=== PATIENT | female | born 1980 | race Caucasian/White ===

== ENCOUNTER 2024-07-16 19:18 | Inpatient (IN) | payer MEDICARE, MEDICAID, SELFPAY ==
[2024-07-16] VITALS (32 sets, daily range): BP systolic 93–126; BP diastolic 62–81; PULSE 22–126; TEMP 36.5–36.6; O2SAT 88–98; BMI 25.2
--- NOTE | 2024-07-16 19:38 | ECG_ITS ---
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
[2024-07-16] MEDS: IPRATROPIUM/ALBUTEROL SULFATE 3 ML AMPUL.NEB IH (20:03)
[2024-07-16 20:05] LABS: Mean Corpuscular HGB Conc 33.3 g/dL (29.9-35.2); Mean Corpuscular Hemoglobin 28.2 pg (26.7-34.0); Mean Corpuscular Volume 84.5 fL (81.0-99.0); Mean Platelet Volume 10.1 fL (9.5-13.5); Platelet Count 160 10^3/uL (150-450); Red Blood Count 4.26 10^6/uL (4.20-5.40); Red Cell Distribution Width 13.5 % (11.0-15.0)
--- NOTE | 2024-07-16 20:16 | ED.GENADUL1 ---
HPI HPI - General Adult General Chief complaint: Upper Respiratory Infection Stated complaint: FEVER, CP, DIFF BREATHING Time Seen by Provider: 07/16/24 19:25 Source: patient Mode of arrival: walk-in History of Present Illness HPI narrative: 43-year-old female presents to the emergency room chief complaint of fevers, chills, shortness of breath. Patient is hypoxic upon arrival here to the emergency room and dyspneic. 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 Any known history of any sick contacts. She is on disability due to her psoriatic arthritis. Patient appears uncomfortable. She is able to speak full sentences but is short of breath. Pulse ox upon arrival was at 89% on room air. She denies any recent hospitalizations or histories of pneumonia in the past. patient states symptoms began yesterday morning. Related Data Home Medications ?Medication ?Instructions ?Recorded ?Confirmed buprenorphine 64 mg/0.18 mL mg subcut 07/16/24 solution,exten.rel.subcutaneous syringe (Brixadi Monthly) clonazepam 0.5 mg tablet mg 07/16/24 dextroamphetamine-amphetamine ER PO 07/16/24 30 mg 24hr capsule,extend release gabapentin 800 mg tablet mg 07/16/24 quetiapine 300 mg tablet mg 07/16/24 secukinumab 150 mg/mL subcutaneous mg subcut 07/16/24 pen injector (Cosentyx Pen 300 mg/2 Pens () Allergies Allergy/AdvReac Type Severity Reaction Status Date / Time No Known Drug Allergies Allergy Verified 07/16/24 21:04 Opioid HPI Opioid Management Most Recent Opioid Data: No Data to Display Review of Systems ROS Narrative All Systems are negative except as noted/marked. PFSH PFSH Social History Little interest or pleasure in doing things: not at all Feeling down, depressed, or hopeless: not at all Exam Narrative Exam Narrative: Nurses note and vital signs reviewed and patient is hypoxic. General: The patient appears ill and with shortness of breath Skin: Warm, dry, no pallor noted. There is no rash noted. Head: Normocephalic, atraumatic Eye: Normal conjunctiva, no drainage, EOMI. PERRL Ears, Nose, Mouth, and Throat: oral mucosa is moist. Nares patent. Mouth without vesicles. Ear canals patent. Tm's without Erythema Cardiovascular: Regular Rate and Rhythm Respiratory: Patient is in mild distress, with accessory muscle use, lungs diminished with rhonci and rales throughout anterior and posterior lung muhammad Back: non-tender, no CVA tenderness bilaterally to percussion. GI: Normal bowel sounds, no tenderness to palpation, no masses appreciated. No rebound, guarding, or rigidity noted. Musculoskeletal: The patient has no evidence of calf tenderness, no pitting edema, symmetrical pulses noted bilaterally Neurological: A&O x4, normal speech Psychiatric: Cooperative Constitutional Vital Signs, click to edit/add: Last Vital Signs Temp 97.9 F 07/16/24 19:24 Pulse 120 H 07/16/24 22:26 Resp 26 H 07/16/24 22:26 BP 93/62 07/16/24 19:24 Pulse Ox 96 07/16/24 22:26 O2 Del Method Nonrebreather 07/16/24 22: O2 Flow Rate 15 07/16/24 22:26 Course Vital Signs Vital signs: Vital Signs Temperature 97.9 F 07/16/24 19:24 Pulse Rate 125 H 07/16/24 19:24 Respiratory Rate 18 07/16/24 19:24 Blood Pressure 93/62 07/16/24 19:24 Pulse Oximetry 90 L 07/16/24 19:24 Oxygen Delivery Method Room Air 07/16/24 19:24 Temperature 97.9 F 07/16/24 19:24 Pulse Rate 120 H 07/16/24 22:26 Respiratory Rate 26 H 07/16/24 22:26 Blood Pressure 93/62 07/16/24 19:24 Pulse Oximetry 96 07/16/24 22:26 Oxygen Delivery Method Nonrebreather 07/16/24 22:26 Oxygen Delivery Flow Rate 15 07/16/24 22:26 Medical Decision Making Differential Diagnosis Differential Diagnosis: pneumonia, hypoxia, covid, influenza Medical Records Medical records reviewed: Yes I reviewed the patient's medical records Medical records narrative: 43-year-old female presents to the emergency room chief complaint of fevers, chills, shortness of breath. Patient is hypoxic upon arrival here to the emergency room and dyspneic. 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 Any known history of any sick contacts. She is on disability due to her psoriatic arthritis. Patient appears uncomfortable. She is able to speak full sentences but is short of breath. Pulse ox upon arrival was at 89% on room air. She denies any recent hospitalizations or histories of pneumonia in the past. patient states symptoms began yesterday morning. Emergency room IV was established oxygen was placed and patient was given a breathing treatment. Lab work was ordered. Patient was working to breathe but she was able to speak full sentences she had wheezing rhonchi rales crackles the bases. Denies a known history of lung issues in the past. Once placed on oxygen her SpO2 did improve to 4 L. She did become more relaxed and was able to answer more for questions. Patient does have a significant history of psoriatic arthritis takes Cosentyx. Chest x-ray shows a complex pneumonia to the right middle lower and left lower lobes. She had not previously been on any antibiotics. She was started on IV Rocephin and Zithromax here. She was given a one-time dose of Solu-Medrol just and then increased wheezing that she was experiencing and muscle accessory muscle usage. Patient has improved since being here in the emergency room and is not working as hard to breathe oxygen saturation is 9394% on 4 L. She is able to lay back comfortably at this time. Heart rate has improved from the high 120s to 109 110. Her results and agrees with admission to the hospital. I spoke to nurse practitioner on-call Priya. Patient will be admitted to Dr. Barrientos. 2229 patient did become fatigued that she felt tired. Oxygen saturations were dropping between 87 to 89% on 5 L. Blood gas was drawn patient was placed on nonrebreather until respiratory therapy can come down to start a breathing treatments. Patient was given breathing treatment and does feel better. We are going to place to the ICU due to decreased saturations and placed on Vapotherm Lab Data Lab results reviewed: Yes I reviewed the patient's lab results Labs: Lab Results 07/16/24 07/16/24 Range/Units 19:30 19:55 WBC 4.0 (4.0-11.0) 10^3/uL RBC 4.26 (4.20-5.40) 10^6/uL Hgb 12.0 (12.0-16.0) g/dL Hct 36.0 (36.0-48.0) % MCV 84.5 (81.0-99.0) fL MCH 28.2 (26.7-34.0) pg MCHC 33.3 (29.9-35.2) g/dL RDW 13.5 (11.0-15.0) % Plt Count 160 (150-450) 10^3/uL MPV 10.1 (9.5-13.5) fL Seg Neuts % (Manual) 55.0 (43.0-75.0) Band Neutrophils % 19.0 H (0-5) % Lymphocytes % (Manual) 21.0 (20.5-60.0) % Monocytes % (Manual) 1.0 L (1.7-12.0) % Eosinophils % (Manual) 3.0 (0.9-7.0) % Basophils % (Manual) 0.0 L (0.2-2.0) % Neutrophils # (Manual) 2.20 (1.4-6.5) 10^3/uL Band Neutrophils # 0.8 H (0.0-0.3) 10^3/uL Lymphocytes # (Manual) 0.84 L (1.20-3.80) 10^3/uL Monocytes # (Manual) 0.04 L (0.30-0.80) 10^3/uL Eosinophils # (Manual) 0.12 (0.00-0.70) 10^3/uL Basophils # (Manual) 0.00 (0.00-0.10) 10^3/uL PT 14.0 H (9.0-11.6) sec INR 1.36 APTT 30.8 (22.3-36.2) sec Sodium 132 L (136-145) mmol/L Potassium 3.5 (3.5-5.1) mmol/L Chloride 99 (98-107) mmol/L Carbon Dioxide 25.7 (21.0-32.0) mmol/L Anion Gap 10.8 BUN 30.0 H (7.0-18.0) mg/dL Creatinine 1.69 H (0.55-1.02) mg/dL Est GFR ( Amer) 40 L (>=60 mL/min/1.73m^2) Est GFR (Non-Af Amer) 33 L (>=60 mL/min/1.73m^2) BUN/Creatinine Ratio 17.8 Glucose 113 H (74-106) mg/dL Lactate 3.0 H* (0.4-2.0) mmol/L Calcium 8.3 L (8.5-10.1) mg/dL Total Bilirubin 0.6 (0.2-1.0) mg/dL AST 49 H (15-37) U/L ALT 92 H (14-59) U/L Alkaline Phosphatase 187 H (46-116) U/L Troponin I High Sens 4.0 (4.0-51.3) pg/mL Total Protein 6.4 (6.4-8.2) g/dL Albumin 2.6 L (3.4-5.0) g/dL Globulin 3.8 g/dL Albumin/Globulin Ratio 0.7 Monoscreen Negative (NEGATIVE) Influenza Type A Ag Negative Influenza Type B Ag Negative SARS-CoV-2 Ag (CV2AG) Negative (NEGATIVE) Imaging Data Chest x-ray: Attestation: I have reviewed the pertinent imaging results. My impression: Multiple lobular pneumonia ECG Data Attestation: ?I have reviewed the pertinent ECG results. Interpretation: 2006 sinus tachycardia with rate of 120, VA interval 130ms, QRS duration of 86ms, no ST elevation or depression, no STEMI Discharge Plan Discharge Chief Complaint: Upper Respiratory Infection Clinical Impression: Pneumonia, Hypoxia, Acute hyponatremia Patient Disposition: Admitted As Inpatient Time of Disposition Decision: 21:52 Condition: Fair
[2024-07-16 20:22] LABS: INR 1.36; Partial Thromboplastin Time 30.8 sec (22.3-36.2)
[2024-07-16 20:26] LABS: Alanine Aminotransferase 92 U/L (14-59); Albumin Globulin Ratio 0.7; Albumin Level 2.6 g/dL (3.4-5.0); Alkaline Phosphatase 187 U/L (46-116); Anion Gap 10.8; Aspartate Amino Transferase 49 U/L (15-37); BUN Creatinine Ratio 17.8; Bilirubin Total 0.6 mg/dL (0.2-1.0); Calcium 8.3 mg/dL (8.5-10.1); Carbon Dioxide 25.7 mmol/L (21.0-32.0); Chloride 99 mmol/L (98-107); Estimated GFR (African America 40 (>=60 mL/min/1.73m^2); Estimated GFR (Non-African Ame 33 (>=60 mL/min/1.73m^2); Globulin 3.8 g/dL; Glucose 113 mg/dL (74-106); Potassium 3.5 mmol/L (3.5-5.1); Sodium 132 mmol/L (136-145); Total Protein 6.4 g/dL (6.4-8.2)
[2024-07-16 20:50] LABS: Internal Control Within Normal Limits; Mono Screen NEGATIVE (NEGATIVE)
[2024-07-16] MEDS: METHYLPREDNISOLONE SOD SUCC PF 125 MG/2 ML VIAL IVP (20:56)
[2024-07-16] MEDS: 0.9 % SODIUM CHLORIDE 1,000 ML 1000 ML IV ×2 (20:56→23:44)
[2024-07-16] MEDS: CEFTRIAXONE 1,000 MG in 0.9 % SODIUM CHLORIDE 50 ML 100 MG IV (20:56)
[2024-07-16] MEDS: AZITHROMYCIN 500 MG in 0.9 % SODIUM CHLORIDE 250 ML 250 MG IV (20:57)
[2024-07-16 21:07] LABS: Eosinophils Absolute Manual 0.12 10^3/uL (0.00-0.70); Lymphocytes Absolute Manual 0.84 10^3/uL (1.20-3.80); Monocytes Absolute Manual 0.04 10^3/uL (0.30-0.80)
[2024-07-16 21:08] LABS: Band Neutrophils Absolute 0.8 10^3/uL (0.0-0.3)
[2024-07-16 21:29] LABS: Influenza Virus A Antigen Negative; Influenza Virus B Antigen Negative; Internal Control Within Normal Limits
[2024-07-16 21:32] LABS: Internal Control Within Normal Limits; SARS-CoV-2 Ag NEGATIVE (NEGATIVE)
[2024-07-16] MEDS: ALBUTEROL SULFATE 2.5 MG/3 ML VIAL NEB IH (22:26)
[2024-07-16 22:37] LABS: ABG PCO2 36.5 mmHg (35.0-45.0); Allen Test POSITIVE (POSITIVE); Base Excess ABG -6.1 mmol/L (-2.0-2.0); HCO3 ABG 19.7 mmol/L (22.0-26.0); Oxygen Saturation ABG 87.5 %; pH ABG 7.339 (7.350-7.450)
[2024-07-16 22:38] LABS: Liters per Minute 5; O2 Mode NASAL CANNULA; Puncture Site R RADIAL
[2024-07-16 22:40] LABS: PO2 ABG 52.4 mmHg (80.0-100.0)
[2024-07-16 23:33] LABS: Lactate/Lactic Acid 5.1 mmol/L (0.4-2.0)
[2024-07-17] VITALS (112 sets, daily range): BP systolic 88–157; BP diastolic 60–79; PULSE 95–130; TEMP 36.5–36.8; O2SAT 66–99; BMI 25.2
--- NOTE | 2024-07-17 00:20 | RESP.RT ---
Pt was brought up from the ER on a 100% nonrebreather mask. RT placed pt on Vapotherm 40L Fi02 40% after arrival to the ICU. Sp02 96%.
[2024-07-17] MEDS: 0.9 % SODIUM CHLORIDE 1,000 ML 125 ML IV ×2 (02:14→09:29)
[2024-07-17] MEDS: GABAPENTIN 400 MG CAPSULE 800 MG PO ×4 (02:53→21:30)
[2024-07-17] MEDS: CLONAZEPAM 0.5 MG TABLET PO ×3 (02:53→21:30)
[2024-07-17] MEDS: QUETIAPINE FUMARATE 100 MG TABLET 300 MG PO ×2 (02:54→21:30)
[2024-07-17] MEDS: IPRATROPIUM/ALBUTEROL SULFATE 3 ML AMPUL.NEB IH ×4 (03:41→22:17)
[2024-07-17 05:49] LABS: PCO2 VBG 42.4 mmHg (40.0-52.0); pH VBG 7.277 (7.330-7.430)
[2024-07-17 05:50] LABS: Hematocrit 32.8 % (36.0-48.0); Hemoglobin 10.8 g/dL (12.0-16.0); Mean Corpuscular HGB Conc 32.9 g/dL (29.9-35.2); Mean Corpuscular Hemoglobin 28.1 pg (26.7-34.0); Mean Corpuscular Volume 85.4 fL (81.0-99.0); Mean Platelet Volume 10.1 fL (9.5-13.5); Platelet Count 165 10^3/uL (150-450); Red Blood Count 3.84 10^6/uL (4.20-5.40); Red Cell Distribution Width 13.8 % (11.0-15.0); White Blood Count 8.3 10^3/uL (4.0-11.0)
[2024-07-17 06:02] LABS: Magnesium 1.9 mg/dL (1.8-2.4)
[2024-07-17 06:07] LABS: Alanine Aminotransferase 71 U/L (14-59); Albumin Globulin Ratio 0.6; Albumin Level 2.3 g/dL (3.4-5.0); Alkaline Phosphatase 150 U/L (46-116); Anion Gap 17.6; Aspartate Amino Transferase 40 U/L (15-37); Bilirubin Direct 0.1 mg/dL (0.0-0.2); Bilirubin Total 0.3 mg/dL (0.2-1.0); Carbon Dioxide 20.5 mmol/L (21.0-32.0); Chloride 105 mmol/L (98-107); Estimated GFR (African America 49 (>=60 mL/min/1.73m^2); Estimated GFR (Non-African Ame 40 (>=60 mL/min/1.73m^2); Globulin 3.6 g/dL; Glucose 216 mg/dL (74-106); Potassium 4.1 mmol/L (3.5-5.1); Sodium 139 mmol/L (136-145); Total Protein 5.9 g/dL (6.4-8.2)
[2024-07-17 07:00] LABS: Band Neutrophils Absolute 0.5 10^3/uL (0.0-0.3); Lymphocytes Absolute Manual 0.49 10^3/uL (1.20-3.80); Monocytes Absolute Manual 0.33 10^3/uL (0.30-0.80); Segmented Neut Absolute Manual 6.97 10^3/uL (1.4-6.5)
--- NOTE | 2024-07-17 10:12 | PM.HP ---
HPI H&P: HPI History of Present Illness Chief complaint: pneumonia hypoxia hyponatremia Narrative: 43-year-old female with past medical history of psoriasis presented to ED with worsening shortness of breath, productive cough along with fevers and chills. Patient reports that her symptoms have been going on for past 1 week. She was hoping that she would get better but finally decided to come to ED when she could not catch her breath. In ER, she was found to have sepsis secondary to multifocal pneumonia and respiratory failure with hypoxia with PaO2 of only 52 while on 5 L of oxygen, with noticeably increased work of breathing/tachypnea and labored breathing. Patient was placed on high flow oxygen and admitted to ICU. Patient was started on IV Rocephin and azithromycin for treatment of community-acquired pneumonia. Patient was seen earlier today. She was still on high flow oxygen and was comfortably sleeping. She looked out of breath during conversation and is still short of breath at rest but overall feels better compared to admission. Patient denies prior history of chronic lung disease. She had no recent hospital admissions and her last admission was about a year ago for UTI. Patient has immunocompromise status due to current use of secukinumab for psoriasis. Opioid HPI Opioid Management Most Recent Pain and Opioid Data: Last Pain Assessment 07/17/24 10:00 Last ORT Total Score 1 07/17/24 01:19 07/17/24 Last ORT Risk Category Low Risk 07/17/24 01:19 07/17/24 Review of Systems ROS Status of ROS 10 or more systems reviewed and unremarkable except as noted in history and below [facility] Medical History (Updated 07/17/24 @ 10:18 by Shaikh Joy MD) Psoriasis ?L40.9 - Psoriasis, unspecified (ICD-10) Immunocompromised patient ?D84.9 - Immunodeficiency, unspecified (ICD-10) Social History Little interest or pleasure in doing things: not at all Feeling down, depressed, or hopeless: not at all Meds Home Medications and Allergies Home Medications ?Medication ?Instructions ?Recorded ?Confirmed ?Type buprenorphine 64 mg/0.18 mL 64 mg subcut Q28D 07/16/24 07/16/24 History solution,exten.rel.subcutaneous syringe (Brixadi Monthly) clonazepam 0.5 mg tablet 0.5 mg PO TID 07/16/24 07/16/24 History dextroamphetamine-amphetamine ER 30 mg PO DAILY 07/16/24 07/16/24 History 30 mg 24hr capsule,extend release gabapentin 800 mg tablet 800 mg PO TID 07/16/24 07/16/24 History quetiapine 300 mg tablet 300 mg PO .hs 07/16/24 07/17/24 History secukinumab 150 mg/mL subcutaneous 300 mg subcut DAILY 07/16/24 07/16/24 History pen injector (Cosentyx Pen 300 mg/2 Pens () Allergies Allergy/AdvReac Type Severity Reaction Status Date / Time No Known Drug Allergies Allergy Verified 07/16/24 21:04 Exam Constitutional Vital Signs, click to edit/add: Last Vital Signs Temp 97.7 F 07/17/24 08:00 Pulse 111 H 07/17/24 10:00 Resp 20 07/17/24 10:07 BP 110/79 07/17/24 08:00 Pulse Ox 95 07/17/24 10:07 O2 Del Method Nasal Cannula 07/17/24 10:07 O2 Flow Rate 2 07/17/24 10:07 FiO2 40 07/17/24 03:52 Documenting provider has reviewed patient's vital signs: yes Common normals: oriented x3 General appearance: cooperative HENMT Common normals: normocephalic and head/scalp atraumatic Head and scalp: normocephalic and atraumatic Respiratory Common normals: normal respiratory effort Effort & inspection: tachypneic Auscultation: diminished lung sounds Other: Coarse breath sounds. No wheezing. Conversational dyspnea noted. Cardio Common normals: regular rate, S1 normal heart sound and S2 normal heart sound Rate: tachycardic Heart sounds: S1 normal and S2 normal GI Common normals: Normal to inspection, nondistended, normoactive bowel sounds present, soft to palpation, non-tender and no hepatosplenomegaly Palpation: soft and no hepatosplenomegaly Extremity Common normals: no clubbing, cyanosis or edema Neuro Common normals: oriented x3, moves all extremities and no focal motor deficits Psych Common normals: mental status grossly normal, denies hallucinations, denies homicidal ideation and denies suicidal ideation Results Labs Labs: Short CBC 07/16/24 07/17/24 Range/Units 19:55 05:40 WBC 4.0 8.3 (4.0-11.0) 10^3/uL Hgb 12.0 10.8 L (12.0-16.0) g/dL Hct 36.0 32.8 L (36.0-48.0) % Plt Count 160 165 (150-450) 10^3/uL BMP 07/16/24 07/17/24 19:55 05:40 Sodium 132 L 139 Potassium 3.5 4.1 Chloride 99 105 Carbon Dioxide 25.7 20.5 L BUN 30.0 H 20.0 H Creatinine 1.69 H 1.43 H Glucose 113 H 216 H Calcium 8.3 L 8.0 L Liver Function 07/16/24 07/17/24 Range/Units 19:55 05:40 Total Bilirubin 0.6 0.3 (0.2-1.0) mg/dL Direct Bilirubin 0.1 (0.0-0.2) mg/dL AST 49 H 40 H (15-37) U/L ALT 92 H 71 H (14-59) U/L Alkaline Phosphatase 187 H 150 H (46-116) U/L Albumin 2.6 L 2.3 L (3.4-5.0) g/dL ABG ABG results: 07/16/24 07/17/24 22:20 05:40 ABG pH 7.339 L ABG pCO2 36.5 ABG pO2 52.4 L* ABG HCO3 19.7 L ABG O2 Saturation 87.5 ABG Base Excess -6.1 L VBG pH 7.277 L VBG pCO2 42.4 Assessment and Plan Assessment and Plan (1) Sepsis: Assessment and Plan: SIRS criteria (HR> 90, RR>20) Qsofa (RR> 20, SBP less than 90) Meets sepsis criteria secondary to multifocal pneumonia. Patient has evidence of respiratory failure with hyper along with acute kidney injury. Continue with IV hydration. Follow-up blood and sputum cultures. On IV Rocephin and azithromycin. Continue with same Qualifiers: Sepsis type: sepsis due to unspecified organism Sepsis acute organ dysfunction status: with acute organ dysfunction Severe sepsis acute organ dysfunction type: acute renal failure Acute renal failure type: unspecified Severe sepsis shock status: without septic shock Qualified Code(s): A41.9 - Sepsis, unspecified organism; R65.20 - Severe sepsis without septic shock; N17.9 - Acute kidney failure, unspecified (2) Multifocal pneumonia: Assessment and Plan: Multifocal pneumonia on chest x-ray. Negative influenza and COVID. On IV Rocephin and azithromycin. Follow-up sputum and blood culture. PSI score (103, risk class V) Based on patient's current presentation, she has 8 to 9% risk of mortality if not hospitalized for inpatient treatment of pneumonia. (3) Respiratory failure with hypoxia: Assessment and Plan: Patient presented with respiratory distress/labored breathing and hypoxia. She has improved overnight with improvement in her work of breathing but is still hypoxic and visibly short of breath at rest. Wean off oxygen as tolerated. Continue with DuoNebs every 6 hours as needed. Treat underlying pneumonia. Qualifiers: Chronicity: acute Qualified Code(s): J96.01 - Acute respiratory failure with hypoxia (4) Hypotension due to hypovolemia: Assessment and Plan: Blood pressure improved after overnight IV hydration. Continue with fluid. (5) DANDRE (acute kidney injury): Assessment and Plan: Normal renal function at baseline. Presented with creatinine of 1.6. Likely prerenal and mild improvement with overnight hydration. Continue fluids (6) Lactic acid acidosis: Assessment and Plan: Due to sepsis and hypoxia treated with IV fluids (7) Hyponatremia: Assessment and Plan: Secondary to dehydration/pneumonia. Resolved. Continue with IV fluids (8) Immunocompromised patient: Assessment and Plan: Immunocompromise due to current use of Cosentyx. At high risk of poor outcome/prognosis and severe illness and will need close inpatient monitoring, treatment. (9) Psoriasis: Assessment and Plan: Currently on Cosentyx.
[2024-07-17] MEDS: HEPARIN SODIUM (PORCINE) 5,000 UNIT/ML VIAL 5000 UNIT SUBQ ×2 (11:20→21:31)
[2024-07-17] MEDS: AZITHROMYCIN 500 MG in 0.9 % SODIUM CHLORIDE 250 ML 250 MG IV (20:31)
[2024-07-17] MEDS: CEFTRIAXONE 1,000 MG in 0.9 % SODIUM CHLORIDE 50 ML 100 MG IV (21:39)
[2024-07-18] VITALS (24 sets, daily range): BP systolic 110–131; BP diastolic 72–91; PULSE 92–121; TEMP 36.6–37.3; O2SAT 83–96
[2024-07-18 01:49] LABS: A. calcoaceticus-baumannii Cpx NOT DETECTED (NOT DETECTE); Bacteroides fragilis NOT DETECTED (NOT DETECTE); Candida albicans NOT DETECTED (NOT DETECTE); Candida auris NOT DETECTED (NOT DETECTE); Candida glabrata NOT DETECTED (NOT DETECTE); Candida krusei NOT DETECTED (NOT DETECTE); Candida parapsilosis NOT DETECTED (NOT DETECTE); Candida tropicalis NOT DETECTED (NOT DETECTE); Cryptococcus neoformans/gattii NOT DETECTED (NOT DETECTE); Enterobacter cloacae complex NOT DETECTED (NOT DETECTE); Enterobacterales NOT DETECTED (NOT DETECTE); Enterococcus faecalis NOT DETECTED (NOT DETECTE); Enterococcus faecium NOT DETECTED (NOT DETECTE); Haemophilus influenzae NOT DETECTED (NOT DETECTE); Klebsiella aerogenes NOT DETECTED (NOT DETECTE); Klebsiella pneumoniae group NOT DETECTED (NOT DETECTE); Listeria monocytogenes NOT DETECTED (NOT DETECTE); Neisseria meningitidis NOT DETECTED (NOT DETECTE); Proteus spp. NOT DETECTED (NOT DETECTE); Pseudomonas aeruginosa NOT DETECTED (NOT DETECTE); Salmonella spp. NOT DETECTED (NOT DETECTE); Serratia marcescens NOT DETECTED (NOT DETECTE); Staphylococcus epidermidis NOT DETECTED (NOT DETECTE); Staphylococcus lugdunensis NOT DETECTED (NOT DETECTE); Stenotrophomonas maltophilia NOT DETECTED (NOT DETECTE); Streptococcus agalactiae NOT DETECTED (NOT DETECTE); Streptococcus pneumoniae NOT DETECTED (NOT DETECTE); Streptococcus pyogenes NOT DETECTED (NOT DETECTE); Streptococcus spp. NOT DETECTED (NOT DETECTE)
[2024-07-18 03:18] LABS: Source BLOOD; Staphylococcus spp. DETECTED (NOT DETECTE)
[2024-07-18] MEDS: IPRATROPIUM/ALBUTEROL SULFATE 3 ML AMPUL.NEB IH ×4 (04:54→22:06)
[2024-07-18] MEDS: GABAPENTIN 400 MG CAPSULE 800 MG PO ×3 (06:01→21:38)
[2024-07-18] MEDS: CLONAZEPAM 0.5 MG TABLET PO ×3 (06:01→21:38)
--- NOTE | 2024-07-18 07:42 | PM.PN ---
Progress Note: Subjective Subjective Interval history: Patient is sitting up in bed, overall she feels much improved. She reports improved shortness of breath, at the current time is not requiring oxygen. She was placed back on 2L last night but removed this morning. She denies fevers or chills. Exam Narrative Exam Narrative: General: Patient is alert, and oriented to person, place and time with normal affect, proper hygiene Skin: no visible rashes, or ulcers Head: atraumatic, acephalic Heart: Normal rate and rhythm, no murmurs/rubs/gallops Lungs: no audible wheezes, crackles and normal breath sounds all lung muhammad Abdomen: Normal audible bowel sounds, no distension, No palpable masses, no organomegaly, no rebound/guarding/ or rigidity Musculoskeletal: no swelling bilateral lower extremities Neuro: CN II-X grossly intact Constitutional Vital Signs, click to edit/add: Last Vital Signs Temp 97.8 F 07/18/24 04:00 Pulse 105 H 07/18/24 06:00 Resp 24 H 07/18/24 04:54 BP 110/72 07/18/24 04:00 Pulse Ox 91 L 07/18/24 06:00 O2 Del Method Nasal Cannula 07/18/24 04:54 O2 Flow Rate 2 07/18/24 04:54 FiO2 40 07/17/24 03:52 Progress Note: A&P Assessment and Plan (1) Sepsis: Assessment and Plan: SIRS criteria (HR> 90, RR>20) Qsofa (RR> 20, SBP less than 90) Meets sepsis criteria secondary to multifocal pneumonia. Patient has evidence of respiratory failure with hyper along with acute kidney injury. Continue with IV hydration. Follow-up blood and sputum cultures. On IV Rocephin and azithromycin. Continue with same, sepsis has resolved. Qualifiers: Acute renal failure type: unspecified Sepsis acute organ dysfunction status: with acute organ dysfunction Sepsis type: sepsis due to unspecified organism Severe sepsis acute organ dysfunction type: acute renal failure Severe sepsis shock status: without septic shock Qualified Code(s): A41.9 - Sepsis, unspecified organism; R65.20 - Severe sepsis without septic shock; N17.9 - Acute kidney failure, unspecified (2) Multifocal pneumonia: Assessment and Plan: Multifocal pneumonia on chest x-ray. Negative influenza and COVID. On IV Rocephin and azithromycin. Follow-up sputum and blood culture. (3) Respiratory failure with hypoxia: Assessment and Plan: improving, continue OPEP and nebs Qualifiers: Chronicity: acute Qualified Code(s): J96.01 - Acute respiratory failure with hypoxia (4) Hypotension due to hypovolemia: Assessment and Plan: improved with IVF (5) DANDRE (acute kidney injury): Assessment and Plan: cr 1.43 improved with IVF (6) Lactic acid acidosis: Assessment and Plan: normal range today (7) Hyponatremia: Assessment and Plan: resolved (8) Immunocompromised patient: (9) Psoriasis: Assessment and Plan: continue home meds Plan patient is a full code continue heparin for dvt prophylaxis hopeful discharge home tomorrow
[2024-07-18 08:02] LABS: Basophils Percent Auto 0.3 % (0.2-2.0); Eosinophils Absolute Auto 0.1 10^3/uL (0.0-0.7); Eosinophils Percent Auto 0.3 % (0.9-7.0); Hemoglobin 9.5 g/dL (12.0-16.0); Immature Granulocytes Abs Auto 0.47 10^3/uL (0.00-0.03); Immature Granulocytes Pct Auto 3.1 % (0.0-0.5); Lymphocytes Absolute Auto 1.1 10^3/uL (1.2-3.8); Lymphocytes Percent Auto 7.2 % (20.5-60.0); Mean Corpuscular HGB Conc 33.9 g/dL (29.9-35.2); Mean Corpuscular Hemoglobin 27.8 pg (26.7-34.0); Mean Corpuscular Volume 81.9 fL (81.0-99.0); Mean Platelet Volume 10.4 fL (9.5-13.5); Monocytes Absolute Auto 0.3 10^3/uL (0.3-0.8); Monocytes Percent Auto 1.7 % (1.7-12.0); Neutrophils Percent Auto 87.4 % (43.0-75.0); Platelet Count 185 10^3/uL (150-450); Red Blood Count 3.42 10^6/uL (4.20-5.40); Red Cell Distribution Width 13.7 % (11.0-15.0); White Blood Count 14.9 10^3/uL (4.0-11.0)
[2024-07-18 08:15] LABS: Alanine Aminotransferase 53 U/L (14-59); Albumin Globulin Ratio 0.5; Alkaline Phosphatase 118 U/L (46-116); Anion Gap 13.6; Aspartate Amino Transferase 28 U/L (15-37); BUN Creatinine Ratio 18.1; Bilirubin Total 0.2 mg/dL (0.2-1.0); Calcium 8.6 mg/dL (8.5-10.1); Carbon Dioxide 23.1 mmol/L (21.0-32.0); Chloride 108 mmol/L (98-107); Estimated GFR (African America >60 (>=60 mL/min/1.73m^2); Estimated GFR (Non-African Ame >60 (>=60 mL/min/1.73m^2); Globulin 3.7 g/dL; Glucose 148 mg/dL (74-106); Magnesium 1.9 mg/dL (1.8-2.4); Potassium 3.7 mmol/L (3.5-5.1); Sodium 141 mmol/L (136-145); Total Protein 5.7 g/dL (6.4-8.2)
[2024-07-18] MEDS: HEPARIN SODIUM (PORCINE) 5,000 UNIT/ML VIAL 5000 UNIT SUBQ ×2 (08:23→21:39)
--- NOTE | 2024-07-18 11:33 | CM.NOTE ---
Rounds made with Dr. Calderon, pt on RA this AM. Dr. Calderon encouraged pt to be up moving today. Possible discharge tomorrow if pt tolerates being off oxygen.
--- NOTE | 2024-07-18 14:10 | CM.NOTE ---
Important Message From [employer] discussed with pt, pt verbalizes understanding and signs paper. Original given to pt and copy placed in pt's chart.
[2024-07-18] MEDS: AZITHROMYCIN 500 MG in 0.9 % SODIUM CHLORIDE 250 ML 250 MG IV (20:45)
[2024-07-18] MEDS: QUETIAPINE FUMARATE 100 MG TABLET 300 MG PO (21:38)
[2024-07-18] MEDS: CEFTRIAXONE 1,000 MG in 0.9 % SODIUM CHLORIDE 50 ML 100 MG IV (22:20)
[2024-07-19] VITALS (18 sets, daily range): BP systolic 108–126; BP diastolic 70–74; PULSE 89–114; TEMP 36.6–37.8; O2SAT 86–96
[2024-07-19] MEDS: IPRATROPIUM/ALBUTEROL SULFATE 3 ML AMPUL.NEB IH ×4 (04:39→22:42)
[2024-07-19] MEDS: GABAPENTIN 400 MG CAPSULE 800 MG PO ×3 (05:09→21:38)
[2024-07-19] MEDS: CLONAZEPAM 0.5 MG TABLET PO ×3 (05:09→21:38)
[2024-07-19 05:34] LABS: Basophils Percent Auto 0.3 % (0.2-2.0); Eosinophils Absolute Auto 0.1 10^3/uL (0.0-0.7); Eosinophils Percent Auto 0.6 % (0.9-7.0); Hematocrit 30.4 % (36.0-48.0); Hemoglobin 10.4 g/dL (12.0-16.0); Immature Granulocytes Abs Auto 1.04 10^3/uL (0.00-0.03); Immature Granulocytes Pct Auto 7.4 % (0.0-0.5); Lymphocytes Absolute Auto 2.9 10^3/uL (1.2-3.8); Lymphocytes Percent Auto 20.7 % (20.5-60.0); Mean Corpuscular HGB Conc 34.2 g/dL (29.9-35.2); Mean Corpuscular Hemoglobin 27.8 pg (26.7-34.0); Mean Corpuscular Volume 81.3 fL (81.0-99.0); Mean Platelet Volume 10.1 fL (9.5-13.5); Monocytes Absolute Auto 0.4 10^3/uL (0.3-0.8); Monocytes Percent Auto 2.9 % (1.7-12.0); Neutrophils Absolute Auto 9.6 10^3/uL (1.4-6.5); Neutrophils Percent Auto 68.1 % (43.0-75.0); Platelet Count 240 10^3/uL (150-450); Red Blood Count 3.74 10^6/uL (4.20-5.40); Red Cell Distribution Width 14.1 % (11.0-15.0)
[2024-07-19 05:51] LABS: Alanine Aminotransferase 47 U/L (14-59); Albumin Globulin Ratio 0.5; Albumin Level 1.9 g/dL (3.4-5.0); Alkaline Phosphatase 108 U/L (46-116); Anion Gap 12.9; Aspartate Amino Transferase 27 U/L (15-37); BUN Creatinine Ratio 19.6; Bilirubin Total 0.3 mg/dL (0.2-1.0); Calcium 8.9 mg/dL (8.5-10.1); Carbon Dioxide 24.5 mmol/L (21.0-32.0); Chloride 105 mmol/L (98-107); Estimated GFR (African America >60 (>=60 mL/min/1.73m^2); Estimated GFR (Non-African Ame 56 (>=60 mL/min/1.73m^2); Globulin 3.9 g/dL; Glucose 81 mg/dL (74-106); Potassium 3.4 mmol/L (3.5-5.1); Sodium 139 mmol/L (136-145); Total Protein 5.8 g/dL (6.4-8.2)
--- NOTE | 2024-07-19 08:16 | PM.PN ---
Progress Note: Subjective Subjective Interval history: Patient required 2 L NC last night and was increased to 3L this morning for oxygen saturations in the 80's. She is coughing more but no productive sputum. She started having chills again last night. No documented fever. I discussed with patient that given her worsening condition I will order CTA of the chest and also get Dr. Cormier, pulmonology on board. She is in agreement to this plan. Exam Narrative Exam Narrative: General: Patient is alert, and oriented to person, place and time with normal affect, proper hygiene, more conversational dyspnea today Skin: no visible rashes, or ulcers Head: atraumatic, acephalic Eyes: PERRLA, no nystagmus present, conjunctiva clear, no scleral icterus Ears: normal gross auditory acuity Heart: Normal rate and rhythm, no murmurs/rubs/gallops Lungs: audible wheezes all lung muhammad Abdomen: Normal audible bowel sounds, no distension, No palpable masses, no organomegaly, no rebound/guarding/ or rigidity Musculoskeletal:no swelling bilateral lower extremities Neuro: CN II-X grossly intact Constitutional Vital Signs, click to edit/add: Last Vital Signs Temp 98.7 F 07/19/24 07:47 Pulse 89 07/19/24 07:47 Resp 20 07/19/24 07:47 BP 110/74 07/19/24 07:47 Pulse Ox 96 07/19/24 07:47 O2 Del Method Nasal Cannula 07/19/24 07:47 O2 Flow Rate 3 07/19/24 07:47 FiO2 40 07/17/24 03:52 Progress Note: Objective Labs Labs: Short CBC 07/19/24 Range/Units 05:02 WBC 14.0 H (4.0-11.0) 10^3/uL Hgb 10.4 L (12.0-16.0) g/dL Hct 30.4 L (36.0-48.0) % Plt Count 240 (150-450) 10^3/uL BMP 07/18/24 07/19/24 07:55 05:02 Sodium 141 139 Potassium 3.7 3.4 L Chloride 108 H 105 Carbon Dioxide 23.1 24.5 BUN 17.0 21.0 H Creatinine 0.94 1.07 H Glucose 148 H 81 Calcium 8.6 8.9 Liver Function 07/18/24 07/19/24 Range/Units 07:55 05:02 Total Bilirubin 0.2 0.3 (0.2-1.0) mg/dL AST 28 27 (15-37) U/L ALT 53 47 (14-59) U/L Alkaline Phosphatase 118 H 108 (46-116) U/L Albumin 2.0 L 1.9 L (3.4-5.0) g/dL Progress Note: A&P Assessment and Plan (1) Sepsis: Assessment and Plan: due to multifocal pneumonia. sepsis has resolved. Qualifiers: Acute renal failure type: unspecified Sepsis acute organ dysfunction status: with acute organ dysfunction Sepsis type: sepsis due to unspecified organism Severe sepsis acute organ dysfunction type: acute renal failure Severe sepsis shock status: without septic shock Qualified Code(s): A41.9 - Sepsis, unspecified organism; R65.20 - Severe sepsis without septic shock; N17.9 - Acute kidney failure, unspecified (2) Multifocal pneumonia: Assessment and Plan: Check CTA of the chest today. No acute PE's but bilateral pneumonia still present, I was going to broaden antibiotic coverage, but Dr. Cormier started Zosyn, Vanc in addition to the Levaquin. Also started antifugal given patient's immunocompromised status. Respiratory panel pending. (3) Respiratory failure with hypoxia: Assessment and Plan: secondary to #2, no acute PE Qualifiers: Chronicity: acute Qualified Code(s): J96.01 - Acute respiratory failure with hypoxia (4) Hypotension due to hypovolemia: Assessment and Plan: improving. (5) DANDRE (acute kidney injury): Assessment and Plan: Cr 1.07, resolved with IVF (6) Lactic acid acidosis: Assessment and Plan: resolved with IVF, antibiotics (7) Hyponatremia: Assessment and Plan: resolved (8) Immunocompromised patient: Assessment and Plan: broaden antibiotic coverage, awaiting cultures (9) Psoriasis: Plan patient is a full code continue heparin for dvt prophylaxis Given acute decompensation and the need for further oxygen, will require further hospital necessary treatment.
[2024-07-19] MEDS: HEPARIN SODIUM (PORCINE) 5,000 UNIT/ML VIAL 5000 UNIT SUBQ ×2 (08:50→21:38)
[2024-07-19] MEDS: GUAIFENESIN DM 600-30 MG 12 HR TAB 1 TAB PO (08:50)
--- NOTE | 2024-07-19 09:15 | CM.NOTE ---
Rounds made with Dr. Calderon, pt has increased SOB and requiring oxygen @3L NC. Dr. Calderon discussed with pt about having chest CT today and consult with Dr. Cormier.
[2024-07-19 13:20] LABS: Adenovirus NOT DETECTED (NOT DETECTE); Bordetella parapertussis NOT DETECTED (NOT DETECTE); Coronavirus 229E NOT DETECTED (NOT DETECTE); Coronavirus HKU1 NOT DETECTED (NOT DETECTE); Coronavirus NL63 NOT DETECTED (NOT DETECTE); Coronavirus OC43 NOT DETECTED (NOT DETECTE); Human Metapneumovirus NOT DETECTED (NOT DETECTE); Influenza A NOT DETECTED (NOT DETECTE); Influenza B NOT DETECTED (NOT DETECTE); Mycoplasma pneumoniae NOT DETECTED (NOT DETECTE); Parainfluenza Virus 1 NOT DETECTED (NOT DETECTE); Parainfluenza Virus 2 NOT DETECTED (NOT DETECTE); Parainfluenza Virus 3 NOT DETECTED (NOT DETECTE); Parainfluenza Virus 4 NOT DETECTED (NOT DETECTE); Respiratory Syncytial Virus NOT DETECTED (NOT DETECTE); SARS-CoV-2 NOT DETECTED (NOT DETECTE)
--- NOTE | 2024-07-19 14:10 | P.PLCN_ITS ---
History of Present Illness History of Present Illness Consult date: 07/19/24 Requesting physician: Doreen Calderon Reason for consult: pneumonia Chief complaint: pneumonia hypoxia hyponatremia Narrative: 43yo female initially presented to [facility] with dyspnea. She has a long history of psoriatic arthritis and has been on biologics for the past 20+. She is managed by [facility] rheumatology. Most recently, she was on Taltz (Ixekizumab, targets IL-17) up until 6 months ago, when she was changed to Cosentyx (Secukinumab, another IL-17 targeted antibody). Her last Cosentyx was ~1 month ag0 - she is currently due for her next Cosentyx dose. This past (07/14/2024), she had a fever and chills/rigors, and developed dyspnea the next day. Her breathing worsened, and she noted her SBP at home was in the 90's (she typically is in the 130's). She came to [facility] for evaluation. CXR showed multifocal pneumonia. She was started on Rocephin and Zithromax. Breathing improved, but it then began worsening again yesterday. She required supplemental O2 again and is at the point today she is requiring 3L/min O2. She now has a cough, but has difficulty expectorating despite using a PEP. She feels more weak, fatigued. Denies any current fevers. A CTA chest was done today - I personally reviewed the imaging: There are no pulmonary emboli, diffuse bilateral infiltrates in all lung muhammad, and small bilateral effusions, R > L. She has no history of asthma and is a lifelong non-smoker. She states she has not had any severe infections in the past while on biologics. Review of Systems ROS Status of ROS 10 or more systems reviewed and unremark able except as noted in history and below [facility] Medical History (Updated 07/17/24 @ 10:18 by Shaikh Joy MD) Psoriasis ?L40.9 - Psoriasis, unspecified (ICD-10) Immunocompromised patient ?D84.9 - Immunodeficiency, unspecified (ICD-10) Social History Little interest or pleasure in doing things: not at all Feeling down, depressed, or hopeless: not at all Meds Home Medications and Allergies Home Medications ?Medication ?Instructions ?Recorded ?Confirmed ?Type buprenorphine 64 mg/0.18 mL 64 mg subcut Q28D 07/16/24 07/16/24 History solution,exten.rel.subcutaneous syringe (Brixadi Monthly) clonazepam 0.5 mg tablet 0.5 mg PO TID 07/16/24 07/16/24 History dextroamphetamine-amphetamine ER 30 mg PO DAILY 07/16/24 07/16/24 History 30 mg 24hr capsule,extend release gabapentin 800 mg tablet 800 mg PO TID 07/16/24 07/16/24 History secukinumab 150 mg/mL subcutaneous 300 mg subcut DAILY 07/16/24 07/16/24 History pen injector (Cosentyx Pen 300 mg/2 Pens () quetiapine 300 mg tablet,extended 300 mg PO .qhs 07/18/24 07/18/24 History release 24 hr Allergies Allergy/AdvReac Type Severity Reaction Status Date / Time No Known Drug Allergies Allergy Verified 07/16/24 21:04 Exam Constitutional Vital Signs, click to edit/add: Last Vital Signs Temp 98.7 F 07/19/24 07:47 Pulse 104 H 07/19/24 11:59 Resp 20 07/19/24 10:05 BP 110/74 07/19/24 07:47 Pulse Ox 93 L 07/19/24 11:59 O2 Del Method Nasal Cannula 07/19/24 10:05 O2 Flow Rate 3 07/19/24 10:05 FiO2 40 07/17/24 03:52 Other: Frequent coughing. Has some mild conversational dyspnea. HENMT Other: Mallampati II No oral candidiasis Respiratory Other: Mildly increased respiratory effort. Diminished breath sounds throughout. Mild coarse breath sounds, no rhonchi or wheezes. Cardio Other: Tachycardic, regular rhythm. GI Other: Normal to inspection. Extremity Other: No edema Neuro Other: No tremor or fasciculations. Psych Other: Appropriate affect. Engaged. Results Laboratory Findings ABG, PT/INR, D-dimer: ABG ABG pH 7.339 (7.350-7.450) L 07/16/24 22:20 ABG pCO2 36.5 mmHg (35.0-45.0) 07/16/24 22:20 ABG pO2 52.4 mmHg (80.0-100.0) L* 07/16/24 22:20 ABG O2 Saturation 87.5 % 07/16/24 22:20 PT/INR, D-dimer PT 14.0 sec (9.0-11.6) H 07/16/24 19:55 INR 1.36 07/16/24 19:55 Abnormal lab findings: Abnormal Labs 07/16/24 07/16/24 07/16/24 19:55 22:20 23:02 WBC RBC Hgb Hct Neut % (Auto) Lymph % (Auto) Eos % (Auto) Neut # (Auto) Lymph # (Auto) Abs Immat Gran (auto) Seg Neuts % (Manual) Band Neutrophils % 19.0 H Lymphocytes % (Manual) Monocytes % (Manual) 1.0 L Eosinophils % (Manual) Basophils % (Manual) 0.0 L Imm/Tot Granulo (auto) Neutrophils # (Manual) Band Neutrophils # 0.8 H Lymphocytes # (Manual) 0.84 L Monocytes # (Manual) 0.04 L PT 14.0 H ABG pH 7.339 L ABG pO2 52.4 L* ABG HCO3 19.7 L ABG Base Excess -6.1 L VBG pH Sodium 132 L Potassium Chloride Carbon Dioxide BUN 30.0 H Creatinine 1.69 H Est GFR ( Amer) 40 L Est GFR (Non-Af Amer) 33 L Glucose 113 H Lactate 3.0 H* 5.1 H* Calcium 8.3 L AST 49 H ALT 92 H Alkaline Phosphatase 187 H Total Protein Albumin 2.6 L Staphylococcus sp PCR Detected A* 07/17/24 07/18/24 07/19/24 05:40 07:55 05:02 WBC 14.9 H 14.0 H RBC 3.84 L 3.42 L 3.74 L Hgb 10.8 L 9.5 L 10.4 L Hct 32.8 L 28.0 L 30.4 L Neut % (Auto) 87.4 H Lymph % (Auto) 7.2 L Eos % (Auto) 0.3 L 0.6 L Neut # (Auto) 13.0 H 9.6 H Lymph # (Auto) 1.1 L Abs Immat Gran (auto) 0.47 H 1.04 H Seg Neuts % (Manual) 84.0 H Band Neutrophils % 6.0 H Lymphocytes % (Manual) 6.0 L Monocytes % (Manual) Eosinophils % (Manual) 0.0 L Basophils % (Manual) 0.0 L Imm/Tot Granulo (auto) 3.1 H 7.4 H Neutrophils # (Manual) 6.97 H Band Neutrophils # 0.5 H Lymphocytes # (Manual) 0.49 L Monocytes # (Manual) PT ABG pH ABG pO2 ABG HCO3 ABG Base Excess VBG pH 7.277 L Sodium Potassium 3.4 L Chloride 108 H Carbon Dioxide 20.5 L BUN 20.0 H 21.0 H Creatinine 1.43 H 1.07 H Est GFR ( Amer) 49 L Est GFR (Non-Af Amer) 40 L 56 L Glucose 216 H 148 H Lactate Calcium 8.0 L AST 40 H ALT 71 H Alkaline Phosphatase 150 H 118 H Total Protein 5.9 L 5.7 L 5.8 L Albumin 2.3 L 2.0 L 1.9 L Staphylococcus sp PCR Assessment and Plan Assessment and Plan (1) Multifocal pneumonia: Assessment and Plan: 1. Pneumonia, bilateral. Present on admission 07/16/2024. Initial presentation was with severe sepsis (hypoxia, lactic acidosis, hypotension) - her ca rdiovascular status has improved, but oxygenation has worsened over the past ~2 days. Her signs and symptoms are concerning for someone of her age (43yo) - she is on Cosentyx, and even though she is due for her dose (dosed every 4 weeks), she is technically immunocompromised. She was originally on Rocephin and Zithromax - Zithromax was changed to Levaquin today. With the extent of her infiltrates on CTA chest and the fact she is immunocompromised, I am concerned for severe and opportunistic infections, and therefore I recommend broadening coverage further. Below are instituted recommendations. -Change Rocephin to Zosyn for anaerobic and additional anti-Pseudomonal coverage -Add Vancomycin for MRSA coverage -Add Diflucan for candidal coverage - candidal infections are one of the more c ommon opportunistic infections with IL-17 antibodies; though I did not see any oral candidiasis on examination, that does not necessarily R/O pneumonia (though candidal pneumonia overall is fairly rare). Additionally, ordering a respiratory panel to evaluate for any viral illness. It was resulted and positive for rhinovirus. Unclear if it could explain the infiltrates on the chest, but even rhinovirus in an immunocompromised patient can cause significant respiratory distress. It is also possible this could be a concomitant infection from a visitor. -Sputum sample, with standard bacterial cultures and Gram stain, including AFB (though suspicion is low) and fungal cultures -Maximize pulmonary toilet: Add sodium chloride nebs to facilitate expectoration, on top of using PEP. 2. Severe sepsis. Secondary to the above. WBC 14k (? steroid effect too) with HR >110's. Remains hypoxemic. Appears ill. No longer hypotensive. 3. Acute respiratory failure with hypoxia. Secondary to the above. Requiring O2. 4. Psoriatic arthritis. Immunocompromised with chronic Cosentyx use.
[2024-07-19 14:19] LABS: Human Rhinovirus/Enterovirus DETECTED (NOT DETECTE)
[2024-07-19] MEDS: FLUCONAZOLE IN NACL ISO OSM 100 MG IV (14:32)
[2024-07-19] MEDS: SODIUM CHLORIDE 3% INHALATION 15 ML NEB 3 ML IH (15:52)
[2024-07-19] MEDS: LEVOFLOXACIN IN DEXTROSE 5 % 750 MG/150 ML PREMIX 100 MG IV (16:45)
[2024-07-19] MEDS: VANCOMYCIN HCL 750 MG in 0.9 % SODIUM CHLORIDE 250 ML 250 MG IV (18:16)
[2024-07-19] MEDS: PIPERACILLIN SODIUM/TAZOBACTAM 3.375 GM in 0.9 % SODIUM CHLORIDE 50 ML IV (20:29)
[2024-07-19] MEDS: QUETIAPINE FUMARATE 100 MG TABLET 300 MG PO (21:38)
[2024-07-20] VITALS (18 sets, daily range): BP systolic 94–119; BP diastolic 60–79; PULSE 74–112; TEMP 36.6–37.4; O2SAT 84–100
[2024-07-20] MEDS: PIPERACILLIN SODIUM/TAZOBACTAM 3.375 GM in 0.9 % SODIUM CHLORIDE 50 ML IV ×2 (03:59→14:19)
[2024-07-20] MEDS: IPRATROPIUM/ALBUTEROL SULFATE 3 ML AMPUL.NEB IH ×3 (05:14→15:50)
[2024-07-20] MEDS: SODIUM CHLORIDE 3% INHALATION 15 ML NEB 3 ML IH ×3 (05:14→15:55)
[2024-07-20] MEDS: GABAPENTIN 400 MG CAPSULE 800 MG PO ×2 (05:42→14:20)
[2024-07-20] MEDS: CLONAZEPAM 0.5 MG TABLET PO ×2 (05:42→14:20)
[2024-07-20 05:50] LABS: Basophils Percent Auto 0.3 % (0.2-2.0); Eosinophils Absolute Auto 0.1 10^3/uL (0.0-0.7); Eosinophils Percent Auto 0.8 % (0.9-7.0); Hemoglobin 9.6 g/dL (12.0-16.0); Immature Granulocytes Abs Auto 0.88 10^3/uL (0.00-0.03); Immature Granulocytes Pct Auto 6.6 % (0.0-0.5); Lymphocytes Absolute Auto 2.3 10^3/uL (1.2-3.8); Lymphocytes Percent Auto 17.5 % (20.5-60.0); Mean Corpuscular HGB Conc 34.3 g/dL (29.9-35.2); Mean Corpuscular Hemoglobin 27.7 pg (26.7-34.0); Mean Corpuscular Volume 80.7 fL (81.0-99.0); Mean Platelet Volume 9.7 fL (9.5-13.5); Monocytes Absolute Auto 0.3 10^3/uL (0.3-0.8); Monocytes Percent Auto 2.5 % (1.7-12.0); Neutrophils Absolute Auto 9.7 10^3/uL (1.4-6.5); Neutrophils Percent Auto 72.3 % (43.0-75.0); Platelet Count 200 10^3/uL (150-450); Red Blood Count 3.47 10^6/uL (4.20-5.40); Red Cell Distribution Width 14.1 % (11.0-15.0); White Blood Count 13.3 10^3/uL (4.0-11.0)
[2024-07-20 06:12] LABS: Alanine Aminotransferase 28 U/L (14-59); Albumin Globulin Ratio 0.5; Albumin Level 1.8 g/dL (3.4-5.0); Alkaline Phosphatase 108 U/L (46-116); Anion Gap 12.7; Aspartate Amino Transferase 33 U/L (15-37); BUN Creatinine Ratio 12.9; Bilirubin Total 0.7 mg/dL (0.2-1.0); Calcium 8.8 mg/dL (8.5-10.1); Carbon Dioxide 26.8 mmol/L (21.0-32.0); Chloride 103 mmol/L (98-107); Estimated GFR (African America >60 (>=60 mL/min/1.73m^2); Estimated GFR (Non-African Ame 60 (>=60 mL/min/1.73m^2); Globulin 3.8 g/dL; Glucose 74 mg/dL (74-106); Potassium 3.5 mmol/L (3.5-5.1); Sodium 139 mmol/L (136-145); Total Protein 5.6 g/dL (6.4-8.2)
--- NOTE | 2024-07-20 08:59 | P.PN_ITS ---
Progress Note: Subjective Subjective Interval history: Patient required 4-5 L NC last night and continues on this morning for oxygen saturations in the 80's when ambulating to bedside commode. She is coughing more and is more short of breath with conversing. Her Antione is present at bedside today as well. No documented fever. I discussed with patient that given her worsening respiratory status and we don't have a dedicated inpatient pulmonary service or infectious disease team that she be transferred to a Tertiary care center that can provide these services around the clock. She is in agreement to this plan and would prefer transfer to [facility]. In addition to the broad spectrum antibiotics that were initiated yesterday, I will add solumedrol and pulmicort today. Exam Narrative Exam Narrative: General: Patient is alert, and oriented to person, place and time with normal affect, proper hygiene, more conversational dyspnea today Skin: no visible rashes, or ulcers Head: atraumatic, acephalic Eyes: PERRLA, no nystagmus present, conjunctiva clear, no scleral icterus Ears: normal gross auditory acuity Heart: Normal rate and rhythm, no murmurs/rubs/gallops Lungs: audible wheezes all lung muhammad Abdomen: Normal audible bowel sounds, no distension, No palpable masses, no organomegaly, no rebound/guarding/ or rigidity Musculoskeletal:no swelling bilateral lower extremities Neuro: CN II-X grossly intact Constitutional Vital Signs, click to edit/add: Last Vital Signs Temp 98.2 F 07/20/24 07:22 Pulse 99 H 07/20/24 08:00 Resp 16 07/20/24 07:22 BP 109/69 07/20/24 07:22 Pulse Ox 93 L 07/20/24 07:22 O2 Del Method Nasal Cannula 07/20/24 07:22 O2 Flow Rate 5 07/20/24 07:22 FiO2 40 07/17/24 03:52 Progress Note: Objective Labs Labs: Short CBC 07/20/24 Range/Units 05:25 WBC 13.3 H (4.0-11.0) 10^3/uL Hgb 9.6 L (12.0-16.0) g/dL Hct 28.0 L (36.0-48.0) % Plt Count 200 (150-450) 10^3/uL BMP 07/20/24 05:25 Sodium 139 Potassium 3.5 Chloride 103 Carbon Dioxide 26.8 BUN 13.0 Creatinine 1.01 Glucose 74 Calcium 8.8 Liver Function 07/20/24 Range/Units 05:25 Total Bilirubin 0.7 (0.2-1.0) mg/dL AST 33 (15-37) U/L ALT 28 (14-59) U/L Alkaline Phosphatase 108 (46-116) U/L Albumin 1.8 L (3.4-5.0) g/dL Progress Note: A&P Assessment and Plan (1) Multifocal pneumonia: Assessment and Plan: CTA of the chest yesterday showed No acute PE's but bilateral multifocal pneumonia still present, Patient placed on broad antibiotic coverage, with Zosyn, Vanc in addition to the Levaquin. Also started antifugal, fluconazole given patient's immunocompromised status. Respiratory panel was positive for Rhinovirus; 1 of 2 blood cultures positive for Staph, respiratory culture pendin g (2) Respiratory failure with hypoxia: Assessment and Plan: secondary to #1, currently on 5L NC; add pulmicort and Solumedrol 125mg IV q12 hrs. Qualifiers: Chronicity: acute Qualified Code(s): J96.01 - Acute respiratory failure with hypoxia (3) Sepsis: Assessment and Plan: was present on admission, has resolved Qualifiers: Sepsis type: sepsis due to unspecified organism Sepsis acute organ dysfunction status: with acute organ dysfunction Severe sepsis acute organ dysfunction type: acute renal failure Acute renal failure type: unspecified Severe sepsis shock status: without septic shock Qualified Code(s): A41.9 - Sepsis, unspecified organism; R65.20 - Severe sepsis without septic shock; N17.9 - Acute kidney failure, unspecified (4) DANDRE (acute kidney injury): Assessment and Plan: was present on admission, has resolved. (5) Hypotension due to hypovolemia: Assessment and Plan: BP has been stable (6) Hyponatremia: Assessment and Plan: resolved (7) Immunocompromised patient: Assessment and Plan: Patient taking Cosentyx for her psoriasis but has been on several different meds over the last year (8) Psoriasis: Plan patient is a full code continue heparin for dvt prophylaxis Transfer to [facility] has been initiated and will transfer once accepted and bed available.
[2024-07-20] MEDS: VANCOMYCIN HCL 750 MG in 0.9 % SODIUM CHLORIDE 250 ML 250 MG IV (09:03)
[2024-07-20] MEDS: HEPARIN SODIUM (PORCINE) 5,000 UNIT/ML VIAL 5000 UNIT SUBQ (09:04)
--- NOTE | 2024-07-20 09:30 | CM.NOTE ---
Rounds made with Dr. Calderon, discussed with pt and regarding need for higher concentration of oxygen. Dr. Calderon had changed antibiotics yesterday without improvement, discussed with pt and transfer to higher level of care. Pt is in agreement and voice choice would be [facility].
[2024-07-20] MEDS: BUDESONIDE 0.5 MG/2 ML AMPULE NEB IH (11:03)
[2024-07-20] MEDS: METHYLPREDNISOLONE SOD SUCC PF 125 MG/2 ML VIAL IVP ×2 (11:14→16:26)
[2024-07-20] MEDS: FLUCONAZOLE IN NACL,ISO-OSM 200 MG/100 ML PREMIX 100 MG IV (14:20)
[2024-07-20] MEDS: LEVOFLOXACIN IN DEXTROSE 5 % 750 MG/150 ML PREMIX 100 MG IV (16:25)
--- NOTE | 2024-07-20 17:17 | P.DS_ITS ---
DS: Providers Provider Date of admission: 07/17/24 00:12 Primary care physician: Janeth Bonilla NP Attending physician on admission: Shaikh Joy Consults: 07/19/24 10:31 Consult to Pulmonology Routine Consulting Provider: Marcelo Cormier Reason for consultation: multifocal pneumonia, acute respiratory failure Has provider been notified: No Discharging clinician: Doreen Calderon DS: Diagnosis Discharge Diagnosis (1) Multifocal pneumonia: (2) Respiratory failure with hypoxia: Qualifiers: Chronicity: acute Qualified Code(s): J96.01 - Acute respiratory failure with hypoxia (3) Sepsis: Qualifiers: Sepsis type: sepsis due to unspecified organism Sepsis acute organ dysfunction status: with acute organ dysfunction Severe sepsis acute organ dysfunction type: acute renal failure Acute renal failure type: unspecified Severe sepsis shock status: without septic shock Qualified Code(s): A41.9 - Sepsis, unspecified organism; R65.20 - Severe sepsis without septic shock; N17.9 - Acute kidney failure, unspecified (4) DANDRE (acute kidney injury): (5) Hypotension due to hypovolemia: (6) Hyponatremia: (7) Immunocompromised patient: (8) Psoriasis: DS: Summary Hospital Course Hospital Course: Please see progress note dated today 07/20/24. Patient was accepted at both [facility] and [facility] but [facility] had bed available today. Patient and Family amendable to transfer. Dr. Petit accepting physician. Patient has tolerated the pulmicort and IV solumedrol. She is requiring 3L NC at the time of transfer. Status at Discharge Functional status at discharge: bed bound Overall status at discharge: patient is not back to baseline Time Spent with Patient Time attestation: Total time spent providing and/or coordinating discharge services: Time spent: greater than 30 minutes Exam Narrative Exam Narrative: no changes to exam from progress note dated 07/20/24 Constitutional Vital Signs, click to edit/add: Last Vital Signs Temp 98.9 F 07/20/24 17:10 Pulse 100 H 07/20/24 17:10 Resp 16 07/20/24 17:10 BP 100/60 07/20/24 17:10 Pulse Ox 94 L 07/20/24 17:10 O2 Del Method Nasal Cannula 07/20/24 17:10 O2 Flow Rate 3 07/20/24 17:10 FiO2 40 07/17/24 03:52 DS: Data Data Completed and Pending Labs on day of discharge: Labs from last 24 hours 07/20/24 05:25 WBC 13.3 H RBC 3.47 L Hgb 9.6 L Hct 28.0 L MCV 80.7 L MCH 27.7 MCHC 34.3 RDW 14.1 Plt Count 200 MPV 9.7 Neut % (Auto) 72.3 Lymph % (Auto) 17.5 L [place] % (Auto) 2.5 Eos % (Auto) 0.8 L Baso % (Auto) 0.3 Neut # (Auto) 9.7 H Lymph # (Auto) 2.3 [place] # (Auto) 0.3 Eos # (Auto) 0.1 Baso # (Auto) 0.0 Abs Immat Gran (auto) 0.88 H Imm/Tot Granulo (auto) 6.6 H Sodium 139 Potassium 3.5 Chloride 103 Carbon Dioxide 26.8 Anion Gap 12.7 BUN 13.0 Creatinine 1.01 Est GFR ( Amer) >60 Est GFR (Non-Af Amer) 60 BUN/Creatinine Ratio 12.9 Glucose 74 Calcium 8.8 Total Bilirubin 0.7 AST 33 ALT 28 Alkaline Phosphatase 108 Total Protein 5.6 L Albumin 1.8 L Globulin 3.8 Albumin/Globulin Ratio 0.5 Preliminary micro results at discharge 07/16/24 19:55 Bacterial ID and Susceptibility - Preliminary Blood - Left Hand Staphylococcus hominis 07/16/24 19:55 Blood Culture Result 1 - Preliminary Blood - Right Antecubital NO GROWTH AT 36-48 HOURS. FINAL TO FOLLOW. Discharge Plan Discharge Disposition: [facility] Condition: Fair [facility]
--- NOTE | 2024-07-20 21:39 | PC.NURSE ---
[facility] picked patient up via stretcher,oxygen. Patient S/O took all of Patients belongings and [place]. Report called to [facility] at [facility]. Patient A&O, VSS
== END 2024-07-20 21:00 | disposition short-term general hospital (02) | DRG 871 ==
LOC: ER 21:52 → ICU 07-17 00:16 → MS 07-17 18:20
PROVIDERS: Physician Assistant; Registered Nurse; Admitting Provider Internal Medicine; Emergency Provider Student in an Organized Health Care Education/Training Program; PCP Nurse Practitioner Family; Visit Provider Family Medicine
DX: A41.9 Sepsis, unspecified organism (principal); J18.9 Pneumonia, unspecified organism; J96.01 Acute respiratory failure with hypoxia; E87.1 Hypo-osmolality and hyponatremia; D84.9 Immunodeficiency, unspecified; N17.9 Acute kidney failure, unspecified; E87.20 Acidosis, unspecified; R65.20 Severe sepsis without septic shock; Z87.440 Personal history of urinary (tract) infections; L40.50 Arthropathic psoriasis, unspecified; L40.3 Pustulosis palmaris et plantaris; I95.89 Other hypotension; E86.1 Hypovolemia; Z79.620 Long term (current) use of immunosuppressive biologic; B34.8 Other viral infections of unspecified site
CPT/HCPCS: 36415; 36600; 71046; 71275; 80048; 80053; 80076; 82800; 82805; 83605; 83735; 84484; 85007; 85025; 85027; 85610; 85730; 86308; 87040; 87070; 87102; 87116; 87150; 87206; 87804; 87811; 93005; 94640; 94667; 94668; 94761; 94799; 96365; 96368; 96375; 99285; 0202U; J0456; J0696; J1644; J2543; J2919; J3370; Q9967

== ENCOUNTER 2025-02-08 16:50 | Emergency (ER) | payer MEDICARE, MEDICAID, SELFPAY ==
[2025-02-08 16:56] VITALS: BP 142/94; PULSE 65; TEMP 36.4; O2SAT 98; BMI 29.3
--- OUTSIDE RECORDS SUMMARY | 2025-02-08 17:42 | XMS_ITS | CCD ---
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 Name Role Phone MukeshTim Unavailable Unavailable MukeshTim Unavailable Unavailable NONE, XXXX Unavailable Unavailable DO Christos Cooper Primary Care Provider DO William Bueno Attending [facility]iste Primary Care Unavailable OPHELIA HALL Admitting Unavailable OPHELIA HALL Attending Unavailable DR RUTHIE RIVERA Consulting Unavailable DO Christos Cooper Primary Care Provider MD Ellen Jon Attending Provider [phone] Christos Cooper Primary Care Provider Caleb PATEL Shannan Unavailable [phone] Caleb PATEL, Shannan Unavailable Syeda, [facility]- Ondina Lees Emergency Provider [phone] [facility], [facility] Primary Care Provider DO Dennys Garcia Admit Provider DO Dennys Garcia Attending Provider [phone] MD Lorne Gan Attending Provider [phone] Michelle Hernández Other Provider Unavailable Therese, PhD Gene Other Provider DO Kimberly Matthews Other Provider MD Dg Forrest Other Provider [phone] DO Judd Lomeli Other Provider Kimi, [facility] Kyleigh Other Provider DO Harman Arias Other Provider KELLI Lopez Other Provider MERYL Barahona Other Provider KLELI Frazier-INHALATION THERAPY AIDES TEACHER-C Vanessa Lees Other Provider [phone] KELLI Bonilla Primary Care Provider Chad BREAKER UNIT ASSEMBLER, Kaylyn Unavailable Unavailable Primary Care Provider UnavailEllen Rosales MD Unavailable Chad SERVER SYSTEMS ADMINISTRATOR, Kaylyn R Primary Care Provider RUTHIE WARD Referring Unavailable KAYLYN BONILLA Primary Care Unavailable RUTHIE WARD Referring Unavailable KAYLYN BONILLA Primary Care Unavailable CHRISTOS COOPER Primary Care Unavailab RUTHIE Riley Attending Unavailable DOREEN SNEED Referring Unavailable OMARI EDMOND Admitting Unavailable OMARI EDMOND Attending Unavailable DURGA CONTRERAS Attending Unavailable Kaylyn Bonilla APRN Primary Care Provider Mal Vann DO Emergency Provider Kaylyn Bonilla Primary Care Unavailable Mal Vann Attending Unavailable Mal Vann Admitting Unavailable SHANEL MADDEN Attending Unavailable GENE SALEH Attending Unavailable LORNE GAN Referring Unavailable GENE SALEH Attending Unavailable BLAINE HOGAN Attending Unavailable Chad BREAKER UNIT ASSEMBLER, Kaylyn Unavailable Allergies Allergy Classification Reported Allergen(s) Allergy Type Date of Onset Reaction(s) Facility (1 source) No Known Medication Allergies; Translations: [No Known Medication Allergies] Propensity to adverse reactions (disorder) [facility] Repository (1 source) ALLERGIES NOT ON FILE; Translations: [ALLERGIES NOT ON FILE] Propensity to adverse reactions (disorder) [facility] Repository Medications Current Medications Medication Drug Class(es) Dates Sig (Normalized) Sig (Original) amoxicillin 875 mg oral tablet (8 sources) Penicillin-class Antibacterial Start: 01-20-2025 End: 01-30-2025 take 1 tablet by mouth in the morning amoxicillin (Amoxil) 875 MG tablet Indications: Facial pain Take 1 tablet (875 mg) by mouth in the morning and 1 tablet (875 mg) before bedtime. Do all this for 10 days. 20 tablet 01/20/2025 01/30/2025 Active Start: 04-11-2024 take 1 capsule by mo uth three times daily amoxicillin (AMOXIL) 500 mg capsule Take 500 mg by mouth three times a day. 04/11/2024 Active Start: 04-11-2024 amoxicillin (A moxil) 500 MG capsule Indications: Dental abscess , Pain, dental Take 2 caps on day 1 and 1 cap every 8 hours x 7 days then stop 23 capsule 04/11/2024 Active BRIXADI 64 mg/0.18 mL syring e (4 sources) Start: 04-01-2023 BRIXADI 64 mg/ 0.18 mL syringe 04/01/2023 Active Start: 04-01-2023 BRIXADI 64 mg/ 0.18 mL syringe Buprenorphine (10 sources) Partial Opioid Agonist Start: 12-19-2023 Start: 12-19-2023 Buprenorphine (Brixadi) 64 mg/0.18 mL solution, extended rel syringe Active MG SUBCUT December 19, 2023 12:00am Start: 12-19-2023 Buprenorphine [Buprenorphine 64 Mg/0.18 Ml Solution,Exten.Rel.Subcutaneous Syringe] (Buprenorphine 64 Mg/0.18 Ml Solution,Exten.Rel.Subcutaneous ) 64 mg/0.18 mL solution, extended rel syringe Active MG SUBCUT December 19, 2023 12:00am Start: 01-14-2021 End: 12-22-2023 Buprenorphine Hcl 8 mg table t, sublingual Discontinued 12 MG SUBLINGUAL Daily before breakfast January 14, 2021 12:00am December 22, 2023 12:28pm Start: 01-14-2021 End: 12-22-2023 take 12 mg under the tongue once daily before breakfast Buprenorphine Hcl Discontinued 12 MG SUBLINGUAL Daily before breakfast January 14, 2021 12:00am December 22, 2023 12:28pm cephalexin 500 mg oral tablet (3 sources) Cephalosporin Antibacterial Start: 12-22-2023 take 1 tablet by mouth twice daily clobetasol propionate 0.5 mg/ml topical solution (3 sources) Corticosteroid Start: 04-11-2024 Clobetasol Propionate (TEMOVATE) 0.05 % external solution Apply 50 mL to affected area as needed. 04/11/2024 Active clonazePAM 0.5 mg oral tablet (20 sources) Benzodiazepine Start: 12-19-2023 take 1 tablet by mouth once daily Start: 10-04-2018 take 1 tablet by chente th in the morning, then take 1 tablet by mouth in the evening, then take 1 tablet by mouth at bedtime clonazePAM (KlonoPIN) 0.5 MG tablet Take 0.5 mg by mouth in the morning and 0.5 mg in the evening and 0.5 mg before bedtime. 04/07/2024 Active Start: 10-04-2018 take 2 tablets by mo uth once daily at bedtime, then take 1 tablet by mouth three times daily clonazePAM (KLONOPIN) 0.5 mg tablet Take 2 tablets by mouth daily at bedtime. 1 tablet 3 times daily 07/05/2019 Active Start: 10-04-2018 take 1 mg by mouth at bedtime Clonazepam Active 1 MG PO Bedtime October 04, 2018 12:00am Comment on above: Take 2 tablets by mo uth daily at bedtime. docosahexanoic acid/epa (FISH OIL ORAL) (4 sources) take 2 capsules by mouth once daily docosahexanoic acid/epa (FISH OIL ORAL) Take 2 capsules by mouth once daily. Active take 2 capsules by mouth once da sadia docosahexanoic acid/epa (FISH OIL ORAL) Take 2 capsules by mouth once daily. 0 Active Comment on above: Take 2 capsules by m out once daily. gabapentin 800 mg oral tablet (16 sources) Anti-epileptic Agent Start: 04-27-2024 take 1 tablet by mouth in the morning, then take 1 tablet by mouth in the evening, then take 1 tablet by mouth at bedtime gabapentin (Neurontin) 800 MG tablet Take 800 mg by mouth in the morning and 800 mg in the evening and 800 mg before bedtime. 04/27/2024 Active Start: 12-19-2023 take 1 tablet by chente th twice daily Start: 04-28-2023 End: 05-04-2023 take 2 tablets by mouth in the morning gabapentin (NEURONTIN) 600 mg tablet TAKE 2 TABLETS BY MOUTH IN THE MORNING, 1 TAB IN THE AFTERNOON, AND 2 TABS AT BEDTIME 30 0 04/28/2023 05/04/2023 Discontinued (Side Effects) Start: 04-01-2017 End: 10-04-2018 take 3 capsules by mouth three times daily Gabapentin 100 mg Capsule Discontinued 300 MG PO Three times daily April 01, 2017 1:00am October 04, 2018 12:47pm Start: 04-01-2017 End: 10-04-2018 take 300 mg by mouth three times daily Gabapentin Discontinued 300 MG PO Three times daily April 01, 2017 1:00am October 04, 2018 12:47pm Comment on above: TAKE 2 TABLETS BY MO UT IN THE MORNING, 1 TAB IN THE AFTERNOON, AND 2 TABS AT BEDTIME 30 predniSONE 20 mg oral tablet (2 sources) Start: 5 predniSONE (Deltasone) 20 MG tablet Indications: Scalp pain 3 tabs daily x2 days, then 2 tabs daily x2 days, then 1 tablet daily x2 days, then 1/2 tab daily x2 days 13 tablet 01/27/2025 Active pregabalin 150 mg oral capsule (11 sources) Start: 3 End: 5 take 1 capsule by mouth three times daily Comment on above: Take 1 capsule by [facility] three times a day for 90 days. 21-Iron Fu-Folic Acid ( Complete) 14 mg iron- 400 mcg Tablet (6 sources) Start: 1 take 1 tablet by mouth once daily before breakfast Start: 01-14-2021 take 1 tablet by chente th once daily before breakfast 21-Iron Fu-Folic Acid ( Complete) 14 mg iron- 400 mcg Tablet Active 1 TAB PO Daily before breakfast January 14, 2021 12:00am QUEtiapine 300 mg oral tablet (20 sources) Atypical Antipsychotic Start: 12-20-2023 take 1 tablet by mouth at bedtime Start: 12-20-2023 take 1 tablet by chente th every twenty-four hours at bedtime Start: 01-14-2021 take 350 mg by mouth at bedtim e Quetiapine Active 350 MG PO Bedtime January 14, 2021 12:00am Start: 01-14-2021 take 100 mg by mouth at bedtim e Quetiapine Active 100 MG PO Bedtime January 14, 2021 12:00am Start: 04-01-2017 End: 10-04-2018 take 1 tablet by mouth once daily at bedtime Quetiapine 50 mg Tablet Discontinued 50 MG PO Daily at bedtime April 01, 2017 1:00am October 04, 2018 12:47pm Start: 03-24-2017 End: 03-29-2017 take 1 tablet by mouth once daily at bedtime Quetiapine 200 tablet Discontinued 200 MG PO Daily at bedtime March 24, 2017 12:00am March 29, 2017 12:22pm 1 ml secukinumab 150 mg/ml auto-injector (19 sources) Interleukin-17A Antagonist Start: 01-19-2024 Cosentyx Sensoready, 300 MG, 150 MG/ML solution auto-injector 01/19/2024 Active Start: 12-19-2023 Start: 07-11-2019 COSENTYX PEN, 2 PENS, 150 mg/mL pnij Inject 1 Pen subcutaneously once every month. 07/11/2019 Active Start: 10-07-2018 End: 01-14-2021 Secukinumab 150 mg/mL pen in jector Discontinued 1 DOSE SUBCUT As Directed October 07, 2018 12:00am January 14, 2021 9:27pm Start: 10-07-2018 End: 01-14-2021 Secukinumab Discontinued 1 D OSE SUBCUT As Directed October 07, 2018 12:00am January 14, 2021 9:27pm Comment on above: Inject 1 Pen subcuta neously once every month. valACYclovir 1000 mg oral tablet (2 sources) Herpesvirus Nucleoside Analog DNA Polymerase Inhibitor, Herpes Simplex Virus Nucleoside Analog DNA Polymerase Inhibitor, Herpes Zoster Virus Nucleoside Analog DNA Polymerase Inhibitor Start: 01-28-20 End: 02-04-20 take 1 tablet by mouth every eight hours valACYclovir (Valtrex) 1 g tablet Indications: Scalp pain Take 1 tablet (1,000 mg) by mouth every 8 (eight) hours for 7 days 21 tablet 01/27/2025 02/03/2025 Active Completed/Discontinued Medications Medication Drug Class(es) Dates Sig (Normalized) Sig (Original) amLODIPine 5 mg oral tablet (12 sources) Dihydropyridine Calcium Channel Jes Start: 03-29-2017 End: 10-04-2018 take 1 tablet by mouth once daily Amlodipine 5 mg Tablet Discontinued 5 MG PO Daily April 01, 2017 1:00am October 04, 2018 12:47pm 24 hr amphetamine aspartate 7.5 mg / amphetamine sulfate 7.5 mg / dextroamphetamine saccharate 7.5 mg / dextroamphetamine sulfate 7.5 mg extended release oral capsule (13 sources) Central Nervous System Stimulant Start: 12-19-2023 End: 01-27-2025 amphetamine-dext roamphetamine XR (Adderall XR) 30 MG 24 hr capsule 12/19/2023 01/27/2025 Discontinued (Therapy completed) Start: 12-19-2023 Start: 04-07-2023 take 1 capsule by mo ut once daily in the morning amphetamine-dextroamphetamine XR (ADDERALL XR) 30 mg capsule TAKE 1 CAPSULE BY MOUTH EVERY DAY IN THE MORNING FOR 30 DAYS 04/07/2023 Active Comment on above: TAKE 1 CAPSULE BY MO UT EVERY DAY IN THE MORNING FOR 30 DAYS atenolol 50 mg oral tablet (6 sources) beta-Adrenergic Jes Start: 03-24-20 17 End: 03-29-20 17 take 1 tablet by mouth once daily Atenolol 50 mg Tablet Discontinued 50 MG PO Daily March 24, 2017 12:00am March 29, 2017 12:01pm brexpiprazole 1 mg oral tablet (12 sources) Atypical Antipsychotic Start: 04-01-20 End: 10-05-19 19 take 1 tablet by mouth once daily Brexpiprazole (Rexulti) 1 mg Tablet Discontinued 1 MG PO Daily April 01, 2017 1:00am October 04, 2018 12:47pm Start: 03-29-2017 End: 04-01-2017 take 1 tablet by mouth once daily Brexpiprazole (Rexulti) 0.5 mg Tablet Discontinued 0.5 MG PO Daily 03 03March 29, 2017 12:00am April 01, 2017 12:50pm cloNIDine hydrochloride 0.1 mg oral tablet (12 sources) Central alpha-2 Adrenergic Agonist Start: 03-29-2017 End: 04-01-2017 take 1 tablet by mouth every six hours as needed Clonidine Hcl 0.1 mg Tablet Discontinued 0.1 MG PO Q6H as needed for withdrawal symptoms 13 03March 29, 2017 12:00am April 01, 2017 12:40pm Start: 03-24-2017 End: 03-29-2017 take 1 tablet by mouth once daily Clonidine Hcl 0.1 tablet Discontinued 0.7 MG PO Daily March 24, 2017 12:00am March 29, 2017 12:01pm diazePAM 5 mg oral tablet (12 sources) Benzodiazepine Start: 04-01-2017 End: 10-04-2018 Diazepam 5 mg Tablet Discontinued 0 MG PO As Directed Taper: Frequency: DAILY Days: 4 Dose: 5 Frequency: Q48HR Days: 6 Dose: 5 April 01, 2017 12:47pm October 04, 2018 12:47pm Please contact the information source for Taper Schedule details. Start: 03-29-2017 End: 10-04-2018 take 1 tablet by mouth every eight hours Diazepam 5 mg Tablet Discontinued 5 MG PO Q8H 09 26March 29, 2017 12:00am April 01, 2017 12:48pm diphenhydrAMINE hydrochloride 50 mg/ml injectable solution (6 sources) Histamine-1 Receptor Antagonist Start: 03-29-2017 End: 04-01-2017 inject 25 mg by intramuscular injection every eight hours as needed Diphenhydramine Hcl 50 mg/mL Solution Discontinued 25 MG IM Q8H as needed for Itching 13 03March 29, 2017 12:00am April 01, 2017 12:40pm Start: 03-29-2017 End: 04-01-2017 inject 25 mg by intramuscular injection every eight hours Diphenhydramine Hcl Discontinued 25 MG IM Q8H 13 03March 29, 2017 12:00am April 01, 2017 12:40pm docusate sodium 100 mg oral capsule (6 sources) Start: 03-24-2017 End: 03-29-2017 take 1 capsule by mouth once daily at bedtime Docusate Sodium 100 mg Capsule Discontinued 100 MG PO Daily at bedtime March 24, 2017 12:00am March 29, 2017 12:01pm DULoxetine 30 mg delayed release oral capsule (12 sources) Serotonin and Norepinephrine Reuptake Inhibitor Start: 03-29-2017 End: 04-01-2017 take 1 capsule by mouth once daily as needed Duloxetine 30 mg Capsule,Delayed Release(Dr/Ec) Discontinued 30 MG PO Daily as needed for Restless 10 March 29, 2017 12:00am April 01, 2017 12:46pm Start: 03-24-2017 End: 03-29-2017 take 1 capsule by mouth once daily Duloxetine 60 capsule,delayed release(DR/EC) Discontinued 60 MG PO Daily March 24, 2017 12:00am March 29, 2017 12:02pm esomeprazole 40 mg delayed release oral capsule (2 sources) Proton Pump Inhibitor Start: 07-05-2019 End: 05-05-2024 take 1 capsule by mouth once daily in the morning esomeprazole (NEXIUM) 40 mg capsule Take 40 mg by mouth every morning. 07/05/2019 05/05/2024 Discontinued Comment on above: Take 40 mg by mouth every morning. famotidine 20 mg oral tablet (2 sources) Histamine-2 Receptor Antagonist Start: 05-03-2019 End: 05-05-2024 take 2 tablets by mouth once daily in the morning famotidine (PEPCID) 20 mg tablet Take 40 mg by mouth every morning. 05/03/2019 05/05/2024 Discontinued Comment on above: Take 40 mg by mouth every morning. folic acid 1 mg oral tablet (6 sources) Start: 03-24-2017 End: 10-04-2018 take 1 tablet by mouth once daily Folic Acid 1 mg Tablet Discontinued 1 MG PO Daily March 24, 2017 12:00am October 04, 2018 12:47pm hydrOXYzine pamoate 50 mg oral capsule (6 sources) Antihistamine Start: 04-01-2017 End: 10-07-2018 take 1 capsule by mouth four times daily Hydroxyzine Pamoate 50 mg Capsule Discontinued 50 MG PO Four times daily April 01, 2017 1:00am October 07, 2018 8:06am Hyperfocous (6 sources) Start: 03-24-2017 End: 03-29-2017 Hyperfocous Discontinued March 24, 2017 12:00am March 29, 2017 12:01pm ibuprofen 600 mg oral tablet (18 sources) Nonsteroidal Anti-inflammatory Drug Start: 01-17-2021 End: 12-22-2023 take 1 tablet by mouth every six hours as needed for pain Ibuprofen 600 mg tablet Discontinued 600 MG PO Q6H as needed for pain January 17, 2021 12:00am December 22, 2023 12:28pm Start: 03-29-2017 End: 04-01-2017 take 1 tablet by mouth every six hours as needed for pain Ibuprofen 600 mg Tablet Discontinued 600 MG PO Q6H as needed for Pain 13 03March 29, 2017 12:00am April 01, 2017 12:46pm Start: 03-24-2017 End: 03-29-2017 take 1 tablet by mouth three times daily Ibuprofen 800 tablet Discontinued 800 MG PO Three times daily March 24, 2017 12:00am March 29, 2017 12:03pm iv contrast (will be provided with radiology test) (1 source) Start: 05-04-2023 End: 05-05-2023 inject 1 dose intravenously once iv contrast (will be provided with radiology test) MRI Brain Inject, intravenously, once for 1 dose.No IV access, insert saline lock prior to beginning of sedation, infusion, injection of imaging exam.Discontinue saline lock post exam. If Pt. has a central line or IVAD, may access for administration according to line specific nursing protocol.Once exam is complete flush line and de-access according to line specific nursing protocol in the MR contrast administration guidelines link 1 Each 0 05/04/2023 05/05/2023 Comment on above: MRI Brain Inject, in travenously, once for 1 dose.No IV access, insert saline lock prior to beginning of sedation, infusion, injection of imaging exam.Discontinue saline lock post exam. If Pt. has a central line or IVAD, may access for administration according to line specific nursing protocol.Once exam is complete flush line and de-access according to line specific nursing protocol in the MR contrast administration guidelines link letrozole 2.5 mg oral tablet (2 sources) Aromatase Inhibitor Start: 09-14-2019 End: 05-05-2024 letrozole (FEMARA) 2.5 mg tablet Take 2 tablets by mouth once daily for 5 days. Menstrual cycle day 3-7 10 tablet 3 09/14/2019 05/05/2024 Discontinued Comment on above: Take 2 tablets by [facility] once daily for 5 days. Menstrual cycle day 3-7 loperamide hydrochloride 2 mg oral tablet (6 sources) Opioid Agonist Start: 03-29-2017 End: 04-01-2017 Loperamide (Imodium A-D) 2 mg tablet Discontinued 2 MG PO EVERY 2-4 HOURS as needed for diarrhea 60 5 March 29, 2017 12:00am April 02, 2017 1:00am April 01, 2017 12:46pm after each loose stool until symptoms controlled; do not exceed 16 mg total dose in 24 hrs naproxen sodium 220 mg oral capsule (3 sources) Nonsteroidal Anti-inflammatory Drug Start: 12-19-2023 End: 12-22-2023 take 2 capsules by mouth twice daily as needed for pain Naproxen Sodium (Aleve) 220 mg capsule Discontinued 440 MG PO Twice daily as needed for pain December 19, 2023 12:00am December 22, 2023 12:28pm oxymetazoline hydrochloride 0.5 mg/ml nasal spray (6 sources) Start: 03-24-2017 End: 10-04-2018 Oxymetazoline 0.05 % Dunlap,Non-Aerosol Discontinued 2 SPRAY INTRANASAL Q12H as needed for Nasal Congestion March 24, 2017 12:00am October 04, 2018 12:47pm Start: 03-24-2017 End: 10-04-2018 Oxymetazoline Discontinued 2 SPRAY INTRANASAL Q12H March 24, 2017 12:00am October 04, 2018 12:47pm Pnv,Calcium 71-Eygr-Mgvzb Acid (Preplus) 27 mg iron- 1 mg Tablet (6 sources) Start: 03-24-2017 End: 10-04-2018 take 1 tablet by mouth once daily Pnv,Calcium 24-Dazn-Jvgos Acid (Preplus) 27 mg iron- 1 mg Tablet Discontinued 1 TAB PO Daily March 24, 2017 12:00am October 04, 2018 12:47pm sulfamethoxazole 800 mg / trimethoprim 160 mg oral tablet (2 sources) Dihydrofolate Reductase Inhibitor Antibacterial, Sulfonamide Antimicrobial Start: 07-05-2019 End: 05-05-2024 take 1 tablet by mouth twice daily sulfamethoxazole-t rimethoprim (BACTRIM DS,SEPTRA DS) 800-160 mg per tablet Take 1 tablet by mouth twice daily. For 10 days 07/05/2019 05/05/2024 Discontinued Comment on above: Take 1 tablet by chente twice daily. For 10 days traZODone hydrochloride 150 mg oral tablet (6 sources) Serotonin Reuptake Inhibitor Start: 03-24-2017 End: 03-29-2017 take 1 tablet by mouth once daily at bedtime Trazodone 150 tablet Discontinued 150 MG PO Daily at bedtime March 24, 2017 12:00am March 29, 2017 12:01pm Problems Active Problems Problem Classification Problem Date Documented Da te Episodic/Chronic Administrative/social admission (2 sources) Counseling procedure with explicit context; Translations: [Vaccine counseling] 05-05-2024 Episodic Anxiety disorders (10 sources) Generalized anxiety disorder; Translations: [Generalized anxiety disorder] Onset: 11-26-2010 02-26-2024 Chronic Attention-deficit, conduct, and disruptive behavior disorders (2 sources) Attention deficit hyperactivity disorder, predominantly inattentive type; Translations: [Attention-deficit hyperactivity disorder, predominantly inattentive type] Onset: 01-27-2025 01-27-2025 Chronic Deficiency and other anemia (3 sources) Anemia; Translations: [Anemia, unspecified] 12-20-2023 Episodic Deficiency and other anemia (2 sources) Anemia, unspecified; Translations: [Anemia, unspecified] 12-22-2023 Episodic Headache; including migraine (2 sources) Disorder of scalp; Translations: [Scalp pain] 01-27-2025 Episodic Immunity disorders (1 source) Immunosuppression; Translations: [Immunodeficiency, unspecified] 08-03-2024 Chronic Immunizations and screening for infectious disease (2 sources) Needs influenza immunization; Translations: [Encounter for immunization] 05-05-2024 Episodic Malaise and fatigue (2 sources) Chronic fatigue syndrome; Translations: [Chronic fatigue syndrome] Onset: 01-27-2025 01-27-2025 Chronic Malaise and fatigue (6 sources) Left hemiparesis; Translations: [Weakness] 03-26-2017 Episodic Menstrual disorders (4 sources) Amenorrhea; Translations: [Amenorrhea, unspecified] Onset: 01-27-2025 01-27-2025 Chronic Mood disorders (12 sources) Major depressive disorder; Translations: [Major depressive disorder, single episode, unspecified] Onset: 11-26-2010 03-30-2017 Chronic Multiple sclerosis (1 source) Multiple sclerosis; Translations: [Multiple sclerosis] 05-04-2023 Chronic Other aftercare (1 source) Other usp (current) drug therapy; Translations: [OTH MANAGER MEDIA CURRENT DRUG THERAPY] Onset: 04-23-2022 Episodic Other connective tissue disease (6 sources) Rhabdomyolysis; Translations: [Rhabdomyolysis] 03-30-2017 Episodic Other gastrointestinal disorders (6 sources) Diarrhea; Translations: [Diarrhea, unspecified] 03-30-2017 Episodic Other gastrointestinal disorders (2 sources) Constipation; Translations: [Constipation, unspecified] Onset: 01-27-2025 01-27-2025 Episodic Other infections; including parasitic (6 sources) Late effects of other and unspecified infectious and parasitic diseases; Translations: [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 hauler] 02-26-2024 Chronic Other inflammatory condition of skin (2 sources) Arthropathic psoriasis, unspecified; Translations: [Psoriatic arthropathy] Onset: 04-23-2022 12-22-2023 Chronic Other inflammatory condition of skin (4 sources) Psoriasis; Translations: [Other psoriasis] Onset: 01-30-2011 01-30-2011 Chronic Other inflammatory condition of skin (9 sources) Psoriasis vulgaris; Translations: [Psoriasis vulgaris] Onset: 03-19-2016 03-19-2016 Chronic Other inflammatory condition of skin (8 sources) Psoriatic arthritis; Translations: [Arthropathic psoriasis, unspecified] Onset: 01-27-2025 12-19-2023 Chronic Other inflammatory condition of skin (2 sources) Pustular psoriasis of palms and soles; 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] 05-05-2024 Chronic Other inflammatory condition of skin (1 source) Psoriasis vulgaris; Translations: [Psoriasis vulgaris] Onset: 03-19-2016 Chronic Other inflammatory condition of skin (1 source) Other psoriatic arthropathy; 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)] Onset: 05-05-2024 Chronic Other inflammatory condition of skin (1 source) Other psoriasis; 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] Onset: 05-05-2024 Chronic Other liver diseases (6 sources) Enzyme level - finding; Translations: [Elevated transaminase measurement] 03-29-2017 Episodic Other lower respiratory disease (2 sources) Other forms of dyspnea; Translations: [Other forms of dyspnea] Onset: 08-17-2024 Episodic Other lower respiratory disease (2 sources) Personal history of pneumonia (recurrent); Translations: [Personal history of pneumonia (recurrent)] Onset: 08-17-2024 Episodic Other nervous system disorders (3 sources) Neuropathy; Translations: [Polyneuropathy, unspecified] Onset: 01-27-2025 05-04-2023 Chronic Other nervous system disorders (3 sources) Disorder of brain; Translations: [Encephalopathy, unspecified] 12-19-2023 Chronic Other nervous system disorders (3 sources) Expressive dysphasia; Translations: [Aphasia] 12-19-2023 Chronic Other nervous system disorders (2 sources) Encephalopathy, unspecified; Translations: [Encephalopathy, unspecified] 12-22-2023 Chronic Other nervous system disorders (2 sources) Aphasia; Translations: [Aphasia] 12-22-2023 Chronic Other nervous system disorders (6 sources) Disturbance of attention; Translations: [Attention and concentration deficit] 02-26-2024 Chronic Other nervous system disorders (6 sources) Narcolepsy without cataplexy ; Translations: [Narcolepsy without cataplexy] 02-26-2024 Chronic Other nervous system disorders (2 sources) Cataplexy and narcolepsy; Translations: [Narcolepsy with cataplexy] Onset: 01-27-2025 01-27-2025 Chronic Other nervous system disorders (6 sources) Numbness; Translations: [Anesthesia of skin] 03-26-2017 Episodic Other nervous system disorders (9 sources) Word finding difficulty ; Translations: [Other speech disturbances] 12-20-2023 Episodic Other nervous system disorders (2 sources) Other speech disturbances; Translations: [Mental and behavioral problems with communication [including speech]] 12-22-2023 Episodic Other non-traumatic joint disorders (6 sources) Multiple joint pain; Translations: [Pain in unspecified joint] Onset: 03-19-2016 03-19-2016 Episodic Other and delivery including normal (6 sources) Delivery normal; Translations: [Encounter for full-term uncomplicated delivery] 01-17-2021 Episodic Pneumonia (except that caused by tuberculosis or sexually transmitted disease) (1 source) Recurrent pneumonia; Translations: [Pneumonia, unspecified organism] 08-03-2024 Episodic Pneumonia (except that caused by tuberculosis or sexually transmitted disease) (2 sources) Pneumonia (except that caused by tuberculosis or sexually transmitted disease) Onset: 07-20-2024 Poisoning by other medications and drugs (6 sources) Suicide attempt ; Translations: [Poisoning by multiple unspecified drugs, medicaments and biological substances, intentional self-harm, initial encounter] 03-30-2017 Episodic Residual codes; unclassified (2 sources) Sleep apnea, unspecified; Translations: [Sleep apnea, unspecified] Onset: 08-17-2024 Chronic Residual codes; unclassified (4 sources) Altered mental status; Translations: [Altered mental status, unspecified] 12-19-2023 Episodic Residual codes; unclassified (3 sources) Altered mental status, unspecified; Translations: [Altered mental status] 12-19-2023 Episodic Residual codes; unclassified (6 sources) Amnesia; Translations: [Other amnesia] 02-26-2024 Episodic Residual codes; unclassified (1 source) FH: Psoriasis; Translations: [Family history of diseases of the skin and subcutaneous tissue] 08-02-2024 Episodic Residual codes; unclassified (2 sources) Insomnia; Translations: [Insomnia, unspecified] Onset: 01-27-2025 01-27-2025 Episodic Septicemia (except in labor) (5 sources) Sepsis; Translations: [Sepsis, unspecified organism] 12-19-2023 Episodic Substance-related disorders (5 sources) Nicotine dependence, cigarettes, uncomplicated; Translations: [Opioid abuse] Onset: 04-23-2022 01-27-2025 Chronic Substance-related disorders (14 sources) Opioid withdrawal; Translations: [Opioid use, unspecified with withdrawal] 03-29-2017 Episodic Unclassified (1 source) NO SHOW 08-03-2024 Urinary tract infections (12 sources) Urinary tract infectious disease; Translations: [Urinary tract infection, site not specified] 12-19-2023 Episodic Past or Other Problems Problem Classification Problem Date Documented Da te Episodic/Chronic Disorders of teeth and jaw (12 sources) Other specified disorders of teeth and supporting structures; Translations: [Periapical abscess without sinus] Onset: 04-18-2022 Episodic Fluid and electrolyte disorders (8 sources) Hypokalemia; Translations: [Hypokalemia] Onset: 07-31-2024 03-29-2017 Episodic Nausea and vomiting (3 sources) Nausea; Translations: [Nausea] Onset: 03-19-2016 Resolved: 08-27-2020 08-27-2020 Episodic Other aftercare (4 sources) 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; Translations: [Methotrexate, hot walker, current use] Onset: 03-19-2016 03-19-2016 Episodic Other non-traumatic joint disorders (1 source) Pain in unspecified joint; Translations: [Polyarthralgia] Onset: 03-19-2016 Episodic Other skin disorders (6 sources) Acne; Translations: [Acne, unspecified] Onset: 01-30-2011 01-30-2011 Episodic Other skin disorders (6 sources) H/O: arthritis; Translations: [Personal history of diseases of the skin and subcutaneous tissue] Onset: 03-19-2016 03-19-2016 Episodic Pleurisy; pneumothorax; pulmonary collapse (4 sources) Pleural effusion, not elsewhere classified; Translations: [Pleural effusion] Onset: 07-31-2024 Episodic Results Test Name Value Interpretation Reference Range Facility Follow-Upon 08-17-2024 Follow-Up [id number] Gilbert,Nikki A 1980 F Date Provider Department Center 08/17/2024 Sandi-DURGA [facility] No family history on file Level of Service:20348 ID OFFICE/OUTPATIENT NEW MODERATE MDM 45 MINUTES (GC) Reason for Visit and Comments: Follow-up [527335] - Hospital follow up [facility] CNOVon 08-03-2024 CNOV Office Visit (RHEUFL ) -- GILBERT,NIKKI ([id number]) 1980 F Date Time Provider Department 08/03/24 2:20 PM RUTHIE WARD During your visit today, we recorded the following information about you: Ruthie Ward DO 08/03/2024 2:53 PM Signed Rheumatology FOLLOW UP VISIT Date of Service: 08/03/2024 Patient: Nikki Hunt Medical Record: [id number] Primary Care Physician: Kaylyn Ware CNP Last Rheumatology visit: 05/05/2024 (with Ruthie Ward) Referring Provider: Viviana Ellis. [facility] Family Medicine [address] [facility] [address] Reordering Clerk: Highway Truck Driver Role and Specialty Contact Info Address Start End Comments Ellen Jon MD (Dermatology) [address] [facility] [address] Reason for visit: psoriasis, reported h/o psoriatic arthritis History of Present Illness Nikki Hunt is a 43 year old White female who presents on 08/03/2024 for an in-person visit for evaluation of No Show. Nikki is both RF - 9 (05/05/2024) and CCP - 17 (05/05/2024) negative. HISTORY OF PRESENT ILLNESS Nikki Hunt is a 43 year old White female from [place], [place] with PMHx of infertility, depression with h/o attempted suicide, ADHD (Adderall), opioid use disorder (buprenorphine), narcolepsy, seasonal allergies, HTN (says she no longer has HTN), acne (denies), and psoriasis who initially presented to Suri Ward DO on 05/05/2024 for an in-person visit for evaluation of psoriasis and possible psoriatic arthritis. She had only been seen once in our division previously, several years ago on 03/19/[address] Keith Schuler and did not subsequently follow-up. She follows with local intervention manager, Dr. Ellen Jon. Hospitalized 12/19/2023 for UTI and confusion. Also benzo withdrawal and anemia with Hgb down to ~7. 04/11/2024 visit for possible dental abscess/infection and Rx antibiotic 03/19/2016 [facility] Rheumatology Visit with Dr. 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 History of present illness: Nikki Hunt is a 35 year old female who presents WITH A HISTORY OF PSA. SHE WAS DIAGNOSED ABOUT 20 YEARS AGO.. SHE HAS BEEN ON MTX FOR 3 YEARS.SHE HAS EXPERIENCED GROIN AND BUTTOCK PAIN FOR 4 YEARS.SHE DOES ADMIT TO JOINT SWELLING AND AM STIFFNESS LASTING ONE HOUR. Her skin is pretty good now. She used to have nail pitting but not presently. She has been on humira, enbrel, light therapy, cyclosporine and topical. Enbrel had worked well for one year and then was switched to humira and soon after her pustules began. She does experience tingling in her feet. Exam: psoriatic plaques behind ears,scalp and back as well as elbows, without psoriatic nail changes. Lumbar spine: No visible abnormalities. Diffuse tenderness ,neg slr decreased flex and lateral sidebending. Upper extremities: Normal inspection of joints. Shoulders, elbows, wrists, without synovitis, swelling, tenderness, deformity, or lack of ROM. Pips with thickening and slight tenderness. Lower extremities: Normal inspection of joints. Hips, knees, ankles, and feet without synovitis, swelling, tenderness, deformity, or lack of ROM. Impression: Nikki Hunt is a 35 year old female who presents for a rheumatology evaluation at the [facility]. She has a history of psa with many musculoskeletal complaints in addition to recent complaints of nausea without vomiting. Recommendations / plans: i will get labs today as well as x-rays.i believe gi evaluation is appropriate and will order a consultation with gi. X-rays and labs ordered at initial 2016 visit were not obtained. -- 05/05/2024 [facility] Rheumatology Consult with Dr. Suri Ward: Longstanding history of psoriasis, psoriatic arthritis, and palmopustular psoriasis: - FamHx of psoriasis in son and daughter; no FamHx of inflammatory bowel disease, , PsA - History since childhood, age 13 diagnosed with psoriasis (initially scalp) - History of psoriatic arthritis at age 19, presented with right 5th finger DIP swelling - Historical joints involved: hands, feet, hips, shoulders - No apparent history of dactylitis, inflammatory eye disease. Unclear history of nail pitting (noted by prior provider) - Prednisone caused mood changes - Celebrex in the past helped some; Aleve now takes the edge off - Prior csDMARDs included methotrexate, cyclosporine, and Apremilast (targeted DMARD) all of which did not work - Prior bDMARDs including Enbrel (lost efficacy), Humira (developed palmoplantar pustulosis), Enbrel (lost efficacy), Taltz (lost efficacy), and most recently Cosentyx 300 mg every 4 weeks (did hel (more content not included)... 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 Signed By: 07/17/24 0754 DD/ 06 TD/TT: Cardiac Cath Technician: [facility] ECG 12-LEADOrdered By: [facility] on 07-17-2024 [facility] Work Phone: ECG 12-LEADon 07-16-2024 Radiology Study observation (narrative) [facility] BLOOD TB SCREENon 05-05-2024 M. tuberculosis tuberculin stim IFN-g Ql (Bld) Negative Normal [facility] Comment on above: Order Comment: Elliott hernandez Type: BLOOD SPECIMEN Ordering Facility: [facility] Address: [address] [place] [address] Performed By: #### I NFTBP #### [facility] CLIA [id number] [address] [place] [address] [place] MITOGEN MINUS NIL >9.99 Normal >=0.50 [facility] Comment on above: Order Comment: Elliott hernandez Type: BLOOD SPECIMEN Ordering Facility: [facility] Address: [address] [place] [address] Performed By: #### I NFTBP #### [facility] CLIA [id number] [address] [place] [address] [place] TB GAMMA INTERPRETATION Infection with M. tuberculosis complex is unlikely. If latent tuberculosis infection is highly suspected, a negative result does not rule out the infection. Specimens from immunocompromised patients and those <5 years of age may show false negative results. In case of a contact investigation, please repeat 8-12 weeks after a known exposure. Normal [facility] Comment on above: Order Comment: Speci men Type: BLOOD SPECIMEN Ordering Facility: [facility] Address: [address] [place] [address] Performed By: #### I NFTBP #### [facility] CLIA [id number] [address] [place] [address] [place] TB NIL 0.01 IU/mL Normal <=8.00 [facility] Comment on above: Order Comment: Speci men Type: BLOOD SPECIMEN Ordering Facility: [facility] Address: [address] [place] [address] Performed By: #### I NFTBP #### [facility] CLIA [id number] [address] [place] [address] [place] TB1 AG MINUS NIL 0.00 IU/mL Normal <0.35 [facility] Comment on above: Order Comment: Speci men Type: BLOOD SPECIMEN Ordering Facility: [facility] Address: [address] [place] [address] Performed By: #### I NFTBP #### [facility] CLIA [id number] [address] [place] [address] [place] TB2 AG MINUS NIL 0.00 IU/mL Normal <0.35 [facility] Comment on above: Order Comment: Speci men Type: BLOOD SPECIMEN Ordering Facility: [facility] Address: [address] [place] [address] Performed By: #### I NFTBP #### [facility] CLIA [id number] [address] [place] [address] [place] C-REACTIVE PROTEINon 024 CRP [Mass/Vol] mg/dL [facility] - 0.9 mg/dL [facility] CBC W Auto Differential pane l (Bld)on 05-05-2024 Basophils (Bld) [#/Vol] 0.08 10*3/uL [facility] Basophils/100 WBC (Bld) 0.9 % [facility] Differential cell count method Nom (Bld) Auto [facility] Eosinophils (Bld) [#/Vol] 0.40 10*3/uL [facility] Eosinophils/100 WBC (Bld) 4.7 % [facility] Erythrocyte distribution width (RBC) [Ratio] 15.2 % High 11.5 - 15.0 % [facility] Hematocrit (Bld) [Volume fraction] 36.0 % 36.0 - 46.0 % [facility] Hemoglobin (Bld) [Mass/Vol] 11.6 g/dL 11.5 - 15.5 g/dL [facility] Immature granulocytes (Bld) [#/Vol] [facility] Immature granulocytes/100 WBC (Bld) 0.1 % [facility] Interpretation and review of laboratory results Abnormal [facility] Lymphocytes (Bld) [#/Vol] 2.64 10*3/uL [facility] Lymphocytes/100 WBC (Bld) 30.9 % [facility] MCH (RBC) [Entitic mass] 27.4 pg 26.0 - 34.0 pg [facility] MCHC (RBC) [Mass/Vol] 32.2 g/dL 30.5 - 36.0 g/dL [facility] MCV (RBC) [Entitic vol] 85.1 fL 80.0 - 100.0 fL [facility] Monocytes (Bld) [#/Vol] 0.49 10*3/uL [facility] Monocytes/100 WBC (Bld) 5.7 % [facility] Neutrophils (Bld) [#/Vol] 4.91 10*3/uL [facility] Neutrophils/100 WBC (Bld) 57.7 % [facility] Nucleated RBC (Bld) [#/Vol] [facility] Nucleated RBC/100 WBC (Bld) [Ratio] 0.0 % /100 WBC [facility] Platelet mean volume (Bld) [Entitic vol] 10.6 fL 9.0 - 12.7 fL [facility] Platelets (Bld) [#/Vol] 248 10*3/uL [facility] RBC (Bld) [#/Vol] 4.23 10*6/uL 3.90 - 5.2 0 m/uL [facility] WBC (Bld) [#/Vol] 8.53 10*3/uL [facility] Basophils (Bld) [#/Vol] 0.08 10*3/uL Normal <0.11 [facility] Comment on above: Order Comment: Speci men Type: BLOOD SPECIMEN Ordering Facility: [facility] Address: [address] [place] [address] Performed By: #### 2 8, 1987-09, #### [facility] CLIA [id number] [address] [place] [address] [place] Basophils/100 WBC (Bld) 0.9 % Normal [facility] Comment on above: Order Comment: Speci men Type: BLOOD SPECIMEN Ordering Facility: [facility] Address: [address] [place] [address] Performed By: #### 2 8, 1987-09, #### [facility] CLIA [id number] [address] [place] [address] [place] Differential cell count method Nom (Bld) Auto Normal [facility] Comment on above: Order Comment: Speci men Type: BLOOD SPECIMEN Ordering Facility: [facility] Address: [address] [place] [address] Performed By: #### 2 8, 1987-09, #### [facility] CLIA [id number] [address] [place] [address] [place] Eosinophils (Bld) [#/Vol] 0.40 10*3/uL Normal <0.46 [facility] Comment on above: Order Comment: Speci men Type: BLOOD SPECIMEN Ordering Facility: [facility] Address: [address] [place] [address] Performed By: #### 2 8, 1987-09, #### [facility] CLIA [id number] [address] [place] [address] [place] Eosinophils/100 WBC (Bld) 4.7 % Normal [facility] Comment on above: Order Comment: Speci men Type: BLOOD SPECIMEN Ordering Facility: [facility] Address: [address] [place] [address] Performed By: #### 2 8, 1987-09, #### [facility] CLIA [id number] [address] [place] [address] [place] Erythrocyte distribution width (RBC) [Ratio] 15.2 % High 11.5-15.0 [facility] Comment on above: Order Comment: Speci men Type: BLOOD SPECIMEN Ordering Facility: [facility] Address: [address] [place] [address] Performed By: #### 2 8, 1987-09, #### [facility] CLIA [id number] [address] [place] [address] [place] Hematocrit (Bld) [Volume fraction] 36.0 % Normal 36.0-46.0 [facility] Comment on above: Order Comment: Speci men Type: BLOOD SPECIMEN Ordering Facility: [facility] Address: [address] [place] [address] Performed By: #### 2 8, 1987-09, #### [facility] CLIA [id number] [address] [place] [address] [place] Hemoglobin (Bld) [Mass/Vol] 11.6 g/dL Normal 11.5-15.5 [facility] Comment on above: Order Comment: Speci men Type: BLOOD SPECIMEN Ordering Facility: [facility] Address: [address] [place] [address] Performed By: #### 2 8, 1987-09, #### [facility] CLIA [id number] [address] [place], [place] [id number] [place] Immature granulocytes (Bld) [#/Vol] 10*3/uL Normal <0.10 [facility] Comment on above: Order Comment: Speci men Type: BLOOD SPECIMEN Ordering Facility: [facility] Address: [address] [place] [address] Performed By: #### 2 8, 1987-09, #### [facility] CLIA [id number] [address] [place] [address] [place] Immature granulocytes/100 WBC (Bld) 0.1 % Normal [facility] Comment on above: Order Comment: Speci men Type: BLOOD SPECIMEN Ordering Facility: [facility] Address: [address] [place] [address] Performed By: #### 2 432-8, 1987-09, #### [facility] CLIA [id number] [address] [place] [address] [place] Lymphocytes (Bld) [#/Vol] 2.64 10*3/uL Normal 1.00-4.00 [facility] Comment on above: Order Comment: Speci men Type: BLOOD SPECIMEN Ordering Facility: [facility] Address: [address] [place] [address] Performed By: #### 2 4328, 1987-09, #### [facility] CLIA [id number] [address] [place] [address] [place] Lymphocytes/100 WBC (Bld) 30.9 % Normal [facility] Comment on above: Order Comment: Speci men Type: BLOOD SPECIMEN Ordering Facility: [facility] Address: [address] [place] [address] Performed By: #### 2 4328, 1987-09, #### [facility] CLIA [id number] [address] [place] [address] [place] MCH (RBC) [Entitic mass] 27.4 pg Normal 26.0-34.0 [facility] Comment on above: Order Comment: Speci men Type: BLOOD SPECIMEN Ordering Facility: [facility] Address: [address] [place] [address] Performed By: #### 2 4328, 1987-09, #### [facility] CLIA [id number] [address] [place], [place] [id number] [place] MCHC (RBC) [Mass/Vol] 32.2 g/dL Normal 30.5-36.0 [facility] Comment on above: Order Comment: Speci men Type: BLOOD SPECIMEN Ordering Facility: [facility] Address: [address] [place] [address] Performed By: #### 2 8, 1987-09, #### [facility] CLIA [id number] [address] [place] [address] [place] MCV (RBC) [Entitic vol] 85.1 fL Normal 80.0-100.0 [facility] Comment on above: Order Comment: Speci men Type: BLOOD SPECIMEN Ordering Facility: [facility] Address: [address] [place] [address] Performed By: #### 2 4328, 1987-09, #### [facility] CLIA [id number] [address] [place] [address] [place] Monocytes (Bld) [#/Vol] 0.49 10*3/uL Normal <0.87 [facility] Comment on above: Order Comment: Speci men Type: BLOOD SPECIMEN Ordering Facility: [facility] Address: [address] [place] [address] Performed By: #### 2 4328, 1987-09, #### [facility] CLIA [id number] [address] [place] [address] [place] Monocytes/100 WBC (Bld) 5.7 % Normal [facility] Comment on above: Order Comment: Speci men Type: BLOOD SPECIMEN Ordering Facility: [facility] Address: [address] [place] [address] Performed By: #### 2 4323-8, 1987-09, #### [facility] CLIA [id number] [address] [place] [address] [place] Neutrophils (Bld) [#/Vol] 4.91 10*3/uL Normal 1.45-7.50 [facility] Comment on above: Order Comment: Speci men Type: BLOOD SPECIMEN Ordering Facility: [facility] Address: [address] [place] [address] Performed By: #### 2 432-8, 1987-09, #### [facility] CLIA [id number] [address] [place] [address] [place] Neutrophils/100 WBC (Bld) 57.7 % Normal [facility] Comment on above: Order Comment: Speci men Type: BLOOD SPECIMEN Ordering Facility: [facility] Address: [address] [place] [address] Performed By: #### 2 8, 1987-09, #### [facility] CLIA [id number] [address] [place], [place] [id number] [place] Nucleated RBC (Bld) [#/Vol] 10*3/uL Normal <0.01 [facility] Comment on above: Order Comment: Speci men Type: BLOOD SPECIMEN Ordering Facility: [facility] Address: [address] [place] [address] Performed By: #### 2 4328, 1987-09, #### [facility] CLIA [id number] [address] [place] [address] [place] Nucleated RBC/100 WBC (Bld) [Ratio] 0.0 /100 WBC Normal [facility] Comment on above: Order Comment: Speci men Type: BLOOD SPECIMEN Ordering Facility: [facility] Address: [address] [place] [address] Performed By: #### 2 8, 1987-09, #### [facility] CLIA [id number] [address] [place], [place] [address] [place] Platelet mean volume (Bld) [Entitic vol] 10.6 fL Normal 9.0-12.7 [facility] Comment on above: Order Comment: Speci men Type: BLOOD SPECIMEN Ordering Facility: [facility] Address: [address] [place] [address] Performed By: #### 2 4328, 1987-09, #### [facility] CLIA [id number] [address] [place] [address] [place] Platelets (Bld) [#/Vol] 248 10*3/uL Normal 150-400 [facility] Comment on above: Order Comment: Speci men Type: BLOOD SPECIMEN Ordering Facility: [facility] Address: [address] [place] [address] Performed By: #### 2 4323-8, 1987-09, #### [facility] CLIA [id number] [address] [place] [address] [place] RBC (Bld) [#/Vol] 4.23 10*6/uL Normal 3.90-5.20 [facility] Comment on above: Order Comment: Speci men Type: BLOOD SPECIMEN Ordering Facility: [facility] Address: [address] [place] [address] Performed By: #### 2 4323-8, 1987-09, #### [facility] CLIA [id number] [address] [place] [address] [place] WBC (Bld) [#/Vol] 8.53 10*3/uL Normal 3.70-11.00 [facility] Comment on above: Order Comment: Speci men Type: BLOOD SPECIMEN Ordering Facility: [facility] Address: [address] [place] [address] Performed By: #### 2 4323-8, 1987-09, #### [facility] CLIA [id number] [address] [place] [address] [place] CNOVon 05-05-2024 CNOV Office Visit (ALFONZO ) -- NIKKI [id number]) 1980 F Date Time Provider Department 05/05/24 10:00 AM RUTHIE WARD During your visit today, we recorded the following information about you: Pulse Blood pressure Weight Last Period 91/minute 131/87 65 kg 04/25/24 Ruthie Ward, 05/05/2024 12:09 PM Signed Rheumatology CONSULTATION Date of Service: 05/05/2024 Patient: Nikki Hunt Medical Record: [id number] Primary Care Physician: Highway Truck Driver Role and Specialty Contact Info Address Start End Comments Kaylyn Bonilla [facility] General (Family Medicine) [address] [facility] [address] [facility] [address] 05/05/2024 - - Last Rheumatology visit: 03/19/2016 (with Keith Schuler) Referring Provider: Viviana Ellis. [facility] Family Medicine [address] [facility] [address] Reordering Clerk: Highway Truck Driver Role and Specialty Contact Info Address Start End Comments Ellen Jon MD (Dermatology) [address] [facility] [address] [facility] [address] 05/05/2024 - - Reason for visit: psoriasis, reported h/o psoriatic arthritis My final recommendations will be communicated back to the requesting provider by way of shared Medical record or letter to requesting physician via US mail. History of Present Illness HISTORY OF PRESENT ILLNESS Nikki Hunt is a 43 year old White female from [place], [place] with PMHx of infertility, depression with h/o attempted suicide, ADHD (Adderall), opioid use disorder (buprenorphine), narcolepsy, seasonal allergies, HTN (says she no longer has HTN), acne (denies), and psoriasis who presents on 05/05/2024 for an in-person visit for evaluation of psoriasis and possible psoriatic arthritis. She has only been seen once in our division, several years ago on 03/19/2016 by my colleague, Dr. Keith Schuler and did not subsequently follow-up. She follows with local intervention manager, Dr. Ellen Jon. Hospitalized 12/19/2023 for UTI and confusion. Also benzo withdrawal and anemia with Hgb down to ~7. 04/11/2024 visit for possible dental abscess/infection and Rx antibiotic 03/19/2016 [facility] Rheumatology Visit with Dr. 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 History of present illness: Nikki Hunt is a 35 year old female who presents WITH A HISTORY OF PSA. SHE WAS DIAGNOSED ABOUT 20 YEARS AGO.. SHE HAS BEEN ON MTX FOR 3 YEARS.SHE HAS EXPERIENCED GROIN AND BUTTOCK PAIN FOR 4 YEARS.SHE DOES ADMIT TO JOINT SWELLING AND AM STIFFNESS LASTING ONE HOUR. Her skin is pretty good now. She used to have nail pitting but not presently. She has been on humira, enbrel, light therapy, cyclosporine and topical. Enbrel had worked well for one year and then was switched to humira and soon after her pustules began. She does experience tingling in her feet. Exam: psoriatic plaques behind ears,scalp and back as well as elbows, without psoriatic nail changes. Lumbar spine: No visible abnormalities. Diffuse tenderness ,neg slr decreased flex and lateral sidebending. Upper extremities: Normal inspection of joints. Shoulders, elbows, wrists, without synovitis, swelling, tenderness, deformity, or lack of ROM. Pips with thickening and slight tenderness. Lower extremities: Normal inspection of joints. Hips, knees, ankles, and feet without synovitis, swelling, tenderness, deformity, or lack of ROM. Impression: Nikki Hunt is a 35 year old female who presents for a rheumatology evaluation at the [facility]. She has a history of psa with many musculoskeletal complaints in addition to recent complaints of nausea without vomiting. Recommendations / plans: i will get labs today as well as x-rays.i believe gi evaluation is appropriate and will order a consultation with gi. X-rays and labs ordered at initial 2016 visit were not obtained. INTERVAL HISTORY Patient says she has a diagnosis of psoriatic arthritis. She has not seen rheumatology since she saw Dr. Schuler several years ago. She was diagnosed with psoriasis at age 13. She says when she was younger she might have been seen by rheumatology, but her care has been managed just by dermatology. Psoriasis: scalp -- denies knees or elbows initially (had elbow involvement later on). She is unsure if she has had nail pitting. PsA: right 5th finger at age 19 -- had been on Celebrex which helped some. 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 She says currently she has hands, shoulders, hips involved. She says she cannot wash her hair. She is unsure if she has had psoriatic arthritis. She says she was diagnosed with PPP in 2012, for which an ED doctor said was from Humira, which caused disability. She says pain from PPP -- nothing helps, she (more content not included)... Normal [facility] CRP SerPl-mCncon 05-05-2024 CRP [Mass/Vol] mg/L Normal <0.9 [facility] Comment on above: Order Comment: Speci men Type: BLOOD SPECIMEN Ordering Facility: [facility] Address: [address] [place] [address] Performed By: #### 2 4323-8, 1987-, 73750-0 #### [facility] CLIA [id number] [place] [address] [place] CRP [Mass/Vol]on 05-05-2024 Interpretation and review of laboratory results Normal [facility] Comprehensive metabolic 2000 panelon 05-05-2024 Albumin [Mass/Vol] 4.0 g/dL 3.9 - 4.9 g/dL [facility] ALP [Catalytic activity/Vol] 88 U/L 34 - 123 U/L [facility] ALT [Catalytic activity/Vol] 24 U/L 7 - 38 U/L [facility] Anion gap [Moles/Vol] 9 mmol/L 8 - 15 mmol/L [facility] AST [Catalytic activity/Vol] 27 U/L 13 - 35 U/L [facility] Bilirubin [Mass/Vol] 0.2 mg/dL 0.2 - 1 .3 mg/dL [facility] Calcium [Mass/Vol] 9.4 mg/dL 8.5 - 10. 2 mg/dL [facility] Chloride [Moles/Vol] 103 mmol/L 98 - 10 7 mmol/L [facility] CO2 [Moles/Vol] 29 mmol/L 22 - 30 mmol/L [facility] Creatinine [Mass/Vol] 1.09 mg/dL High 0.58 - 0.96 mg/dL [facility] GFR/1.73 sq M.predicted among non-blacks MDRD (S/P/Bld) [Vol rate/Area] 65 mL/min/{1.73_m2} - PINF [facility] Comment on above: Estimated Glomerular Filtration Rate (eGFR) is calculated using the 2020 CKD-EPI creatinine equation. This equation utilizes serum creatinine, sex, and age as parameters. The creatinine assay has traceable calibration to isotope dilution-mass spectrometry. Refer to KDIGO guidelines for clinical interpretation. In patients with unstable renal function, e.g. those with acute kidney injury, the eGFR may not accurately reflect actual GFR. Glucose [Mass/Vol] 103 mg/dL High 74 - 99 mg/dL [facility] Comment on above: The [place] Di[employer] [place] Association (ADA) provides guidance for cutoff values for fasting glucose and random glucose. The ADA defines fasting as no caloric intake for at least 8 hours. Fasting plasma glucose results between 100 to 125 mg/dL indicate increased risk for diabetes (prediabetes). Fasting plasma glucose results greater than or equal to 126 mg/dL meet the criteria for diagnosis of diabetes. In the absence of unequivocal hyperglycemia, results should be confirmed by repeat testing. In a patient with classic symptoms of hyperglycemia or hyperglycemic crisis, random plasma glucose results greater than or equal to 200 mg/dL meet the criteria for diagnosis of diabetes. Reference: Standards of Medical Care in Diabetes 2016, [place] [employer] Association. Diabetes Care. 2016.39(Suppl 1). Interpretation and review of laboratory results Abnormal [facility] Potassium [Moles/Vol] 4.6 mmol/L 3.7 - 5.1 mmol/L [facility] Protein [Mass/Vol] 6.9 g/dL 6.3 - 8.0 g/dL [facility] Sodium [Moles/Vol] 141 mmol/L 136 - 144 mmol/L [facility] Urea nitrogen [Mass/Vol] 13 mg/dL 7 - 21 mg/dL [facility] Albumin [Mass/Vol] 4.0 g/dL Normal 3.9-4.9 [facility] Comment on above: Order Comment: Speci men Type: BLOOD SPECIMEN Ordering Facility: [facility] Address: [address] [place] [address] Performed By: #### 2 8, 1987-09, #### [facility] CLIA [id number] [place] [address] [place] ALP [Catalytic activity/Vol] 88 U/L Normal 34-123 [facility] Comment on above: Order Comment: Speci men Type: BLOOD SPECIMEN Ordering Facility: [facility] Address: [address] [place], [place] [address] Performed By: #### 2 8, 1987-09, #### [facility] CLIA [id number] [address] [place] [address] [place] ALT [Catalytic activity/Vol] 24 U/L Normal 7-38 [facility] Comment on above: Order Comment: Speci men Type: BLOOD SPECIMEN Ordering Facility: [facility] Address: [address] [place] [address] Performed By: #### 2 8, 1987-09, #### [facility] CLIA [id number] [address] [place] [address] [place] Anion gap [Moles/Vol] 9 mmol/L Normal 8-15 [facility] Comment on above: Order Comment: Speci men Type: BLOOD SPECIMEN Ordering Facility: [facility] Address: [address] [place], [place] [address] Performed By: #### 2 8, 1987-09, #### [facility] CLIA [id number] [address] [place] [id number] [place] AST [Catalytic activity/Vol] 27 U/L Normal 13-35 [facility] Comment on above: Order Comment: Speci men Type: BLOOD SPECIMEN Ordering Facility: [facility] Address: [address] [place] [address] Performed By: #### 2 8, 1987-09, #### [facility] CLIA [id number] [id number] [place] [address] [place] Bilirubin [Mass/Vol] 0.2 mg/dL Normal 0.2-1.3 [facility] Comment on above: Order Comment: Speci men Type: BLOOD SPECIMEN Ordering Facility: [facility] Address: [address] [place] [address] Performed By: #### 2 4328, 1987-09, #### [facility] CLIA [id number] [address] [place] [address] [place] Calcium [Mass/Vol] 9.4 mg/dL Normal 8.5-10.2 [facility] Comment on above: Order Comment: Speci men Type: BLOOD SPECIMEN Ordering Facility: [facility] Address: [address] [place] [address] Performed By: #### 2 4328, 1987-09, #### [facility] CLIA [id number] [address] [place] [address] [place] Chloride [Moles/Vol] 103 mmol/L Normal 98-107 [facility] Comment on above: Order Comment: Speci men Type: BLOOD SPECIMEN Ordering Facility: [facility] Address: [address] [place] [address] Performed By: #### 2 4328, 1987-09, #### [facility] CLIA [id number] [address] [place] [address] [place] CO2 [Moles/Vol] 29 mmol/L Normal 22-30 [facility] Comment on above: Order Comment: Speci men Type: BLOOD SPECIMEN Ordering Facility: [facility] Address: [address] [place] [address] Performed By: #### 2 4323-8, 1987-09, #### [facility] CLIA [id number] [address] [place], [place] [address] [place] Creatinine [Mass/Vol] 1.09 mg/dL High 0.58-0.96 [facility] Comment on above: Order Comment: Elliott hernandez Type: BLOOD SPECIMEN Ordering Facility: [facility] Address: [address] [place] [address] Performed By: #### 2 4323-8, 1987-09, #### [facility] CLIA [id number] [address] [place] [address] [place] Creatinine and Glomerular filtration rate.predicted panel (S/P/Bld) 65 mL/min/1.73m??? Normal >=60 [facility] Comment on above: Order Comment: Elliott hernandez Type: BLOOD SPECIMEN Ordering Facility: [facility] Address: [address] [place] [address] Result Comment: Marilin mated Glomerular Filtration Rate (eGFR) is calculated using the 2020 CKD-EPI creatinine equation. This equation utilizes serum creatinine, sex, and age as parameters. The creatinine assay has traceable calibration to isotope dilution-mass spectrometry. Refer to KDIGO guidelines for clinical interpretation. In patients with unstable renal function, e.g. those with acute kidney injury, the eGFR may not accurately reflect actual GFR. Performed By: #### 2 4323-8, 1987-09, #### [facility] CLIA [id number] [address] [place] [address] [place] Glucose [Mass/Vol] 103 mg/dL High 74-99 [facility] Comment on above: Order Comment: Elliott hernandez Type: BLOOD SPECIMEN Ordering Facility: [facility] Address: [address] [place] [address] Result Comment: The [place] Diabetes Association (ADA) provides guidance for cutoff values for fasting glucose and random glucose. The ADA defines fasting as no caloric intake for at least 8 hours. Fasting plasma glucose results between 100 to 125 mg/dL indicate increased risk for diabetes (prediabetes). Fasting plasma glucose results greater than or equal to 126 mg/dL meet the criteria for diagnosis of diabetes. In the absence of unequivocal hyperglycemia, results should be confirmed by repeat testing. In a patient with classic symptoms of hyperglycemia or hyperglycemic crisis, random plasma glucose results greater than or equal to 200 mg/dL meet the criteria for diagnosis of diabetes. Reference: Standards of Medical Care in Diabetes 2016, [place] Diabetes Association. Diabetes Care. 2016.39(Suppl 1). Performed By: #### 2 8, 1987-09, #### [facility] CLIA [id number] [address] [place], [place] [address] [place] Potassium [Moles/Vol] 4.6 mmol/L Normal 3.7-5.1 [facility] Comment on above: Order Comment: Speci men Type: BLOOD SPECIMEN Ordering Facility: [facility] Address: [address] [place] [address] Performed By: #### 2 8, 1987-09, #### [facility] CLIA [id number] [address] [place] [address] [place] Protein [Mass/Vol] 6.9 g/dL Normal 6.3-8.0 [facility] Comment on above: Order Comment: Speci men Type: BLOOD SPECIMEN Ordering Facility: [facility] Address: [address] [place] [address] Performed By: #### 2 8, 1987-09, #### [facility] CLIA [id number] [address] [place] [address] [place] Sodium [Moles/Vol] 141 mmol/L Normal 136-144 [facility] Comment on above: Order Comment: Speci men Type: BLOOD SPECIMEN Ordering Facility: [facility] Address: [address] [place] [id number] Performed By: #### 2 8, 1987-09, #### [facility] CLIA [id number] [address] [place], [place] [address] [place] Urea nitrogen [Mass/Vol] 13 mg/dL Normal 7-21 [facility] Comment on above: Order Comment: Speci men Type: BLOOD SPECIMEN Ordering Facility: [facility] Address: [address] [place] [address] Performed By: #### 2 , 1987-09, 73425-4 #### [facility] CLIA [id number] [address] [place], [place] [address] [place] Cyclic citrullinated peptide IgG Qnon 05-05-2024 [facility] ANTIBODY IGG QUALITATIVE Negative Normal Negative [facility] Comment on above: Order Comment: Elliott hernandez Type: BLOOD SPECIMEN Ordering Facility: [facility] Address: [address] [place] [address] Performed By: #### 2 432-8, 1987-09, #### [facility] CLIA [id number] [address] [place] [address] [place] ESR Westergren method (Bld) [Velocity]on 05-05-2024 ESR (Bld) [Velocity] 5 mm/h [facility] Interpretation and review of laboratory results Normal [facility] ESR (Bld) [Velocity] 5 mm/h Normal 0-20 [facility] Comment on above: Order Comment: Elliott hernandez Type: BLOOD SPECIMEN Ordering Facility: [facility] Address: [address] [place] [address] Performed By: #### 4 537-7 #### [facility] CLIA [id number] [address] [place] [address] [place] HBV core Ab Ser Qlon 024 HBV core Ab Ql (S) Negative Normal Negative [facility] Comment on above: Order Comment: Elliott [facility] Type: BLOOD SPECIMEN Ordering Facility: [facility] Address: [address] [place] [address] Result Comment: No e vidence of current or past infection with Hepatitis B virus. Should recent infection be suspected, repeat testing may be considered 3-4 weeks after this draw. Performed By: #### 5 195-3, 97475-8, 45097-7, 00603-6 #### [facility] CLIA [id number] [address] [place] [address] [place] HBV surface Ab Ql (S)on 04-24 HBV surface Ab Qn (S) <8.00 Normal [facility] Comment on above: Order Comment: Speci men Type: BLOOD SPECIMEN Ordering Facility: [facility] Address: [address] [place] [address] Result Comment: <8 m IU/mL: No serological evidence of immunity to Hepatitis B Virus. >/= 8 to <12 mIU/mL: No serological evidence of immunity to Hepatitis B Virus. >/= 12 mIU/mL: Consistent with serological evidence of immunity to Hepatitis B Virus. Performed By: #### 5 195-3, 50880-0, 64861-4, 33772-9 #### [facility] CLIA [id number] [address] [place] [address] [place] HBV surface Ab Ser Qlon 04-24 HBV surface Ab Ql (S) Negative Normal [facility] Comment on above: Order Comment: Speci men Type: BLOOD SPECIMEN Ordering Facility: [facility] Address: [address] [place] [address] Result Comment: No s erological evidence of immunity to Hepatitis B Virus. Performed By: #### 5 195-3, 45530-6, 70469-9, 76144-1 #### [facility] CLIA [id number] [address] [place] [address] [place] HBV surface Ag Ser Qlon 04-24 HBV surface Ag Ql (S) Negative Normal Negative [facility] Comment on above: Order Comment: Speci men Type: BLOOD SPECIMEN Ordering Facility: [facility] Address: [address] [place] [address] Performed By: #### 5 195-3, 99098-1, 48981-7, 04697-3 #### [facility] CLIA [id number] [address] [place] [address] [place] HCV Ab Ser Qlon 05-05-2024 HCV Ab Ql (S) Negative Normal Negative [facility] Comment on above: Order Comment: Speci men Type: BLOOD SPECIMEN Ordering Facility: [facility] Address: [address] [place] [address] Result Comment: The result suggests no evidence of active infection with Hepatitis C virus. Should recent infection be suspected, repeat testing may be considered 4-6 weeks after this draw. Performed By: #### 1 6128-1 #### [facility] CLIA [id number] [address] [place] [address] [place] HIV 1+2 Ab IA Qlon 4 HIV 1 and 2 Ab IA.rapid Nom (S/P/Bld) [facility] Comment on above: Test not indicated. HIV 1+2 Ab+HIV1 p24 Ag IA Ql Non-Reactive Nonreactive [facility] HIV immunoassay testing algorithm interpretation (S/P/Bld) [Interp] [facility] Comment on above: No evidence of HIV-1 or HIV-2 infection. Should recent infection be suspected, repeat testing may be considered 2-3 weeks after this draw. [place] Rev. Code 3701.243(E): This information has been disclosed to you from confidential records protected from disclosure by state law. You shall make no further disclosure of this information without the specific, written, and informed release of the individual to whom it pertains or as otherwise permitted by state law. A general authorization for the release of medical or other information is not sufficient for the purpose of the release of HIV test results or diagnoses. [facility] HIV 1 and 2 Ab IA.rapid Nom (S/P/Bld) Normal [facility] Comment on above: Order Comment: Speci men Type: BLOOD SPECIMEN Ordering Facility: [facility] Address: [address] [place] [address] Result Comment: Test not indicated. Performed By: #### 5 195-3, 73311-5, 40011-3, 52423-3 #### [facility] CLIA [id number] [address] [place] [address] [place] HIV 1+2 Ab+HIV1 p24 Ag IA Ql Non-Reactive Normal Nonreactive [facility] Comment on above: Order Comment: Speci men Type: BLOOD SPECIMEN Ordering Facility: [facility] Address: [address] [place] [address] Performed By: #### 5 195-3, 64971-9, 91765-3, 20705-1 #### [facility] CLIA [id number] [address] [place] [address] [place] HIV immunoassay testing algorithm interpretation (S/P/Bld) [Interp] Normal [facility] Comment on above: Order Comment: Speci men Type: BLOOD SPECIMEN Ordering Facility: [facility] Address: [address] [place] [address] Result Comment: No e vidence of HIV-1 or HIV-2 infection. Should recent infection be suspected, repeat testing may be considered 2-3 weeks after this draw. [place] Rev. Code 3701.243(E): This information has been disclosed to you from confidential records protected from disclosure by state law. ???You shall make no further disclosure of this information without the specific, written, and informed release of the individual to whom it pertains or as otherwise permitted by state law. A general authorization for the release of medical or other information is not sufficient for the purpose of the release of HIV test results or diagnoses. Performed By: #### 5 195-3, 45237-4, 91959-2, 89894-6 #### [facility] CLIA [id number] [address] [place] [address] [place] No Panel Informationon 05-05 [facility] PROCALCITONINon 05-05-2024 Procalcitonin [Mass/Vol] ng/mL NINF - 0.09 ng/mL [facility] Comment on above: For a guided interpr etation of test results, please visit the Change in Procalcitonin Calculator, [email or web address]. Procalcitonin SerPl-mCncon 1 07-06-2023 Procalcitonin [Mass/Vol] ng/mL Normal <0.09 [facility] Comment on above: Order Comment: Speci men Type: BLOOD SPECIMEN Ordering Facility: [facility] Address: [address] [place] [address] Result Comment: For a guided interpretation of test results, please visit the Change in Procalcitonin Calculator, [email or web address]. Performed By: #### 2 4323-8, 1987-09, 39942-8 #### [facility] CLIA [id number] [place] [address] [facility] Procalcitonin [Mass/Vol]on 1 07-06-2023 Interpretation and review of laboratory results Normal [facility] Rheumatoid fact SerPl-aCncon 05-05-2024 Rheumatoid factor Qn [IU]/mL Normal <16 [facility] Comment on above: Order Comment: Speci men Type: BLOOD SPECIMEN Ordering Facility: [facility] Address: [address] [place] [address] Performed By: #### 2 4323-8, 1987-09, 28974-9 #### [facility] CLIA [id number] [place] [id number] [facility] XR FOOT 3V AP/LAT/OBL BILon 05-05-2024 XR FOOT 3V AP/LAT/OBL CHRISTEN * * *Final Report* * * DATE OF EXAM: May 05 2024 1:59PM LFX 5555 - XR FOOT 3V AP/LAT/OBL CHRISTEN / PROCEDURE REASON: Polyarticular psoriatic arthritis (HCC) * * * * Physician Interpretation * * * * INDICATION: Polyarticular psoriatic arthritis TECHNIQUE: XR HAND/WRIST SURVEY 1V PA CHRISTEN, XR SI JTS 2V AP PELV/NUNEZ, XR HIP 3V PELV+ AP/LAT RT, XR HIP 3V PELV+ AP/LAT LT, XR SHOULDER 2V AP/TRUE AP RT, XR SHLDR >/=3V AP/FREDERICK AP/OTHR LT, XR FOOT 3V AP/LAT/OBL CHRISTEN COMPARISON: None FINDINGS: Bilateral hands/wrists: Single AP view demonstrates normal bone mineralization. Joint spaces are maintained. No erosions or focal soft tissue swelling. No fracture or osseous lesion. Bilateral feet: Normal bone mineralization. Joint spaces are maintained. No erosions or focal soft tissue swelling. No fracture or osseous lesion. Bilateral shoulders: Normal bone mineralization. Joint spaces are maintained. Acromiohumeral interval is within normal limits bilaterally. No fracture or dislocation. Pelvis, bilateral hips and sacroiliac joints: Sacroiliac joints are symmetric and normal in appearance. No erosion, sclerosis or ankylosis. Hip joints are maintained. No fracture or osseous lesion. Significant stool is seen in the imaged colon suggesting constipation. IMPRESSION: 1. No evidence for inflammatory arthritis 2. Significant colonic stool content Cardiac Cath Technician: ESTIVEN Transcribe Date/Time: May 07 2024 11:55A Dictated by : LAISHA HINES MD This examination was interpreted and the report reviewed and electronically signed by: LAISHA HINES MD on May 07 2024 11:59AM EST [id number] Normal [facility] XR HAND/WRIST SURVEY 1V PA B ILon 05-05-2024 XR HAND/WRIST SURVEY 1V PA CHRISTEN * * *Final Report* * * DATE OF EXAM: May 05 2024 1:59PM LFX 5349 - XR HAND/WRIST SURVEY 1V PA CHRISTEN / PROCEDURE REASON: Polyarticular psoriatic arthritis (HCC) * * * * Physician Interpretation * * * * INDICATION: Polyarticular psoriatic arthritis TECHNIQUE: XR HAND/WRIST SURVEY 1V PA CHRISTEN, XR SI JTS 2V AP PELV/NUNEZ, XR HIP 3V PELV+ AP/LAT RT, XR HIP 3V PELV+ AP/LAT LT, XR SHOULDER 2V AP/TRUE AP RT, XR SHLDR >/=3V AP/FREDERICK AP/OTHR LT, XR FOOT 3V AP/LAT/OBL CHRISTEN COMPARISON: None FINDINGS: Bilateral hands/wrists: Single AP view demonstrates normal bone mineralization. Joint spaces are maintained. No erosions or focal soft tissue swelling. No fracture or osseous lesion. Bilateral feet: Normal bone mineralization. Joint spaces are maintained. No erosions or focal soft tissue swelling. No fracture or osseous lesion. Bilateral shoulders: Normal bone mineralization. Joint spaces are maintained. Acromiohumeral interval is within normal limits bilaterally. No fracture or dislocation. Pelvis, bilateral hips and sacroiliac joints: Sacroiliac joints are symmetric and normal in appearance. No erosion, sclerosis or ankylosis. Hip joints are maintained. No fracture or osseous lesion. Significant stool is seen in the imaged colon suggesting constipation. IMPRESSION: 1. No evidence for inflammatory arthritis 2. Significant colonic stool content Cardiac Cath Technician: ESTIVEN Transcribe Date/Time: May 07 2024 11:55A Dictated by : LAISHA HINES MD This examination was interpreted and the report reviewed and electronically signed by: LAISHA HINES MD on May 07 2024 11:59AM EST [id number] Normal [facility] XR HIP 3V PELV+ AP/LAT LTon 05-05-2024 XR HIP 3V PELV+ AP/LAT LT * * *Final Report* * * DATE OF EXAM: May 05 2024 2:05PM LFX 5351 - XR HIP 3V PELV+ AP/LAT LT / PROCEDURE REASON: Polyarticular psoriatic arthritis (HCC) * * * * Physician Interpretation * * * * INDICATION: Polyarticular psoriatic arthritis TECHNIQUE: XR HAND/WRIST SURVEY 1V PA CHRISTEN, XR SI JTS 2V AP PELV/NUNEZ, XR HIP 3V PELV+ AP/LAT RT, XR HIP 3V PELV+ AP/LAT LT, XR SHOULDER 2V AP/TRUE AP RT, XR SHLDR >/=3V AP/FREDERICK AP/OTHR LT, XR FOOT 3V AP/LAT/OBL CHRISTEN COMPARISON: None FINDINGS: Bilateral hands/wrists: Single AP view demonstrates normal bone mineralization. Joint spaces are maintained. No erosions or focal soft tissue swelling. No fracture or osseous lesion. Bilateral feet: Normal bone mineralization. Joint spaces are maintained. No erosions or focal soft tissue swelling. No fracture or osseous lesion. Bilateral shoulders: Normal bone mineralization. Joint spaces are maintained. Acromiohumeral interval is within normal limits bilaterally. No fracture or dislocation. Pelvis, bilateral hips and sacroiliac joints: Sacroiliac joints are symmetric and normal in appearance. No erosion, sclerosis or ankylosis. Hip joints are maintained. No fracture or osseous lesion. Significant stool is seen in the imaged colon suggesting constipation. IMPRESSION: 1. No evidence for inflammatory arthritis 2. Significant colonic stool content Cardiac Cath Technician: PSCB Transcribe Date/Time: May 07 2024 11:55A Dictated by : LAISHA HINES MD This examination was interpreted and the report reviewed and electronically signed by: LAISHA HINES MD on May 07 2024 11:59AM EST [id number] Normal [facility] XR HIP 3V PELV+ AP/LAT RTon 05-05-2024 XR HIP 3V PELV+ AP/LAT RT * * *Final Report* * * DATE OF EXAM: May 05 2024 2:05PM LFX 5352 - XR HIP 3V PELV+ AP/LAT RT / PROCEDURE REASON: Polyarticular psoriatic arthritis (HCC) * * * * Physician Interpretation * * * * INDICATION: Polyarticular psoriatic arthritis TECHNIQUE: XR HAND/WRIST SURVEY 1V PA CHRISTEN, XR SI JTS 2V AP PELV/NUNEZ, XR HIP 3V PELV+ AP/LAT RT, XR HIP 3V PELV+ AP/LAT LT, XR SHOULDER 2V AP/TRUE AP RT, XR SHLDR >/=3V AP/FREDERICK AP/OTHR LT, XR FOOT 3V AP/LAT/OBL CHRISTEN COMPARISON: None FINDINGS: Bilateral hands/wrists: Single AP view demonstrates normal bone mineralization. Joint spaces are maintained. No erosions or focal soft tissue swelling. No fracture or osseous lesion. Bilateral feet: Normal bone mineralization. Joint spaces are maintained. No erosions or focal soft tissue swelling. No fracture or osseous lesion. Bilateral shoulders: Normal bone mineralization. Joint spaces are maintained. Acromiohumeral interval is within normal limits bilaterally. No fracture or dislocation. Pelvis, bilateral hips and sacroiliac joints: Sacroiliac joints are symmetric and normal in appearance. No erosion, sclerosis or ankylosis. Hip joints are maintained. No fracture or osseous lesion. Significant stool is seen in the imaged colon suggesting constipation. IMPRESSION: 1. No evidence for inflammatory arthritis 2. Significant colonic stool content Cardiac Cath Technician: [facility] Transcribe Date/Time: May 07 2024 11:55A Dictated by : LAISHA HINES MD This examination was interpreted and the report reviewed and electronically signed by: LAISHA HINES MD on May 07 2024 11:59AM EST [id number] Normal [facility] XR SHLDR >/=3V AP/FREDERICK AP/OTH R LTon 05-05-2024 XR SHLDR >/=3V AP/FREDERICK AP/OTHR LT * * *Final Report* * * DATE OF EXAM: May 05 2024 1:59PM LFX 5252 - XR SHLDR >/=3V AP/FREDERICK AP/OTHR LT / PROCEDURE REASON: Polyarticular psoriatic arthritis (HCC) * * * * Physician Interpretation * * * * INDICATION: Polyarticular psoriatic arthritis TECHNIQUE: XR HAND/WRIST SURVEY 1V PA CHRISTEN, XR SI JTS 2V AP PELV/NUNEZ, XR HIP 3V PELV+ AP/LAT RT, XR HIP 3V PELV+ AP/LAT LT, XR SHOULDER 2V AP/TRUE AP RT, XR SHLDR >/=3V AP/FREDERICK AP/OTHR LT, XR FOOT 3V AP/LAT/OBL CHRISTEN COMPARISON: None FINDINGS: Bilateral hands/wrists: Single AP view demonstrates normal bone mineralization. Joint spaces are maintained. No erosions or focal soft tissue swelling. No fracture or osseous lesion. Bilateral feet: Normal bone mineralization. Joint spaces are maintained. No erosions or focal soft tissue swelling. No fracture or osseous lesion. Bilateral shoulders: Normal bone mineralization. Joint spaces are maintained. Acromiohumeral interval is within normal limits bilaterally. No fracture or dislocation. Pelvis, bilateral hips and sacroiliac joints: Sacroiliac joints are symmetric and normal in appearance. No erosion, sclerosis or ankylosis. Hip joints are maintained. No fracture or osseous lesion. Significant stool is seen in the imaged colon suggesting constipation. IMPRESSION: 1. No evidence for inflammatory arthritis 2. Significant colonic stool content Cardiac Cath Technician: ESTIVEN Transcribe Date/Time: May 07 2024 11:55A Dictated by : LAISHA HINES MD This examination was interpreted and the report reviewed and electronically signed by: LAISHA HINES MD on May 07 2024 11:59AM EST [id number] Normal [facility] XR SHOULDER 2V AP/TRUE AP RT on 05-05-2024 XR SHOULDER 2V AP/TRUE AP RT * * *Final Report* * * DATE OF EXAM: May 05 2024 1:59PM LFX 5255 - XR SHOULDER 2V AP/TRUE AP RT / PROCEDURE REASON: Polyarticular psoriatic arthritis (HCC) * * * * Physician Interpretation * * * * INDICATION: Polyarticular psoriatic arthritis TECHNIQUE: XR HAND/WRIST SURVEY 1V PA CHRISTEN, XR SI JTS 2V AP PELV/NUNEZ, XR HIP 3V PELV+ AP/LAT RT, XR HIP 3V PELV+ AP/LAT LT, XR SHOULDER 2V AP/TRUE AP RT, XR SHLDR >/=3V AP/FREDERICK AP/OTHR LT, XR FOOT 3V AP/LAT/OBL CHRISTEN COMPARISON: None FINDINGS: Bilateral hands/wrists: Single AP view demonstrates normal bone mineralization. Joint spaces are maintained. No erosions or focal soft tissue swelling. No fracture or osseous lesion. Bilateral feet: Normal bone mineralization. Joint spaces are maintained. No erosions or focal soft tissue swelling. No fracture or osseous lesion. Bilateral shoulders: Normal bone mineralization. Joint spaces are maintained. Acromiohumeral interval is within normal limits bilaterally. No fracture or dislocation. Pelvis, bilateral hips and sacroiliac joints: Sacroiliac joints are symmetric and normal in appearance. No erosion, sclerosis or ankylosis. Hip joints are maintained. No fracture or osseous lesion. Significant stool is seen in the imaged colon suggesting constipation. IMPRESSION: 1. No evidence for inflammatory arthritis 2. Significant colonic stool content Cardiac Cath Technician: [facility] Transcribe Date/Time: May 07 2024 11:55A Dictated by : LAISHA HINES MD This examination was interpreted and the report reviewed and electronically signed by: LAISHA HINES MD on May 07 2024 11:59AM EST [id number] Normal [facility] XR SI JTS 2V AP PELV/FERGUSO Non 05-05-2024 XR SI JTS 2V AP PELV/NUNEZ * * *Final Report* * * DATE OF EXAM: May 05 2024 2:05PM LFX 5245 - XR SI JTS 2V AP PELV/NUNEZ / PROCEDURE REASON: Psoriasis vulgaris * * * * Physician Interpretation * * * * INDICATION: Polyarticular psoriatic arthritis TECHNIQUE: XR HAND/WRIST SURVEY 1V PA CHRISTEN, XR SI JTS 2V AP PELV/NUNEZ, XR HIP 3V PELV+ AP/LAT RT, XR HIP 3V PELV+ AP/LAT LT, XR SHOULDER 2V AP/TRUE AP RT, XR SHLDR >/=3V AP/FREDERICK AP/OTHR LT, XR FOOT 3V AP/LAT/OBL CHRISTEN COMPARISON: None FINDINGS: Bilateral hands/wrists: Single AP view demonstrates normal bone mineralization. Joint spaces are maintained. No erosions or focal soft tissue swelling. No fracture or osseous lesion. Bilateral feet: Normal bone mineralization. Joint spaces are maintained. No erosions or focal soft tissue swelling. No fracture or osseous lesion. Bilateral shoulders: Normal bone mineralization. Joint spaces are maintained. Acromiohumeral interval is within normal limits bilaterally. No fracture or dislocation. Pelvis, bilateral hips and sacroiliac joints: Sacroiliac joints are symmetric and normal in appearance. No erosion, sclerosis or ankylosis. Hip joints are maintained. No fracture or osseous lesion. Significant stool is seen in the imaged colon suggesting constipation. IMPRESSION: 1. No evidence for inflammatory arthritis 2. Significant colonic stool content Cardiac Cath Technician: ESTIVEN Transcribe Date/Time: May 07 2024 11:55A Dictated by : LAISHA HINES MD This examination was interpreted and the report reviewed and electronically signed by: LAISHA HINES MD on May 07 2024 11:59AM EST [id number] Normal [facility] cCP IgG SerPl-aCncon 024 Cyclic citrullinated peptide IgG Qn 17 Units Normal <20 [facility] Comment on above: Order Comment: Speci men Type: BLOOD SPECIMEN Ordering Facility: [facility] Address: [address] [place] [address] Performed By: #### 2 4323-8, 1987-, 41864-0 #### [facility] CLIA [id number] [place] [address] [place] Basophils Auto (Bld) [#/Vol] Ordered By: Lorne Gan on 12-29-2023 Basophils (Bld) [#/Vol] 0.1 10*3/uL 0.0-0.2 [facility] Basophils/100 WBC Auto (Bld) Ordered By: Loren Gan on 12-29-2023 Basophils/100 WBC (Bld) 0.8 % . [facility] Eosinophils Auto (Bld) [#/Vo l]Ordered By: Lorne Gan on 12-29-2023 Eosinophils (Bld) [#/Vol] 0.2 10*3/uL 0.0-0.45 [facility] Eosinophils/100 WBC Auto (Bl d)Ordered By: Lorne Gan on 12-29-2023 Eosinophils/100 WBC (Bld) 1.3 % . [facility] Erythrocyte distribution wid th Auto (RBC) [Ratio]Ordered By: Lorne Gan on 12-29-2023 Erythrocyte distribution width (RBC) [Ratio] 17.6 % High 11.9-15.3 [facility] Hematocrit Auto (Bld) [Volum e fraction]Ordered By: Lorne Gan on 12-29-2023 Hematocrit (Bld) [Volume fraction] 33.5 % Low 34.0-46.4 [facility] Hemoglobin [Mass/volume] in BloodOrdered By: Lorne Gan on 12-29-2023 Hemoglobin (Bld) [Mass/Vol] 10.8 g/dL Low 11.8-15.4 [facility] Leukocytes [#/volume] correc reta for nucleated erythrocytes in Blood by Automated counOrdered By: Lorne Gan on 12-29-2023 WBC corrected for nucl RBC Auto (Bld) [#/Vol] 13.9 10*3/uL High 3.8-11.6 [facility] Lymphocytes Auto (Bld) [#/Vo l]Ordered By: Lorne Gan on 12-29-2023 Lymphocytes (Bld) [#/Vol] 3.0 10*3/uL 1.00-4.8 [facility] Lymphocytes/100 WBC Auto (Bl d)Ordered By: Lorne Gan on 12-29-2023 Lymphocytes/100 WBC (Bld) 21.6 % . [facility] MCH Auto (RBC) [Entitic mass ]Ordered By: Lorne Gan on 12-29-2023 MCH (RBC) [Entitic mass] 26.0 pg 24.7-34.3 [facility] MCHC Auto (RBC) [Mass/Vol]Or dered By: Lorne Gan on 12-29-2023 MCHC (RBC) [Mass/Vol] 32.3 g/dL 32.0-35.0 [facility] MCV Auto (RBC) [Entitic vol] Ordered By: Lorne Gan on 12-29-2023 MCV (RBC) [Entitic vol] 80.4 fL 80-100 [facility] Monocytes Auto (Bld) [#/Vol] Ordered By: Lorne Gan on 12-29-2023 Monocytes (Bld) [#/Vol] 0.5 10*3/uL 0.0-0.8 [facility] Monocytes/100 WBC Auto (Bld) Ordered By: Lorne Gan on 12-29-2023 Monocytes/100 WBC (Bld) 3.9 % . [facility] Neutrophils Auto (Bld) [#/Vo l]Ordered By: Lorne Gan on 12-29-2023 Neutrophils (Bld) [#/Vol] 10.1 10*3/uL High 1.8-7.7 [facility] Neutrophils/100 WBC Auto (Bl d)Ordered By: Lorne Gan on 12-29-2023 Neutrophils/100 WBC (Bld) 72.4 % . [facility] Nucleated erythrocytes [Pres ence] in Blood by Automated countOrdered By: Lorne Gan on 12-29-2023 Nucleated RBC Auto Ql (Bld) 0.1 /100{WBC} 0-0.5 [facility] Platelet mean volume Auto (B ld) [Entitic vol]Ordered By: Lorne Gan on 12-29-2023 Platelet mean volume (Bld) [Entitic vol] 7.4 fL 6.3-10.7 [facility] Platelets Auto (Bld) [#/Vol] Ordered By: Lorne Gan on 12-29-2023 Platelets (Bld) [#/Vol] 569 10*3/uL High 150-450 [facility] RBC Auto (Bld) [#/Vol]Ordere d By: Lorne Gan on 12-29-2023 RBC (Bld) [#/Vol] 4.17 10*6/uL 3.60-5.00 [facility] WBC Auto (Bld) [#/Vol]Ordere d By: Lorne Gan on 12-29-2023 WBC (Bld) [#/Vol] 13.9 10*3/uL High 3.8-11.6 [facility] Absolute reticulocyte countO rdered By: Lorne Gan on 12-22-2023 Reticulocytes (Bld) [#/Vol] 0.026 10*6/uL 0.024-0.084 [facility] Anisocytosis LM Ql (Bld)Orde red By: Dennys Garcia on 12-22-2023 Anisocytosis Ql (Bld) Slight [facility] Basophils Auto (Bld) [#/Vol] Ordered By: Dennys Garcia on 12-22-2023 Basophils (Bld) [#/Vol] N/A [facility] Basophils/100 WBC Auto (Bld) Ordered By: Dennys Garcia on 12-22-2023 Basophils/100 WBC (Bld) N/A [facility] Basophils/100 WBC Manual cnt (Bld)Ordered By: Dennys Garcia on 12-22-2023 Basophils/100 WBC (Bld) 1 % 0-2 [facility] Bilirubin.direct [Mass/volum e] in Serum or PlasmaOrdered By: Lorne Gan on 12-22-2023 Bilirubin.direct [Mass/Vol] 0.10 mg/dL 0.03-0.18 [facility] Bilirubin.total [Mass/volume ] in Serum or PlasmaOrdered By: Lorne Gan on 12-22-2023 Bilirubin [Mass/Vol] 0.4 mg/dL 0.3-1.0 [facility] Blood toxic granulation dete ction by light microscopyOrdered By: Dennys Garcia on 12-22-2023 Toxic granules LM Ql (Bld) Slight [facility] Calcium [Mass/volume] in Ser um or PlasmaOrdered By: Dennys Garcia on 12-22-2023 Calcium [Mass/Vol] 8.6 mg/dL 8.6-10.3 [facility] Carbon dioxide, total [Moles /volume] in Serum or PlasmaOrdered By: Dennys Garcia on 12-22-2023 CO2 [Moles/Vol] 26.1 mmol/L 21.0-31.0 [facility] Chloride [Moles/volume] in S rex or PlasmaOrdered By: Dennys Garcia on 12-22-2023 Chloride [Moles/Vol] 110 mmol/L High 98-107 [facility] Creatinine [Mass/volume] in Serum or PlasmaOrdered By: Dennys Garcia on 12-22-2023 Creatinine [Mass/Vol] 0.86 mg/dL 0.60-1.20 [facility] Eosinophils Auto (Bld) [#/Vo l]Ordered By: Dennys Garcia on 12-22-2023 Eosinophils (Bld) [#/Vol] N/A [facility] Eosinophils/100 WBC Auto (Bl d)Ordered By: Dennys Garcia on 12-22-2023 Eosinophils/100 WBC (Bld) N/A [facility] Eosinophils/100 WBC Manual c nt (Bld)Ordered By: Dennys Garcia on 12-22-2023 Eosinophils/100 WBC (Bld) 6 % High 1-3 [facility] Erythrocyte distribution wid th Auto (RBC) [Ratio]Ordered By: Dennys Garcia on 12-22-2023 Erythrocyte distribution width (RBC) [Ratio] 16.1 % High 11.9-15.3 [facility] Glucose [Mass/volume] in Ser um or PlasmaOrdered By: Dennys Garcia on 12-22-2023 Glucose [Mass/Vol] 96 mg/dL 70-100 [facility] Comment on above: ADA recommended refe rence rangeRandom Glucose Reference Range is dependent on time and content of last meal. Glucose of more than 200 mg/dL in a nonstressed, ambulatory subject supports the diagnosis of Diabetes Mellitus. Hematocrit Auto (Bld) [Volum e fraction]Ordered By: Dennys Garcia on 12-22-2023 Hematocrit (Bld) [Volume fraction] 23.4 % Low 34.0-46.4 [facility] Hemoglobin [Mass/volume] in BloodOrdered By: Dennys Garcia on 12-22-2023 Hemoglobin (Bld) [Mass/Vol] 7.9 g/dL Low 11.8-15.4 [facility] Leukocytes [#/volume] correc reta for nucleated erythrocytes in Blood by Automated counOrdered By: Dennys Garcia on 12-22-2023 WBC corrected for nucl RBC Auto (Bld) [#/Vol] 10.9 10*3/uL 3.8-11.6 [facility] Lymphocytes Auto (Bld) [#/Vo l]Ordered By: Dennys Garcia on 12-22-2023 Lymphocytes (Bld) [#/Vol] N/A [facility] Lymphocytes/100 WBC Auto (Bl d)Ordered By: Dennys Garcia on 12-22-2023 Lymphocytes/100 WBC (Bld) N/A [facility] Lymphocytes/100 WBC Manual c nt (Bld)Ordered By: Dennys Garcia on 12-22-2023 Lymphocytes/100 WBC (Bld) 28 % 18-42 [facility] MCH Auto (RBC) [Entitic mass ]Ordered By: Dennys Garcia on 12-22-2023 MCH (RBC) [Entitic mass] 26.4 pg 24.7-34.3 [facility] MCHC Auto (RBC) [Mass/Vol]Or dered By: Dennys Garcia on 12-22-2023 MCHC (RBC) [Mass/Vol] 33.7 g/dL 32.0-35.0 [facility] MCV Auto (RBC) [Entitic vol] Ordered By: Dennys Garcia on 12-22-2023 MCV (RBC) [Entitic vol] 78.4 fL Low 80-100 [facility] Metamyelocytes/100 WBC Manua l cnt (Bld)Ordered By: Dennys Garcia on 12-22-2023 Metamyelocytes/100 WBC (Bld) 2 % High 0-0 [facility] Microcytes LM Ql (Bld)Ordere d By: Dennys Garcia on 12-22-2023 Microcytes Ql (Bld) Slight [facility] Monocytes Auto (Bld) [#/Vol] Ordered By: Dennys Garcia on 12-22-2023 Monocytes (Bld) [#/Vol] N/A [facility] Monocytes/100 WBC Auto (Bld) Ordered By: Dennys Garcia on 12-22-2023 Monocytes/100 WBC (Bld) N/A [facility] Monocytes/100 WBC Manual cnt (Bld)Ordered By: Dennys Garcia on 12-22-2023 Monocytes/100 WBC (Bld) 7 % 2-11 [facility] Neutrophils Auto (Bld) [#/Vo l]Ordered By: Dennys Garcia on 12-22-2023 Neutrophils (Bld) [#/Vol] N/A [facility] Neutrophils/100 WBC Auto (Bl d)Ordered By: Dennys Garcia on 12-22-2023 Neutrophils/100 WBC (Bld) N/A [facility] No Panel InformationOrdered By: Dennys Garcia on 12-22-2023 Estimated GFR (CKD-EPI) > 60.0 mL/Min [facility] Creatinine Clearance (Chem 70.97 [facility] Nucleated erythrocytes [Pres ence] in Blood by Automated countOrdered By: Dennys Garcia on 12-22-2023 Nucleated RBC Auto Ql (Bld) N/A [facility] Platelet adequacy [Presence] in Blood by Light microscopyOrdered By: Dennys Garcia on 12-22-2023 Platelets LM Ql (Bld) Normal Normal [facility] Platelet mean volume Auto (B ld) [Entitic vol]Ordered By: Dennys Garcia on 12-22-2023 Platelet mean volume (Bld) [Entitic vol] 8.2 fL 6.3-10.7 [facility] Platelet morphology finding [Identifier] in BloodOrdered By: Dennys Garcia on 12-22-2023 Platelet morphology finding Nom (Bld) Normal Normal [facility] Platelets Auto (Bld) [#/Vol] Ordered By: Dennys Garcia on 12-22-2023 Platelets (Bld) [#/Vol] 439 10*3/uL 150-450 [facility] Potassium [Moles/volume] in Serum or PlasmaOrdered By: Dennys Garcia on 12-22-2023 Potassium [Moles/Vol] 4.1 mmol/L 3.5-5.1 [facility] RBC Auto (Bld) [#/Vol]Ordere d By: Dennys Garcia on 12-22-2023 RBC (Bld) [#/Vol] 2.99 10*6/uL Low 3.60-5.00 [facility] RBC morphologyOrdered By: Isidro Garcia on 12-22-2023 RBC morphology finding Nom (Bld) N/A [facility] Reticulocytes/100 RBC Auto ( Bld)Ordered By: Lorne Gan on 12-22-2023 Reticulocytes/100 RBC (Bld) 0.9 % 0.5-1.5 [facility] Segmented neutrophils/100 WB C Manual cnt (Bld)Ordered By: Dennys Garcia on 12-22-2023 Segmented neutrophils/100 WBC (Bld) 55 % 50-70 [facility] Serum or plasma anion gap de terminationOrdered By: Dennys Garcia on 12-22-2023 Anion gap [Moles/Vol] 12.0 mmol/L 6.0-15.0 [facility] Serum or plasma non-glucuron idated bilirubin measurement (mass/volume)Ordered By: Lorne Gan on 12-22-2023 Bilirubin.indirect [Mass/Vol] 0.3 mg/dL [facility] Sodium [Moles/volume] in Ser um or PlasmaOrdered By: Dennys Garcia on 12-22-2023 Sodium [Moles/Vol] 144 mmol/L 136-145 [facility] Urea nitrogen [Mass/volume] in Serum or PlasmaOrdered By: Dennys Garcia on 12-22-2023 Urea nitrogen [Mass/Vol] 8 mg/dL 7-25 [facility] Variant lymphocytes/100 WBC Manual cnt (Bld)Ordered By: Dennys Garcia on 12-22-2023 Variant lymphocytes/100 WBC (Bld) 1 % 0-12 [facility] WBC Auto (Bld) [#/Vol]Ordere d By: Dennys Garcia on 12-22-2023 WBC (Bld) [#/Vol] 10.9 10*3/uL 3.8-11.6 [facility] Magnesium [Mass/volume] in S rex or PlasmaOrdered By: Lorne Gan on 12-21-2023 Magnesium [Mass/Vol] 1.7 mg/dL Low 1.9-2.7 [facility] Band form neutrophils/100 WB C Manual cnt (Bld)Ordered By: Dennys Garcia on 12-20-2023 Band form neutrophils/100 WBC (Bld) 1 % 0-5 [facility] Cholesterol [Mass/volume] in Serum or PlasmaOrdered By: Dennys Garcia on 12-20-2023 Cholesterol [Mass/Vol] 142 mg/dL 140-200 [facility] Comment on above: Chol less than 200 m g/dl low riskChol 201-239 mg/dl borderline riskChol 240 mg/dl and greater high risk Cholesterol in LDL Calc [Mas s/Vol]Ordered By: Dennys Garcia on 12-20-2023 Cholesterol in LDL [Mass/Vol] 96 mg/dL 0-100 [facility] Comment on above: LDL ATP III CLASSIFI CATIONLDL less than 100 mg/dL OptimalLDL 100-129 mg/dL Near or above optimalLDL 130-159 mg/dL Borderline highLDL 160-189 mg/dL HighLDL greater than 189 mg/dL Very high Cholesterol in VLDL Calc [Ma ss/Vol]Ordered By: Dennys Garica on 12-20-2023 Cholesterol in VLDL [Mass/Vol] 34 mg/dL [facility] Ferritin [Mass/volume] in Se rum or PlasmaOrdered By: Dennys Garcia on 12-20-2023 Ferritin [Mass/Vol] 709.5 ng/mL High 11.0-306.8 [facility] Folate [Mass/volume] in Seru m or PlasmaOrdered By: Dennys Garcia on 12-20-2023 Folate [Mass/Vol] 11.2 ng/mL >5.9 [facility] Comment on above: Folate reference ran ge: >5.9 ng/mlThe WHO technical consultation on folate and vitamin [id number] has determined that folate concentrations lessthan 4 ng/ml are considered deficient. Giant platelets/100 leukocyt es [Ratio] in Blood by Manual countOrdered By: Dennys Garcia on 12-20-2023 Giant platelets/100 WBC Manual cnt (Bld) [Ratio] 2 /100{WBC} [facility] Glucose mean value [Mass/vol ume] in Blood Estimated from glycated hemoglobinOrdered By: Dennys Garcia on 12-20-2023 Average glucose Estimated from glycated hemoglobin (Bld) [Mass/Vol] 120 mg/dL [facility] Hemoglobin A1c percentageOrd ered By: Dennys Garcia on 12-20-2023 HbA1c (Bld) [Mass fraction] 5.8 % High 4.3-5.6 [facility] Comment on above: Increased risk for d iabetes: 5.7 - 6.4diabetes: >6.4glycemic control for adults with diabetes: <7.0 Hypochromia LM Ql (Bld)Order ed By: Dennys Garcia on 12-20-2023 Hypochromia Ql (Bld) Slight [facility] Iron [Mass/volume] in Serum or PlasmaOrdered By: Dennys Garcia on 12-20-2023 Iron [Mass/Vol] 51 ug/dL 50-212 [facility] Iron binding capacity [Mass/ volume] in Serum or PlasmaOrdered By: Dennys Garcia on 12-20-2023 Iron binding capacity [Mass/Vol] 112 ug/dL Low 255-450 [facility] Iron saturation [Mass Fracti on] in Serum or PlasmaOrdered By: Dennys Garcia on 12-20-2023 Iron saturation [Mass fraction] 45.5 % 20-50 [facility] Myelocytes/100 WBC Manual cn t (Bld)Ordered By: Dennys Garcia on 07-28-2024 Myelocytes/100 WBC (Bld) 1 % High 0-0 [facility] Poikilocytosis [Presence] in Blood by Light microscopyOrdered By: Dennys Garcia on 12-20-2023 Poikilocytosis LM Ql (Bld) Slight [facility] Serum or plasma high density lipoprotein (HDL) cholesterol measurementOrdered By: Dennys Garcia on 12-20-2023 Cholesterol in HDL [Mass/Vol] 11 mg/dL Low 23-92 [facility] Comment on above: HDL CHOL ATP-III CLA SSIFICATION Cardiovascular RiskHDL > or equal to 60 mg/dL LOWHDL < 40 mg/dL HIGH Serum or plasma total choles terol/high density lipoprotein (HDL) cholesterol mass ratOrdered By: Dennys Garcia on 12-20-2023 Cholesterol.total/Cho lesterol in HDL [Mass ratio] 12.9 {ratio} <5.0 [facility] Transferrin [Mass/volume] in Serum or PlasmaOrdered By: Dennys Garcia on 12-20-2023 Transferrin [Mass/Vol] 80 mg/dL Low 203-362 [facility] Triglyceride [Mass/volume] i n Serum or PlasmaOrdered By: Dennys Garcia on 12-20-2023 Triglyceride [Mass/Vol] 174 mg/dL High 0-149 [facility] Comment on above: TRIG ATP III CLASSIF ICATIONTRIG less than 150 mg/dL NormalTRIG 150-199 mg/dL Borderline highTRIG 200-500 mg/dL High TRIG greater than 500 mg/dL Very highStandard traceable to the Center for Disease Conrtrol and Prevention (CDC) test method. Vitamin B12 ser/plasOrdered By: Dennys Garcia on 12-20-2023 Cobalamin (Vitamin B12) [Mass/Vol] 811 pg/mL 180-914 [facility] Alanine aminotransferase [En zymatic activity/volume] in Serum or PlasmaOrdered By: Ondina Landa on 12-19-2023 ALT [Catalytic activity/Vol] 38 U/L 7-52 [facility] Albumin [Mass/volume] in Ser um or Plasma by Bromocresol green (BCG) dye binding methoOrdered By: Ondina Bullimore on 12-19-2023 Albumin BCG dye [Mass/Vol] 3.4 g/dL Low 3.5-5.7 [facility] Alkaline phosphatase [Enzyma tic activity/volume] in Serum or PlasmaOrdered By: Ondina Bullimore on 12-19-2023 ALP [Catalytic activity/Vol] 116 U/L High 34-104 [facility] Ammonia [Moles/volume] in Pl asmaOrdered By: Ondina Bullimore on 12-19-2023 Ammonia (P) [Moles/Vol] 19 umol/L 11-35 [facility] Amphetamine Screen Ql (U)Ord ered By: Ondina Covingtonimore on 12-19-2023 Amphetamines Ql (U) Negative Negative [facility] Aspartate aminotransferase [ Enzymatic activity/volume] in Serum or PlasmaOrdered By: Onidna Covingtonimore on 12-19-2023 AST [Catalytic activity/Vol] 44 U/L High 13-39 [facility] Bacteria [Presence] in Urine by AutomatedOrdered By: Ondina Covingtonimrita on 12-19-2023 Bacteria Auto Ql (U) 4+ [HPF] High None Seen [facility] Barbiturates [Presence] in U rine by Screen methodOrdered By: Ondina Bullimore on 12-19-2023 Barbiturates Screen Ql (U) Negative Negative [facility] Basophils Auto (Bld) [#/Vol] Ordered By: Ondina Bullimore on 12-19-2023 Basophils (Bld) [#/Vol] 0.1 10*3/uL 0.0-0.2 [facility] Basophils/100 WBC Auto (Bld) Ordered By: Ondina Bullimore on 12-19-2023 Basophils/100 WBC (Bld) 0.6 % . [facility] Benzodiazepines Screen Ql (U )Ordered By: Ondina Covingtonimore on 12-19-2023 Benzodiazepines Ql (U) Negative Negative [facility] Benzoylecgonine [Presence] i n Urine by Screen methodOrdered By: Ondina Covingtonimore on 12-19-2023 Benzoylecgonine Screen Ql (U) Negative Negative [facility] Bilirubin Test strip Ql (U)O rdered By: Ondina Landa on 12-19-2023 Bilirubin Ql (U) Negative Negative [facility] Bilirubin.total [Mass/volume ] in Serum or PlasmaOrdered By: Ondina Covingtonimore on 12-19-2023 Bilirubin [Mass/Vol] 0.6 mg/dL 0.3-1.0 [facility] COVID CepheidOrdered By: Emily Landa on 12-19-2023 SARS-CoV-2 (COVID-19) Ab IA Ql Negative Negative [facility] Comment on above: This is a duplicate [employer] Xpert Xpress CoV-2/Flu/RSV Plus RNA by RT-PCR result to be used for statistical tracking purpose only. SARS-CoV-2 (COVID-19) RNA CHRIS+probe Ql (Unsp spec) [facility] Calcium [Mass/volume] in Ser um or PlasmaOrdered By: Ondina Covingtonimore on 12-19-2023 Calcium [Mass/Vol] 9.4 mg/dL 8.6-10.3 [facility] Cannabinoids [Presence] in U rine by Screen methodOrdered By: Ondina Landa on 12-19-2023 Cannabinoids Screen Ql (U) Negative Negative [facility] Comment on above: These are unconfirme d results and should not be used for legal purposes. Drug Cut-Off Concentration: AMPH 1000 ng/mL KATHLEEN 200 ng/mL MARU 200 ng/mL COCM 300 ng/mL OP 300 ng/mL PCP 25 ng/mL THC 20 ng/mL Carbon dioxide, total [Moles /volume] in Serum or PlasmaOrdered By: Ondina Bullimore on 12-19-2023 CO2 [Moles/Vol] 23.5 mmol/L 21.0-31.0 [facility] Chloride [Moles/volume] in S rex or PlasmaOrdered By: Ondina Bullimore on 12-19-2023 Chloride [Moles/Vol] 101 mmol/L 98-107 [facility] Color Auto (U)Ordered By: Katrina Covingtonimrita on 12-19-2023 Color (U) Yellow Yellow [facility] Creatinine [Mass/volume] in Serum or PlasmaOrdered By: Ondina Bullimore on 12-19-2023 Creatinine [Mass/Vol] 1.08 mg/dL 0.60-1.20 [facility] Eosinophils Auto (Bld) [#/Vo l]Ordered By: Ondina Bullimore on 12-19-2023 Eosinophils (Bld) [#/Vol] 0.0 10*3/uL 0.0-0.45 [facility] Eosinophils/100 WBC Auto (Bl d)Ordered By: Ondina Bullimore on 12-19-2023 Eosinophils/100 WBC (Bld) 0.1 % . [facility] Epithelial cells.squamous [# /area] in Urine sediment by Automated countOrdered By: Ondina Landa on 12-19-2023 Epithelial cells.squamous Auto (Urine sed) [#/Area] N/A [facility] Erythrocyte distribution wid th Auto (RBC) [Ratio]Ordered By: Ondinamarty Landa on 12-19-2023 Erythrocyte distribution width (RBC) [Ratio] 15.3 % 11.9-15.3 [facility] Erythrocytes [#/area] in Uri ne sediment by Automated countOrdered By: Ondinamarty Landa on 12-19-2023 RBC Auto (Urine sed) [#/Area] 10-19 [HPF] High 0-4 [facility] Ethanol [Mass/volume] in Ser um or PlasmaOrdered By: Ondinamarty Landa on 12-19-2023 Ethanol [Mass/Vol] mg/dL [facility] Ethanol [Mass/Vol] TNP [facility] Comment on above: Test not performed Fibrin D-dimer [Presence] in Platelet poor plasma by Latex agglutinationOrdered By: Ondina Landa on 12-19-2023 Fibrin D-dimer LA Ql (PPP) 1329 ng/mL High 0-243 [facility] Comment on above: The reference range for D-dimer is <243 ng/mL D-dimer units.D-dimer results must be used in conjunction with a clinicalpretest probability (PTP) assessment model for deep veinthrombosis (DVT) and pulmonary embolism (PE). Results <230ng/mL d-dimer units can be used as a negative predictor inpatients with low or moderate probability for DVT/PE.Results above the exclusion threshold of 230 ng/ml D-dimerunits for DVT/PE may indicate the need for furtherdiagnostic testing.D-Dimer can be increased in hospitalized patients due toco-morbid conditions.A hematocrit value greater than 55% may lead to inaccurate results in coagulation testing. Patients having hematocrit values >55% require a special collection tube for coagulation studies. Please contact the laboratory at [phone] for redraw instructions. Globulin Calc (S) [Mass/Vol] Ordered By: Ondina Landa on 12-19-2023 Globulin (S) [Mass/Vol] 4.4 g/dL [facility] Glucose [Mass/volume] in Ser um or PlasmaOrdered By: Ondina Landa on 12-19-2023 Glucose [Mass/Vol] 136 mg/dL High 70-100 [facility] Comment on above: ADA recommended refe rence rangeRandom Glucose Reference Range is dependent on time and content of last meal. Glucose of more than 200 mg/dL in a nonstressed, ambulatory subject supports the diagnosis of Diabetes Mellitus. Glucose [Mass/volume] in Uri ne by Test stripOrdered By: Ondina Landa on 12-19-2023 Glucose Test strip (U) [Mass/Vol] Normal mg/dL Normal [facility] HCG ( test) IA.rapi d Ql (U)Ordered By: Ondina Landa on 12-19-2023 HCG ( test) Ql (U) Negative [facility] Hematocrit Auto (Bld) [Volum e fraction]Ordered By: Ondina Landa on 12-19-2023 Hematocrit (Bld) [Volume fraction] 29.2 % Low 34.0-46.4 [facility] Hemoglobin Test strip Ql (U) Ordered By: Ondina Landa on 12-19-2023 Hemoglobin Ql (U) 2+ High Negative [facility] Hemoglobin [Mass/volume] in BloodOrdered By: Ondina Landa on 12-19-2023 Hemoglobin (Bld) [Mass/Vol] 9.7 g/dL Low 11.8-15.4 [facility] Hyaline casts [#/area] in Ur ine sediment by Automated countOrdered By: Ondina Landa on 12-19-2023 Hyaline casts Auto (Urine sed) [#/Area] None [LPF] 0-8 [facility] Ketones Test strip Ql (U)Ord ered By: Ondina Bullimore on 12-19-2023 Ketones Ql (U) 1+ High Negative [facility] Lactate [Moles/volume] in Se rum or PlasmaOrdered By: Ondina Bullimore on 12-19-2023 Lactate [Moles/Vol] 0.8 mmol/L 0.5-2.2 [facility] Leukocyte clumps [Presence] in Urine by AutomatedOrdered By: Ondina Covingtonimore on 12-19-2023 Leukocyte clumps Auto Ql (U) Many [LPF] High None Seen [facility] Leukocyte esterase [Presence ] in Urine by Test stripOrdered By: Ondina Covingtonimore on 12-19-2023 Leukocyte esterase Test strip Ql (U) 3+ High Negative [facility] Leukocytes [#/area] in Urine sediment by Automated countOrdered By: Ondina Covingtonimore on 12-19-2023 WBC Auto (Urine sed) [#/Area] 20-49 [HPF] High 0-4 [facility] Leukocytes [#/volume] correc reta for nucleated erythrocytes in Blood by Automated counOrdered By: Ondina Covingtonimore on 12-19-2023 WBC corrected for nucl RBC Auto (Bld) [#/Vol] 15.8 10*3/uL High 3.8-11.6 [facility] Lymphocytes Auto (Bld) [#/Vo l]Ordered By: Ondina Covingtonimore on 12-19-2023 Lymphocytes (Bld) [#/Vol] 1.9 10*3/uL 1.00-4.8 [facility] Lymphocytes/100 WBC Auto (Bl d)Ordered By: Ondina Covingtonimore on 12-19-2023 Lymphocytes/100 WBC (Bld) 12.3 % . [facility] MCH Auto (RBC) [Entitic mass ]Ordered By: Ondina Covingtonimore on 12-19-2023 MCH (RBC) [Entitic mass] 26.0 pg 24.7-34.3 [facility] MCHC Auto (RBC) [Mass/Vol]Or dered By: Ondina Landa on 12-19-2023 MCHC (RBC) [Mass/Vol] 33.2 g/dL 32.0-35.0 [facility] MCV Auto (RBC) [Entitic vol] Ordered By: Ondina Covingtonimore on 12-19-2023 MCV (RBC) [Entitic vol] 78.2 fL Low 80-100 [facility] Monocyte distribution width [Entitic volume] in Blood by AutomatedOrdered By: Ondina Landa on 12-19-2023 Monocyte distribution width Auto (Bld) [Entitic vol] 27.77 % High 0.00-20.00 [facility] Comment on above: For adults in ED, MD W > 20.0 may be associated with a higher risk of sepsis during the first 12 hrs of hospital admission Monocytes Auto (Bld) [#/Vol] Ordered By: Ondina Landa on 12-19-2023 Monocytes (Bld) [#/Vol] 1.0 10*3/uL High 0.0-0.8 [facility] Monocytes/100 WBC Auto (Bld) Ordered By: Ondinamarty Landa on 12-19-2023 Monocytes/100 WBC (Bld) 6.1 % . [facility] Neutrophils Auto (Bld) [#/Vo l]Ordered By: Ondina Landa on 12-19-2023 Neutrophils (Bld) [#/Vol] 12.8 10*3/uL High 1.8-7.7 [facility] Neutrophils/100 WBC Auto (Bl d)Ordered By: Ondina Landa on 12-19-2023 Neutrophils/100 WBC (Bld) 80.9 % . [facility] Nitrite Test strip Ql (U)Ord ered By: Ondinamarty Landa on 12-19-2023 Nitrite Ql (U) Positive High Negative [facility] No Panel InformationOrdered By: Ondina Landa on 12-19-2023 Estimated GFR (CKD-EPI) > 60.0 mL/Min [facility] Creatinine Clearance (Chem 55.52 [facility] Nucleated erythrocytes [Pres ence] in Blood by Automated countOrdered By: Ondina Landa on 12-19-2023 Nucleated RBC Auto Ql (Bld) 0.0 /100{WBC} 0-0.5 [facility] Opiates [Presence] in Urine by Screen methodOrdered By: Ondina Bullimore on 12-19-2023 Opiates Screen Ql (U) Negative Negative [facility] Phencyclidine Screen Ql (U)O rdered By: Ondina Bullimore on 12-19-2023 Phencyclidine Ql (U) Negative Negative [facility] Platelet mean volume Auto (B ld) [Entitic vol]Ordered By: Ondina Bullimore on 12-19-2023 Platelet mean volume (Bld) [Entitic vol] 8.0 fL 6.3-10.7 [facility] Platelets Auto (Bld) [#/Vol] Ordered By: Ondina Bullimore on 12-19-2023 Platelets (Bld) [#/Vol] 483 10*3/uL High 150-450 [facility] Potassium [Moles/volume] in Serum or PlasmaOrdered By: Ondina Bullimore on 12-19-2023 Potassium [Moles/Vol] 3.6 mmol/L 3.5-5.1 [facility] Protein Test strip (U) [Mass /Vol]Ordered By: Ondina Bullimore on 12-19-2023 Protein (U) [Mass/Vol] 70 mg/dL High Negative [facility] Protein [Mass/volume] in Ser um or PlasmaOrdered By: Ondina Bullimore on 12-19-2023 Protein [Mass/Vol] 7.8 g/dL 6.4-8.9 [facility] RBC Auto (Bld) [#/Vol]Ordere d By: Ondina Bullimore on 12-19-2023 RBC (Bld) [#/Vol] 3.73 10*6/uL 3.60-5.00 [facility] Serum or plasma albumin/glob ulin mass ratioOrdered By: Ondina Bullimore on 12-19-2023 Albumin/Globulin [Mass ratio] 0.8 {ratio} [facility] Serum or plasma anion gap de terminationOrdered By: Ondina Bullimore on 12-19-2023 Anion gap [Moles/Vol] 17.1 mmol/L High 6.0-15.0 [facility] Sodium [Moles/volume] in Ser um or PlasmaOrdered By: Ondina Landa on 12-19-2023 Sodium [Moles/Vol] 138 mmol/L 136-145 [facility] Specific gravity Test strip (U) [Rel density]Ordered By: Ondina Landa on 12-19-2023 Specific gravity (U) [Rel density] 1.019 1.001-1.030 [facility] Thyrotropin [Units/volume] i n Serum or PlasmaOrdered By: Ondina Landa on 12-19-2023 TSH Qn 0.66 m[IU]/L 0.45-5.33 [facility] Thyroxine (T4) free [Mass/vo lume] in Serum or PlasmaOrdered By: Ondina Landa on 12-19-2023 Free T4 [Mass/Vol] 1.08 ng/dL 0.61-1.12 [facility] Troponin I.cardiac [Mass/vol ume] in Serum or Plasma by Detection limit <= 0.01 ng/Ordered By: Ondian Landa on 12-19-2023 Troponin I.cardiac DL <= 0.01 ng/mL [Mass/Vol] 7.8 pg/mL 0.0-15.0 [facility] Urea nitrogen [Mass/volume] in Serum or PlasmaOrdered By: Ondina Landa on 12-19-2023 Urea nitrogen [Mass/Vol] 23 mg/dL 7-25 [facility] Urine appearanceOrdered By: Ondina Landa on 12-19-2023 Appearance (U) Cloudy Abnormal Clear [facility] Urine culture routineOrdered By: Ondina Landa on 12-19-2023 Bacteria identified Cx Nom (U) Escherichia coli Abnormal [facility] Urobilinogen Test strip (U) [Mass/Vol]Ordered By: Ondina Landa on 12-19-2023 Urobilinogen (U) [Mass/Vol] Normal mg/dL Normal [facility] WBC Auto (Bld) [#/Vol]Ordere d By: Ondina Covingtonimore on 12-19-2023 WBC (Bld) [#/Vol] 15.8 10*3/uL High 3.8-11.6 [facility] pH Test strip (U)Ordered By: Ondina Landa on 12-19-2023 pH (U) 6.0 [pH] 5.0-9.0 [facility] Alanine aminotransferase [En zymatic activity/volume] in Serum or PlasmaOrdered By: Ellen Jon on 09-15-2022 ALT [Catalytic activity/Vol] 22 U/L 7-52 [facility] Albumin [Mass/volume] in Ser um or Plasma by Bromocresol green (BCG) dye binding methoOrdered By: Ellen Jon on 09-15-2022 Albumin BCG dye [Mass/Vol] 4.2 g/dL 3.5-5.7 [facility] Alkaline phosphatase [Enzyma tic activity/volume] in Serum or PlasmaOrdered By: Ellen Jon on 09-15-2022 ALP [Catalytic activity/Vol] 68 U/L 34-104 [facility] Aspartate aminotransferase [ Enzymatic activity/volume] in Serum or PlasmaOrdered By: Ellen Jon on 09-15-2022 AST [Catalytic activity/Vol] 18 U/L 13-39 [facility] Basophils Auto (Bld) [#/Vol] Ordered By: Ellen Jon on 09-15-2022 Basophils (Bld) [#/Vol] 0.0 10*3/uL 0.0-0.2 [facility] Basophils/100 WBC Auto (Bld) Ordered By: Ellen Jon on 09-15-2022 Basophils/100 WBC (Bld) 0.5 % . [facility] Bilirubin.total [Mass/volume ] in Serum or PlasmaOrdered By: Ellen Jon on 09-15-2022 Bilirubin [Mass/Vol] 0.5 mg/dL 0.3-1.0 [facility] Calcium [Mass/volume] in Ser um or PlasmaOrdered By: Ellen Jon on 09-15-2022 Calcium [Mass/Vol] 8.7 mg/dL 8.6-10.3 [facility] Carbon dioxide, total [Moles /volume] in Serum or PlasmaOrdered By: Ellen Jon on 09-15-2022 CO2 [Moles/Vol] 24.9 mmol/L 21.0-31.0 [facility] Chloride [Moles/volume] in S rex or PlasmaOrdered By: Ellen Jon on 09-15-2022 Chloride [Moles/Vol] 106 mmol/L 98-107 [facility] Cholesterol [Mass/volume] in Serum or PlasmaOrdered By: Ellen Jon on 09-15-2022 Cholesterol [Mass/Vol] 244 mg/dL 140-200 [facility] Comment on above: Chol less than 200 m g/dl low riskChol 201-239 mg/dl borderline riskChol 240 mg/dl and greater high risk Cholesterol in LDL Calc [Mas s/Vol]Ordered By: Ellen Jon on 09-15-2022 Cholesterol in LDL [Mass/Vol] 169 mg/dL 0-100 [facility] Comment on above: LDL ATP III CLASSIFI CATIONLDL less than 100 mg/dL OptimalLDL 100-129 mg/dL Near or above optimalLDL 130-159 mg/dL Borderline highLDL 160-189 mg/dL HighLDL greater than 189 mg/dL Very high Cholesterol in VLDL Calc [Ma ss/Vol]Ordered By: Ellen Jon on 09-15-2022 Cholesterol in VLDL [Mass/Vol] 24 mg/dL [facility] Creatinine [Mass/volume] in Serum or PlasmaOrdered By: Ellen Jon on 09-15-2022 Creatinine [Mass/Vol] 0.80 mg/dL 0.60-1.20 [facility] Eosinophils Auto (Bld) [#/Vo l]Ordered By: Ellen Jon on 09-15-2022 Eosinophils (Bld) [#/Vol] 0.2 10*3/uL 0.0-0.45 [facility] Eosinophils/100 WBC Auto (Bl d)Ordered By: Ellen Jon on 09-15-2022 Eosinophils/100 WBC (Bld) 2.0 % . [facility] Erythrocyte distribution wid th Auto (RBC) [Ratio]Ordered By: Ellen Jon on 09-15-2022 Erythrocyte distribution width (RBC) [Ratio] 13.5 % 11.9-15.3 [facility] Globulin Calc (S) [Mass/Vol] Ordered By: Ellen Jon on 09-15-2022 Globulin (S) [Mass/Vol] 2.9 g/dL [facility] Glucose [Mass/volume] in Ser um or PlasmaOrdered By: Ellen Jon on 09-15-2022 Glucose [Mass/Vol] 111 mg/dL 70-100 [facility] Comment on above: ADA recommended refe rence rangeRandom Glucose Reference Range is dependent on time and content of last meal. Glucose of more than 200 mg/dL in a nonstressed, ambulatory subject supports the diagnosis of Diabetes Mellitus. Hematocrit Auto (Bld) [Volum e fraction]Ordered By: Ellen Jon on 09-15-2022 Hematocrit (Bld) [Volume fraction] 39.5 % 34.0-46.4 [facility] Hemoglobin [Mass/volume] in BloodOrdered By: Ellen Jon on 09-15-2022 Hemoglobin (Bld) [Mass/Vol] 13.4 g/dL 11.8-15.4 [facility] Leukocytes [#/volume] correc reta for nucleated erythrocytes in Blood by Automated counOrdered By: Ellen Jon on 09-15-2022 WBC corrected for nucl RBC Auto (Bld) [#/Vol] 9.0 10*3/uL 3.8-11.6 [facility] Lymphocytes Auto (Bld) [#/Vo l]Ordered By: Ellen Jon on 09-15-2022 Lymphocytes (Bld) [#/Vol] 2.2 10*3/uL 1.00-4.8 [facility] Lymphocytes/100 WBC Auto (Bl d)Ordered By: Ellen Jon on 09-15-2022 Lymphocytes/100 WBC (Bld) 24.1 % . [facility] MCH Auto (RBC) [Entitic mass ]Ordered By: Ellen Jon on 09-15-2022 MCH (RBC) [Entitic mass] 28.6 pg 24.7-34.3 [facility] MCHC Auto (RBC) [Mass/Vol]Or dered By: Ellen Jon on 09-15-2022 MCHC (RBC) [Mass/Vol] 33.8 g/dL 32.0-35.0 [facility] MCV Auto (RBC) [Entitic vol] Ordered By: Ellen Jon on 09-15-2022 MCV (RBC) [Entitic vol] 84.5 fL 80-100 [facility] Monocytes Auto (Bld) [#/Vol] Ordered By: Ellen Jon on 09-15-2022 Monocytes (Bld) [#/Vol] 0.3 10*3/uL 0.0-0.8 [facility] Monocytes/100 WBC Auto (Bld) Ordered By: Ellen Jon on 09-15-2022 Monocytes/100 WBC (Bld) 3.2 % . [facility] Neutrophils Auto (Bld) [#/Vo l]Ordered By: Ellen Jon on 09-15-2022 Neutrophils (Bld) [#/Vol] 6.3 10*3/uL 1.8-7.7 [facility] Neutrophils/100 WBC Auto (Bl d)Ordered By: Ellen Jon on 09-15-2022 Neutrophils/100 WBC (Bld) 70.2 % . [facility] No Panel InformationOrdered By: Ellen Jon on 09-15-2022 Estimated GFR (CKD-EPI) > 60.0 mL/Min [facility] Creatinine Clearance (Chem N/A [facility] Nucleated erythrocytes [Pres ence] in Blood by Automated countOrdered By: Ellen Jon on 09-15-2022 Nucleated RBC Auto Ql (Bld) 0.0 /100{WBC} 0-0.5 [facility] Platelet mean volume Auto (B ld) [Entitic vol]Ordered By: Ellen Jon on 09-15-2022 Platelet mean volume (Bld) [Entitic vol] 7.8 fL 6.3-10.7 [facility] Platelets Auto (Bld) [#/Vol] Ordered By: Ellen Jon on 09-15-2022 Platelets (Bld) [#/Vol] 269 10*3/uL 150-450 [facility] Potassium [Moles/volume] in Serum or PlasmaOrdered By: Ellen Jon on 09-15-2022 Potassium [Moles/Vol] 3.9 mmol/L 3.5-5.1 [facility] Protein [Mass/volume] in Ser um or PlasmaOrdered By: Ellen Jon on 09-15-2022 Protein [Mass/Vol] 7.1 g/dL 6.4-8.9 [facility] RBC Auto (Bld) [#/Vol]Ordere d By: Ellen Jon on 09-15-2022 RBC (Bld) [#/Vol] 4.67 10*6/uL 3.60-5.00 [facility] Serum or plasma albumin/glob ulin mass ratioOrdered By: Ellen Jon on 09-15-2022 Albumin/Globulin [Mass ratio] 1.4 {ratio} [facility] Serum or plasma anion gap de terminationOrdered By: Ellen Jon on 09-15-2022 Anion gap [Moles/Vol] 11.0 mmol/L 6.0-15.0 [facility] Serum or plasma high density lipoprotein (HDL) cholesterol measurementOrdered By: Ellen Jon on 09-15-2022 Cholesterol in HDL [Mass/Vol] 50 mg/dL 35-85 [facility] Comment on above: HDL CHOL ATP-III CLA SSIFICATION Cardiovascular RiskHDL > or equal to 60 mg/dL LOWHDL < 40 mg/dL HIGH Serum or plasma total choles terol/high density lipoprotein (HDL) cholesterol mass ratOrdered By: Ellen Jon on 09-15-2022 Cholesterol.total/Cho lesterol in HDL [Mass ratio] 4.9 {ratio} <5.0 [facility] Sodium [Moles/volume] in Ser um or PlasmaOrdered By: Ellen Jon on 09-15-2022 Sodium [Moles/Vol] 138 mmol/L 136-145 [facility] Triglyceride [Mass/volume] i n Serum or PlasmaOrdered By: Ellen Jon on 09-15-2022 Triglyceride [Mass/Vol] 123 mg/dL 0-149 [facility] Comment on above: TRIG ATP III CLASSIF ICATIONTRIG less than 150 mg/dL NormalTRIG 150-199 mg/dL Borderline highTRIG 200-500 mg/dL High TRIG greater than 500 mg/dL Very highStandard traceable to the Center for Disease Conrtrol and Prevention (CDC) test method. Urea nitrogen [Mass/volume] in Serum or PlasmaOrdered By: Ellen Jon on 09-15-2022 Urea nitrogen [Mass/Vol] 11 mg/dL 7-25 [facility] WBC Auto (Bld) [#/Vol]Ordere d By: Ellen Jon on 09-15-2022 WBC (Bld) [#/Vol] 9.0 10*3/uL 3.8-11.6 [facility] Mullerian inhibiting substan ce [Mass/volume] in Serum or PlasmaOrdered By: William Bueno on 01-17-2022 Mullerian inhibiting substance [Mass/Vol] 0.609 ng/mL . [facility] Comment on above: For assays employing antibodies, the possibility exists for interference by heterophile antibodies in the samples.1 1.Nicole Mckeon Interferences in Immunoassays - still a threat. Clin. Chem. 2000; 46: 5120-4928. This test was developed and its performance characteristics determined by [employer]. It has not been cleared or approved by the Food and Drug Administration. Reference Range: Females 41 - 46y: 0.26 - 5.81 Median 0.58 AMH concentrations of >= 1.06 ng/mL is correlated with a better response to ovarian stimulation, produced more retrievable oocytes and higher odds of live according to Gleicher et al. Fertility and Sterility. 2010: 94:9560-6911. The current AMH test method correlates with the study method with a slope of 0.94. Females at risk of ovarian hyperstimulation syndrome or polycystic ovarian syndrome (PCOS) may exhibit elevated serum AMH concentrations. AMH levels from PCOS patients may be 2 to 5 fold higher than age-appropriate reference interval values. Granulosa cell tumors of the ovary may secrete AMH along with other tumor markers. Elevated AMH is not specific for malignancy, and the assay should not be used exclusively to diagnose or exclude an AMH-secreting ovarian tumor. Performed at: [facility] [address] [place] [id number] Equipment Sales Specialist: Roberto Lim MD, Phone: [phone] Serum or plasma estradiol (E 2) measurement (mass/volume)Ordered By: William Bueno on 01-17-2022 E2 [Mass/Vol] 30.2 pg/mL . [facility] Comment on above: Adult Female: Follicular phase 12.5 - 166.0 Ovulation phase 85.8 - 498.0 Luteal phase 43.8 - 211.0 Postmenopausal <6.0 - 54.7 1st trimester 215.0 - >4300.0 Bernarda ECLIA methodology Performed at: [facility] [id number] Equipment Sales Specialist: Zeb Hunter PhD, Phone: [phone] Serum or plasma follitropin measurement (units/volume)Ordered By: William Bueno on 01-17-2022 Follitropin Qn 9.9 m[IU]/mL [facility] Comment on above: FEMALE NORMALS (LAURA ENOPAUSE) MID-FOLLICULAR PHASE: 3.9-8.8 mIU/mL MID-CYCLE PEAK: 4.5-22.5 mIU/mL MID-LUTEAL PHASE: 1.8-5.1 mIU/mL FEMALE NORMALS (POSTMENOPAUSE): 16.7-113.6 mIU/mL MALE NORMALS: 1.3-19.3 mIU/mL TSH DL <= 0.005 mIU/L QnOrde red By: William Bueno on 01-17-2022 TSH Qn 0.69 m[IU]/L 0.45-5.33 [facility] Medication Managementon 12-24 Medication Management --- From: September Doreen YANCEY ([facility] ([facility] To: Dg Rodrigez DO; Sent: 01/20/2019 09:28:23 EDT Subject: FW: Medication Management Due Date/Time: 01/20/2019 18:27:00 EDT Her 30 days from dismissal is 01/28/19 - OARRS reviewed 01/20/19, last fill 12/23/18 for 120 tabs - JM From: [id number] To: Dg Rodrigez DO Sent: January 19, 2019 5:27:15 PM CDT Subject: Medication Management Due: January 20, 2019 5:27:15 PM CDT On Hold Pending Signature Drug: clonazePAM (clonazePAM 0.5 mg oral tablet) TAKE 1 TABLET BY MOUTH TWICE DAILY AND 2 TABS (1MG) AT BEDTIME NEEDED FOR ANXIETY Quantity: 120 tab(s) Days Supply: 0 Refills: 0 Substitutions Allowed Notes from Pharmacy: Dispensed Drug: clonazePAM (clonazePAM 0.5 mg oral tablet) TAKE 1 TABLET BY MOUTH TWICE DAILY AND 2 TABS AT BEDTIME NEEDED FOR ANXIETY Quantity: 120 tab(s) Days Supply: 30 Refills: 0 Substitutions Allowed Notes from Pharmacy: From: Dg Rodrigez DO To: [facility] ([facility]); Sent: 01/20/2019 09:56:08 EDT Subject: RE: Medication Management when is her 30 days up? From: Doreen López LPN ([facility] ([facility])) To: Dg Rodrigez DO; Sent: 01/20/2019 16:37:11 EDT Subject: RE: Medication Management It is up 01/28/19 - JM Submitted: Order:clonazePAM (clonazePAM 0.5 mg oral tablet) See Instructions TAKE 1 TABLET BY MOUTH TWICE DAILY AND 2 TABS AT BEDTIME NEEDED FOR ANXIETY Qty: 36 tab(s) Refills: 0 Route To Pharmacy - [facility] Signed by Dg Rodrigez DO 01/20/2019 16:39:00 [facility] Medication Managementon 12-24 Medication Management --- From: Anna Mcclain ([facility] [employer] ([facility] To: Dg Rodrigez DO; Sent: 01/12/2019 13:56:59 EDT Subject: Med Management Pharmacy: [facility] in [place] 1. Name of Medication: Gabapentin 300 mg 1 morning, 1 afternoon, 2 @ bedtime Submitted: Order:gabapentin (gabapentin 300 mg oral capsule) See Instructions TAKE 1 CAPSULE BY MOUTH ONCE DAILY IN THE MORNING, 1 CAPSULE AT NOON AND 2 CAPSULES AT BEDTIME Qty: 120 cap(s) Refills: 0 Route To Pharmacy - [facility] Signed by Dg Rodrigez DO 01/12/2019 13:58:00 [facility] Outside Recordson 01-11-2019 Outside Records [id number][facility]30-2018 Patient Letter [id number][facility] Med[facility]on Medication Management --- From: Nga Scanlon ([facility] ([facility])) To: Dg Rodrigez DO; Sent: 12/23/2018 10:17:47 EDT Subject: FW: Medication Management Due Date/Time: 12/24/2018 09:46:00 EDT From: [facility] To: Dg Rodrigez DO Sent: December 23, 2018 8:46:16 AM CDT Subject: Medication Management Due: December 24, 2018 8:46:16 AM CDT On Hold Pending Signature Drug: clonazePAM (clonazePAM 0.5 mg oral tablet) TAKE 1 TABLET BY MOUTH TWICE DAILY AND 2 TABS (1MG) AT BEDTIME NEEDED FOR ANXIETY Quantity: 120 tab(s) Days Supply: 0 Refills: 0 Substitutions Allowed Notes from Pharmacy: Dispensed Drug: clonazePAM (clonazePAM 0.5 mg oral tablet) TAKE 1 TABLET BY MOUTH TWICE DAILY AND 2 TABS AT BEDTIME NEEDED FOR ANXIETY Quantity: 120 tab(s) Days Supply: 30 Refills: 0 Substitutions Allowed Notes from Pharmacy: From: Dg Rodrigez DO To: [facility] Sent: 12/23/2018 10:37:09 EDT Subject: FW: Medication Management Submitted: Complete:clonazePAM (clonazePAM 0.5 mg oral tablet) Signed by Dg Rodrigez DO 12/23/18 10:37:00 Approved clonazePAM (CLONAZEPAM 0.5MG TAB) TAKE 1 TABLET BY MOUTH TWICE DAILY AND 2 TABS AT BEDTIME NEEDED FOR ANXIETY Qty: 120 tab(s) Days Supply: 30 Refills: 0 Substitutions Allowed Route To Pharmacy - [facility] [address] [place] [address] Medication Management --- From: Viviana Rojas ([facility] [employer] ([facility] To: Dg Rodrigez DO; Sent: 12/23/2018 09:54:11 EDT Subject: Med Management Pharmacy: [facility] [place] Comments: Patient said she is due for a refill on her Clonazepam 0.5mg 1. Name of Medication: clonazePAM 0.5 mg oral tablet From: Dg Rodrigez DO To: [employer] ([facility]); Sent: 12/23/2018 10:36:36 EDT Subject: RE: Med Management done [facility] Medication Managementon 11-24 Medication Management --- From: Nga Scanlon ([facility] ([facility] To: Dg Rodrigez DO; Sent: 12/21/2018 10:06:29 EDT Subject: FW: Medication Management Due Date/Time: 12/22/2018 09:59:00 EDT From: [facility] To: Dg Rodrigez DO Sent: December 21, 2018 8:59:36 AM CDT Subject: Medication Management Due: December 22, 2018 8:59:36 AM CDT On Hold Pending Signature Drug: clonazePAM (clonazePAM 0.5 mg oral tablet) TAKE 1 TABLET BY MOUTH TWICE DAILY AND 2 TABS (1MG) AT BEDTIME NEEDED FOR ANXIETY Quantity: 120 tab(s) Days Supply: 0 Refills: 0 Substitutions Allowed Notes from Pharmacy: Dispensed Drug: clonazePAM (clonazePAM 0.5 mg oral tablet) TAKE 1 TABLET BY MOUTH TWICE DAILY AND 2 TABS AT BEDTIME NEEDED FOR ANXIETY Quantity: 120 tab(s) Days Supply: 30 Refills: 0 Substitutions Allowed Notes from Pharmacy: From: Dg Rodrigez DO To: [facility] ([facility]); Sent: 12/21/2018 10:38:43 EDT Subject: RE: Medication Management nothing until 12/24 From: Nga Scanlon To: [place] [address] Sent: 12/21/2018 10:45:56 EDT Subject: RE: Medication Management Not Approved: Patient has requested refill too soon clonazePAM (CLONAZEPAM 0.5MG TAB) TAKE 1 TABLET BY MOUTH TWICE DAILY AND 2 TABS AT BEDTIME NEEDED FOR ANXIETY Qty: 120 tab(s) Days Supply: 30 Refills: 0 Substitutions Allowed Route To Pharmacy - [place] [address] Signed by Nga Scanlon [facility] Medication Managementon 11-22 Medication Management --- From: Nga Scanlon ([facility] ([facility] To: Dg Rodrigez DO; Sent: 12/09/2018 11:17:54 EDT Subject: FW: Medication Management Due Date/Time: 12/10/2018 10:22:00 EDT From: [facility] To: Dg Rodrigez DO Sent: December 09, 2018 9:22:25 AM CDT Subject: Medication Management Due: December 10, 2018 9:22:25 AM CDT On Hold Pending Signature Drug: gabapentin (gabapentin 300 mg oral capsule) TAKE 1 CAPSULE BY MOUTH ONCE DAILY IN THE MORNING, 1 CAPSULE AT NOON AND 2 CAPSULES AT BEDTIME Quantity: 120 cap(s) Days Supply: 0 Refills: 0 Substitutions Allowed Notes from Pharmacy: Dispensed Drug: gabapentin (gabapentin 300 mg oral capsule) TAKE 1 CAPSULE BY MOUTH ONCE DAILY IN THE MORNING, 1 CAPSULE AT NOON AND 2 CAPSULES AT BEDTIME Quantity: 120 cap(s) Days Supply: 30 Refills: 1 Substitutions Allowed Notes from Pharmacy: Please consider 90 day supplies to promote better adherence From: Dg Rodrigez DO To: [facility] Sent: 12/09/2018 11:18:31 EDT Subject: FW: Medication Management Submitted: Complete:gabapentin (gabapentin 300 mg oral capsule) OARRS reviewed 08/23/18 - last fill 07/21/18 for 90 caps Signed by Dg Rodrigez DO 12/09/18 11:18:00 Approved gabapentin (GABAPENTIN 300MG CAP) TAKE 1 CAPSULE BY MOUTH ONCE DAILY IN THE MORNING, 1 CAPSULE AT NOON AND 2 CAPSULES AT BEDTIME Qty: 120 cap(s) Days Supply: 30 Refills: 1 Substitutions Allowed Route To Pharmacy - [facility]28 Note from Pharmacy: Please consider 90 day supplies to promote better adherence [facility] Medication Managementon 07-0 Medication Management --- From: Nga Scanlon ([facility] ([facility])) To: Dg Rodrigez DO; Sent: 11/23/2018 08:26:33 EDT Subject: FW: Medication Management Due Date/Time: 11/23/2018 20:46:00 EDT From: [place] [id number] To: Dg Rodrigez DO Sent: November 22, 2018 7:46:26 PM CDT Subject: Medication Management Due: November 23, 2018 7:46:26 PM CDT On Hold Pending Signature Drug: clonazePAM (clonazePAM 0.5 mg oral tablet) TAKE 1 TABLET BY MOUTH TWICE DAILY AND 2 TABS (1MG) AT BEDTIME NEEDED FOR ANXIETY Quantity: 120 tab(s) Days Supply: 0 Refills: 0 Substitutions Allowed Notes from Pharmacy: Dispensed Drug: clonazePAM (clonazePAM 0.5 mg oral tablet) TAKE 1 TABLET BY MOUTH TWICE DAILY AND 2 TABS AT BEDTIME NEEDED FOR ANXIETY Quantity: 120 tab(s) Days Supply: 30 Refills: 0 Substitutions Allowed Notes from Pharmacy: From: Dg Rodrigez DO To: [facility] 162 Sent: 11/23/2018 08:35:14 EDT Subject: FW: Medication Management Submitted: Complete:clonazePAM (clonazePAM 0.5 mg oral tablet) Signed by Dg Rodrigez DO 11/23/18 08:35:00 Approved clonazePAM (CLONAZEPAM 0.5MG TAB) TAKE 1 TABLET BY MOUTH TWICE DAILY AND 2 TABS AT BEDTIME NEEDED FOR ANXIETY Qty: 120 tab(s) Days Supply: 30 Refills: 0 Substitutions Allowed Route To Pharmacy - [address] Outside Recordson 11-15-2018 Outside Records [id number]#1.00OTGTIFF [facility] Medication Managementon Medication Management --- From: Nga Scanlon ([facility] ([facility] To: Dg Rodrigez DO; Sent: 10/25/2018 10:08:32 EDT Subject: FW: Medication Management Due Date/Time: 10/26/2018 09:58:00 EDT From: [facility] To: Dg Rodrigez DO Sent: October 25, 2018 8:58:49 AM CDT Subject: Medication Management Due: October 26, 2018 8:58:49 AM CDT On Hold Pending Signature Drug: clonazePAM (clonazePAM 0.5 mg oral tablet) TAKE 1 TABLET BY MOUTH TWICE DAILY AND 2 TABS (1MG) AT BEDTIME NEEDED FOR ANXIETY Quantity: 120 tab(s) Days Supply: 0 Refills: 0 Substitutions Allowed Notes from Pharmacy: Dispensed Drug: clonazePAM (clonazePAM 0.5 mg oral tablet) TAKE 1 TABLET BY MOUTH TWICE DAILY AND 2 TABS AT BEDTIME NEEDED FOR ANXIETY Quantity: 120 tab(s) Days Supply: 30 Refills: 0 Substitutions Allowed Notes from Pharmacy: From: Dg Rodrigez DO To: [facility]28 Sent: 10/25/2018 10:22:46 EDT Subject: FW: Medication Management Submitted: Complete:clonazePAM (clonazePAM 0.5 mg oral tablet) OARRS reviewed 08/27/18 - last fill 07/27/18 for 120 tabs Signed by Dg Rodrigez DO 10/25/18 10:22:00 Approved clonazePAM (CLONAZEPAM 0.5MG TAB) TAKE 1 TABLET BY MOUTH TWICE DAILY AND 2 TABS AT BEDTIME NEEDED FOR ANXIETY Qty: 120 tab(s) Days Supply: 30 Refills: 0 Substitutions Allowed Route To Pharmacy - [address] Medication Managementon 05-3 Medication Management Entered by Doreen López LPN on October 22, 2018 09:38:18 EDT From: Doreen López LPN To: [place] [address] Sent: 10/22/2018 09:38:18 EDT Subject: Medication Management Not Approved: Refill not appropriate, refill not due until 10/27/18 clonazePAM (CLONAZEPAM 0.5MG TAB) TAKE 1 TABLET BY MOUTH TWICE DAILY AND 2 TABS AT BEDTIME NEEDED FOR ANXIETY Qty: 120 tab(s) Days Supply: 30 Refills: 0 Substitutions Allowed Route To [facility] - [place] [address] Signed by Doreen López LPN From: [place] [address] To: Dg Rodrigez DO Sent: October 22, 2018 8:20:27 AM CDT Subject: Medication Management Due: October 23, 2018 8:20:27 AM CDT On Hold Pending Signature Drug: clonazePAM (clonazePAM 0.5 mg oral tablet) TAKE 1 TABLET BY MOUTH TWICE DAILY AND 2 TABS (1MG) AT BEDTIME NEEDED FOR ANXIETY Quantity: 120 tab(s) Days Supply: 0 Refills: 0 Substitutions Allowed Notes from Pharmacy: Dispensed Drug: clonazePAM (clonazePAM 0.5 mg oral tablet) TAKE 1 TABLET BY MOUTH TWICE DAILY AND 2 TABS AT BEDTIME NEEDED FOR ANXIETY Quantity: 120 tab(s) Days Supply: 30 Refills: 0 Substitutions Allowed Notes from Pharmacy: [facility] Outside Recordson 10-15-2018 Outside Records [id number][facility] Other Rad[facility] Report on 10-15-2018 Rad - Other Radiology Report [id number]#[facility] Medication Managementon 09-23 Medication Management --- From: Nga Scanlon ([facility] ([facility] To: Dg Rodrigez DO; Sent: 10/14/2018 16:43:00 EDT Subject: Med Management Caller is: ( X ) Patient ( ) Mother ( ) Father ( ) Pharmacy ( ) Other: Pharmacy to route Rx to: [facility] Patient's Provider: Reviewed Allergies: ( ) Yes ( ) No Pharmacy: [facility] Comments: SAYS SHE USED TO BE ON 600MG. TID. tHINKS THE 300 IS WORKING IN THE A.M AND AFTERNOON BUT NOT AT NIGHT. WOULD LIKE INSTRUCTIONS INCREASED TO 1 AM, 1 NOON AND 2 HS. 1. Name of Medication: GABAPENTIN 300MG. TID Dosage: Dispense: ( ) New ( ) Refill Comment: 2. Name of Medication: Dosage: Dispense: ( ) New ( ) Refill Comment: 3. Name of Medication: Dosage: Dispense: ( ) New ( ) Refill Comment: 4. Name of Medication: Dosage: Dispense: ( ) New ( ) Refill Comment: ( ) OK to leave message on voice mail ( ) Patient told to expect return call: ( ) today ( ) tomorrow ( ) next work day ( ) Patient's email ( ) Other: Call back phone # now: until: Call back phone # later: Submitted: Order:gabapentin (gabapentin 300 mg oral capsule) See Instructions one in the AM, one at noon, two at hs. Qty: 120 cap(s) Refills: 1 Route To Pharmacy - [facility] OARRS reviewed 08/23/18 - last fill 07/21/18 for 90 caps Signed by Dg Rodrigez DO 10/14/18 16:48:00 [facility] Medication Managementon 05 Medication Management --- From: Doreen López LPN ([facility] ([facility] To: Dg Rodrigez DO; Sent: 09/27/2018 10:59:34 EDT Subject: FW: Medication Management Due Date/Time: 09/28/2018 09:29:00 EDT OARRS reviewed - last fill 08/30/18 for 120 tabs - JM From: [facility] [email or web address] To: Payton Ash CNP Sent: September 27, 2018 8:29:25 AM CDT Subject: Medication Management Due: September 28, 2018 8:29:25 AM CDT On Hold Pending Signature Drug: clonazePAM (clonazePAM 0.5 mg oral tablet) TAKE 1 TABLET BY MOUTH TWICE DAILY AND 2 TABS (1MG) AT BEDTIME NEEDED FOR ANXIETY Quantity: 120 tab(s) Days Supply: 0 Refills: 0 Substitutions Allowed Notes from Pharmacy: Dispensed Drug: clonazePAM (clonazePAM 0.5 mg oral tablet) TAKE 1 TABLET BY MOUTH TWICE DAILY AND 2 TABS AT BEDTIME NEEDED FOR ANXIETY Quantity: 120 tab(s) Days Supply: 30 Refills: 0 Substitutions Allowed Notes from Pharmacy: Submitted: Order:clonazePAM (clonazePAM 0.5 mg oral tablet) See Instructions TAKE 1 TABLET BY MOUTH TWICE DAILY AND 2 TABS (1MG) AT BEDTIME NEEDED FOR ANXIETY Qty: 120 tab(s) Refills: 0 Route To Pharmacy - [facility] OARRS reviewed 08/27/18 - last fill 07/27/18 for 120 tabs Signed by Dg Rodrigez DO 09/27/18 11:40:00 [facility] Referral Letteron 09-23-2018 Referral Letter September 23, 2018 Re: NIKKI HUNT Date of Visit: 09/23/18 Gastroenterology [facility] To: [facility] Attached is a summary of findings and a plan of action. For any questions, please call my office. [facility] Suri Simental D.O., R.N.S. R.NEzPEz-C [address] [place], [address] Consult Request Referring To: Dr Platt Appointment Date and Time: Reason for Consult: c-scope Diagnosis: Comments/Instructions: Please contact patient to schedule, pt had labs and [facility] scan at [facility] Visit Summary For NIKKI HUNT Age: 38 years Sex: FEMALE : 1980 Address: [address] [place] [address], [facility] Home: Work: -- Mobile: -- Primary Care Provider: Dg Rodrigez Jackson DO, Steven P Race: White Ethnicity: Not or Language: Citizen Of [place] Health Plan: MEDICARE ANTHEM Member: [id number] Group: [id number] Sincerely, Viviana Slavajaron The following document(s) were included in the letter: September 23, 2018 13:29:09 EDT - (09/23/18) Office Visit Note [facility] Lab - Other Lab [facility] Lab - Other Lab Results [id number]#1.00OTGTIFF [facility] Rad - Other Radiology Report on 09-15-2018 Rad - Other Radiology Report [id number]#1.00OTGTIFF [facility] Controlled Substances Agreem entson 09-02-2018 Controlled Substances Agreements [id number]#1.00OTGTIFF [facility] Medication Managementon Medication Management Entered by Doreen López LPN on 2018 10:34:49 EDT From: Doreen López LPN To: [place] [address] Sent: 2018 10:34:49 EDT Subject: Medication Management Not Approved: Refill not appropriate, script already sent clonazePAM (CLONAZEPAM 0.5MG TAB) TAKE 1 TABLET BY MOUTH TWICE DAILY AND 2 TABS (1MG) AT BEDTIME NEEDED FOR ANXIETY Qty: 120 tab(s) Days Supply: 30 Refills: 0 Substitutions Allowed Route To Pharmacy - [place] [address] Signed by Doreen López LPN From: [place] [address] To: Payton Ash CNP Sent: August 27, 2018 9:36:29 AM CDT Subject: Medication Management Due: August 28, 2018 9:36:29 AM CDT On Hold Pending Signature Drug: clonazePAM (clonazePAM 0.5 mg oral tablet) TAKE 1 TABLET BY MOUTH TWICE DAILY AND 2 TABS (1MG) AT BEDTIME NEEDED FOR ANXIETY Quantity: 120 tab(s) Days Supply: 0 Refills: 0 Substitutions Allowed Notes from Pharmacy: Dispensed Drug: clonazePAM (clonazePAM 0.5 mg oral tablet) TAKE 1 TABLET BY MOUTH TWICE DAILY AND 2 TABS (1MG) AT BEDTIME NEEDED FOR ANXIETY Quantity: 120 tab(s) Days Supply: 30 Refills: 0 Substitutions Allowed Notes from Pharmacy: [facility] Medication Managementon Medication Management Entered by Vineet López on August 24, 2018 10:08:38 EDT From: Doreen López To: [place] [address] Sent: 08/24/2018 10:08:38 EDT Subject: Medication Management Not Approved: Refill not appropriate, script already sent gabapentin (GABAPENTIN 300MG CAP) TAKE 1 CAPSULE BY MOUTH THREE TIMES DAILY Qty: 90 cap(s) Days Supply: 30 Refills: 2 Substitutions Allowed Route To Pharmacy - [facility] 162 Note from Pharmacy: Please consider 90 day supplies to promote better adherence Signed by Doreen López From: [facility] To: Payton Ash CNP Sent: August 23, 2018 1:31:18 PM CDT Subject: Medication Management Due: August 24, 2018 1:31:18 PM CDT On Hold Pending Signature Drug: gabapentin (gabapentin 300 mg oral capsule) TAKE 1 CAPSULE BY MOUTH THREE TIMES DAILY Quantity: 90 cap(s) Days Supply: 0 Refills: 0 Substitutions Allowed Notes from Pharmacy: Dispensed Drug: gabapentin (gabapentin 300 mg oral capsule) TAKE 1 CAPSULE BY MOUTH THREE TIMES DAILY Quantity: 90 cap(s) Days Supply: 30 Refills: 2 Substitutions Allowed Notes from Pharmacy: Please consider 90 day supplies to promote better adherence [facility] Medication Management 06-26 Medication Management --- From: Doreen L[facility]pez ([facility] ([facility] To: Payton Ash CNP; Sent: 07/21/2018 14:15:14 EST Subject: FW: Medication Management Due Date/Time: 07/22/2018 13:20:00 EST From: [facility] To: Payton Ash CNP Sent: July 21, 2018 12:20:49 PM ENVIRONMENTAL HEALTH PHYSICIAN Subject: Medication Management Due: July 22, 2018 12:20:49 PM ENVIRONMENTAL HEALTH PHYSICIAN On Hold Pending Signature Drug: clonazePAM (clonazePAM 0.5 mg oral tablet) 0.5mg BID and 1mg qhs,PRN: NEEDED FOR ANXIETY Quantity: 120 tab(s) Days Supply: 0 Refills: 0 Substitutions Allowed Notes from Pharmacy: Dispensed Drug: clonazePAM (clonazePAM 0.5 mg oral tablet) TAKE 1 TABLET BY MOUTH TWICE DAILY AND 2 TABS (1MG) AT BEDTIME NEEDED FOR ANXIETY Quantity: 120 tab(s) Days Supply: 30 Refills: 0 Substitutions Allowed Notes from Pharmacy: From: Payton Ash APRN, CNP To: [place] [address] Sent: 07/21/2018 18:18:29 EST Subject: FW: Medication Management Submitted: Complete:clonazePAM (clonazePAM 0.5 mg oral tablet) Signed by Payton Ash APRN, CNP 07/21/18 18:18:00 Approved clonazePAM (CLONAZEPAM 0.5MG TAB) TAKE 1 TABLET BY MOUTH TWICE DAILY AND 2 TABS (1MG) AT BEDTIME NEEDED FOR ANXIETY Qty: 120 tab(s) Days Supply: 30 Refills: 0 Substitutions Allowed Route To Pharmacy - [place] [address] Note to Pharmacy: f41.1 [facility] Medication Managementon 05-27 Medication Management --- From: Doreen López ([facility] ([facility])) To: Payton Ash CNP; Sent: 06/22/2018 15:00:32 EST Subject: FW: Medication Management Due Date/Time: 06/23/2018 14:21:00 EST From: [facility] 1628 To: Payton Ash CNP Sent: June 22, 2018 1:21:21 PM ENVIRONMENTAL HEALTH PHYSICIAN Subject: Medication Management Due: June 23, 2018 1:21:21 PM ENVIRONMENTAL HEALTH PHYSICIAN On Hold Pending Signature Drug: clonazePAM (clonazePAM 0.5 mg oral tablet) 0.5mg BID and 1mg qhs,PRN: NEEDED FOR ANXIETY Quantity: 120 tab(s) Days Supply: 0 Refills: 0 Substitutions Allowed Notes from Pharmacy: Dispensed Drug: clonazePAM (clonazePAM 0.5 mg oral tablet) TAKE 1 TABLET BY MOUTH TWICE DAILY AND 2 TABS (1MG) AT BEDTIME NEEDED FOR ANXIETY Quantity: 120 tab(s) Days Supply: 30 Refills: 0 Substitutions Allowed Notes from Pharmacy: From: Payton Ash APRN, CNP To: [place] [id number] Sent: 06/23/2018 14:40:36 EST Subject: FW: Medication Management Submitted: Complete:clonazePAM (clonazePAM 0.5 mg oral tablet) Signed by Payton Ash APRN, CNP 06/23/18 14:40:00 Approved clonazePAM (CLONAZEPAM 0.5MG TAB) TAKE 1 TABLET BY MOUTH TWICE DAILY AND 2 TABS (1MG) AT BEDTIME NEEDED FOR ANXIETY Qty: 120 tab(s) Days Supply: 30 Refills: 0 Substitutions Allowed Route To Pharmacy - [facility] 1628 Note to Pharmacy: F41.1 [facility] Patient Handouton 05-26-2018 Patient Handout Neurology Peripheral Neuropathy Peripheral neuropathy is a type of nerve damage. It affects nerves that carry signals between the spinal cord and other parts of the body. These are called peripheral nerves. With peripheral neuropathy, one nerve or a group of nerves may be damaged. What are the causes? Many things can damage peripheral nerves. For some people with peripheral neuropathy, the cause is unknown. Some causes include: ? Diabetes. This is the most common cause of peripheral neuropathy. ? Injury to a nerve. ? Pressure or stress on a nerve that lasts a long time. ? Too little vitamin B. Alcoholism can lead to this. ? Infections. ? Autoimmune diseases, such as multiple sclerosis and systemic lupus erythematosus. ? Inherited nerve diseases. ? Some medicines, such as cancer drugs. ? Toxic substances, such as lead and mercury. ? Too little blood flowing to the legs. ? Kidney disease. ? Thyroid disease. What are the signs or symptoms? Different people have different symptoms. The symptoms you have will depend on which of your nerves is damaged. Common symptoms include: ? Loss of feeling (numbness) in the feet and hands. ? Tingling in the feet and hands. ? Pain that avila. ? Very sensitive skin. ? Weakness. ? Not being able to move a part of the body (paralysis). ? Muscle twitching. ? Clumsiness or poor coordination. ? Loss of balance. ? Not being able to control your bladder. ? Feeling dizzy. ? Sexual problems. How is this diagnosed? Peripheral neuropathy is a symptom, not a disease. Finding the cause of peripheral neuropathy can be hard. To figure that out, your health care provider will take a medical history and do a physical exam. A neurological exam will also be done. This involves checking things affected by your brain, spinal cord, and nerves (nervous system). For example, your health care provider will check your reflexes, how you move, and what you can feel. Other types of tests may also be ordered, such as: ? Blood tests. ? A test of the fluid in your spinal cord. ? Imaging tests, such as CT scans or an MRI. ? Electromyography (EMG). This test checks the nerves that control muscles. ? Nerve conduction velocity tests. These tests check how fast messages pass through your nerves. ? Nerve biopsy. A small piece of nerve is removed. It is then checked under a microscope. How is this treated? ? Medicine is often used to treat peripheral neuropathy. Medicines may include: ? Pain-relieving medicines. Prescription or gqsn-gpd-hopbclt medicine may be suggested. ? Antiseizure medicine. This may be used for pain. ? Antidepressants. These also may help ease pain from neuropathy. ? Lidocaine. This is a numbing medicine. You might wear a patch or be given a shot. ? Mexiletine. This medicine is typically used to help control irregular heart rhythms. ? Surgery. Surgery may be needed to relieve pressure on a nerve or to destroy a nerve that is causing pain. ? Physical therapy to help movement. ? Assistive devices to help movement. Follow these instructions at home: ? Only take gqpq-anc-imbexqd or prescription medicines as directed by your health care provider. Follow the instructions carefully for any given medicines. Do not take any other medicines without first getting approval from your health care provider. ? If you have diabetes, work closely with your health care provider to keep your blood sugar under control. ? If you have numbness in your feet: ? Check every day for signs of injury or infection. Watch for redness, warmth, and swelling. ? Wear padded socks and comfortable shoes. These help protect your feet. ? Do not do things that put pressure on your damaged nerve. ? Do not smoke. Smoking keeps blood from getting to damaged nerves. ? Avoid or limit alcohol. Too much alcohol can cause a lack of B vitamins. These vitamins are needed for healthy nerves. ? Develop a good support system. Coping with peripheral neuropathy can be stressful. Talk to a mental health specialist or join a support group if you are struggling. ? Follow up with your health care provider as directed. Contact a health care provider if: ? You have new signs or symptoms of peripheral neuropathy. ? You are struggling emotionally from dealing with peripheral neuropathy. ? You have a fever. Get help right away if: ? You have an injury or infection that is not healing. ? You feel very dizzy or begin vomiting. ? You have chest pain. ? You have trouble breathing. This information is not intended to replace advice given to you by your health care provider. Make sure you discuss any questions you have with your health care provider. Document Released: 05/01/2003 Document Revised: 10/16/2016 Document Reviewed: 01/16/2014 [employer] Patient Education ? 2017 [employer]. [facility] Medication Managementon 04-26 Medication Management Entered by Payton Ash APRN, CNP on May 23, 2018 21:02:42 EST From: Payton Ash APRN, CNP To: [facility] Sent: 05/23/2018 21:02:42 EST Subject: Medication Management Submitted: Complete:gabapentin (Neurontin 300 mg oral capsule) oarrs reviewed Signed by Payton Ash APRN, CNP 05/23/18 21:02:00 Approved gabapentin (GABAPENTIN 300MG CAP) TAKE 1 CAPSULE BY MOUTH TWICE DAILY Qty: 60 cap(s) Days Supply: 30 Refills: 3 Substitutions Allowed Route To Pharmacy - [place] [address] Note from Pharmacy: Please consider 90 day supplies to promote better adherence Signed by Payton Ash APRN, CNP From: [facility] To: Dg Rodrigez DO Sent: May 22, 2018 10:59:41 AM ENVIRONMENTAL HEALTH PHYSICIAN Subject: Medication Management Due: May 23, 2018 10:59:41 AM ENVIRONMENTAL HEALTH PHYSICIAN On Hold Pending Signature Drug: gabapentin (gabapentin 300 mg oral capsule) TAKE 1 CAPSULE BY MOUTH TWICE DAILY Quantity: 60 cap(s) Days Supply: 0 Refills: 0 Substitutions Allowed Notes from Pharmacy: Dispensed Drug: gabapentin (gabapentin 300 mg oral capsule) TAKE 1 CAPSULE BY MOUTH TWICE DAILY Quantity: 60 cap(s) Days Supply: 30 Refills: 3 Substitutions Allowed Notes from Pharmacy: Please consider 90 day supplies to promote better adherence [facility] Medication Management Medication Management --- From: Nga Scanlon ([facility] ([facility])) To: Dg Rodrigez DO; Sent: 04/29/2018 10:22:23 EST Subject: FW: Medication Management Due Date/Time: 04/30/2018 10:21:00 EST Patient matched by Nga Scanlon on 04/29/2018 10:22:17 EST From: [facility] To: Dg Rodrigez DO Sent: April 29, 2018 9:21:37 AM ENVIRONMENTAL HEALTH PHYSICIAN Subject: Medication Management Due: April 30, 2018 9:21:37 AM ENVIRONMENTAL HEALTH PHYSICIAN On Hold Pending Signature Drug: clonazePAM (clonazePAM 0.5 mg oral tablet) TAKE 1 TABLET BY MOUTH THREE TIMES DAILY NEEDED FOR ANXIETY Quantity: 90 tab(s) Days Supply: 0 Refills: 0 Substitutions Allowed Notes from Pharmacy: Dispensed Drug: clonazePAM (clonazePAM 0.5 mg oral tablet) TAKE 1 TABLET BY MOUTH THREE TIMES DAILY NEEDED FOR ANXIETY Quantity: 90 tab(s) Days Supply: 30 Refills: 0 Substitutions Allowed Notes from Pharmacy: From: Dg Rodrigez DO To: [facility] ([facility]); Sent: 04/29/2018 10:46:26 EST Subject: RE: Medication Management she no showed her last appt. i will fill this, but will need to be seen in the next month by myself or Neeta for med management. if she no shows again, will not continue to fill this RX From: Dg Rodrigez DO To: [facility] ([facility]); Sent: 04/29/2018 10:47:08 EST Subject: FW: Medication Management Due Date/Time: 04/30/2018 10:21:00 EST also, OARRS please. From: Nga Scanlon ([facility] ([facility])) To: Dg Rodrigez DO; Sent: 04/29/2018 11:06:53 EST Subject: RE: Medication Management Done - tv From: Nga Scanlon ([facility] ([facility] To: [facility] ([facility]); Sent: 04/29/2018 11:07:17 EST Subject: FW: Medication Management Due Date/Time: 04/30/2018 10:21:00 EST Please schedule From: Dg Rodrigez DO To: [facility] Sent: 04/29/2018 11:37:32 EST Subject: RE: Medication Management Submitted: Complete:clonazePAM (clonazePAM 0.5 mg oral tablet) oarrs reviewed Signed by Dg Rodrigez DO 04/29/18 11:37:00 Approved clonazePAM (CLONAZEPAM 0.5MG TAB) TAKE 1 TABLET BY MOUTH THREE TIMES DAILY NEEDED FOR ANXIETY Qty: 90 tab(s) Days Supply: 30 Refills: 0 Substitutions Allowed Route To Pharmacy - [facility]28 Addendum by Nga Scanlon on April 29, 2018 11:07:17 EST From: Nga Scanlon ([facility] ([facility])) To: [facility] ([place]); Sent: 04/29/2018 11:07:17 EST Subject: FW: Medication Management Due Date/Time: 04/30/2018 10:21:00 EST Please schedule Addendum by Nga Scanlon on April 29, 2018 11:06:53 EST From: Nga Scanlon ([facility] ([facility])) To: Dg Rodrigez DO; Sent: 04/29/2018 11:06:53 EST Subject: RE: Medication Management Done - tv Addendum by Dg Rodrigez DO on April 29, 2018 10:47:08 EST From: Dg Rodrigez DO To: [facility] ([facility]); Sent: 04/29/2018 10:47:08 EST Subject: FW: Medication Management Due Date/Time: 04/30/2018 10:21:00 EST also, OARRS please. Addendum by Dg Rodrigez DO on April 29, 2018 10:46:26 EST From: Dg Rodrigez DO To: [facility] ([facility]); Sent: 04/29/2018 10:46:26 EST Subject: RE: Medication Management she no showed her last appt. i will fill this, but will need to be seen in the next month by myself or Neeta for med management. if she no shows again, will not continue to fill this RX From: Nga Scanlon ([facility] ([facility])) To: Dg Rodrigez DO; Sent: 04/29/2018 10:22:23 EST Subject: FW: Medication Management Due Date/Time: 04/30/2018 10:21:00 EST Patient matched by Nga Scanlon on 04/29/2018 10:22:17 EST From: [facility] To: Dg Rodrigez DO Sent: April 29, 2018 9:21:37 AM ENVIRONMENTAL HEALTH PHYSICIAN Subject: Medication Management Due: April 30, 2018 9:21:37 AM ENVIRONMENTAL HEALTH PHYSICIAN On Hold Pending Signature Drug: clonazePAM (clonazePAM 0.5 mg oral tablet) TAKE 1 TABLET BY MOUTH THREE TIMES DAILY NEEDED FOR ANXIETY Quantity: 90 tab(s) Days Supply: 0 Refills: 0 Substitutions Allowed Notes from Pharmacy: Dispensed Drug: clonazePAM (clonazePAM 0.5 mg oral tablet) TAKE 1 TABLET BY MOUTH THREE TIMES DAILY NEEDED FOR ANXIETY Quantity: 90 tab(s) Days Supply: 30 Refills: 0 Substitutions Allowed Notes from Pharmacy: appt scheduled 05/12/18 with [facility] Medication Management 11 Medication Management --- From: Dg Rodrigez DO To: [facility] ([facility]); Sent: 03/29/2018 06:22:44 EST Subject: FW: Medication Management Due Date/Time: 03/29/2018 14:48:00 EST oarrs please. From: [facility] To: Dg Rodrigez DO Sent: March 28, 2018 1:48:55 PM ENVIRONMENTAL HEALTH PHYSICIAN Subject: Medication Management Due: March 29, 2018 1:48:55 PM ENVIRONMENTAL HEALTH PHYSICIAN On Hold Pending Signature Drug: clonazePAM (clonazePAM 0.5 mg oral tablet) TAKE 1 TABLET BY MOUTH THREE TIMES DAILY NEEDED FOR ANXIETY. 30 DAY SUPPLY Quantity: 90 tab(s) Days Supply: 0 Refills: 0 Substitutions Allowed Notes from Pharmacy: Dispensed Drug: clonazePAM (clonazePAM 0.5 mg oral tablet) TAKE 1 TABLET BY MOUTH THREE TIMES DAILY NEEDED FOR ANXIETY. 30 DAY SUPPLY Quantity: 90 tab(s) Days Supply: 30 Refills: 0 Substitutions Allowed Notes from Pharmacy: From: Nga Scanlon ([facility] ([facility])) To: Dg Rodrigez DO; Sent: 03/29/2018 13:10:05 EST Subject: RE: Medication Management Done - [facility] Medication Managementon Medication Management --- From: Dg Rodrigez DO To: [facility] ([facility]); Sent: 02/25/2018 12:53:58 EDT Subject: FW: Medication Management Due Date/Time: 02/26/2018 12:52:00 EDT oarrs please From: [facility] To: Dg Rodrigez DO Sent: February 25, 2018 11:52:34 AM CDT Subject: Medication Management Due: February 26, 2018 11:52:34 AM CDT On Hold Pending Signature Drug: clonazePAM (clonazePAM 0.5 mg oral tablet) TAKE 1 TABLET BY MOUTH THREE TIMES DAILY NEEDED FOR ANXIETY. 30 DAY SUPPLY Quantity: 90 tab(s) Days Supply: 0 Refills: 0 Substitutions Allowed Notes from Pharmacy: Dispensed Drug: clonazePAM (clonazePAM 0.5 mg oral tablet) TAKE 1 TABLET BY MOUTH THREE TIMES DAILY NEEDED FOR ANXIETY. 30 DAY SUPPLY Quantity: 90 tab(s) Days Supply: 30 Refills: 0 Substitutions Allowed Notes from Pharmacy: From: Nga Scanlon ([facility] ([facility] To: Dg Rodrigez DO; Sent: 02/25/2018 13:50:40 EDT Subject: RE: Medication Management Done - tv From: Dg Rodrigez DO To: [facility]28 Sent: 02/25/2018 13:53:35 EDT Subject: RE: Medication Management Submitted: Complete:clonazePAM (clonazePAM 0.5 mg oral tablet) oarrs reviewed Signed by Dg Rodrigez DO 02/25/18 13:53:00 Approved clonazePAM (CLONAZEPAM 0.5MG TAB) TAKE 1 TABLET BY MOUTH THREE TIMES DAILY NEEDED FOR ANXIETY. 30 DAY SUPPLY Qty: 90 tab(s) Days Supply: 30 Refills: 0 Substitutions Allowed Route To Pharmacy - [facility] 1628 Addendum by Nga Scanlon on February 25, 2018 13:50:40 EDT From: Nga Scanlon ([facility] ([facility] To: Dg Rodrigez DO; Sent: 02/25/2018 13:50:40 EDT Subject: RE: Medication Management Done - tv From: Dg Rodrigez DO To: [facility] ([facility] Sent: 02/25/2018 12:53:58 EDT Subject: FW: Medication Management Due Date/Time: 02/26/2018 12:52:00 EDT oarrs please From: [facility] 1628 To: Dg Rodrigez DO Sent: February 25, 2018 11:52:34 AM CDT Subject: Medication Management Due: February 26, 2018 11:52:34 AM CDT On Hold Pending Signature Drug: clonazePAM (clonazePAM 0.5 mg oral tablet) TAKE 1 TABLET BY MOUTH THREE TIMES DAILY NEEDED FOR ANXIETY. 30 DAY SUPPLY Quantity: 90 tab(s) Days Supply: 0 Refills: 0 Substitutions Allowed Notes from Pharmacy: Dispensed Drug: clonazePAM (clonazePAM 0.5 mg oral tablet) TAKE 1 TABLET BY MOUTH THREE TIMES DAILY NEEDED FOR ANXIETY. 30 DAY SUPPLY Quantity: 90 tab(s) Days Supply: 30 Refills: 0 Substitutions Allowed Notes from Pharmacy: [facility] Coding Summary.on 04-13-2017 Coding Summary. CODING DATE: 017 FINAL [facility] STATUS: Home (Routine DC) PAYOR: Medicare APC DESCRIPTION 5025 Level 5 Type A ED Visits ADMIT DX: REASON FOR VISIT DX: T40.2X1A Poisoning by other opioids, accidental (unintentional), initial encounter FINAL DX: PRINCIPAL: T40.2X1A Poisoning by other opioids, accidental (unintentional), initial encounter SECONDARY: F19.19 Other psychoactive substance abuse with unspecified psychoactive substance-induced disorder F32.9 Major depressive disorder, single episode, unspecified I10 Essential (primary) hypertension G35 Multiple sclerosis L40.50 Arthropathic psoriasis, unspecified PYMT PROC APC STAT DESCRIPTION DOCTOR NAME DATE NOTE: The code number assigned matches the documented diagnosis and / or procedure in the patient's chart. However, the narrative phrase printed from the coding software may appear abbreviated, or result in slightly different terminology. Revised Coded By: Elly Hernandez Revised Date Saved: 04/13/2017 02:[address] [facility] Acetamnphn Lvlon 04-12-2017 Acetaminophen mass conc <10 Low 15-30 [facility] Comment on above: Performed By: #### 2 263984, 6700327, 7784862, 0722752, 2214939, 5776543, 91180054, 2163381 ####[facility] [address] [place] [address] Auto Diffon 04-12-2017 Basophils Auto #/vol (Bld) 0.1 E9/L Normal 0.0-0.2 [facility] Comment on above: Order Comment: Order Added by Discern Expert. Performed By: #### 2 634617, 4319736, 3436477, 6015692, 5335492, 1609876, 43014633, 8298526 ####[facility] [address] [place] [address] Basophils Auto #/vol (Bld) 0.5 % Normal 0.0-2.0 [facility] Comment on above: Order Comment: Order Added by Discern Expert. Performed By: #### 2 434734, 8210791, 8716114, 6549037, 0343907, 2136674, 61478911, 1704400 ####[facility] [address] [place] [address] Eosinophils 0.1 E9/L Normal 0.0-0.5 [facility] Comment on above: Order Comment: Order Added by Discern Expert. Performed By: #### 2 540755, 5133778, 6240261, 2382544, 5214327, 5089487, 16760520, 5658635 ####[facility] [address] [place] [address] Eosinophils/100 leukocytes 0.8 % Normal 0.0-8.0 [facility] Comment on above: Order Comment: Order Added by Discern Expert. Performed By: #### 2 940805, 6026638, 4496734, 3126581, 9963328, 0250546, 75493370, 9376230 ####[facility] [address] [place] [address] Lymphocytes 2.4 E9/L Normal 1.0-4.0 [facility] Comment on above: Order Comment: Order Added by Discern Expert. Performed By: #### 2 696609, 1160751, 8036751, 6771493, 1405374, 6809393, 75366424, 5684788 ####[address] [address] Lymphocytes/100 leukocytes 14.1 % Normal 14.0-50.0 [facility] Comment on above: Order Comment: Order Added by Linda Expert. Performed By: #### 2 433001, 6441391, 8722037, 2789127, 1905402, 4217386, 22030085, 6259900 ####[place] [address] [place] [address] Monocytes 0.9 E9/L Normal 0.2-1.0 [facility] Comment on above: Order Comment: Order Added by Discern Expert. Performed By: #### 2 329036, 7613314, 5724418, 8606039, 8938762, 1808342, 96292924, 6644946 ####[facility] [address] [place] [address] Monocytes/100 leukocytes 5.5 % Normal 4.0-14.0 [facility] Comment on above: Order Comment: Order Added by Discern Expert. Performed By: #### 2 252507, 3478518, 3217650, 1517369, 9497901, 5790930, 13528300, 6088244 ####[address] [place] [address] Neutrophils 13.7 E9/L High 2.0-7.5 [facility] Comment on above: Order Comment: Order Added by Discern Expert. Performed By: #### 2 287694, 6179264, 9443958, 8393589, 2928639, 3099517, 46595728, 4540144 ####[facility] [address] [place] [address] Neutrophils/100 leukocytes 79.1 % High 36.0-75.0 [facility] Comment on above: Order Comment: Order Added by Discern Expert. Performed By: #### 2 942566, 4115366, 1058128, 8862373, 3324577, 1818912, 49093524, 2912661 ####[facility] [address] [place] [address] BMPon 04-12-2017 BUN/Creatinine Ratio 17 No Units Normal 10-20 [facility] Comment on above: Performed By: #### 2 710848, 3988579, 7037028, 9722766, 7861990, 8712856, 08084910, 5406387 ####[facility] [address] [place] [address] Creatinine 1.0 mg/dL Normal 0.5-1.3 [facility] Comment on above: Performed By: #### 2 774417, 0005007, 0324339, 0200086, 4855384, 7627378, 12464678, 4682241 ####[facility] [address] [place] [address] Urea nitrogen 17 mg/dL Normal 5-21 [facility] Comment on above: Performed By: #### 2 151559, 6854038, 7729988, 0179727, 2531756, 9319681, 76360393, 3187637 ####[facility] [address] [place] [address] Anion gap 13 mmol/L Normal 6-16 [facility] Comment on above: Performed By: #### 2 269239, 9438416, 8097317, 1602091, 4757879, 3470652, 62507123, 3818282 ####[facility] [address] [place] [address] Calcium 9.3 mg/dL Normal 8.9-11.1 [facility] Comment on above: Performed By: #### 2 818537, 1956394, 3182143, 8705520, 0369583, 8443406, 02940442, 3433743 ####[facility] [address] [place] [address] Chloride 102 mmol/L Normal 101-111 [facility] Comment on above: Performed By: #### 2 082026, 1486960, 5796204, 4608863, 8986291, 5648212, 27885015, 6319463 ####[facility] [address] [place] [address] CO2 26 mmol/L Normal 21-31 [facility] Comment on above: Performed By: #### 2 216231, 2848372, 2320749, 6466307, 3992787, 2347781, 41343188, 5376181 ####[facility] [address] [place] [address] Glucose mass conc 161 mg/dL Normal 55-199 [facility] Comment on above: Result Comment: If t his glucose result represents a fasting glucose, interpretation should refer to the following reference range: 55-99 mg/dL Performed By: #### 2 471821, 6898608, 4080066, 1722614, 8697537, 0590556, [id number], 7790945 ####[facility] [address] [place] [address] Potassium molar conc 3.5 mmol/L Normal 3.5-5.3 [facility] Comment on above: Performed By: #### 2 931801, 3217496, 1658391, 2410166, 1621728, 3096310, 30717199, 0839125 ####[facility] [address] [place] [address] Sodium 137 mmol/L Normal 135-145 [facility] Comment on above: Performed By: #### 2 610356, 7630195, 0817675, 1947592, 5511143, 5202958, 89028592, 5025843 ####[facility] [address] [place] [address] CBC w/ Auto Diffon Erythrocyte distribution width Auto Ratio (RBC) 13.2 % Normal 10.9-14.2 [facility] Comment on above: Performed By: #### 2 892853, 7506533, 7465931, 3386558, 2446762, 2503724, 19194314, 0829619 ####[place] [address] [place] [address] Erythrocytes (RBC) 4.6 E12/L Normal 4.3-5.9 [facility] Comment on above: Performed By: #### 2 094960, 4136022, 9557008, 0163491, 4290589, 5477054, 97296921, 8900479 ####[address] [place] [address] Hematocrit (HCT) 39.5 % Normal 34.0-46.0 [facility] Comment on above: Performed By: #### 2 843482, 1865541, 6029896, 4390107, 9315560, 8084052, 50094921, 4658917 ####[address] [place] [address] Hemoglobin mass conc (Bld) 13.3 g/dL Normal 12.0-16.0 [facility] Comment on above: Performed By: #### 2 556044, 3088675, 3628817, 0113290, 0195617, 7264730, 18029530, 6614987 ####[facility] [address] [place] [address] MCH 28.8 pg Normal 27.0-34.0 [facility] Comment on above: Performed By: #### 2 035753, 9659963, 0541211, 6656053, 3063248, 9898876, 69749793, 1689141 ####[facility] [address] [place] [address] MCHC mass conc (RBC) 33.7 g/dL Normal 31.4-39.3 [facility] Comment on above: Performed By: #### 2 670986, 4068573, 1597889, 7407660, 8343684, 7505078, 00822930, 1830035 ####[facility] [address] [place] [address] MCV 85.3 fL Normal 80.0-100.0 [facility] Comment on above: Performed By: #### 2 291739, 2683269, 2190705, 3483943, 6083916, 9518314, 74740587, 0818882 ####[address] [address] Platelet mean volume (PMV) 7.4 fL Normal 6.4-10.8 [facility] Comment on above: Performed By: #### 2 254969, 2361801, 5864713, 7642005, 8535729, 3842552, 43404692, 1566727 ####[place] [address] Platelets 349.0 E9/L Normal 150.0-500.0 [facility] Comment on above: Performed By: #### 2 334573, 8206392, 8671224, 4197137, 2497838, 4399215, 68263923, 5150925 ####[address] [place] [address] WBC (Leukocytes) 17.3 E9/L High 4.0-11.0 [facility] Comment on above: Performed By: #### 2 808318, 5744925, 2847921, 9441851, 7069537, 1186068, 88574292, 1779326 ####[address] [address] ED Clinical Summaryon 2016 ED Clinical Summary (Inserted Image. April ble to display) [place] [id number] ED Clinical SummaryPerson Information Name: Yue HUNT/[place] Age: 36 Years : 1980 12:00 AM Sex: Female Language:Citizen Of [place] PCP: NONE, XXXX Marital Status: Visit Id: Visit Reason:Opiate overdose; Medication overdose; OVERDOSE Speciality: Acuity: 3 Enc Type: Emergency Med Service: Emergency Arrival:04/12/2017 1:53 AM Discharge: 04/12/2017 4:42 AM LOS: 000 02:49 Checkin:04/12/2017 1:53 AM Checkout: 04/12/2017 4:42 AM Dispo Type: Home (Routine DC) EVENTS:Event Name Event Status Request Date/Time Start Date/Time Complete Date/Time Arrive Complete 04/12/2017 1:53 AM 04/12/2017 1:53 AM 04/12/2017 1:53 AM Document Home Meds Complete 04/12/2017 1:53 AM 04/12/2017 2:26 AM 04/12/2017 2:26 AM Triage Complete 04/12/2017 1:53 AM 04/12/2017 2:00 AM 04/12/2017 2:00 AM Bed Assign Complete 04/12/2017 1:53 AM 04/12/2017 1:53 AM 04/12/2017 1:[address] Exam Complete 04/12/2017 1:53 AM 04/12/2017 2:06 AM 04/12/2017 2:06 AM RN Exam Complete 04/12/2017 1:53 AM 04/12/2017 2:09 AM 04/12/2017 2:09 AM Isolation Screening Request 04/12/2017 2:00 AM Registration Complete 04/12/2017 2:06 AM 04/12/2017 4:39 AM 04/12/2017 4:39 AM EKG Complete 04/12/2017 2:07 AM 04/12/2017 2:23 AM Meds Admin Cancel 04/12/2017 2:07 AM 04/12/2017 2:08 AM Pending Labs Complete 04/12/2017 2:07 AM 04/12/2017 3:32 AM Lab Complete 04/12/2017 2:07 AM 04/12/2017 3:32 AM Urine Collect Complete 04/12/2017 2:07 AM 04/12/2017 3:32 AM RT Request 04/12/2017 2:07 AM Patient Care Request 04/12/2017 2:08 AM Pending Labs Complete 04/12/2017 2:24 AM 04/12/2017 2:24 AM 04/12/2017 2:46 AM Lab Complete 04/12/2017 2:24 AM 04/12/2017 2:24 AM 04/12/2017 2:46 AM Pending Labs Complete 04/12/2017 2:28 AM 04/12/2017 2:28 AM 04/12/2017 2:28 AM Lab Complete 04/12/2017 2:28 AM 04/12/2017 2:28 AM 04/12/2017 2:28 AM Pending Labs Complete 04/12/2017 4:05 AM 04/12/2017 4:05 AM 04/12/2017 4:05 AM Pending Labs Complete 04/12/2017 4:05 AM 04/12/2017 4:05 AM 04/12/2017 4:05 AM Discharge Complete 04/12/2017 4:23 AM 04/12/2017 4:42 AM 04/12/2017 4:42 AM Reg Complete Request 04/12/2017 4:39 AM Reg Bed Request Complete 04/12/2017 4:39 AM 04/12/2017 4:39 AM 04/12/2017 4:39 AM Transfer Complete 04/12/2017 4:42 AM 04/12/2017 4:42 AM 04/12/2017 4:42 AM ADDRESS:[address] [place] [id number] [facility] DOC NOTES: Patient: NIKKI HUNT Age: 36 years Sex: Female : 1980 Associated Diagnoses: None Author: Tim Mayorga MD Basic Information Time seen: Date & time 04/12/17 02:08:00. History source: Patient, EMS. Arrival mode: Ambulance. History limitation: None. History of Present Illness The patient presents with opiate abuse. The onset was just prior to arrival. The location where the incident occurred was at home. Associated symptoms: none. Additional history: patient states she took 90mg of oxycodone. When Squad arrived she was unconscious and friends at the scene were performing CPR. Tri states she did have a pulse. They gave her Narcan and she woke up. She admits to an overdose attempt 03/24/17. States she is not suicidal tonight. she is stressed as her mother was recently diagnosed with stage 4 melanoma and she was recently diagnosed with MS. She states her chest is now sore.. Review of Systems Constitutional symptoms: no fever, no chills. ENMT symptoms: no ear pain, no sore throat. Cardiovascular symptoms: Chest pain. Gastrointestinal symptoms: no nausea, no vomiting. Genitourinary symptoms: no dysuria. Musculoskeletal symptoms: no back pain. Neurologic symptoms: no headache. Additional review of systems information: All other systems reviewed and otherwise negative. Health Status Allergies: Allergic Reactions (Selected)No Known Medication Allergies. Medications: (Selected) Documented MedicationsDocumentedAtara x 25 mg oral tablet: 25 mg = 1 tab(s), Oral, TID, Refills(s) 0Lexapro 20 mg Tab: 20 mg = 1 tab(s), Oral, Daily, # 30 tab(s), Refills(s) 0Rexulti 1 mg oral tablet: 1 mg = 1 tab(s), Oral, Daily, Refills(s) 0Seroquel: 200 mg, Oral, Bedtime, Refills(s) 0Stelara PFS 45 mg/0.5 mL subcutaneous solution: SubCutaneous, q3mo, Refills(s) 0atenolol 25 mg Tab: 25 mg = 1 tab(s), Oral, Daily, # 60 tab(s), Refills(s) 0atenolol: Oral, Daily, Refills(s) 0clonidine: 0.1 mg, Oral, TID, Refills(s) 0gabapentin: 600 mg, Oral, TID, pain mgmt prescribes, Refills(s) 0. Past Medical/ Family/ Social History Medical history: ResolvedDepression (132353646): Resolved.Hypertension (99370520): Resolved.MS - Multiple sclerosis ([id number]): Resolved.Psoriatic arthritis (772005043): Resolved.. 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 Social history: Social & Psychosocial ZsjpceChuvqzk59/14/2016 Use: Current Type: Wine Frequency: 1-2 times per yivwLhgsksu61/14/2016 Risk Assessment: Denies Tobacco Use02/06/2016 Use: Never Smoker. Physical Examination Vital Signs Vital Signs 04/12/2017 02:17 EST Heart Rate Monitored 74 bpm Respiratory Rate Monitored 20 br/min Systolic Blood Pressure 117 mmHg Diastolic Blood Pressure 94 mmHg HI Mean Arterial Pressure, Cuff 102 mmHg SpO2 100 % 04/12/2017 01:55 EST Temperature Oral 36.4 DegC Respiratory Rate 16 br/min Systolic Blood Pressure 120 mmHg Diastolic Blood Pressure 92 mmHg HI SpO2 98 % . General: Alert, no acute distress. [place] coma scale: Total score: Total score: 15. Neurological: Alert and oriented to person, place, time, and situation, No focal neurological deficit observed, CN II-XII intact, normal sensory observed, normal motor observed. Skin: Warm, dry. Head: Normocephalic, atraumatic. Neck: Supple, trachea midline. Eye: Extraocular movements are intact. Cardiovascular: Regular rate and rhythm, No murmur. Respiratory: Lungs are clear to auscultation, respirations are non-labored. Gastrointestinal: Soft, Nontender. Back: Nontender, Normal range of motion. Musculoskeletal: Normal ROM, normal strength, no tenderness, no swelling. Psychiatric: Cooperative. Medical Decision Making Differential Diagnosis: Drug abuse. Results review: Lab results : Lab View 04/12/2017 02:56 EST U Amph Scr Negative U Kathleen Scr Negative U Benzodia Scr Positive U Cannab Scr Negative U Cocaine Scr Positive U Opiate Scr Positive U PCP Scr Positive 04/12/2017 02:19 EST WBC 17.3 E9/L HI RBC 4.6 E12/L Hgb 13.3 gm/dL Hct 39.5 % MCV 85.3 fL MCH 28.8 pg MCHC 33.7 gm/dL RDW 13.2 % Platelet 349.0 E9/L MPV 7.4 fL Neutro Auto 79.1 % HI Lymph Auto 14.1 % Warren Auto 5.5 % Eos Auto 0.8 % Basophil Auto 0.5 % Neutro Absolute 13.7 E9/L HI Lymph Absolute 2.4 E9/L Warren Absolute 0.9 E9/L Eos Absolute 0.1 E9/L Basophil Absolute 0.1 E9/L Glucose Lvl 161 mg/dL BUN 17 mg/dL Creatinine 1.0 mg/dL eGFR >60 mL/min/1.73 m2 eGFR AA >60 mL/min/1.73 m2 BUN/Creat Ratio 17 Sodium Lvl 137 mmol/L Potassium Lvl 3.5 mmol/L Chloride 102 mmol/L CO2 26 mmol/L AGAP 13 mEq/L Calcium Lvl 9.3 mg/dL Alk Phos 59 Int._Unit/L ALT 23 Int._Unit/L AST 23 Int._Unit/L Total Protein 7.6 gm/dL Albumin Lvl 4.5 gm/dL Globulin 3.1 gm/dL A/G Ratio 1.4 Bili Total 0.6 mg/dL Bili Direct <0.1 mg/dL Bili Indirect Unable to Calculate mg/dL Lipase Lvl 18 unit/L Acetaminoph Lvl <10 microgram/mL LOW Salicylate Lvl <4 mg/dL LOW Ethanol Lvl <5 mg/dL . Reexamination/ Reevaluation Time: 04/12/17 04:24:00 . Course: improving, Patient remains awake and is smiling. She admits she does have a problem with drugs. She has multiple drugs in her system. States she was partying tonight. Insist she is not suicidal. Her friend who was with her when the overdose occurs agrees that she did not intend to harm herself. Will discharge home and have her followup with her family doctor. . Impression and Plan Diagnosis Polysubstance abuse (COT10-EC F19.10, Discharge, Medical) Opiate overdose (DGJ41-TE T40.2X2A, Discharge, Medical) Plan Condition: Stable. Disposition: Discharged: to home. Patient was given the following educational materials: Narcotic Overdose, Polysubstance Abuse. Follow up with: CHRISTOS COOPER In 3 days 04/15/2017. MEDICAL INFORMATION: Prescriptions Given:Home Meds Display atenolol Oral, Daily, Refills(s) 0 atenolol (atenolol 25 mg Tab) 25 mg = 1 tab(s), Oral, Daily, # 60 tab(s), Refills(s) 0 brexpiprazole (Rexulti 1 mg oral tablet) 1 mg = 1 tab(s), Oral, Daily, Refills(s) 0 escitalopram (Lexapro 20 mg Tab) 20 mg = 1 tab(s), Oral, Daily, # 30 tab(s), Refills(s) 0 ustekinumab (Stelara PFS 45 mg/0.5 mL subcutaneous solution) SubCutaneous, q3mo, Refills(s) 0 PATIENT EDUCATION INFORMATION: Instructions:Polysubstance Abuse; Narcotic Overdose Follow up:With: Address: When: CHRISTOS COOPER [address] [facility], [address] [place] [address] [employer] (1) In 3 days 04/15/2017 DIAGNOSIS:Opiate overdose; Polysubstance abuse Normal [facility] ED Note-Nursingon 04-12-2017 Pulse (Heart Rate) 0155: Pt arrives to ED via ambulance for opiate overdose. Pt is alert and oriented x 4. Respirations unlabored. Pulses palpable in all extremeties. Pt normal sinus on telemetry. c/o mid chest pain 9/10 with inspiration. Chest has some mild erythema. No visible bruising noted. Capillary refill less than 2 seconds. Lung sounds clear. Will continue to monitor closely.0215: Pt remains alert and oriented. Respirations unlabored. Pt is calm and cooperative with treatment. Denies needs.0230: Friend at bedside. Pt is tearful. Telemetry maintained. normal sinus rhythm. Pt denies nausea. Will continue to monitor.0245: Pt ambulating to bathroom without difficulty. Normal [facility] ED Note-Physicianon 04-12-20 ED Note-Physician Patient: NIKKI HUNT Age: 36 years Sex: Female : 1980 Associated Diagnoses: None Author: Tim Mayorga MD Basic Information Time seen: Date & time 04/12/17 02:08:00. History source: Patient, EMS. Arrival mode: Ambulance. History limitation: None. History of Present Illness The patient presents with opiate abuse. The onset was just prior to arrival. The location where the incident occurred was at home. Associated symptoms: none. Additional history: patient states she took 90mg of oxycodone. When Squad arrived she was unconscious and friends at the scene were performing CPR. Squad states she did have a pulse. They gave her Narcan and she woke up. She admits to an overdose attempt 03/24/17. States she is not suicidal tonight. she is stressed as her mother was recently diagnosed with stage 4 melanoma and she was recently diagnosed with MS. She states her chest is now sore.. Review of Systems Constitutional symptoms: no fever, no chills. ENMT symptoms: no ear pain, no sore throat. Cardiovascular symptoms: Chest pain. Gastrointestinal symptoms: no nausea, no vomiting. Genitourinary symptoms: no dysuria. Musculoskeletal symptoms: no back pain. Neurologic symptoms: no headache. Additional review of systems information: All other systems reviewed and otherwise negative. Health Status Allergies: Allergic Reactions (Selected)No Known Medication Allergies. Medications: (Selected) Documented MedicationsDocumentedAtara x 25 mg oral tablet: 25 mg = 1 tab(s), Oral, TID, Refills(s) 0Lexapro 20 mg Tab: 20 mg = 1 tab(s), Oral, Daily, # 30 tab(s), Refills(s) 0Rexulti 1 mg oral tablet: 1 mg = 1 tab(s), Oral, Daily, Refills(s) 0Seroquel: 200 mg, Oral, Bedtime, Refills(s) 0Stelara PFS 45 mg/0.5 mL subcutaneous solution: SubCutaneous, q3mo, Refills(s) 0atenolol 25 mg Tab: 25 mg = 1 tab(s), Oral, Daily, # 60 tab(s), Refills(s) 0atenolol: Oral, Daily, Refills(s) 0clonidine: 0.1 mg, Oral, TID, Refills(s) 0gabapentin: 600 mg, Oral, TID, pain mgmt prescribes, Refills(s) 0. Past Medical/ Family/ Social History Medical history: ResolvedDepression (951636579): Resolved.Hypertension (39952621): Resolved.MS - Multiple sclerosis (4877230703): Resolved.Psoriatic arthritis (768447231): Resolved.. 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 Social history: Social & Psychosocial VirmhpKqqpjig20/14/2016 Use: Current Type: Wine Frequency: 1-2 times per ufeqYisssvj31/14/2016 Risk Assessment: Denies Tobacco Use02/06/2016 Use: Never Smoker. Physical Examination Vital Signs Vital Signs 04/12/2017 02:17 EST Heart Rate Monitored 74 bpm Respiratory Rate Monitored 20 br/min Systolic Blood Pressure 117 mmHg Diastolic Blood Pressure 94 mmHg HI Mean Arterial Pressure, Cuff 102 mmHg SpO2 100 % 04/12/2017 01:55 EST Temperature Oral 36.4 DegC Respiratory Rate 16 br/min Systolic Blood Pressure 120 mmHg Diastolic Blood Pressure 92 mmHg HI SpO2 98 % . General: Alert, no acute distress. Po coma scale: Total score: Total score: 15. Neurological: Alert and oriented to person, place, time, and situation, No focal neurological deficit observed, CN II-XII intact, normal sensory observed, normal motor observed. Skin: Warm, dry. Head: Normocephalic, atraumatic. Neck: Supple, trachea midline. Eye: Extraocular movements are intact. Cardiovascular: Regular rate and rhythm, No murmur. Respiratory: Lungs are clear to auscultation, respirations are non-labored. Gastrointestinal: Soft, Nontender. Back: Nontender, Normal range of motion. Musculoskeletal: Normal ROM, normal strength, no tenderness, no swelling. Psychiatric: Cooperative. Medical Decision Making Differential Diagnosis: Drug abuse. Results review: Lab results : Lab View 04/12/2017 02:56 EST U Amph Scr Negative U Kathleen Scr Negative U Benzodia Scr Positive U Cannab Scr Negative U Cocaine Scr Positive U Opiate Scr Positive U PCP Scr Positive 04/12/2017 02:19 EST WBC 17.3 E9/L HI RBC 4.6 E12/L Hgb 13.3 gm/dL Hct 39.5 % MCV 85.3 fL MCH 28.8 pg MCHC 33.7 gm/dL RDW 13.2 % Platelet 349.0 E9/L MPV 7.4 fL Neutro Auto 79.1 % HI Lymph Auto 14.1 % Warren Auto 5.5 % Eos Auto 0.8 % Basophil Auto 0.5 % Neutro Absolute 13.7 E9/L HI Lymph Absolute 2.4 E9/L Warren Absolute 0.9 E9/L Eos Absolute 0.1 E9/L Basophil Absolute 0.1 E9/L Glucose Lvl 161 mg/dL BUN 17 mg/dL Creatinine 1.0 mg/dL eGFR >60 mL/min/1.73 m2 eGFR AA >60 mL/min/1.73 m2 BUN/Creat Ratio 17 Sodium Lvl 137 mmol/L Potassium Lvl 3.5 mmol/L Chloride 102 mmol/L CO2 26 mmol/L AGAP 13 mEq/L Calcium Lvl 9.3 mg/dL Alk Phos 59 Int._Unit/L ALT 23 Int._Unit/L AST 23 Int._Unit/L Total Protein 7.6 gm/dL Albumin Lvl 4.5 gm/dL Globulin 3.1 gm/dL A/G Ratio 1.4 Bili Total 0.6 mg/dL Bili Direct <0.1 mg/dL Bili Indirect Unable to Calculate mg/dL Lipase Lvl 18 unit/L Acetaminoph Lvl <10 microgram/mL LOW Salicylate Lvl <4 mg/dL LOW Ethanol Lvl <5 mg/dL . Reexamination/ Reevaluation Time: 04/12/17 04:24:00 . Course: improving, Patient remains awake and is smiling. She admits she does have a problem with drugs. She has multiple drugs in her system. States she was partying tonight. Insist she is not suicidal. Her friend who was with her when the overdose occurs agrees that she did not intend to harm herself. Will discharge home and have her followup with her family doctor. . Impression and Plan Diagnosis Polysubstance abuse (OWE77-IS F19.10, Discharge, Medical) Opiate overdose (DGD18-LY T40.2X2A, Discharge, Medical) Plan Condition: Stable. Disposition: Discharged: to home. Patient was given the following educational materials: Narcotic Overdose, Polysubstance Abuse. Follow up with: CHRISTOS COOPER In 3 days 04/15/2017. [facility] Comment on above: Result Comment: Elec tronically Signed By: Mukesh JORDAN, Tim\.br\Date and Time Signed: 04/12/17 04:26 EST ED Patient Education Noteon 04-12-2017 ED Patient Education Note Patient Education Materials Follows:MedicinePolysubsta nce AbuseWhen people abuse more than one drug or type of drug it is called polysubstance or polydrug abuse. For example, many smokers also drink alcohol. This is one form of polydrug abuse. Polydrug abuse also refers to the use of a drug to counteract an unpleasant effect produced by another drug. It may also be used to help with withdrawal from another drug. People who take stimulants may become agitated. Sometimes this agitation is countered with a tranquilizer. This helps protect against the unpleasant side effects. Polydrug abuse also refers to the use of different drugs at the same time. Anytime drug use is interfering with normal living activities, it has become abuse. This includes problems with family and friends. Psychological dependence has developed when your mind tells you that the drug is needed. This is usually followed by physical dependence which has developed when continuing increases of drug are required to get the same feeling or high . This is known as addiction or chemical dependency. A person's risk is much higher if there is a history of chemical dependency in the family.SIGNS OF CHEMICAL DEPENDENCY? You have been told by friends or family that drugs have become a problem.? You fight when using drugs.? You are having blackouts (not remembering what you do while using).? You feel sick from using drugs but continue using.? You lie about use or amounts of drugs (chemicals) used.? You need chemicals to get you going.? You are suffering in work performance or in school because of drug use.? You get sick from use of drugs but continue to use anyway.? You need drugs to relate to people or feel comfortable in social situations.? You use drugs to forget problems. Yes answered to any of the above signs of chemical dependency indicates there are problems. The longer the use of drugs continues, the greater the problems will become.If there is a family history of drug or alcohol use, it is best not to experiment with these drugs. Continual use leads to tolerance. After tolerance develops more of the drug is needed to get the same feeling. This is followed by addiction. With addiction, drugs become the most important part of life. It becomes more important to take drugs than participate in the other usual activities of life. This includes relating to friends and family. Addiction is followed by dependency. Dependency is a condition where drugs are now needed not just to get high, but to feel normal.Addiction cannot be cured but it can be stopped. This often requires outside help and the care of professionals. Treatment centers are listed in the yellow pages under: Cocaine, Narcotics, and Alcoholics Anonymous. Most hospitals and clinics can refer you to a specialized care center. Talk to your caregiver if you need help.Document Released: 12/31/2005 Document Revised: 08/02/2012 Document Reviewed: 05/11/2006ExitCare? Patient Information ?2014 Drinks4-you. This information is not intended to replace advice given to you by your health care provider. Make sure you discuss any questions you have with your health care provider.Narcotic OverdoseA narcotic overdose is the misuse or overuse of a narcotic drug. A narcotic overdose can make you pass out and stop breathing. If you are not treated right away, this can cause permanent brain damage or stop your heart. Medicine may be given to reverse the effects of an overdose. If so, this medicine may bring on withdrawal symptoms. The symptoms may be abdominal cramps, throwing up (vomiting), sweating, chills, and nervousness.Injecting narcotics can cause more problems than just an overdose. AIDS, hepatitis, and other very serious infections are transmitted by sharing needles and syringes. If you decide to quit using, there are medicines which can help you through the withdrawal period. Trying to quit all at once on your own can be uncomfortable, but not life-threatening. Call your caregiver, Narcotics Anonymous, or any drug and alcohol treatment program for further help. Document Released: 06/18/2005 Document Revised: 08/02/2012 Document Reviewed: 04/12/2010ExitCare? Patient Information ?2015 Drinks4-you. This information is not intended to replace advice given to you by your health care provider. Make sure you discuss any questions you have with your health care provider. Normal [facility] ED Patient Summaryon 017 ED Patient Summary (Inserted Image. April ble to display) [place] [id number] Patient Discharge Instructions Person Information Name: NIKKI HUNT Age: 36 Years Date: 04/12/2017 1:53 AMDischarge Diagnosis: Opiate overdose; Polysubstance abuse Primary Care Physician: NONE, XXXX Provider InformationPrimary Provider: Mukesh JORDAN, Doriansicierna Sorting Livestock Worker:None The exam and treatment you received in the Emergency Department were for an urgent problem and are not intended as complete care. It is important that you follow up with a doctor, nurse practitioner, or physician?s assistant program manager for ongoing care. If your symptoms become worse or you do not improve as expected and you are unable to reach your usual health care provider, you should return to the Emergency Department. We are available 24 hours a day. NIKKI HUNT has been given the following list of patient education materials, prescriptions and follow-up instructions: Follow-up Instructions:With: Address: When: CHRISTOS COOPER [address] [place] [address], [address] [place] [address] [employer] ([email or web address] In 3 days 04/15/2017 In the event that this physician does not participate in your insurance network, please consult with your insurance company to find a nearby participating provider. Patient Education Materials:Polysubstance Abuse; Narcotic Overdose Medications Given:Medication Dose Route No medications found. Medication Information:Medications to Continue with No ChangesOther Medicationsatenolol By Mouth every day.atenolol (atenolol 25 mg Tab) 1 Tabs By Mouth every day.brexpiprazole (Rexulti 1 mg oral tablet) 1 Tabs By Mouth every day.clonidine 0.1 Milligram By Mouth 3 times a day.escitalopram (Lexapro 20 mg Tab) 1 Tabs By Mouth every day.gabapentin 600 Milligram By Mouth 3 times a day. pain mgmt prescribes.hydrOXYzine (Atarax 25 mg oral tablet) 1 Tabs By Mouth 3 times a day.quetiapine (Seroquel) 200 Milligram By Mouth at bedtime.ustekinumab (Stelara PFS 45 mg/0.5 mL subcutaneous solution) Subcutaneous every 3 months.Comment: Pharmacy Information: Thank you for choosing [facility] Patient Education Materials: Polysubstance AbuseWhen people abuse more than one drug or type of drug it is called polysubstance or polydrug abuse. For example, many smokers also drink alcohol. This is one form of polydrug abuse. Polydrug abuse also refers to the use of a drug to counteract an unpleasant effect produced by another drug. It may also be used to help with withdrawal from another drug. People who take stimulants may become agitated. Sometimes this agitation is countered with a tranquilizer. This helps protect against the unpleasant side effects. Polydrug abuse also refers to the use of different drugs at the same time. Anytime drug use is interfering with normal living activities, it has become abuse. This includes problems with family and friends. Psychological dependence has developed when your mind tells you that the drug is needed. This is usually followed by physical dependence which has developed when continuing increases of drug are required to get the same feeling or high . This is known as addiction or chemical dependency. A person's risk is much higher if there is a history of chemical dependency in the family.SIGNS OF CHEMICAL DEPENDENCY? You have been told by friends or family that drugs have become a problem.? You fight when using drugs.? You are having blackouts (not remembering what you do while using).? You feel sick from using drugs but continue using.? You lie about use or amounts of drugs (chemicals) used.? You need chemicals to get you going.? You are suffering in work performance or in school because of drug use.? You get sick from use of drugs but continue to use anyway.? You need drugs to relate to people or feel comfortable in social situations.? You use drugs to forget problems. Yes answered to any of the above signs of chemical dependency indicates there are problems. The longer the use of drugs continues, the greater the problems will become.If there is a family history of drug or alcohol use, it is best not to experiment with these drugs. Continual use leads to tolerance. After tolerance develops more of the drug is needed to get the same feeling. This is followed by addiction. With addiction, drugs become the most important part of life. It becomes more important to take drugs than participate in the other usual activities of life. This includes relating to friends and family. Addiction is followed by dependency. Dependency is a condition where drugs are now needed not just to get high, but to feel normal.Addiction cannot be cured but it can be stopped. This often requires outside help and the care of professionals. Treatment centers are listed in the yellow pages under: Cocaine, Narcotics, and Alcoholics Anonymous. Most hospitals and clinics can refer you to a specialized care center. Talk to your caregiver if you need help.Document Released: 12/31/2005 Document Revised: 08/02/2012 Document Reviewed: 05/11/2006ExitCare? Patient Information ?2014 Drinks4-you. This information is not intended to replace advice given to you by your health care provider. Make sure you discuss any questions you have with your health care provider.Narcotic OverdoseA narcotic overdose is the misuse or overuse of a narcotic drug. A narcotic overdose can make you pass out and stop breathing. If you are not treated right away, this can cause permanent brain damage or stop your heart. Medicine may be given to reverse the effects of an overdose. If so, this medicine may bring on withdrawal symptoms. The symptoms may be abdominal cramps, throwing up (vomiting), sweating, chills, and nervousness.Injecting narcotics can cause more problems than just an overdose. AIDS, hepatitis, and other very serious infections are transmitted by sharing needles and syringes. If you decide to quit using, there are medicines which can help you through the withdrawal period. Trying to quit all at once on your own can be uncomfortable, but not life-threatening. Call your caregiver, Narcotics Anonymous, or any drug and alcohol treatment program for further help. Document Released: 06/18/2005 Document Revised: 08/02/2012 Document Reviewed: 04/12/2010ExitCare? Patient Information ?2014 Drinks4-you. This information is not intended to replace advice given to you by your health care provider. Make sure you discuss any questions you have with your health care provider.GILBERT Osei CHRISTINE , have received the following patient education materials/instructions and have verbalized understanding: Patient Education Materials: Polysubstance Abuse; Narcotic Overdose Follow-up Instructions: With: Address: When: CHRISTOS COOPER [facility], [address] [place] [address] [employer] (1) In 3 days 04/15/2017 Prescriptions: Patient Signature __ Date Clinician/Nurse Signature Date 04/12/17 04:42:[address] [facility] Ethanolon 04-12-2017 Ethanol mg/dL Normal <=7 [facility] Comment on above: Performed By: #### 2 [id number] ####[facility] [address] [place] [address] Hep Func Panelon 04-12-2017 Bilirubin (direct) UTC Abnormal 0.0-0.9 [facility] Comment on above: Result Comment: Resu lt verified by Discern Rule. Performed result UTC (Unable to Calculate) was sent as an Alpha code due the inability to calculate a valid numeric value. Performed By: #### 2 [id number], [id number], 6763775, 9706556, 1144405, 9521089, 91801752, 4919208 ####[facility] [address] [place] [address] Alanine aminotransferase (ALT) 23 Int._Unit/L Normal 6-46 [facility] Comment on above: Performed By: #### 2 096792, 3089459, 5714545, 9099630, 1142119, 8107330, 29174227, 4016731 ####[facility] [address] [place] [address] Albumin 4.5 g/dL Normal 3.3-5.0 [facility] Comment on above: Performed By: #### 2 202073, 2626800, 3798670, 2268707, 4241137, 7366108, 53720087, 3546762 ####[facility] [address] [place] [address] Albumin 1.4 g/dL Normal 1.1-2.2 [facility] Comment on above: Performed By: #### 2 544017, 0806917, 1053490, 9828113, 5676349, 1104627, 76224732, 4055818 ####[facility] [address] [place] [address] Alkaline phosphatase (ALP) 59 Int._Unit/L Normal 21-98 [facility] Comment on above: Performed By: #### 2 197478, 9366663, 1078577, 9064671, 4430514, 5495278, 51728312, 3536000 ####[address] [place] [address] Aspartate aminotransferase (AST) 23 Int._Unit/L Normal 5-43 [facility] Comment on above: Performed By: #### 2 502543, 1981946, 2935168, 0411468, 4656453, 5009850, 54923774, 2405775 ####[address] [address] Bilirubin (direct) mg/dL Normal 0.1-0.4 [facility] Comment on above: Performed By: #### 2 489382, 1006557, 1433071, 3123846, 4185657, 1158970, 61766455, 8057646 ####[address] [address] Bilirubin (total) 0.6 mg/dL Normal 0.0-1.1 [facility] Comment on above: Performed By: #### 2 343999, 7880579, 6282099, 5935196, 0239879, 2192208, 23687057, 9523370 ####[facility] [address] [place] [address] Globulin 3.1 g/dL Normal 1.4-4.0 [facility] Comment on above: Performed By: #### 2 535174, 7415402, 9911596, 0822349, 6011457, 7270548, 39847416, 3298676 ####[address] [place] [address] Protein 7.6 g/dL Normal 6.0-7.8 [facility] Comment on above: Performed By: #### 2 678016, 6617114, 7407829, 9039725, 4789916, 8001677, 79349273, 3864174 ####[facility] [address] [place] [address] Lipase Levelon 04-12-2017 Lipase 18 unit/L Normal 13-58 [facility] Comment on above: Performed By: #### 2 616518, 4883614, 2908726, 8972668, 4945664, 0194658, 19335737, 5048803 ####[facility] [address] [place] [address] Pre-Arrival Noteon 7 Pre-Arrival Note Pre-Arrival SummaryN estelle: [facility] Current Date: 04/12/2017 01:53:24 ESTGender: FemaleDate of : Age: Pre-Arrival Type: EMSETA: 04/12/2017 02:13:00 ESTPrimary Care Physician: Presenting Problem: overdosePre-Arrival User: Triny Mora RN [facility]: [facility]/12/17 01:44:00[facility] Emergency Department Pre-Hospital Report Form _ Vital Signs: 122/52 16 96% RA Pre-Hospital Report: Treatment in Route: 4 mg nasal Narcan Response to Treatment: Misc. Issues: Normal [facility] Salicylateon 04-12-2017 Salicylates mg/dL Low 6-29 [facility] Comment on above: Performed By: #### 2 183668, 9973415, 7211491, 3817351, 2873162, 6106938, 77357982, 1177388 ####[facility] [address] [place] [id number] U Drug Screenon 04-12-2017 OPIATES:PRTHR:PT:URIN E:ORD:SCREEN Positive Abnormal Negative [facility] Comment on above: Result Comment: No c onfirmation requested by Physican\Results read back for Confirmation\Results verified by repeat analysis\Unconfirmed by alternate method\Critical Result UD_OPIA:POS Called to TRINY MORA RN AT ED by BALDEV RAIN And Read Back For Confirmation at: 04/12/2017 03:31:53Negative Cutoff: <300 ng/mL Performed By: #### 2 053810 ####[place] [address] PHENCYCLIDINE:PRTHR:P T:URINE:ORD:SCREEN>25 NG/ML Positive Abnormal Negative [facility] Comment on above: Result Comment: No c onfirmation requested by Physican\Results read back for Confirmation\Results verified by repeat analysis\Unconfirmed by alternate method\Critical Result UD_PCP:POS Called to TRINY MORA RN AT ED by BALDEV RAIN And Read Back For Confirmation at: 04/12/2017 03:31:53Negative Cutoff: <25 ng/mLThese drug screen results are to be used for medical (i.e., treatment) purposes only. Unconfirmed drug screening results must not be used for non-medical purposes (e.g., employment testing, legal testing). Performed By: #### 2 357143 ####[address] [place] [address] Urine, benzodiazepines presence Positive Abnormal Negative [facility] Comment on above: Result Comment: No c onfirmation requested by Physican\Results verified by repeat analysis\Results read back for Confirmation\Unconfirmed by alternate method\Critical Result UD_BENZ:POS Called to TRINY MORA RN AT ED by BALDEV RAIN And Read Back For Confirmation at: 04/12/2017 03:31:53Negative Cutoff: <200 ng/mL Performed By: #### 2 420274 ####[facility] [address] [place] [address] Urine, cocaine presence Positive Abnormal Negative [facility] Comment on above: Result Comment: No c onfirmation requested by Physican\Results read back for Confirmation\Results verified by repeat analysis\Unconfirmed by alternate method\Critical Result UD_COCM:POS Called to TRINY MORA RN AT ED by BALDEV RAIN And Read Back For Confirmation at: 04/12/2017 03:31:53Negative Cutoff: <300 ng/mL Performed By: #### 2 821214 ####[facility] [address] [place] [address] AMPHETAMINES:PRTHR:PT :URINE:ORD:SCREEN>100 0 NG/ML Negative Normal Negative [facility] Comment on above: Result Comment: Nega tive Cutoff: <1000 ng/mL Performed By: #### 2 112630 ####[facility] [address] [place] [address] TETRAHYDROCANNABINOL: PRTHR:PT:URINE:ORD:SC REEN>50 NG/ML Negative Normal Negative [facility] Comment on above: Result Comment: Nega tive Cutoff: <50 ng/mL Performed By: #### 2 879631 ####[facility] [address] [place] [address] Urine, barbiturates presence Negative Normal Negative [facility] Comment on above: Result Comment: Nega tive Cutoff: <200 ng/mL Performed By: #### 2 370760 ####[facility] [address] [place] [address] eGFRon 04-12-2017 eGFR (black) mL/min/{1.73_m2} Normal >=59 [facility] Comment on above: Order Comment: Order added by Discern Expert. Result Comment: eGFR is race adjusted. AA=. Performed By: #### 2 373995, 5692787, 2015144, 0724845, 6619071, 5933838, 30813301, 1907365 ####[facility] [address] [place] [address] eGFR (non-black) mL/min/{1.73_m2} Normal >=59 [facility] Comment on above: Order Comment: Order added by Discern Expert. Result Comment: Metal Tile Setter shakila kidney disease could be indicated at eGFR's of less than 60 mL/min/1.73m2. Kidney failure is indicated at less than 15 mL/min/1.73m2. Performed By: #### 2 665953, 6808720, 5122081, 9140713, 7156815, 5876859, 68447817, 5511486 ####[address] [place] [address] Vital Signs Date Time Vital Sign Value Performing Clinician Facility 01-27-2025 15:04-0400 Body temperature 98.2 [degF] Shanel Madden BREAKER UNIT ASSEMBLER Work Phone: [facility] 01-27-2025 15:04-0400 Diastolic blood pressure 78 mm[Hg] Shanel Madden BREAKER UNIT ASSEMBLER Work Phone: [facility] 01-27-2025 15:04-0400 Heart rate 78 /min Shanel Madden BREAKER UNIT ASSEMBLER Work Phone: [facility] 01-27-2025 15:04-0400 SaO2% (BldA) [Mass fraction] 98 % Shanel Madden BREAKER UNIT ASSEMBLER Work Phone: [facility] 01-27-2025 15:04-0400 Systolic blood pressure 126 mm[Hg] Shanel Madden BREAKER UNIT ASSEMBLER Work Phone: [facility] 01-20-2025 22:33-0400 Body height 149.86 cm Kaylyn Bonilla APRN Work Phone: [facility] 01-20-2025 22:33-0400 Body temperature 98.1 [degF] Kaylyn Bonilla OPTICAL LABORATORY MANAGER Work Phone: [facility] 01-20-2025 22:33-0400 Body weight 68 kg Kaylyn Bonilla APRN Work Phone: [facility] 01-20-2025 22:33-0400 Diastolic blood pressure 97 mm[Hg] Kaylyn Bonilla APRN Work Phone: [facility] 01-20-2025 22:33-0400 Heart rate 55 /min Kaylyn Bonilla APRN Work Phone: [facility] 01-20-2025 22:33-0400 Respiratory rate 18 /min Kaylyn Bonilla APRN Work Phone: [facility] 01-20-2025 22:33-0400 SaO2% (BldA) [Mass fraction] 96 % Kaylyn Bonilla APRN Work Phone: [facility] 01-20-2025 22:33-0400 Systolic blood pressure 168 mm[Hg] Kaylyn Bonilla APRN Work Phone: [facility] 05-05-2024 10:25-0500 Body mass index (BMI) [Ratio] 28.94 kg/m2 Ruthie Ward DO Work Phone: [facility] 05-05-2024 10:25-0500 Body weight 65 kg Ruthie Ward DO Work Phone: [facility] 05-05-2024 10:25-0500 Diastolic blood pressure 87 mm[Hg] Ruthie Ward DO Work Phone: [facility] 05-05-2024 10:25-0500 Heart rate 91 /min Ruthie Ward DO Work Phone: [facility] 05-05-2024 10:25-0500 Systolic blood pressure 131 mm[Hg] Ruthie Ward DO Work Phone: [facility] 04-11-2024 16:21-0500 Body mass index (BMI) [Ratio] 26.26 kg/m2 Blaine Hogan BREAKER UNIT ASSEMBLER Work Phone: [facility] 04-11-2024 16:21-0500 Body temperature 97.7 [degF] Blaine Hogan BREAKER UNIT ASSEMBLER Work Phone: [facility] 04-11-2024 16:21-0500 Body weight 58.97 kg Blaine Hogan BREAKER UNIT ASSEMBLER Work Phone: [facility] 04-11-2024 16:21-0500 Diastolic blood pressure 72 mm[Hg] Blaine Hogan BREAKER UNIT ASSEMBLER Work Phone: [facility] 04-11-2024 16:21-0500 Heart rate 74 /min Blaine Hogan BREAKER UNIT ASSEMBLER Work Phone: [facility] 04-11-2024 16:21-0500 SaO2% (BldA) [Mass fraction] 99 % Blaine Hogan BREAKER UNIT ASSEMBLER Work Phone: [facility] 04-11-2024 16:21-0500 Systolic blood pressure 120 mm[Hg] Blaine Hogan BREAKER UNIT ASSEMBLER Work Phone: [facility] 12-22-2023 08:23-0400 Body temperature 98.4 [degF] INHALATION THERAPY AIDES TEACHER-BC Ondina Bullimore Work Phone: [facility] 12-22-2023 08:23-0400 Diastolic blood pressure 60 mm[Hg] INHALATION THERAPY AIDES TEACHER-BC Ondina Bullimore Work Phone: [facility] 12-22-2023 08:23-0400 Heart rate 81 /min INHALATION THERAPY AIDES TEACHER-BC Ondina Bullimore Work Phone: [facility] 12-22-2023 08:23-0400 Respiratory rate 16 /min INHALATION THERAPY AIDES TEACHER-BC Ondina Bullimore Work Phone: [facility] 12-22-2023 08:23-0400 SaO2% (BldA) [Mass fraction] 97 % INHALATION THERAPY AIDES TEACHER-BC Ondina Bullimore Work Phone: [facility] 12-22-2023 08:23-0400 Systolic blood pressure 111 mm[Hg] INHALATION THERAPY AIDES TEACHER-BC Ondina Bullimore Work Phone: [facility] 12-22-2023 06:00-0400 Body weight 64.8 kg INHALATION THERAPY AIDES TEACHER-BC Ondina Bullimore Work Phone: [facility] 12-19-2023 23:11-0400 Body height 149.86 cm INHALATION THERAPY AIDES TEACHER-BC Ondina Bullimore Work Phone: [facility] 12-19-2023 20:34-0400 Diastolic blood pressure 64 mm[Hg] INHALATION THERAPY AIDES TEACHER-BC Ondina Bullimore Work Phone: [facility] 12-19-2023 20:34-0400 Heart rate 66 /min INHALATION THERAPY AIDES TEACHER-BC Ondina Bullimore Work Phone: [facility] 12-19-2023 20:34-0400 Respiratory rate 16 /min INHALATION THERAPY AIDES TEACHER-BC Ondina Bullimore Work Phone: [facility] 12-19-2023 20:34-0400 SaO2% (BldA) [Mass fraction] 99 % INHALATION THERAPY AIDES TEACHER-BC Ondina Bullimore Work Phone: [facility] 12-19-2023 20:34-0400 Systolic blood pressure 100 mm[Hg] INHALATION THERAPY AIDES TEACHER-BC Ondina Bullimore Work Phone: [facility] 12-19-2023 17:35-0400 Body temperature 98.5 [degF] INHALATION THERAPY AIDES TEACHER-BC Ondina Bullimore Work Phone: [facility] 12-19-2023 13:35-0400 Body height 154.94 cm INHALATION THERAPY AIDES TEACHER-BC Ondina Bullimore Work Phone: [facility] 12-19-2023 13:35-0400 Body weight 59.2 kg INHALATION THERAPY AIDES TEACHER-BC Ondina Bullimore Work Phone: [facility] 05-04-2023 13:45-0500 Body height 149.9 cm Debbie Rodarte MD Work Phone: [facility] 05-04-2023 13:45-0500 Body weight 72.58 kg Debbie Rodarte MD Work Phone: [facility] 05-04-2023 13:45-0500 Diastolic blood pressure 84 mm[Hg] Debbie oRdarte MD Work Phone: [facility] 05-04-2023 13:45-0500 Heart rate 67 /min Debbie Rodarte MD Work Phone: [facility] 05-04-2023 13:45-0500 SaO2% (BldA) [Mass fraction] 98 % Debbie Rodarte MD Work Phone: [facility] 05-04-2023 13:45-0500 Systolic blood pressure 137 mm[Hg] Debbie Rodarte MD Work Phone: [facility] Encounters Encounter Date Encounter Type Care Provider Facility Start: 01-27-2025 End: 01-27-2025 Office outpatient visit 25 minutes Shanel Madden BREAKER UNIT ASSEMBLER Work Phone: [facility] Comment on above: Scalp pain (Primary Dx) Start: 01-27-2025 End: 01-27-2025 ambulatory SHANEL MADDEN Not Available Start: 01-20-2025 End: 01-20-2025 Emergency department patient visit Kaylyn Chad KELLI Work Phone: -Emergency Room Work Phone: Start: 01-20-2025 End: 01-20-2025 ambulatory SHANEL MADDEN Not Available Start: 08-17-2024 End: 08-17-2024 [facility] Start: 08-03-2024 End: 08-03-2024 Patient encounter procedure Ruthie Marta Ward DO Work Phone: [facility] Comment on above: Polyarticular psoria tic arthritis (HCC) (Primary Dx); Psoriasis vulgaris; Palmoplantar pustulosis; Polyarthralgia; Dental infection; Vaccine counseling; Need for influenza vaccination; Family history of psoriasis in son and daughter; Recurrent pneumonia; Immunosuppressed status (HCC); NO SHOW Start: 07-20-2024 Evaluation and management of inpatient DOREEN NAREN [facility] Start: 07-16-2024 End: 07-17-2024 Clinisync Result Encounter Viktoria YOUNG Work Phone: [facility] External Department Unsolicited Start: 07-16-2024 End: 07-17-2024 Clinisync Result Encounter Viktoria YOUNG Work Phone: [facility] External Department Unsolicited Start: 05-05-2024 End: 05-05-2024 Subsequent hospital visit by physician Ben Watkins Work Phone: Radiology Comment on above: Psoriasis vulgaris [ L40.0] Start: 05-05-2024 End: 05-05-2024 ambulatory RUTHIE WARD Facility:[facility] Start: 05-05-2024 End: 05-05-2024 Patient encounter procedure Ruthie Ward DO Work Phone: [facility] Comment on above: Polyarticular psoria tic arthritis (HCC) (Primary Dx); Psoriasis vulgaris; Palmoplantar pustulosis; Polyarthralgia; Dental infection; Vaccine counseling; Need for influenza vaccination Start: 04-11-2024 End: 04-11-2024 ambulatory BLAINE HOGAN Not Available Start: 04-11-2024 End: 04-11-2024 Office outpatient visit 25 minutes Blaine Hogan BREAKER UNIT ASSEMBLER Work Phone: [facility] Comment on above: Dental abscess (Prim sunny Dx); Pain, dental Start: 03-08-2024 End: 03-08-2024 Bamboo flowsheet Gene Saleh PhD Work Phone: [facility] Start: 03-08-2024 End: 03-08-2024 Bamboo flowsheet Gene Saleh PhD Work Phone: [facility] Start: 03-08-2024 End: 03-08-2024 ambulatory GENE SALEH Not Available Start: 03-08-2024 End: 03-08-2024 Patient encounter procedure Gene Saleh PhD Work Phone: [facility] Comment on above: Memory loss (Primary Dx); Severe episode of recurrent major depressive disorder, without psychotic features (HCC) (CMS/HCC); Generalized anxiety disorder (CMS/HCC); 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); 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 hauler; Word finding difficulty; Concentration deficit Start: 02-24-2024 End: 02-24-2024 ambulatory SHANEL MADDEN Not Available Start: 02-24-2024 End: 02-24-2024 Patient encounter procedure Gene Saleh PhD Work Phone: [facility] Comment on above: Memory loss (Primary Dx); Concentration deficit; Word finding difficulty; 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 hauler; 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); Generalized anxiety disorder (CMS/HCC); Severe episode of recurrent major depressive disorder, without psychotic features (HCC) (CMS/HCC) Start: 02-08-2024 End: 02-08-2024 Patient encounter procedure Gene Saleh PhD Work Phone: [facility] Comment on above: Memory loss (Primary Dx); Concentration deficit; Word finding difficulty; 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 hauler; Depression with anxiety; 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) Start: 02-08-2024 End: 02-08-2024 ambulatory GENE SALEH Not Available Start: 02-08-2024 End: 02-08-2024 Bamboo flowsheet Gene Saleh PhD Work Phone: [facility] Start: 02-08-2024 End: 02-08-2024 Bamboo flowsheet Gene Saleh PhD Work Phone: [facility] Start: 12-29-2023 End: 12-29-2023 ambulatory INHALATION THERAPY AIDES TEACHER-BC Ondina E Bullimore Work Phone: [facility] Work Phone: Start: 12-29-2023 End: 12-29-2023 Patient encounter procedure INHALATION THERAPY AIDES TEACHER-BC Ondina Bullimore Work Phone: [facility] [place] Work Phone: Start: 12-19-2023 End: 12-22-2023 Evaluation and management of inpatient INHALATION THERAPY AIDES TEACHER-BC Ondina Bullimore Work Phone: [facility]-[address] [place] [address] Surgical Work Phone: Start: 05-04-2023 End: 05-04-2023 Patient encounter procedure Debbie Rodarte MD Work Phone: Neurology Comment on above: Neuropathy (Primary Dx); Multiple sclerosis (HCC) Start: 09-15-2022 End: 09-15-2022 ambulatory DO Christos Cooper Work Phone: [facility] [facility] Work Phone: Start: 09-15-2022 End: 09-15-2022 Patient encounter procedure DO Christos Cooper Work Phone: [facility] [place] Work Phone: Start: 04-18-2022 End: 04-18-[address] DOCTOR WOODSON Facility: Start: 01-17-2022 End: 01-17-2022 Patient encounter procedure DO Christos Cooper Work Phone: [facility] [place] Start: 04-12-2017 End: 04-12-2017 Emergency department patient visit Tim Mayorga Facility:[facility] Procedures Date Procedure Procedure Detail Performing Clinician Start: 01-27-2025 H/O: surgery Hx of unilateral oophorectomy Shanel Madden NP Work Phone: Start: 07-16-2024 ECG 12-LEAD Viktoria YOUNG Work Phone: Start: 12-21-2023 MRI of head INHALATION THERAPY AIDES TEACHER-BC Ondina Bullimore Work Phone: Start: 12-19-2023 Duplex scan of lower limb veins INHALATION THERAPY AIDES TEACHER-BC Ondina Bullimore Work Phone: Start: 12-19-2023 CT angiography of head INHALATION THERAPY AIDES TEACHER-BC Ondina Bullimore Work Phone: Start: 12-19-2023 CT angiography of neck vessels INHALATION THERAPY AIDES TEACHER-BC Ondina Bullimore Work Phone: Start: 12-19-2023 CT angiography of thorax INHALATION THERAPY AIDES TEACHER-BC Ondina Bullimore Work Phone: Start: 12-19-2023 CT of head without contrast INHALATION THERAPY AIDES TEACHER-BC Ondina Rodriguezore Work Phone: Start: 12-19-2023 SARS-CoV-2, Influenza & RSV (PCR) INHALATION THERAPY AIDES TEACHER-GEN Rodriguezore Work Phone: Start: 12-19-2023 Urine culture INHALATION THERAPY AIDES TEACHER-GEN Landa Work Phone: Start: 07-03-2020 Microscopic observation [Identifier] in Cervix by Cyto stain Gene Saleh PhD Work Phone: Plan of Treatment Date Care Activity Detail Author Start: 01-16-2031 Urine microalbumin profile DTaP,Tdap,Td Vaccine (2 - Td or Tdap) [facility] Start: 01-23-2025 Influenza vaccination Influenza Vacc ine (#1) [facility] Start: 08-03-2024 End: 08-03-2024 Patient encounter procedure 08/03/2024 2:20 PM EDT Office Visit [facility] [address] [place] [address] Ruthie Ward, DO [address] [place], [place] [id number] 3 month F/U [facility] Comment on above: 3 month F/U Start: 05-05-2024 End: 08-04-2024 BLOOD TB SCREEN [facility] Comment on above: Expected: 05/05/2024 , Expires: 08/04/2024 Start: 05-05-2024 End: 08-04-2024 Cyclic citrullinated peptide IgG Ab [Units/volume] in Serum or Plasma [facility] Comment on above: Expected: 05/05/2024 , Expires: 08/04/2024 Start: 05-05-2024 End: 08-04-2024 Rheumatoid factor [Units/volume] in Serum or Plasma [facility] Comment on above: Expected: 05/05/2024 , Expires: 08/04/2024 Start: 03-08-2024 End: 03-08-2024 Patient encounter procedure 03/08/2024 10:00 AM EDT Office Visit [facility] [address] [facility] [place] [id number] Gene Saleh, PhD [address] [place], [place] [id number] [facility] Start: 02-24-2024 End: 02-24-2024 Patient encounter procedure 02/24/2024 2:00 PM EDT Office Visit [facility] [address] [address] [place] [phone] [facility] Start: 02-08-2024 End: 02-08-2024 Patient encounter procedure 02/08/2024 3:00 PM EDT Office Visit [facility] [address] [address] [place] [phone] Gene Saleh, PhD [address] [place] [address] Arrived [facility] Comment on above: Arrived Start: 01-24-2024 Influenza vaccination Influenza Vacc ine (#1) [facility] Start: 12-22-2023 [facility] Start: 12-19-2023 Duplex scan of lower limb veins US venous duplex LE BI [facility] Start: 12-19-2023 US Lower extremity v ein - bilateral [facility] Start: 12-19-2023 Hospital admission [facility] Start: 12-19-2023 [facility] of head [facility] Start: 12-19-2023 Referral to neurologist [facility] Start: 12-19-2023 Bacteria identified in Urine by Culture [facility] Start: 07-03-2023 Screening for malign ant neoplasm of cervix [facility] Start: 01-23-2023 Influenza vaccination Influenza Vacc ine (#1) [facility] Start: 09-15-2022 [facility] Start: 05-25-2022 Depression Assessment Depression Ass essment [facility] Start: 10-09-2020 Covid-19 Vaccine (3 - Pfizer risk series) Covid-19 Vaccine (3 - Pfizer risk series) [facility] Start: 2020 Screening for malign ant neoplasm of breast [facility] Start: 2010 Screening for malign ant neoplasm of cervix [facility] Start: 2001 Screening for malign ant neoplasm of cervix Pap Testing [facility] Start: 08-31-1999 Hepatitis B Vaccine (1 of 3 - 19+ 3-dose series) Hepatitis B Vaccine (1 of 3 - 19+ 3-dose series) [facility] Start: 08-31-1999 Pneumococcal vaccination Pneum ococcal Vaccine (1 of 2 - PCV) [facility] Start: 08-31-1999 Shingrix Vaccine (1 of 2) Shingrix Vaccine (1 of 2) [facility] Start: 1998 Anxiety Screening Anxiety Screening [facility] Start: 1998 Depression Screening Depression Scre ening [facility] Start: 1998 Hepatitis C screening Hepatitis C Sc reening [facility] Start: 1998 HIV screening HIV Screening [facility] Start: 08-31-1991 Screening for malign ant neoplasm of cervix Cervical Cancer Screening [facility] Start: 1986 Pneumococcal vaccination [facility] Start: 1980 Hepatitis B Vaccine (1 of 3 - 3-dose series) Hepatitis B Vaccine (1 of 3 - 3-dose series) [facility] End: 06-02-2024 Mri brain brain stem w/o w/contrast material MRI BRAIN WO/W IVCON Radiology Routine Multiple sclerosis (HCC) 1 Occurrences starting 05/04/2023 until 06/02/2024 [facility] Work Phone: Comment on above: 1 Occurrences starti ng 05/04/2023 until 06/02/2024 Patient Education Urinary Tract Infection, Adult (DC) Altered Mental Status (DC) Sepsis, Adult (DC) Know your Meds [facility] Work Phone: Patient referral [facility] Work Phone: End: 06-04-2025 XR Foot - bilateral AP and Lateral and oblique XR FOOT GENERAL 3V AP/LAT/OBL BILATERAL Radiology Routine Polyarticular psoriatic arthritis (HCC) 1 Occurrences starting 05/05/2024 until 06/04/2025 [facility] Comment on above: 1 Occurrences starti ng 05/05/2024 until 06/04/2025 XR Foot - bilateral AP and Lateral and oblique XR FOOT GENERAL 3V AP/LAT/OBL BILATERAL Radiology Routine Polyarticular psoriatic arthritis (HCC) 05/05/2024 1:59 PM [facility] End: 06-04-2025 XR Hand - bilateral PA XR HAND/WRIST SURVEY ARTHRITIS 1V PA BILATERAL Radiology Routine Polyarticular psoriatic arthritis (HCC) 1 Occurrences starting 05/05/2024 until 06/04/2025 [facility] Comment on above: 1 Occurrences starti ng 05/05/2024 until 06/04/2025 XR Hand - bilateral PA XR HAND/W RIST SURVEY ARTHRITIS 1V PA BILATERAL Radiology Routine Polyarticular psoriatic arthritis (HCC) 05/05/2024 1:59 PM [facility] End: 06-04-2025 XR Pelvis and Hip - left AP and Lateral frog XR HIP GENERAL 3V PELV/AP/LAT LEFT Radiology Routine Polyarticular psoriatic arthritis (HCC) 1 Occurrences starting 05/05/2024 until 06/04/2025 [facility] Comment on above: 1 Occurrences starti ng 05/05/2024 until 06/04/2025 XR Pelvis and Hip - left AP and Lateral frog XR HIP GENERAL 3V PELV/AP/LAT LEFT Radiology Routine Polyarticular psoriatic arthritis (HCC) 05/05/2024 2:05 PM [facility] End: 06-04-2025 XR Pelvis and Hip - right AP and Lateral frog XR HIP GENERAL 3V PELV/AP/LAT RIGHT Radiology Routine Polyarticular psoriatic arthritis (HCC) 1 Occurrences starting 05/05/2024 until 06/04/2025 [facility] Comment on above: 1 Occurrences starti ng 05/05/2024 until 06/04/2025 XR Pelvis and Hip - right AP and Lateral frog XR HIP GENERAL 3V PELV/AP/LAT RIGHT Radiology Routine Polyarticular psoriatic arthritis (HCC) 05/05/2024 2:05 PM [facility] End: 06-04-2025 XR Sacroiliac Joint Views XR SACROILIAC JOINTS 2V AP PELVIS/FERGUESON Radiology Routine Psoriasis vulgaris 1 Occurrences starting 05/05/2024 until 06/04/2025 [facility] Work Phone: Comment on above: 1 Occurrences starti ng 05/05/2024 until 06/04/2025 XR Sacroiliac Joint Views XR SACROILIAC JOINTS 2V AP PELVIS/FERGUESON Radiology Routine Psoriasis vulgaris 05/05/2024 2:05 PM EST [facility] End: 06-04-2025 XR Shoulder - left 3 Views XR SHOULDER GENERAL 3V OR MORE AP/TRUE AP/OTHER LEFT Radiology Routine Polyarticular psoriatic arthritis (HCC) 1 Occurrences starting 05/05/2024 until 06/04/2025 [facility] Comment on above: 1 Occurrences starti ng 05/05/2024 until 06/04/2025 XR Shoulder - left 3 Views XR SHOULDER GENERAL 3V OR MORE AP/TRUE AP/OTHER LEFT Radiology Routine Polyarticular psoriatic arthritis (HCC) 05/05/2024 1:59 PM EST [facility] End: 06-04-2025 XR Shoulder - right 2 Views XR SHOULDER [id number] AP/TRUE AP RIGHT Radiology Routine Polyarticular psoriatic arthritis (HCC) 1 Occurrences starting 05/05/2024 until 06/04/2025 [facility] Comment on above: 1 Occurrences starti ng 05/05/2024 until 06/04/2025 XR Shoulder - right 2 Views XR SHOULDER [id number] AP/TRUE AP RIGHT Radiology Routine Polyarticular psoriatic arthritis (HCC) 05/05/2024 1:59 PM [facility] Immunizations Immunization Date Immunization Notes Care Provider Mihaela santiago 05-05-2024 influenza, seasonal, injectable Ruthie Ward DO Work Phone: [facility] 05-05-2024 influenza virus vaccine, unspecified formulation Shanel Madden NP Work Phone: [facility] 01-16-2021 tetanus toxoid, reduced diphtheria toxoid, and acellular pertussis vaccine, adsorbed DO Christos Cooper Work Phone: [facility] 09-11-2020 COVID-19 mRNA, Comirnaty (Pfizer) DO Christos Cooper Work Phone: [facility] 08-11-2020 COVID-19 mRNA, Comirnaty (Pfizer) DO Christos Cooper Work Phone: [facility] Payers Date Payer Category Payer Self-pay [id number] 2019 Medicare AN[employer]M MEDICARE ADVANTAGE [facility] MEDICARE ADVANTAGE [id number] 2019-Present [address] [place] [address] [id number] 2019 Medicare (Managed Care) 1.2. [id number] 2019 Unknown [id number] 2017 Medicaid [id number] 2017 Medicaid [id number] 2017 Medicare [id number] 1980 Unknown [id number] 1980 Unknown [id number] 259 1980 Unknown [id number] 259 1980 Unknown [id number] 259 1980 Unknown [id number] 259 1980 Unknown [id number] 259 1980 Unknown [id number] 259 1959 Medicaid [id number] 1959 Medicare [id number] Medicare Medicare [id number] Unknown [id number] 31 Social History Date Type Detail Facility Start: 01-15-2021 Tobacco smoking stat us NHIS Smoker (finding) [facility] Start: 1980 Sex Assigned At Female F [facility] Start: 05-04-2023 End: 01-20-2025 Tobacco smoking status NHIS Smokes tobacco daily [facility] History of tobacco use Cigarette Smoker [facility] Start: 05-04-2023 End: 04-11-2024 Cigarettes smoked current (pack per day) - Reported 1 [facility] Start: 05-04-2023 Tobacco use and exposure Smokeless tobacco non-user [facility] Start: 05-04-2023 End: 05-05-2024 Alcohol intake Current drinker of alcohol (finding) [facility] Start: 05-04-2023 End: 04-11-2024 Tobacco use panel [facility] National Score (1-10 0), lower number is lower risk 93 [facility] Start: 05-04-2023 [facility] Start: 03-19-2016 Alcohol Comment SOCIAL ON HOLIDAY [facility] Start: 1980 Sex Assigned At Not on file [facility] Start: 12-19-2023 End: 01-09-2024 Tobacco smoking status NHIS Never smoked tobacco (finding) [facility] Start: 01-09-2024 End: 01-27-2025 Alcoholic beverage intake Lifetime non-drinker (finding) [facility] Start: 02-24-2024 Gender identity Identifies as female gender (finding) [facility] Sex Female (finding) [facility] Goals Date Patient Goal Desired Activity /State Functional Status Date Assessment Result Facility 12-22-2023 Functional status Patient at [facility] Work Phone: Mental Status Date Assessment Result Facility 12-22-2023 Cognitive function Cognitive Sta tus Patient at Baseline [facility] Work Phone: Clinical Notes 03-19-2016 to 01-27-2025 Shanel Madden, BREAKER UNIT ASSEMBLER - 01/27/2025 3:00 PM Ruthie Biswas, DO - 08/03/2024 2:20 PM EDTPatient Ruthie Durham, DO - 05/05/2024 10:00 AM EST Note Date & Type Note Facility 01-27-2025 History of Present illness Narrative Images from the original note were not included. [address], [address] [facility], [address] P: [phone] F: [phone] HPI Historian of HPI: patient Bethanie Hunt is a 44 y.o. female who presents today to the Urgent Care with the following complaints and denials due left sided neck/head pain which has been present for 1 week(s). C/O Denies Symptom Comments [] [x] swelling [] [x] ecchymosis [] [x] erythema [x] [] tingling head [x] [] numbness head [x] [] Pain radiation From her neck to her head [] [x] Weakness [] [x] Decreased ROM [] [x] Trauma Additional Comments: pt has not taken any OTC medications Pt denies heat application to the affected area Pt denies cold application to the affected area Pt states her tooth pain has resolved and is no longer having tooth pain. Denies pain with chewing. Denies ear pain. States brushing her hair and minimal touch to the left side of her scalp is painful. Denies fever, chills, vision changes or stiff neck. States she does have some pain to the left side of her neck. States she always has n/t to her hands but this is at her baseline. Had a recent tooth infection on the same side. Is taking ATB for tooth. ROS A complete system ROS was performed and negative aside from the pertinent positives noted in the HPI and PE. PHYSICAL EXAM Examination General Examination: General Examination: in no acute distress, well developed, well nourished Head: normocephalic, atraumatic no tenderness over temporal artery. There is tenderness along the left frontal parietal and occipital scalp with minimal touch. No facial edema. Eyes: BOTH EYES, extraocular movement intact (EOMI), pupils equal, round, reactive to light, sclera non-icteric, upper eyelids normal, lower eyelids normal. No periorbital edema bilat. Ears: BOTH EARS, tympanic membrane intact, clear canals normal no pain with movement of left pinna and tragus. No mastoid bone tenderness. Nose: nares patent, sinuses nontender bilaterally Oral Cavity: mucosa moist Throat: pharynx normal Neck/Thyroid: neck supple, no carotid bruit, trachea midline Lymph Nodes: no cervical adenopathy Skin: good turgor, no rashes, warm and dry, no rash noted to scalp. Heart: S1, S2 normal, regular rate and rhythm, no S3, S4, no murmurs, rubs, gallops Lungs: clear anteriorly and posteriorly, clear to auscultation bilaterally, good air movement, no wheezes, rales, rhonchi Chest: normal shape and expansion, normal anteroposterior (AP) diameter Extremities: no edema Neurologic: nonfocal, motor strength normal upper and lower extremities, sensory exam intact. Psych: alert, oriented, cognitive function intact, cooperative with exam, good eye contact, judgement and insight good, no auditory or visual hallucination, speech clear, thought content without suicidal ideation, delusions, through process logical, goal directed. M/s: from cervical spine with mild tenderness along left side of neck. No palpable spinal tenderness TREATMENT PLAN 1. Scalp pain (Primary) Consider non erupted shingles vs trigeminal neuralgia. Less likely muscular related. Will have pt start valtrex and prednisone taper to cover. Discussed SE of steroids, no NSAIDS With use. OTC lidocaine patch as directed. Immediately to ER if new, worsening or warning s/s otherwise must follow up with PCP over next 3-5 days for recheck. - predniSONE (Deltasone) 20 MG tablet; 3 tabs daily x2 days, then 2 tabs daily x2 days, then 1 tablet daily x2 days, then 1/2 tab daily x2 days Dispense: 13 tablet; Refill: 0 - valACYclovir (Valtrex) 1 g tablet; Take 1 tablet (1,000 mg) by mouth every 8 (eight) hours for 7 days Dispense: 21 tablet; Refill: 0 documented in this encounter [facility] 08-17-2024 Note Attestation signed by Kavitha Enriquez MD at 08/17/2024 5:56 PM New patient I reviewed the salient portions of the patient history. I have seen and examined the patient during rounds with the resident/fellow Durga. I repeated the uribe components of the exam. Agree with the noted assessment and plan. Repeat CT scan .NSAIDS for pleuritis following strptocoal pneumonia . If CT is negative can resume immune suppressive medication. Kavitha Enriquez MD Pulmonary Clinic Visit Note Patient: Nikki Hunt Age: 43 y.o. : 1980 Account No.: [id number] Chief complaint: New patient for post hospital follow up HPI 43 years old female past medical history significant for Psoriatec arthritis, with admission to the hospital on June with worsening shortness of breath, found to be acute hypoxic respiratory failure secondary to rhinovirus was transferred to the ICU for increased oxygen requirement, never intubated, downgraded to general floor and was discharged couple days after on Augmentin and azithromycin, week after patient bounced back to the hospital with worsening shortness of breath tachycardic requiring 3 L nasal cannula, had a CT chest which revealed right-sided pleural effusion with compressive atelectasis on that area, pulmonary team was consulted, status post thoracentesis (there was neutrophilic predominance, albumin 2.2, amylase 42, LDH fluid 148, lipase 15, total protein fluid 4.4, and triglyceride fluid 54), cytology negative, fluid was thought to be secondary to simple parapneumonic effusion due to recent rhinovirus and strep pneumonia infection patient was treated with antibiotics and sent home 3 days after with cefdinir, she presents today for hospital follow-up, since discharge she reported significant improvement in her breathing, but she still have intermittent right-sided chest pain when she takes deep breath, she also noticed that her pulse ox runs 85 to 87% when she sleeps, along with lack of energy, trouble staying awake during the day, with witnessed snoring and apnea episodes. Pulse ox during the day is within 90s. For psoriasis she was diagnosed at age of 12, she has been on different medications, last year was on Cosentyx for the last year but was stopped 2 months ago after the infection. She also used to take ibuprofen for joint pain, but stopped abruptly few weeks ago. Shx: Smoked for 8 years quit in her 20s, now she vapes THC nightly, has no pets, on disability. History reviewed. No pertinent past medical history. History reviewed. No pertinent surgical history. Allergies: Patient has no known allergies. Prior to Admission medications Not on File Social history: reports that she has quit smoking. Her smoking use included cigarettes. She uses smokeless tobacco. She reports that she does not currently use alcohol. She reports that she does not currently use drugs. No family history on file. Review of Systems: All 12 systems reviewed with the patient, were negative except as above Physical examination: Vitals: BP 116/79 (BP Location: Left arm, Patient Position: Sitting, BP Cuff Size: Adult) Pulse 84 Ht 1.499 m (4' 11 ) Wt 64.5 kg (142 lb 3.2 oz) SpO2 97% BMI 28.72 kg/m??? GENERAL: Alert and oriented x 3. No acute distress. HEENT: EOMI, no scleral icterus. Moist mucous membranes. LUNGS: Clear to auscultation bilaterally. No wheezes, rales, or rhonchi CARDIOVASCULAR: Regular rate and rhythm. Normal S1 and S2. ABDOMEN: Soft, non-tender, non-distended. EXTREMITIES: No cyanosis, no edema, no calf tenderness SKIN: Warm and dry. No rashes or lesions NEUROLOGIC: Normal gait. No extremity weakness. No slurred speech PSYCHIATRIC: Cooperative. Appropriate mood and affect. Labs Results: No results found for: HGB , HCT , WBC , BUN , CREATININE , NA , K , BICARB , CO2 , PH , PHART , PHVEN , KDB9LCI , ZIR9KQS , VYU7AFK , PO2POC , PO2ART , PO2VEN , PNE7MIT , WVF2WOT Radiology: No Chest X-ray results found for the past [address] results found for the past 12 months Assessment and Plan: # Recent hx of strep PNA and rhinovirus # Right sided pleural effusion secondary to simple parapneumonic effusion status post thoracentesis on 07/31/2024 # Breathing related sleep disorder # Psoriasis # Pleurisy Plan - Patient will need repeat CT scan to ensure resolution of the infiltrates and effusion, order placed. - Will obtain PFT - For breathing related sleep disorder, patient will benefit from polysomnography, and sleep referral. Orders placed - Patient was advised to take NSAIDs for pleuritic chest pain RTC in 3 months after obtaining above Durga Contreras MD [facility] Pulmonary/Critical Care (more content not included)... [facility] 08-03-2024 History of Present illness Narrative Images from the original note were not included. Rheumatology FOLLOW UP VISIT Date of Service: 08/03/2024 Patient: Nikki Hunt Medical Record: [id number] Primary Care Physician: Kaylyn Ware CNP Last Rheumatology visit: 05/05/2024 (with Ruthie Ward) Referring Provider: Viviana Ellis. SERVER SYSTEMS ADMINISTRATOR Family Medicine [address] [facility] [address] Reordering Clerk: Highway Truck Driver Role and Specialty Contact Info Address Start End Comments Ellen Jon MD (Dermatology) [address] [facility] [address] Reason for visit: psoriasis, reported h/o psoriatic arthritis History of Present Illness Nikki Hunt is a 43 year old White female who presents on 08/03/2024 for an in-person visit for evaluation of No Show. Nikki is both RF - 9 (05/05/2024) and CCP - 17 (05/05/2024) negative. HISTORY OF PRESENT ILLNESS Nikki Hunt is a 43 year old White female from [place], [place] with PMHx of infertility, depression with h/o attempted suicide, ADHD (Adderall), opioid use disorder (buprenorphine), narcolepsy, seasonal allergies, HTN (says she no longer has HTN), acne (denies), and psoriasis who initially presented to Suri Ward DO on 05/05/2024 for an in-person visit for evaluation of psoriasis and possible psoriatic arthritis. She had only been seen once in our division previously, several years ago on 03/19/[address] Keith Schuler and did not subsequently follow-up. She follows with local intervention manager, Dr. Ellen Jon. Hospitalized 12/19/2023 for UTI and confusion. Also benzo withdrawal and anemia with Hgb down to ~7. 04/11/2024 visit for possible dental abscess/infection and Rx antibiotic - 03/19/2016 [facility] [facility] Rheumatology Visit with Dr. 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 History of present illness: Nikki Hunt is a 35 year old female who presents WITH A HISTORY OF PSA. SHE WAS DIAGNOSED ABOUT 20 YEARS AGO.. SHE HAS BEEN ON MTX FOR 3 YEARS.SHE HAS EXPERIENCED GROIN AND BUTTOCK PAIN FOR 4 YEARS.SHE DOES ADMIT TO JOINT SWELLING AND AM STIFFNESS LASTING ONE HOUR. Her skin is pretty good now. She used to have nail pitting but not presently. She has been on humira, enbrel, light therapy, cyclosporine and topical. Enbrel had worked well for one year and then was switched to humira and soon after her pustules began. She does experience tingling in her feet. Exam: psoriatic plaques behind ears,scalp and back as well as elbows, without psoriatic nail changes. Lumbar spine: No visible abnormalities. Diffuse tenderness ,neg slr decreased flex and lateral sidebending. Upper extremities: Normal inspection of joints. Shoulders, elbows, wrists, without synovitis, swelling, tenderness, deformity, or lack of ROM. Pips with thickening and slight tenderness. Lower extremities: Normal inspection of joints. Hips, knees, ankles, and feet without synovitis, swelling, tenderness, deformity, or lack of ROM. Impression: Nikki Hunt is a 35 year old female who presents for a rheumatology evaluation at the [facility]. She has a history of psa with many musculoskeletal complaints in addition to recent complaints of nausea without vomiting. Recommendations / plans: i will get labs today as well as x-rays.i believe gi evaluation is appropriate and will order a consultation with gi. X-rays and labs ordered at initial 2016 visit were not obtained. 05/05/2024 [facility] Rheumatology Consult with Dr. Suri Ward: Longstanding history of psoriasis, psoriatic arthritis, and palmopustular psoriasis: - FamHx of psoriasis in son and daughter; no FamHx of inflammatory bowel disease, , PsA - History since childhood, age 13 diagnosed with psoriasis (initially scalp) - History of psoriatic arthritis at age 19, presented with right 5th finger DIP swelling - Historical joints involved: hands, feet, hips, shoulders - No apparent history of dactylitis, inflammatory eye disease. Unclear history of nail pitting (noted by prior provider) - Prednisone caused mood changes - Celebrex in the past helped some; Aleve now takes the edge off - Prior csDMARDs included methotrexate, cyclosporine, and Apremilast (targeted DMARD) all of which did not work - Prior bDMARDs including Enbrel (lost efficacy), Humira (developed palmoplantar pustulosis), Enbrel (lost efficacy), Taltz (lost efficacy), and most recently Cosentyx 300 mg every 4 weeks (did help, ran out 02/2024 due to insurance issues) - Current issue: ongoing dental abscess (on amoxicillin) with plans for upcoming dental procedure/surgery - Today there are several tender joints (hands, SI joints, ankles, toes, hands) and swelling in both ankles. No dactylitis. Psoriasis is active mostly on the face and scalp today, no pitting noted in the fingernails. PLAN: 1. Comprehensive lab work-up 2. X-rays of the hands, feet, shoulders, hips, sacroiliac joints 3. Wait to start Cosentyx until dental surgery has been completed and can restart 2 weeks after this as well as surgical site is healing well and no concern for ongoing infection 4. Continue PRN Aleve for now 5. Future considerations: Bimekizumab would be a consideration -- targets Il-17 A/F David like tofacitinib or upadacitinib Would recommend vaccination against Shingles if this is considered in the future 6. Need for immunizations Influenza vaccine today Recommend following-up with PCP for PCV20 (pneumonia), COVID-19 booster, HPV, etc. Return: 3 months 05/05/2024 Results Message: Labs show: 1. Negative biologic screening labs including hepatitis B & C, tuberculosis, and HIV 2. Negative rheumatoid factor and CCP antibody 3. Normal inflammatory markers, ESR & CRP 4. CMP shows rise in creatinine (kidney number) from before -- baseline is usually 0.6-0.7 for you. Might be slightly elevated due to frequent NSAID use (Aleve), but can monitor for now. Not too concerning at this time. 5. CBC shows normal blood counts X-rays for the hips, SI joints, shoulders, feet, and hands/wrists fortunately show no evidence for inflammatory arthritis. Plan remains as we discussed at your visit. ========= Hospitalized 07/20/2024 -07/22/2024 for AHRF due to CAP (strep. Pneumonia); had initially presented to OSH 07/16/2024 for 1 day of fever, SOB, chills, and blood-tinged productive cough -- was hypoxic, tachycardic, hypotensive, and had a lactic acidosis (LA 5.1). CXR showed multilobar PNA and CTA negative for PE. RPP was positive for rhinovirus and one of two blood cultures positive for staph. 4 L NC to NRB mask and ICU. Given ceftriaxone, azithromycin before broadening to Zosyn, vancomycin, and levofloxacin and diflucan. Also given SoluMedrol 125 mg x2. Doing better upon transfer, urine Ag strep pneumo positive. PCV 1.12 H. Discharged on one more day of azithromycin and 7 doses of Augmentin. Advised to hold Cosentyx for two weeks and follow-up with ID and PCP. Hospitalized 07/30/2024 at OSH for SOB. Had fever to 102 F at home, non-productive cough, dizziness, and SOB. In ED normotensive, tachycardic to 110, on 3 L and 94%. CXR redemonstrated right basilar infiltrate and moderate right pleural effusion. CTA negative for PE but showed moderate right pleural effusion and possible superimposed PNA along right medial lung base. Underwent thoracentesis on 07/31/2024 and 1 L fluid obtained --> exudative. Experiencing leukopenia. Procalcitonin negative on 08/01/2024. On cefepime for HAP. PATIENT WAS CALLED -- SHE WAS A NO SHOW TO TODAY'S APPOINTMENT (08/03/2024), SHE REMAINS HOSPITALIZED FOR PNEUMONIA AT OUTSIDE HOSPITAL. Review of Systems ROS RHEUMATOLOGY Pain Evaluation 03/19/2016 09/21/2017 05/04/2023 05/05/2024 Pain Evaluation Pain Score 6 -- 5 Location -- -- Hand-Left -- Location Comment SHOULDERS,BACK,HIPS,FEET all over body both soles of feet joint pain - fingers, feet, shoulders, hips back Description Aching;Throbbing;Tingling Aching Burning;Numbness;Shooting;Tinglin g Aching;Tingling Duration (#) 3 5 34 Duration (Timeframe) Years Years Years Years Frequency Continuous Continuous Intermittent Continuous Intervention Medication Medication Medication Patient-Entered Data RAPID 3: DISEASE ACTIVITY: 03/19/2016 Over the last week, were you able to: -- Weighed Score 6.7 Weighed Score Levels: 0 - 1: Near Remission 1.3 - 2.0: Low Severity 2.3 - 4.0: Moderate Severity 4.3 - 10.0: High Severity Past Medical History PAST MEDICAL HISTORY Diagnosis Date Arthritis Depression Hypertension Palmoplantar pustulosis Psoriatic arthritis (HCC) Seasonal allergies Twin to twin transfusion 2004 Past Surgical History PAST SURGICAL HISTORY Procedure Laterality Date EXPOSURE TOOTH AID ERUPTION removal of wisdom teeth OOPHORECTOMY PARTIAL/TOTAL UNI/BI Right 2001 Oophorectomy Family History FAMILY HISTORY Problem Relation Age of Onset Coronary Artery Disease Maternal Grandfather Diabetes Maternal Grandfather None Paternal Grandmother Coronary Artery Disease Paternal Grandmother Melanoma Mother Thyroid Maternal Grandmother Social History Social History Tobacco Use Smoking status: Every Day Current packs/day: 1.00 Average packs/day: 1 pack/day for 22.0 years (22.0 ttl pk-yrs) Types: Cigarettes Smokeless tobacco: Never Tobacco comments: vaping Substance Use Topics Alcohol use: Yes Comment: SOCIAL ON HOLIDAY Drug use: No Current Medications DMARDs / Biologics Treatment Start Date Stop Date Stop Reason Comment Methotrexate ineffective Enbrel 1999 2001 stopped working after 1-2 years, had worked for skin and joints Humira ineffective developed pustules Cyclosporine Taltz 09/04/2021 06/04/2022 ineffective stopped working after 1-2 years, had worked for skin and joints Cosentyx 300 mg every 4 weeks 2018 2019 Cosentyx 300 mg every 4 weeks 03/06/2023 03/03/2024 Current Outpatient Medications Medication Sig Clobetasol Propionate (TEMOVATE) 0.05 % external solution Apply 50 mL to affected area as needed. QUEtiapine (SEROQUEL) 300 mg tablet Take 300 mg by mouth daily at bedtime. clonazePAM (KLONOPIN) 0.5 mg tablet Take 0.5 mg by mouth three times a day as needed. gabapentin (NEURONTIN) 800 mg tablet Take 800 mg by mouth three times a day. amoxicillin (AMOXIL) 500 mg capsule Take 500 mg by mouth three times a day. amphetamine-dextroamphetamine XR (ADDERALL XR) 30 mg capsule TAKE 1 CAPSULE BY MOUTH EVERY DAY IN THE MORNING FOR 30 DAYS BRIXADI 64 mg/0.18 mL syringe clonazePAM (KLONOPIN) 0.5 mg tablet Take 2 tablets by mouth daily at bedtime. 1 tablet 3 times daily COSENTYX PEN, 2 PENS, 150 mg/mL pnij Inject 1 Pen subcutaneously once every month. (Patient not taking: Reported on 05/05/2024) docosahexanoic acid/epa (FISH OIL ORAL) Take 2 capsules by mouth once daily. Physical Exam VITAL SIGNS: LMP 04/25/2024 There is currently no information documented on the homunculus. Go to the Rheumatology activity and complete the [facility] joint exam. Joint Exam 08/03/2024 No joint exam has been documented for this visit Joint Exam Data (across time) Labs Results for orders placed or performed in visit on 05/05/24 COMPLETE BLOOD COUNT AND DIFFERENTIAL Result Value Ref Range WBC 8.53 3.70 - 11.00 k/uL RBC 4.23 3.90 - 5.20 m/uL Hemoglobin 11.6 11.5 - 15.5 g/dL Hematocrit 36.0 36.0 - 46.0 % MCV 85.1 80.0 - 100.0 fL MCH 27.4 26.0 - 34.0 pg MCHC 32.2 30.5 - 36.0 g/dL RDW-CV 15.2 (H) 11.5 - 15.0 % Platelet Count 248 150 - 400 k/uL MPV 10.6 9.0 - 12.7 fL Neutrophils % 57.7 % Abs Neut 4.91 1.45 - 7.50 k/uL Lymphocytes % 30.9 % Abs Lymph 2.64 1.00 - 4.00 k/uL Monocytes % 5.7 % Abs Warren 0.49 <0.87 k/uL Eosinophils % 4.7 % Abs Eosin 0.40 <0.46 k/uL Basophils % 0.9 % Abs Baso 0.08 <0.11 k/uL Immature Granulocytes % 0.1 % Abs Immature Gran <0.03 <0.10 k/uL NRBC 0.0 /100 WBC Absolute nRBC <0.01 <0.01 k/uL Diff Type Auto COMPREHENSIVE METABOLIC PANEL Result Value Ref Range Protein, Total 6.9 6.3 - 8.0 g/dL Albumin 4.0 3.9 - 4.9 g/dL Calcium, Total 9.4 8.5 - 10.2 mg/dL Bilirubin, Total 0.2 0.2 - 1.3 mg/dL Alkaline Phosphatase 88 34 - 123 U/L AST 27 13 - 35 U/L ALT 24 7 - 38 U/L Glucose 103 (H) 74 - 99 mg/dL BUN 13 7 - 21 mg/dL Creatinine 1.09 (H) 0.58 - 0.96 mg/dL Sodium 141 136 - 144 mmol/L Potassium 4.6 3.7 - 5.1 mmol/L Chloride 103 98 - 107 mmol/L CO2 29 22 - 30 mmol/L Anion Gap 9 8 - 15 mmol/L Estimated Glomerular Filtration Rate 65 >=60 mL/min/1.73m SEDIMENTATION RATE, WESTERGREN Result Value Ref Range Sed Rate, Westergren 5 0 - 20 mm/hr C-REACTIVE PROTEIN Result Value Ref Range CRP <0.3 <0.9 mg/dL BLOOD TB SCREEN Result Value Ref Range TB Nil 0.01 <=8.00 IU/mL TB1 Ag minus Nil 0.00 <0.35 IU/mL TB2 Ag minus Nil 0.00 <0.35 IU/mL TB Result Negative Mitogen minus Nil >9.99 >=0.50 IU/mL TB Gamma Interpretation Infection with M. tuberculosis complex is unlikely. If latent tuberculosis infection is highly suspected, a negative result does not rule out the infection. Specimens from immunocompromised patients and those <5 years of age may show false negative results. In case of a contact investigation, please repeat 8-12 weeks after a known exposure. RHEUMATOID FACTOR Result Value Ref Range Rheumatoid Factor <10 <16 IU/mL CCP ANTIBODY IGG Result Value Ref Range CCP Antibody IgG Qualitative Negative Negative CCP Antibody, IgG 17 <20 Units HIV 1/2 COMBO WITH REFLEX TO DIFFERENTIATION Result Value Ref Range HIV 12 Combo (Ag/Ab) Nonreactive Nonreactive HIV-1/2 AB (Confirmatory) HIV Interpretation PROCALCITONIN Result Value Ref Range Procalcitonin <0.06 <0.09 ng/mL HEPATITIS C ANTIBODY IA WITH CONFIRMATION Result Value Ref Range Hep C Antibody IA Negative Negative HEPATITIS B SURFACE ANTIGEN Result Value Ref Range HBsAg Negative Negative HEPATITIS B SURFACE ANTIBODY Result Value Ref Range Hep B Surface Ab, Qual Negative Hep B Surface Ab Quant <8.00 mIU/mL HEPATITIS B CORE ANTIBODY TOTAL Result Value Ref Range Hepatitis B Core Ab, Total Negative Negative Latest Ref Rng & Units 10/22/2007 02/12/2011 05/16/2011 05/05/2024 CBC WBC 3.70 - 11.00 k/uL 14.75 7.98 10.78 8.53 Hemoglobin 11.5 - 15.5 g/dL 12.8 11.9 12.7 11.6 Hematocrit 36.0 - 46.0 % 38.8 35.8 37.2 36.0 Platelet Count 150 - 400 k/uL 314 337 366 248 Abs Neut (ANC) 1.45 - 7.50 k/uL 9.68 3.73 4.10 4.91 Abs Lymph 1.00 - 4.00 k/uL 3.45 3.06 4.96 2.64 Latest Ref Rng & Units 05/05/2024 07/21/2024 07/21/2024 08/01/2024 CMP Sodium 136 - 144 mmol/L 141 Potassium 3.5 - 5.0 mmol/L 4.6 3.3 4.2 4.3 Chloride 98 - 107 mmol/L 103 CO2 22 - 30 mmol/L 29 Glucose 74 - 99 mg/dL 103 BUN 7 - 21 mg/dL 13 Creatinine 0.58 - 0.96 mg/dL 1.09 Calcium 8.5 - 10.2 mg/dL 9.4 AST 13 - 35 U/L 27 ALT 7 - 38 U/L 24 Alkaline Phosphatase 34 - 123 U/L 88 This result is from an external source. Latest Ref Rng & Units 05/05/2024 ESR, WSR WSR 0 - 20 mm/hr 5 Latest Ref Rng & Units 05/05/2024 CRP CRP <0.9 mg/dL <0.3 Latest Ref Rng & Units 05/05/2024 RF and CCP Rheumatoid Factor <16 IU/mL <10 CCP Antibody IgG Qualitative Negative Negative CCP Antibody, IgG <20 Units 17 Imaging Last XR Chest - Impression Only XR CHEST 1V FRONTAL Exam End: 08/02/2024 9:26 AM (Final result) Health Maintenance Biologic/DMARD Infectious Screening: Latest Ref Rng & Units 05/05/2024 Hepatitis Screen Hep B Core Ab, Total Negative Negative Hep B Surf Ab Qual Negative Hep C Antibody IA Negative Negative Hep B Surface Ag Negative Negative 02/12/2011 11/12/2011 05/05/2024 TB Screen TB Interpretation No evidence of current or previous infection with Mycobacterium tuberculosis. No evidence of current or previous infection with Mycobacterium tuberculosis. Infection with M. tuberculosis complex is unlikely. If latent tuberculosis infection is highly suspected, a negative result does not rule out the infection. Specimens from immunocompromised patients and those <5 years of age may show false negative results. In case of a contact investigation, please repeat 8-12 weeks after a known exposure. 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 No follow-ups on file. Patient was a no show to her 08/03/2024 rheumatology follow-up appointment, as she remains hospitalized at OSH for recurrent AHRF, CAP, HAP. Given recurrent infections consider evaluation for underlying immunodeficiency and switching from IL-17 inhibition (on Cosentyx) to a small molecule DMARD with less immunosuppression risk, such as apremilast (Otezla). ____ Ruthie Ward D.O. Associate Staff Rheumatic Disease [facility] - [address] [address] [place] [address] documented in this encounter [facility] 08-03-2024 Note HNO ID: [id number] Author: RUTHIE WARD DO Service: ? Author Type: Physician Type: Progress Notes Filed: 08/03/2024 14:53 Note Text: Rheumatology FOLLOW UP VISIT Date of Service: 08/03/2024 Patient: Nikki Hunt Medical Record: [id number] Primary Care Physician: Kaylyn Ware CNP Last Rheumatology visit: 05/05/2024 (with Ruthie Ward) Referring Provider: Viviana Ellis. SERVER SYSTEMS ADMINISTRATOR Family Medicine [address] [facility] [id number] Reordering Clerk: Highway Truck Driver Role and Specialty Contact Info Address Start End Comments Ellen Jon MD (Dermatology) [address] [facility] [address] Reason for visit: psoriasis, reported h/o psoriatic arthritis History of Present Illness Nikki Hunt is a 43 year old White female who presents on 08/03/2024 for an in-person visit for evaluation of No Show. Nikki is both RF - 9 (05/05/2024) and CCP - 17 (05/05/2024) negative. HISTORY OF PRESENT ILLNESS Nikki Hunt is a 43 year old White female from [place], [place] with PMHx of infertility, depression with h/o attempted suicide, ADHD (Adderall), opioid use disorder (buprenorphine), narcolepsy, seasonal allergies, HTN (says she no longer has HTN), acne (denies), and psoriasis who initially presented to Suri Ward DO on 05/05/2024 for an in-person visit for evaluation of psoriasis and possible psoriatic arthritis. She had only been seen once in our division previously, several years ago on 03/19/[address] Keith Schuler and did not subsequently follow-up. She follows with local intervention manager, Dr. Ellen Jon. Hospitalized 12/19/2023 for UTI and confusion. Also benzo withdrawal and anemia with Hgb down to ~7. 04/11/2024 visit for possible dental abscess/infection and Rx antibiotic - 03/19/2016 [facility] Rheumatology Visit with Dr. 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 History of present illness: Nikki Hunt is a 35 year old female who presents WITH A HISTORY OF PSA. SHE WAS DIAGNOSED ABOUT 20 YEARS AGO.. SHE HAS BEEN ON MTX FOR 3 YEARS.SHE HAS EXPERIENCED GROIN AND BUTTOCK PAIN FOR 4 YEARS.SHE DOES ADMIT TO JOINT SWELLING AND AM STIFFNESS LASTING ONE HOUR. Her skin is pretty good now. She used to have nail pitting but not presently. She has been on humira, enbrel, light therapy, cyclosporine and topical. Enbrel had worked well for one year and then was switched to humira and soon after her pustules began. She does experience tingling in her feet. Exam: psoriatic plaques behind ears,scalp and back as well as elbows, without psoriatic nail changes. Lumbar spine: No visible abnormalities. Diffuse tenderness ,neg slr decreased flex and lateral sidebending. Upper extremities: Normal inspection of joints. Shoulders, elbows, wrists, without synovitis, swelling, tenderness, deformity, or lack of ROM. Pips with thickening and slight tenderness. Lower extremities: Normal inspection of joints. Hips, knees, ankles, and feet without synovitis, swelling, tenderness, deformity, or lack of ROM. Impression: Nikki Hunt is a 35 year old female who presents for a rheumatology evaluation at the [facility]. She has a history of psa with many musculoskeletal complaints in addition to recent complaints of nausea without vomiting. Recommendations / plans: i will get labs today as well as x-rays.i believe gi evaluation is appropriate and will order a consultation with gi. X-rays and labs ordered at initial 2016 visit were not obtained. 05/05/2024 [facility] Rheumatology Consult with Dr. Suri Ward: Longstanding history of psoriasis, psoriatic arthritis, and palmopustular psoriasis: - FamHx of psoriasis in son and daughter; no FamHx of inflammatory bowel disease, , PsA - History since childhood, age 13 diagnosed with psoriasis (initially scalp) - History of psoriatic arthritis at age 19, presented with right 5th finger DIP swelling - Historical joints involved: hands, feet, hips, shoulders - No apparent history of dactylitis, inflammatory eye disease. Unclear history of nail pitting (noted by prior provider) - Prednisone caused mood changes - Celebrex in the past helped some; Aleve now takes the edge off - Prior csDMARDs included methotrexate, cyclosporine, and Apremilast (targeted DMARD) all of which did not work - Prior bDMARDs including Enbrel (lost efficacy), Humira (developed palmoplantar pustulosis), Enbrel (lost efficacy), Taltz (lost efficacy), and most recently Cosentyx 300 mg every 4 weeks (did help, ran out 02/2024 due to insurance issues) - Current issue: ongoing dental abscess (on amoxicillin) with plans for upcoming dental procedure/surgery - Today there are several tender joints (melchor (more content not included)... [facility] 05-05-2024 Note HNO ID: [id number] Author: RODDY RUSSO RT(R) Service: ? Author Type: Technologist Type: Progress Notes Filed: 05/05/2024 14:09 Note Text: Radiology Service Progress Note PATIENT NAME: Nikki Hunt DATE OF SERVICE: May 05, 2024 TIME: 2:06 PM PATIENT IDENTITY VERIFICATION COMPLETED USING TWO (2) IDENTIFIERS: Name and Date of confirmed by patient verbally. FALL SCREENING: Has the patient had 2 falls in the last year or 1 fall with injury or currently using an Ambulatory Assistive Device (Walker, Cane, Wheelchair, Crutches, etc.)? No PATIENT GENDER DATA: Female. status: : No status: NO. PATIENT RELEVANT IMPLANT DATA REVIEWED: Not Applicable PATIENT PRESENTS WITH AN IMPLANTABLE OR ATTACHED RESEARCH MICROBIOLOGIST: No RADIOLOGY DEPARTMENT: General X-ray: Exam(s) Completed: Pelvis X-Ray: Pelvis with Hip Bilateral and sacroiliac joints Lower Extremity X-Ray(s): Foot, Bilateral Upper Extremity X-Ray(s): Shoulder, AP / TRUE AP / AXILLARY bilateral and Hand, bilateral PERIPHERAL IV DATA: Not applicable SIGNED BY: RT Ashley(R) May 05, 2024 2:06 PM [facility] 05-05-2024 Instructions Ruthie Ward, - 05/05/2024 10:56 AM EST Longstanding history of psoriasis, psoriatic arthritis, and palmopustular psoriasis: - FamHx of psoriasis in son and daughter; no FamHx of inflammatory bowel disease, , PsA - History since childhood, age 13 diagnosed with psoriasis (initially scalp) - History of psoriatic arthritis at age 19, presented with right 5th finger DIP swelling - Historical joints involved: hands, feet, hips, shoulders - No apparent history of dactylitis, inflammatory eye disease. Unclear history of nail pitting (noted by prior provider) - Prednisone caused mood changes - Celebrex in the past helped some; Aleve now takes the edge off - Prior csDMARDs included methotrexate, cyclosporine, and Apremilast (targeted DMARD) all of which did not work - Prior bDMARDs including Enbrel (lost efficacy), Humira (developed palmoplantar pustulosis), Enbrel (lost efficacy), Taltz (lost efficacy), and most recently Cosentyx 300 mg every 4 weeks (did help, ran out 02/2024 due to insurance issues) - Current issue: ongoing dental abscess (on amoxicillin) with plans for upcoming dental procedure/surgery - Today there are several tender joints (hands, SI joints, ankles, toes, hands) and swelling in both ankles. No dactylitis. Psoriasis is active mostly on the face and scalp today, no pitting noted in the fingernails. PLAN: Comprehensive lab work-up (3rd floor) X-rays of the hands, feet, shoulders, hips, sacroiliac joints (1st floor) Wait to start Cosentyx until dental surgery has been completed and can restart 2 weeks after this as well as surgical site is healing well and no concern for ongoing infection Continue PRN Aleve for now Future considerations: Bimekizumab would be a consideration -- targets Il-17 A/F David like tofacitinib or upadacitinib Would recommend vaccination against Shingles if this is considered in the future Need for immunizations Influenza vaccine today Recommend following-up with PCP for PCV20 (pneumonia), COVID-19 booster, HPV, etc. Return: 3 months Take care, Ruthie Ward D.O. [facility] - [address] [address] [place] [address] documented in this encounter [facility] 05-05-2024 History of Present illness Narrative Images from the original note were not included. Rheumatology CONSULTATION Date of Service: 05/05/2024 Patient: Nikki Hunt Medical Record: [id number] Primary Care Physician: Highway Truck Driver Role and Specialty Contact Info Address Start End Comments Kaylyn Bonilla [facility] General (Family Medicine) [address] [facility] [address] [facility] [facility] [id number] 05/05/2024 - - Last Rheumatology visit: 03/19/2016 (with Keith Schuler) Referring Provider: Viviana Ellis. [facility] Family Medicine [address] [facility] [address] Reordering Clerk: Highway Truck Driver Role and Specialty Contact Info Address Start End Comments Ellen Jon MD (Dermatology) [address] [facility] [address] [facility] [id number] 05/05/2024 - - Reason for visit: psoriasis, reported h/o psoriatic arthritis My final recommendations will be communicated back to the requesting provider by way of shared Medical record or letter to requesting physician via US mail. History of Present Illness HISTORY OF PRESENT ILLNESS Nikki Hunt is a 43 year old White female from [place], [place] with PMHx of infertility, depression with h/o attempted suicide, ADHD (Adderall), opioid use disorder (buprenorphine), narcolepsy, seasonal allergies, HTN (says she no longer has HTN), acne (denies), and psoriasis who presents on 05/05/2024 for an in-person visit for evaluation of psoriasis and possible psoriatic arthritis. She has only been seen once in our division, several years ago on 03/19/2016 by my colleague, Dr. Keith Schuler and did not subsequently follow-up. She follows with local intervention manager, Dr. Ellen Jon. Hospitalized 12/19/2023 for UTI and confusion. Also benzo withdrawal and anemia with Hgb down to ~7. 04/11/2024 visit for possible dental abscess/infection and Rx antibiotic - 03/19/2016 [facility] Rheumatology Visit with Dr. 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 History of present illness: Nikki Hunt is a 35 year old female who presents WITH A HISTORY OF PSA. SHE WAS DIAGNOSED ABOUT 20 YEARS AGO.. SHE HAS BEEN ON MTX FOR 3 YEARS.SHE HAS EXPERIENCED GROIN AND BUTTOCK PAIN FOR 4 YEARS.SHE DOES ADMIT TO JOINT SWELLING AND AM STIFFNESS LASTING ONE HOUR. Her skin is pretty good now. She used to have nail pitting but not presently. She has been on humira, enbrel, light therapy, cyclosporine and topical. Enbrel had worked well for one year and then was switched to humira and soon after her pustules began. She does experience tingling in her feet. Exam: psoriatic plaques behind ears,scalp and back as well as elbows, without psoriatic nail changes. Lumbar spine: No visible abnormalities. Diffuse tenderness ,neg slr decreased flex and lateral sidebending. Upper extremities: Normal inspection of joints. Shoulders, elbows, wrists, without synovitis, swelling, tenderness, deformity, or lack of ROM. Pips with thickening and slight tenderness. Lower extremities: Normal inspection of joints. Hips, knees, ankles, and feet without synovitis, swelling, tenderness, deformity, or lack of ROM. Impression: Nikki Hunt is a 35 year old female who presents for a rheumatology evaluation at the [facility]. She has a history of psa with many musculoskeletal complaints in addition to recent complaints of nausea without vomiting. Recommendations / plans: i will get labs today as well as x-rays.i believe gi evaluation is appropriate and will order a consultation with gi. X-rays and labs ordered at initial 2016 visit were not obtained. INTERVAL HISTORY Patient says she has a diagnosis of psoriatic arthritis. She has not seen rheumatology since she saw Dr. Schuler several years ago. She was diagnosed with psoriasis at age 13. She says when she was younger she might have been seen by rheumatology, but her care has been managed just by dermatology. Psoriasis: scalp -- denies knees or elbows initially (had elbow involvement later on). She is unsure if she has had nail pitting. PsA: right 5th finger at age 19 -- had been on Celebrex which helped some. 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 She says currently she has hands, shoulders, hips involved. She says she cannot wash her hair. She is unsure if she has had psoriatic arthritis. She says she was diagnosed with PPP in 2012, for which an ED doctor said was from Humira, which caused disability. She says pain from PPP -- nothing helps, she takes gabapentin and Lyrica. She does not think cyclosporine has helped before. She has been on Enbrel a few times. She says it worked for skin and joints, then lost efficacy after 1-2 years. She was then on Humira. She says it worked for skin and joints, then lost efficacy after 1-2 years. She was on Taltz before Cosentyx, but this worked the least. She was then on Cosentyx, worked the same as TNFi, then stopped working. Actually had been on Cosentyx [id number] as well. Most recently on Cosentyx 03/05/2023 - 03/03/2024. She says this was stopped because she was past due for labs. PA had . Was going to be filled yesterday, but wanted to wait until today's visit. She feels this has STILL working -- but feeling worse over the past few weeks. She has not had yeast infections on Cosentyx. She denies IBD. She has always had bowel issues per her report. She has chronic constipation. She says she had a colonoscopy in the past few years and showed polyps. Denies Celiac disease. Denies diarrhea, melena, hematochezia. She currently has a left dental abscess and was diagnosed with an abscess, on amoxicillin. She says she needs this to be pulled, but issues with getting this paid for as she has Medicaid. She denies recurrent infections on DMARDs in the past. She says apremilast did not work in the past. Denies sausage digits. Endorses swelling in the hands. Endorses stiffness all day right now, gets better with Aleve. She has had mood changes with prednisone in the past. She denies worsening psoriasis when off prednisone in the past. She denies inflammatory eye disease or suggestive symptoms. She denies FamHx of , PsA, PsO, IBD. She denies acne. She denies chest wall/clavicular/sternal inflammation. Denies fevers, chills, or sweats. She is taking Aleve two tablets BID. Meloxicam did not help more than Aleve in the past. She does not get influenza vaccination. She has not had pneumonia vaccination. She says her intervention manager previously told her not to get vaccinations. Her daughter has psoriasis. She has not been on Xeljanz or Rinvoq before. She denies DVT or PE. Denies CAD. Endorses personal history of treated BCC. Review of Systems ROS are negative except as documented in the HPI above. Pain Evaluation 03/19/2016 09/21/2017 05/04/2023 05/05/2024 Pain Evaluation Pain Score 6 -- 5 Location -- -- Hand-Left -- Location Comment SHOULDERS,BACK,HIPS,FEET all over body both soles of feet joint pain - fingers, feet, shoulders, hips back Description Aching;Throbbing;Tingling Aching Burning;Numbness;Shooting;Tinglin g Aching;Tingling Duration (#) 3 5 34 Duration (Timeframe) Years Years Years Years Frequency Continuous Continuous Intermittent Continuous Intervention Medication Medication Medication Patient-Entered Data RAPID 3: DISEASE ACTIVITY: 03/19/2016 Over the last week, were you able to: Weighed Score 6.7 Weighed Score Levels: 0 - 1: Near Remission 1.3 - 2.0: Low Severity 2.3 - 4.0: Moderate Severity 4.3 - 10.0: High Severity 03/19/2016 RAPID-3 Weighed Score RAPID 3 Weighed Score 6.7 Past Medical History PAST MEDICAL HISTORY Diagnosis Date Arthritis Depression Hypertension Palmoplantar pustulosis Psoriatic arthritis (HCC) Seasonal allergies Twin to twin transfusion 2004 Past Surgical History PAST SURGICAL HISTORY Procedure Laterality Date EXPOSURE TOOTH AID ERUPTION removal of wisdom teeth OOPHORECTOMY PARTIAL/TOTAL UNI/BI Right 2001 Oophorectomy Family History FAMILY HISTORY Problem Relation Age of Onset Coronary Artery Disease Maternal Grandfather Diabetes Maternal Grandfather None Paternal Grandmother Coronary Artery Disease Paternal Grandmother Melanoma Mother Thyroid Maternal Grandmother Social History Social History Tobacco Use Smoking status: Every Day Current packs/day: 1.00 Average packs/day: 1 pack/day for 22.0 years (22.0 ttl pk-yrs) Types: Cigarettes Smokeless tobacco: Never Tobacco comments: vaping Substance Use Topics Alcohol use: Yes Comment: SOCIAL ON HOLIDAY Drug use: No Current Medications DMARDs / Biologics Treatment Start Date Stop Date Stop Reason Comment Methotrexate ineffective Enbrel 1999 2001 stopped working after 1-2 years, had worked for skin and joints Humira ineffective developed pustules Cyclosporine Taltz 09/04/2021 06/04/2022 ineffective stopped working after 1-2 years, had worked for skin and joints Cosentyx 300 mg every 4 weeks 2018 2019 Cosentyx 300 mg every 4 weeks 03/06/2023 03/03/2024 Current Outpatient Medications Medication Sig Clobetasol Propionate (TEMOVATE) 0.05 % external solution Apply 50 mL to affected area as needed. QUEtiapine (SEROQUEL) 300 mg tablet Take 300 mg by mouth daily at bedtime. gabapentin (NEURONTIN) 800 mg tablet Take 800 mg by mouth three times a day. amoxicillin (AMOXIL) 500 mg capsule Take 500 mg by mouth three times a day. amphetamine-dextroamphetamine XR (ADDERALL XR) 30 mg capsule TAKE 1 CAPSULE BY MOUTH EVERY DAY IN THE MORNING FOR 30 DAYS BRIXADI 64 mg/0.18 mL syringe clonazePAM (KLONOPIN) 0.5 mg tablet Take 2 tablets by mouth daily at bedtime. 1 tablet 3 times daily docosahexanoic acid/epa (FISH OIL ORAL) Take 2 capsules by mouth once daily. clonazePAM (KLONOPIN) 0.5 mg tablet Take 0.5 mg by mouth three times a day as needed. COSENTYX PEN, 2 PENS, 150 mg/mL pnij Inject 1 Pen subcutaneously once every month. (Patient not taking: Reported on 05/05/2024) Physical Exam VITAL SIGNS: BP 131/87 Pulse 91 Wt 143 lb 4.8 oz (65.0kg) LMP 04/25/2024 GENERAL APPEARANCE: Alert and appropriately oriented. In no acute distress. Anxious and tearful at times. SKIN: psoriasis on the ears, across the cheeks, tiny spot on the left elbow, mid-sternal above the xiphoid. No fingernail pitting. Psoriasis along the scalp, left low back. Minimal psoriasis left heel. EYES: eyes clear without injection HENT: Normal external examination of the ears and nose, lips. RESPIRATORY: Normal respiratory effort. Clear to auscultation throughout. CARDIOVASCULAR: Heart RRR, S1, S2. No pedal edema. NEUROLOGIC: normal speech, no focal deficits, mild tremor in the hands MUSCULOSKELETAL EXAMINATION: Motor exam: Normal bulk and tone. Spine: SI Joints: bilateral tenderness. Upper extremities: Shoulders: Full ROM in all muhammad, no tenderness to palpation. No swelling or effusion. Elbows: Full ROM in flexion and extension. No swelling or effusion. No tenderness to palpation to the joint line, olecranon, medial or lateral epicondyles; no nodules. Wrists: Full ROM in all muhammad. No swelling. No tenderness to palpation Hands: Full ROM in flexion and extension.. No swelling or synovitis along the MCPs, PIPs, and DIPs. Scattered tenderness in the MCPs, PIPs, DIPs bilaterally. Lower extremities: Knees: Full ROM in flexion and extension. No swelling or effusion. No tenderness to palpation. Ankles: bilateral tenderness and some puffiness. Feet: Full ROM in toe flexion/extension. No effusion. Tenderness to palpation. There are several tender joints, some puffiness in the ankles, otherwise I do not appreciate synovitis in the hands/wrists. Labs Results for orders placed or performed in visit on 08/27/20 OBSTETRIC ULTRASOUND [facility] Result Value Ref Range Director Of Collections And Archives Indication Advanced maternal age. Obesity, BMI >30. History of non-reportable NIPT x 2 Impression The patient presents for evaluation of growth. 1. Single, live, intrauterine . 2. Adequate interval growth. 3. Normal amniotic fluid. 4. The placenta is left lateral without evidence of a previa. 5. Normal limited anatomy as detailed below. Recommendations Follow-up as clinically indicated. Maternal Assessment Physical Exam Height 150 cm, 4 ft 11 in. Initial weight 168 lb. Initial BMI 33.93 kg/m Method Transabdominal ultrasound examination Ordoñez . Number of fetuses: 1 Dating Date Details Gest. age ABRIL Stated ABRIL 24 w + 5 d 01/23/2021 U/S 10/08/2020 based upon AC, BPD, Femur, HC 25 w + 1 d 01/20/2021 Assigned dating based on stated ABRIL, selected on 08/27/2020 24 w + 5 d 01/23/2021 General Evaluation Cardiac activity present. FHR 150 bpm. movements: present. Presentation: virgil breech Placenta: Placental site: left lateral Umbilical cord: 3 vessel cord Amniotic fluid: Amount of AF: normal amount Biometry BPD 62.8 mm 25w 3d 69% Hadlock OFD 81.8 mm 24w 5d 66% Chuy ides HC 231.5 mm 25w 1d 47% Hadlock AC 208.6 mm 25w 3d 64% Hadlock Femur 43.9 mm 24w 3d 28% Hadlock Weight Calculation: EFW 763 g 24w 6d 54% Hadlock EFW (lb,oz) 1 lb 11 oz EFW by Hadlock ([id number]-[id number]-FL) Head / Face / Neck Biometry: Pooling Operator 7.5 mm Extremities / Bony Struc Biometry: FL / HC 0.19 Anatomy The following structures appear normal: Head / Neck Lateral ventricles. Cavum septi pellucidi. Cerebellum. Cisterna magna. Face Lips. Profile. Nose. Heart / Thorax 4-chamber view. Situs. Abdomen Stomach. Kidneys. Bladder. Spine Cervical spine. Thoracic spine. Lumbar spine. Sacral spine. The following structures could not be adequately visualized: Heart / Thorax RVOT view. LVOT view. sex: male. Maternal Structures Cervix Visualized Performed By: Keri Esteban RDMS Read By: Olivia Goldberg M.D. Latest Ref Rng & Units 02/16/2004 10/22/2007 02/12/2011 05/16/2011 CBC WBC 3.70 - 11.00 k/uL 9.34 14.75 7.98 10.78 Hemoglobin 11.5 - 15.5 g/dL 13.4 12.8 11.9 12.7 Hematocrit 36.0 - 46.0 % 39.2 38.8 35.8 37.2 Platelet Count 150 - 400 k/uL 339 314 337 366 Abs Neut (ANC) 1.45 - 7.50 k/uL 4.68 9.68 3.73 4.10 Abs Lymph 1.00 - 4.00 k/uL 3.46 3.45 3.06 4.96 Latest Ref Rng & Units 02/16/2004 10/22/2007 02/12/2011 05/16/2011 CMP Sodium 132 - 148 mmol/L 140 136 138 137 Potassium 3.5 - 5.0 mmol/L 4.5 4.5 3.7 4.3 Chloride 98 - 110 mmol/L 105 101 106 101 CO2 23 - 32 mmol/L 26 25 24 27 Glucose 65 - 100 mg/dL 80 75 85 90 BUN 8 - 25 mg/dL 11 18 9 10 Creatinine 0.70 - 1.40 mg/dL 0.7 1.0 0.74 0.64 Calcium 8.5 - 10.5 mg/dL 10.3 9.0 9.4 9.9 AST 7 - 40 U/L 23 19 22 30 ALT 0 - 45 U/L 19 13 13 28 Alkaline Phosphatase 40 - 150 U/L 77 73 53 55 Latest Ref Rng & Units 02/12/2011 11/12/2011 TB Screen TB Interpretation No evidence of current or previous infection with Mycobacterium tuberculosis. No evidence of current or previous infection with Mycobacterium tuberculosis. 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 She has only been seen once in our division, several years ago on 03/19/2016 by my colleague, Dr. Keith Schuler and did not subsequently follow-up. She follows with local intervention manager, Dr. Ellen Jon. Hospitalized 12/19/2023 for UTI and confusion. Also benzo withdrawal and anemia with Hgb down to ~7. 04/11/2024 visit for possible dental abscess/infection and Rx antibiotic Longstanding history of psoriasis, psoriatic arthritis, and palmopustular psoriasis: - FamHx of psoriasis in son and daughter; no FamHx of inflammatory bowel disease, , PsA - History since childhood, age 13 diagnosed with psoriasis (initially scalp) - History of psoriatic arthritis at age 19, presented with right 5th finger DIP swelling - Historical joints involved: hands, feet, hips, shoulders - No apparent history of dactylitis, inflammatory eye disease. Unclear history of nail pitting (noted by prior provider) - Prednisone caused mood changes - Celebrex in the past helped some; Aleve now takes the edge off - Prior csDMARDs included methotrexate, cyclosporine, and Apremilast (targeted DMARD) all of which did not work - Prior bDMARDs including Enbrel (lost efficacy), Humira (developed palmoplantar pustulosis), Enbrel (lost efficacy), Taltz (lost efficacy), and most recently Cosentyx 300 mg every 4 weeks (did help, ran out 02/2024 due to insurance issues) - Current issue: ongoing dental abscess (on amoxicillin) with plans for upcoming dental procedure/surgery - Today there are several tender joints (hands, SI joints, ankles, toes, hands) and swelling in both ankles. No dactylitis. Psoriasis is active mostly on the face and scalp today, no pitting noted in the fingernails. PLAN: Comprehensive lab work-up (3rd floor) X-rays of the hands, feet, shoulders, hips, sacroiliac joints (1st floor) Wait to start Cosentyx until dental surgery has been completed and can restart 2 weeks after this as well as surgical site is healing well and no concern for ongoing infection Continue PRN Aleve for now Future considerations: Bimekizumab would be a consideration -- targets Il-17 A/F David like tofacitinib or upadacitinib Would recommend vaccination against Shingles if this is considered in the future Need for immunizations Influenza vaccine today Recommend following-up with PCP for PCV20 (pneumonia), COVID-19 booster, HPV, etc. Return: 3 months Orders this visit: Office Visit on 05/05/24 XR SACROILIAC JOINTS 2V AP PELVIS/FERGUESON XR HAND/WRIST SURVEY ARTHRITIS 1V PA BILATERAL XR SHOULDER [id number] AP/TRUE AP RIGHT XR SHOULDER GENERAL 3V OR MORE AP/TRUE AP/OTHER LEFT XR HIP GENERAL 3V PELV/AP/LAT LEFT XR HIP GENERAL 3V PELV/AP/LAT RIGHT XR FOOT GENERAL 3V AP/LAT/OBL BILATERAL INFLUENZA VACCINE, AGE 6MO-64YR, TRIVALENT (AFLURIA, FLULAVAL, FLUVIRIN, FLUZONE) COMPLETE BLOOD COUNT AND DIFFERENTIAL COMPREHENSIVE METABOLIC PANEL SEDIMENTATION RATE, WESTERGREN C-REACTIVE PROTEIN HEP REMOTE PANEL BL BLOOD TB SCREEN RHEUMATOID FACTOR CCP ANTIBODY IGG HIV 1/2 COMBO WITH REFLEX TO DIFFERENTIATION PROCALCITONIN Clobetasol Propionate (TEMOVATE) 0.05 % external solution QUEtiapine (SEROQUEL) 300 mg tablet clonazePAM (KLONOPIN) 0.5 mg tablet gabapentin (NEURONTIN) 800 mg tablet amoxicillin (AMOXIL) 500 mg capsule Return in about 3 months (around 08/03/2024) for psoriatic arthirtis, psoriasis. I spent a total of 70 minutes on the date of the service which included preparing to see the patient, [id number] patient care, completing clinical documentation, obtaining and/or reviewing separately obtained history, performing a medically appropriate examination, counseling and educating the patient/family/caregiver, ordering medications, tests, or procedures, communicating with other HCPs (not separately reported), and communicating results to the patient/family/caregiver. ____ Ruthie Ward D.O. Associate Staff Rheumatic Disease [facility] - [address] [id number] [place] [address] documented in this encounter [facility] 05-05-2024 Note HNO ID: [id number] Author: RUTHIE WARD DO Service: ? Author Type: Physician Type: Progress Notes Filed: 05/05/2024 12:09 Note Text: Rheumatology CONSULTATION Date of Service: 05/05/2024 Patient: Nikki Hunt Medical Record: [id number] Primary Care Physician: Highway Truck Driver Role and Specialty Contact Info Address Start End Comments Kaylyn Bonilla [facility] General (Family Medicine) [address] [facility] [facility] [address] [facility] [address] [facility] [id number] 05/05/2024 - - Last Rheumatology visit: 03/19/2016 (with Keith Schuler) Referring Provider: Viviana Ellis. [facility] Family Medicine [address] [facility] [address] Reordering Clerk: Highway Truck Driver Role and Specialty Contact Info Address Start End Comments Ellen Jon MD (Dermatology) [address] [facility] [address] [facility] [address] 05/05/2024 - - Reason for visit: psoriasis, reported h/o psoriatic arthritis My final recommendations will be communicated back to the requesting provider by way of shared Medical record or letter to requesting physician via US mail. History of Present Illness HISTORY OF PRESENT ILLNESS Nikki Hunt is a 43 year old White female from [place], [place] with PMHx of infertility, depression with h/o attempted suicide, ADHD (Adderall), opioid use disorder (buprenorphine), narcolepsy, seasonal allergies, HTN (says she no longer has HTN), acne (denies), and psoriasis who presents on 05/05/2024 for an in-person visit for evaluation of psoriasis and possible psoriatic arthritis. She has only been seen once in our division, several years ago on 03/19/2016 by my colleague, Dr. Keith Schuler and did not subsequently follow-up. She follows with local intervention manager, Dr. Ellen Jon. Hospitalized 12/19/2023 for UTI and confusion. Also benzo withdrawal and anemia with Hgb down to ~7. 04/11/2024 visit for possible dental abscess/infection and Rx antibiotic - 03/19/2016 [facility] Rheumatology Visit with Dr. 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 History of present illness: Nikki Hunt is a 35 year old female who presents WITH A HISTORY OF PSA. SHE WAS DIAGNOSED ABOUT 20 YEARS AGO.. SHE HAS BEEN ON MTX FOR 3 YEARS.SHE HAS EXPERIENCED GROIN AND BUTTOCK PAIN FOR 4 YEARS.SHE DOES ADMIT TO JOINT SWELLING AND AM STIFFNESS LASTING ONE HOUR. Her skin is pretty good now. She used to have nail pitting but not presently. She has been on humira, enbrel, light therapy, cyclosporine and topical. Enbrel had worked well for one year and then was switched to humira and soon after her pustules began. She does experience tingling in her feet. Exam: psoriatic plaques behind ears,scalp and back as well as elbows, without psoriatic nail changes. Lumbar spine: No visible abnormalities. Diffuse tenderness ,neg slr decreased flex and lateral sidebending. Upper extremities: Normal inspection of joints. Shoulders, elbows, wrists, without synovitis, swelling, tenderness, deformity, or lack of ROM. Pips with thickening and slight tenderness. Lower extremities: Normal inspection of joints. Hips, knees, ankles, and feet without synovitis, swelling, tenderness, deformity, or lack of ROM. Impression: Nikki Hunt is a 35 year old female who presents for a rheumatology evaluation at the [facility]. She has a history of psa with many musculoskeletal complaints in addition to recent complaints of nausea without vomiting. Recommendations / plans: i will get labs today as well as x-rays.i believe gi evaluation is appropriate and will order a consultation with gi. X-rays and labs ordered at initial 2016 visit were not obtained. INTERVAL HISTORY Patient says she has a diagnosis of psoriatic arthritis. She has not seen rheumatology since she saw Dr. Schuler several years ago. She was diagnosed with psoriasis at age 13. She says when she was younger she might have been seen by rheumatology, but her care has been managed just by dermatology. Psoriasis: scalp -- denies knees or elbows initially (had elbow involvement later on). She is unsure if she has had nail pitting. PsA: right 5th finger at age 19 -- had been on Celebrex which helped some. 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 She says currently she has hands, shoulders, hips involved. She says she cannot wash her hair. She is unsure if she has had psoriatic arthritis. She says she was diagnosed with PPP in 2012, for which an ED doctor said was from Humira, which caused disability. She says pain from PPP -- nothing helps, she takes gabapentin and Lyrica. She does not think cyclosporine has helped before. She has been on Enbrel a few times. She says it worked for skin and joints, then lost efficacy after 1-2 years. She was then on Humira. She says it worked for skin and joints, then lost effi (more content not included)... [facility] 04-11-2024 History of Present illness Narrative Images from the original note were not included. HPI: Historian of HPI: patient Bethanie Hunt is a 43 y.o. female who presents today to the Urgent Care with the following complaints and denials due to tooth problems which has been present since last night. Pt states I noticed my face was staring to swell last night. I then noticed a whole in my tooth. C/O Denies Symptom Comments [x] [] Tooth pain Tooth # 18 [x] [] Gum swelling [x] [] Gum tenderness [] [x] discharge [x] [] Difficulty chewing [x] [] Difficulty drinking liquids hot liquids cold liquids [x] [] Dental visit in past 12 months Feb 2023 Additional Comments: pt has taken motrin, aleve OTC medication without relief ROS: A complete system ROS was performed and negative aside from the pertinent positives noted in the HPI and PE. Visit Vitals BP 120/72 Pulse 74 Temp 97.7 F (Temporal) Wt 130 lb SpO2 99% BMI 26.26 kg/m Smoking Status Never BSA 1.57 m Physical Exam Vitals reviewed. Constitutional: General: She is not in acute distress. Appearance: Normal appearance. HENT: Head: Normocephalic and atraumatic. Nose: Nose normal. Mouth/Throat: Lips: [place]. Mouth: Mucous membranes are moist. Dentition: Dental tenderness, gingival swelling and dental abscesses present. Pharynx: Oropharynx is clear. Uvula midline. Tonsils: No tonsillar exudate. Eyes: Extraocular Movements: Extraocular movements intact. Conjunctiva/sclera: Conjunctivae normal. Pupils: Pupils are equal, round, and reactive to light. Cardiovascular: Rate and Rhythm: Normal rate and regular rhythm. Pulses: Normal pulses. Heart sounds: Normal heart sounds. Pulmonary: Effort: Pulmonary effort is normal. No respiratory distress. Breath sounds: No wheezing, rhonchi or rales. Musculoskeletal: General: Normal range of motion. Cervical back: Normal range of motion and neck supple. Skin: General: Skin is warm and dry. Findings: No rash. Neurological: General: No focal deficit present. Mental Status: She is alert and oriented to person, place, and time. Psychiatric: Mood and Affect: Mood normal. 1. Dental abscess (Primary) Presents today for evaluation of tooth pain and possible dental abscess. She reports this has been an ongoing issue and she typically follows with the health department for her dental care. She is looking to change dentist, but has trouble with insurance. She reports tooth on left lower is swollen and painful. She does have swelling to cheek as well. She is able to swallow and speak in full sentences. She is in no acute distress on exam. Dx and tx discussed. She expressed an understanding. - amoxicillin (Amoxil) 500 MG capsule; Take 2 caps on day 1 and 1 cap every 8 hours x 7 days then stop Dispense: 23 capsule; Refill: 0 2. Pain, dental See above. Must follow up with dentist in next week. - amoxicillin (Amoxil) 500 MG capsule; Take 2 caps on day 1 and 1 cap every 8 hours x 7 days then stop Dispense: 23 capsule; Refill: 0 documented in this encounter [facility] 03-08-2024 History of Present illness Narrative Images from the original note were not included. Neuropsychology Gene Saleh, PhD NEUROPSYCHOLOGICAL EVALUATION FEEDBACK Results and recommendations discussed. Questions addressed. Thank you for allowing me to participate in the care of this individual. Please contact me with any questions at [phone]. documented in this encounter [facility] 02-24-2024 History of Present illness Narrative Images from the original note were not included. Neuropsychology Gene Saleh, PhD NEUROPSYCHOLOGICAL EVALUATION Nikki Hunt is a 43 y.o. female referred for neuropsychological evaluation to assist with facilitating and informing medical differential diagnosis and clinical decision-making. The following information was obtained during an interview with the patient, as well as review of available records. PRESENTING PROBLEM: Hospitalized on 12/19/23 with altered mental status, UTI, sepsis, acute encephalopathy, and benzodiazepine withdrawal. Head CT and brain MRI unremarkable. Continues to feel cognitively cloudy with fluctuating memory after acquiring COVID-19 earlier this year. Additionally experiencing word-finding difficulty, losing train of thought, and fluctuating attention/concentration. Remains independent in ADLs, finances, medication, and driving. Did report requiring some assistance with housework and washing her hair. Minimal physical activity due to health issues. Socially more of a homebody at baseline with no change. Overall sleeping well, although did report history of narcolepsy. Despite good nighttime sleep, experiences fluctuating daytime fatigue. Only pain complaints occur during arthropathic psoriasis flare ups. No prior neurological history. Denied any family neurological history. Psychiatric history notable for fluctuating depression and anxiety. Involved with psychotherapy on an as-needed basis. No history of alcohol/substance abuse. Reformed smoker. Vapes nicotine occasionally during the day. Also takes one hit off of her cannabis vape pen before bed each evening. [place] language Citizen [place]. Completed high school education along with some college coursework. 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 . Has 4 children, lives with 3 of them. MEDICAL HISTORY/MEDICATION: MEDICATIONS: No current outpatient medications ASSESSMENT: Presented to appointment on time, alert, and Ox3. Rapport easily established. Good eye contact. Socially appropriate during conversation and testing. Hearing adequate for current purposes. Ambulated independently. Purpose for current evaluation explained and patient agreed to participate. Performance validity testing consistent with good effort. Vision/Visuoconstruction: Binocular near-point visual acuity 20/20. Visual muhammad full to confrontation. Nonverbal abstract reasoning 62nd %ile. Copy of a complex geometric design >16th %ile. Motor/Speed of Processing: Right-handed. Ski Patrol Director strength 24th %ile with right-hand, 2nd %ile with left. Speeded graphomotor transcoding 69th %ile. Attention/Working Memory: Auditory attention/working memory 46th %ile (7 digits forward, 6 digits backward, 5 digits during sequencing). Speeded visual scanning/attention 31st %ile. Speeded visual divided attention 54th %ile. Speech/Language: Expressive speech fluent and absent of paraphasic errors. Comprehension adequate for current purposes. Single-word reading 83rd %ile. Generative naming to phonemic cues 93rd %ile, 66th %ile to semantic cues. Confrontation naming 50th %ile. Verbal abstract reasoning 31st %ile. Learning and Memory: Learning of a word list 86th %ile (4-46-28-16-16), delayed recall 31st %ile. Recognition discriminability 84th %ile. Forced-choice 16/16. Immediate recall for a variety of geometric figures 62nd %ile, delayed 93rd %ile. Recognition >75th %ile. Executive Functioning: Novel problem-solving and cognitive flexibility >16th %ile, 5/6 categories completed in 64 sorts. Responding absent of significant perseveration. Emotional Functioning: Severe depression and anxiety. Denied any thoughts of self-harm. FINDINGS AND RECOMMENDATIONS: CONCLUSIONS: 1. Estimated high average pre-morbid intellectual functioning. 2. Preserved visual acuity without signs of visual field cut or neglect. 3. Preserved right-hand gross motor function, deficient with left. 4. Severe depression and anxiety. OPINION: Current neuropsychological evaluation demonstrates well-preserved cognition and memory. Findings are completely normal for her age. 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 Combination of these factors is sapping attentional resources, thereby interfering with optimal memory and cognitive efficiency. RECOMMENDATIONS: Results and recommendations forwarded to treating physician for review during their next appointment. Patient encouraged to contact this office with any additional questions. No activity restrictions from a cognitive standpoint. More aggressive management of the severe depression and anxiety. 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 Memory strategies: Regularly and frequently review information that must be remembered. Link new information in as many ways as possible to already known information. This strategy creates several avenues for remembering the information later. Utilize external memory sources such as lists, date books, calendars, and pocket-size recorders for information that must be remembered. A smartphone is a useful tool in consolidating all this information into one source. Active listening, such as repeating and summarizing information back to presenter when learning important information for future recall may be beneficial as opposed to simply passive listening. Establish a consistent structured routine. Regular physical activity for stress relief, improved cognitive efficiency, and optimal sleep. Attempt new hobbies and skills, keep learning. Proper nutritional intake, such as Mediterranean-style diet, while paying close attention to food sourcing. No need for neuropsychological re-evaluation at this time. Results may be used as a baseline point of comparison should there be concern for future cognitive decline. Thank you for allowing me to participate in the care of this individual. Please contact me with any questions at [phone]. documented in this encounter [facility] 02-08-2024 History of Present illness Narrative Images from the original note were not included. Gene Saleh, PhD NEUROBEHAVIORAL STATUS EXAMINATION Nikki Hunt is a 43 y.o. female referred for neuropsychological evaluation to assist with facilitating and informing medical differential diagnosis and clinical decision-making. The following information was obtained during an interview with the patient, as well as review of available records. PRESENTING PROBLEM AND HISTORY Hospitalized on 12/19/23 with altered mental status, UTI, sepsis, acute encephalopathy, and benzodiazepine withdrawal. Head CT and brain MRI unremarkable. Continues to feel cognitively cloudy with fluctuating memory after acquiring COVID-19 earlier this year. Additional experiencing work-finding difficulty, Jcarlos's entry of thought, and fluctuating attention/concentration. Remains independent in ADLs, finances, medication, and driving. Did report requiring some assistance with housework and washing her hair. Minimal physical activity due to health issues. Socially more of a homebody at baseline with no change. Overall sleeping while they did report history of narcolepsy. Despite good nighttime sleep, experiences fluctuating daytime fatigue. Only pain complaints occur during arthropathic psoriasis flare ups. No prior neurological history. Denied any family neurological history. Psychiatric history notable for depression and anxiety that fluctuates. Involved with psychotherapy on an as-needed basis. No history of alcohol/substance abuse. A reformed smoker. Does vapor nicotine occasionally during the day. Also takes one hit off of her cannabis vape pen before bed each evening. [place] language Citizen [place]. Completed high school education along with some college coursework. 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 . As for children, lives with three of them. MEDICAL HISTORY/MEDICATION: Past Medical History: Diagnosis Date Anxiety Arthritis Depression (CMS/HCC) Hypertension (CMS/HCC) Palmoplantar pustulosis (CMS/HCC) Psoriasis (CMS/[facility]) MEDICATIONS: No current outpatient medications INITIAL IMPRESSION AND PLAN: Memory loss, concentration deficit, word finding difficulty, 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 hauler, depression with anxiety, and narcolepsy: The patient will be scheduled for neuropsychological assessment, which will include tests for memory, reasoning, language, problem-solving, attention, and mood. Thank you for allowing me to participate in the care of this individual. Please contact me with any questions at [phone]. documented in this encounter [facility] 12-21-2023 Progress note Note Date/Time December 21, 2023 3:04pm [facility] [address] [place] [address] Neurology Progress Note Signed Patient: Nikki Hunt MR# : [id number] : 1980 Acct:[id number] Age/Sex: 43 / F Adm Date: 4 Loc: 4N Room: [address] [place] [address] Type: ADM IN Attending Dr: Lorne Gan MD Copies to: ~ Date of Service: 12/21/2023 Exam Physical Exam Vital Signs: Temp Pulse Resp BP Pulse Ox O2 Del Method 99.0 F 80 16 106/67 99 Room Air 12/21/23 11:39 12/21/23 11:39 12/21/23 11:39 12/21/23 11:39 12/21/23 11:39 12/21/23 11:39 Objective Vital Signs Vital Signs: Vital Signs - 24 hr 12/20/23 19:27 12/20/23 20:00 12/20/23 23:46 Temperature 99.3 F H 99.0 F Pulse Rate 92 106 H Respiratory Rate 18 18 Blood Pressure 126/86 108/69 02 Sat by Pulse Oximetry 100 96 Oxygen Delivery Method Room Air Room Air Room Air 12/21/23 03:10 12/21/23 07:21 12/21/23 08:00 Temperature 99.1 F H 98.5 F Pulse Rate 90 87 Respiratory Rate 20 17 Blood Pressure 109/70 101/67 02 Sat by Pulse Oximetry 97 100 Oxygen Delivery Method Room Air Room Air Room Air 12/21/23 11:39 Temperature 99.0 F Pulse Rate 80 Respiratory Rate 16 Blood Pressure 106/67 02 Sat by Pulse Oximetry 99 Oxygen Delivery Method Room Air Labs 12/21/23 06:14 12/21/23 06:14 Lab Results: 12/20/23 05:34: Hemoglobin A1c 5.8 H Therapy Recommendations Therapy Recommendations: OT Recommendations OT Recommended Discharge Home Location PT Recommendations DC Physical Therapy Due To: No Skilled PT Needs,At Baseline PT Recommended Discharge Home Location ST Recommendations Liquid Consistency Thin Liquids Recommendation Solid Consistency Regular Solids Recommendations Meat Consistency Whole Meats Recommendations Medication Administration Whole Pills,Give Pills with Water,Give Pills One at a Time Dysphagia Swallow Precautions/ Sitting Upright (90 deg),Effortful Swallow,Small Strategies Bites/Sips,Alternate Liquids/Solids,Pacing/Slow -Rate,Sit Upright 30 Minutes Assessment/Plan (1) Word finding difficulty: (2) Psoriatic arthritis: Plan CONSULT REASON: Trouble speaking correctly SUBJECTIVE: Her speech remains normal today. No further episodes of any speech issues. No new symptoms to mention. She is anxious to get home. EXAMINATION: In no distress. No deformities or trauma. Limbs seem well-perfused. No significant edema. Normal work of breathing. Visualized skin is generally intact. I did not see any psoriatic lesions on her forearms or shins but did not look further proximal in that. Affect normal. Patient is alert and generally oriented. Attention normal. Speech is fluent and nondysarthric. Pupils are equal and reactive. Ocular motility is full. No nystagmus. Facial sensation is normal. Hearing is normal. Facial strength is normal. Tongue is midline. Muscle bulk, tone, and strength are normal. No tremors. Reflexes mildly hyperactive throughout. Light touch is normal. Vibratory sensation is normal. No limb dysmetria or ataxia. DATA REVIEW: -CT head nonacute -CTA head and neck generally unremarkable -MRI brain December 21, 2023 with and without contrast unremarkable ASSESSMENT: She presented after having extreme word finding difficulty in the setting of spending multiple days in bed with a pain or inflammation flareup related to her psoriasis, attic arthritis, and palmoplantar pustulosis. Symptoms self resolved. Consider toxic?metabolic cause related to the urinary tract infection or perhaps some of her medications such as pregabalin or quetiapine. Of note she is on secukinumab. MRI brain with and without con does not reveal any acute intracranial pathology, whether that be cerebrovascular, infectious, inflammatory, or otherwise. PLAN: Okay for discharge from my standpoint. I recommended she undergo neuropsych testing with Dr. Saleh. Documented By: Harman Arias DO 12/21/23 1500 Signed By: <Electronically signed by Harman Arias DO> 12/21/23 [address] [facility] Work Phone: 1(190) 166-510207-29-2024 Progress note Author Lorne Gan [facility] December 21, 2023 2:41pm Note Date/Time December 21, 2023 1:07 pm [facility] [address] [place] [address] Hospitalist Progress Note Signed with aJcky Patient: Nikki Hunt MR# : [id number] : 1980 Acct:[id number] Age/Sex: 43 / F Adm Date: 4 Loc: 4N Room: 3Z6433-4 Type: ADM IN Attending Dr: Lorne Gan MD Copies to: ~ ADDENDUM1 Patient was personally seen by me on the day of encounter, reviewed her history and performed uribe elements of exam and formulated the plan of care and confirmedthe nurse practitioner/PA/resident/interns note below. Addendum Documented By: Lorne Gan MD 12/21/23 144 Addendum Signed By: <Electronically signed by Lorne Gan MD> 12/21/23 144 Date of Service: 12/21/2023 Subjective Subjective Narrative: Mrs. 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 Today is hospital day 2. Pt is awake and alert and able to converse well. She states thatshe feels much better today. She is aware of why she is here and what has been happening. She reports mild abdominal discomfort and some nausea but denies any burning while she urinates. Denies dizziness, light headedness, numbness and tingling. No overnight events. Pt slept well overnight. Exam Physical Exam Vital Signs: Temp Pulse Resp BP Pulse Ox O2 Del Method 98.5 F 87 17 101/67 100 Room Air 12/21/23 07:21 12/21/23 07:21 12/21/23 07:21 12/21/23 07:21 12/21/23 07:21 12/21/23 08:00 Narrative: GENERAL: No apparent distress, alert, oriented, appears stated age, comfortable HEENT: NC/AT, EOMI, PERRL, conjunctiva clear, no adenopathy, dentition CARDIOVASCULAR: Regular rate and regular rhythm, no murmurs, symmetric palpable radial pulses RESPIRATORY: nonlabored work of breathing on room air, clear to auscultation bilaterally, symmetric chest rise, no wheezes/rales/rhonci ABDOMEN: Soft, mild tenderness to palpation along right upper and lower quadrants, mild suprapubic tenderness BACK: No midline or paraspinal tenderness EXTREMITIES: moving all extremities well. Well-perfused. UE: Full ROM, trading manager strength 5/5 and symmetric. LE: Full ROM, strength 5/5 with flexion, extension, and abduction. Sensation intact. No edema SKIN: Intact, no rash, no trauma NEURO: Cranial nerves grossly intact, no focal neurologic signs PSYCHIATRIC: Good eye contact, appropriate mood and affect, cooperative Objective Lab Results 12/21/23 06:14 12/21/23 06:14 Microbiology Results Microbiology 12/19/23 16:11 Urine - Straight Cath Urine Culture - Preliminary Escherichia coli Meds Allergies and Active Meds Allergies No Known Allergies Allergy (Verified 10/15/18 08:00) Active Meds: Active Medications Generic Name Dose Route Start Last Admin Trade Name Real PRN Reason Stop Dose Admin Acetaminophen 650 mg 12/19/23 23:11 Acetaminophen 325 Mg Tablet PO 12/18/24 23:10 Q6HR PRN Pain Scale 1 - 3 or fever Aspirin 81 mg 12/20/23 09:00 12/20/23 09:35 Aspirin 81 Mg Tablet.Dr PO 12/19/24 08:59 Not Given DAILY ALEXANDER Clonazepam 1 mg 12/20/23 22:00 12/20/23 21:49 Clonazepam 1 Mg Tablet PO 06/17/24 21:59 1 mg HS ALEXANDER Administration Potassium Chloride 20 meq/ 1,010 mls @ 100 mls/hr 12/19/23 21:15 12/21/23 05:30 Lactated Ringer's IV 12/18/24 21:14 Not Given .Q10H6M ALEXANDER Ceftriaxone Sodium 2 gm in 50 mls @ 100 mls/hr 12/20/23 17:50 12/20/23 17:38 Rocephin IV 100 mls/hr Q24H ALEXANDER Administration Nicotine 1 each 12/20/23 09:00 12/21/23 09:57 Nicotine Patch 21 Mg/24hr 1 Each Patch.Td24 TRANSDERML 01/30/24 09:01 Not Given DAILY ALEXANDER Pregabalin 150 mg 12/20/23 09:00 12/21/23 09:56 Pregabalin 150 Mg Capsule PO 06/17/24 08:59 150 mg TID ALEXANDER Administration Quetiapine Fumarate 350 mg 12/19/23 23:45 12/20/23 21:48 Quetiapine Fumarate 100 Mg Tablet PO 12/18/24 23:44 350 mg HS ALEXANDER Administration Saccharomyces Boulardii 250 mg 12/20/23 08:00 12/21/23 09:56 Saccharomyces Boulardii 250 Mg Capsule PO 12/19/24 07:59 250 mg BID.WITH.MEALS ALEXANDER Administration Sodium Chloride 0 ml 12/19/23 13:41 12/19/23 17:02 Sodium Chloride 0.9 % 10 Ml Syringe IV-PUSH 12/18/24 13:40 10 ml PRN PRN Administration Flush Sodium Chloride 0 ml 12/20/23 06:00 12/21/23 05:31 Sodium Chloride 0.9 % 10 Ml Syringe IV-PUSH 12/19/24 05:59 Not Given QSHIFT [facility] - Hospitalist Assessment/Plan (1) Sepsis: (2) Complicated urinary tract infection: Plan: Continue ceftriaxone (3) Expressive aphasia: (4) AMS (altered mental status): (5) Acute encephalopathy: Plan: Improving, no longer exhibiting word salad and is oriented to currently situation MRI head c and co contrast ordered Continue to monitor mental status (6) Benzodiazepine withdrawal: Plan: Pt improving with home meds being restarted Continue clonazepam and Seroquel (7) Anemia: Plan: Hgb today is 7.5, downtrending Lovenox and ASA held Waiting for stool occult blood collection and result Start Miralax for constipation D/C IVF Plan Chronic conditions requiring attention while inpatient: continue home meds unless otherwise listed below. Additional plans below. DVT PPx: Lovenox currently held due to anemia Diet: Regular CODE STATUS: Full Dispo: Currently awaiting to find source of anemia, can discharge when safe Plan of care Discussed with:?the medical team, the patient Documented By: Lorne Gan MD 12/21/23 1103 Signed By: <Electronically signed by Lorne Gan MD> 12/21/23 1440 <Electronically signed by DO OEFLIA Patel> 12/21/23 [address] [facility] Work Phone: 1(580) 846-236507-28-2024 Consult note Author Harman Arias [facility] December 20, 2023 1:58pm Note Date/Time December 20, 2023 11:1 3am [facility] [address] [place] [address] Neurology Consult Note Signed Patient: Nikki Hunt MR# : [id number] : 1980 Acct:[id number] Age/Sex: 43 / F Adm Date: 4 Loc: 4N Room: [id number] Type: ADM IN Attending Dr: Lorne Gan MD Copies to: Harman Arias DO [facility] Lorne Gan MD~ HPI Consult Date: 12/20/23 Profile Grinder: Harman Arias DO [facility] Medical History (Updated 12/20/23 @ 13:58 by Harman Arias DO) Gestational diabetes Chronic palmoplantar pustular psoriasis Former smoker Psoriatic arthritis Anxiety Surgical History [place] teeth extracted Hx of removal of ovary Family History Father Hypertension Mother Melanoma Social History Smoking Status: Never smoker Tobacco Type: smokeless tobacco Substance Use Type: None Substance Abuse Comment: Thursday Social History Comments: LIVES WITH HER BOYFRIEND AND 3 KIDS Meds Medications and Allergies Allergies No Known Allergies Allergy (Verified 10/15/18 08:00) Home Medications clonazepam 0.5 mg tablet 1 mg PO HS 10/04/18 [History Confirmed 12/19/23] buprenorphine HCl 8 mg sublingual tablet 12 mg sublingual DAILY.AC.BKFAST 01/14/21 [History Confirmed 12/19/23] vits,calcium 21-iron fum 14 mg iron-folic acid 400 mcg tablet (PrenatalComplete) 1 tab PO DAILY.AC.BKFAST 01/14/21 [History Confirmed 12/20/23] ibuprofen 600 mg tablet 600 mg PO Q6H PRN pain #30 tabs 01/17/21 [Rx Confirmed 12/20/23] buprenorphine 64 mg/0.18 mL solution,exten.rel.subcutaneous syringe (Brixadi Monthly) mg subcut 12/19/23 [History] clonazepam 1 mg tablet 1 mg PO DAILY 12/19/23 [History Confirmed 12/19/23] dextroamphetamine-amphetamine ER 30 mg 24hr capsule,extend release PO 12/19/23 [History] gabapentin 600 mg tablet 600 mg PO BID 12/19/23 [History Confirmed 12/19/23] naproxen sodium 220 mg capsule (Aleve) 440 mg PO BID PRN pain 12/19/23 [History Confirmed 12/19/23] pregabalin 150 mg capsule 150 mg PO TID 12/19/23 [History Confirmed 12/19/23] secukinumab 150 mg/mL subcutaneous pen injector (Cosentyx Pen 300 mg/2 Pens () 150 mg subcut .1mon 12/19/23 [History Confirmed 12/19/23] quetiapine 300 mg tablet 300 mg PO HS 12/20/23 [History Confirmed 12/20/23] quetiapine 50 mg tablet,extended release 24 hr 50 mg PO HS 12/20/23 [History Confirmed 12/20/23] Exam Physical Exam Vital Signs: Temp Pulse Resp BP Pulse Ox O2 Del Method 97.5 F L 96 16 98/60 L 98 Room Air 12/20/23 07:27 12/20/23 07:27 12/20/23 07:27 12/20/23 07:27 12/20/23 07:27 12/20/23 07:27 Results - Neuro Laboratory Findings 12/20/23 05:34 12/20/23 05:34 Lab Results: Ammonia 19 umol/L (11-35) 12/19/23 14:20 Diagnostic Findings Imaging/Impressions: ITS Impressions Head CT 12/19/23 14:03 IMPRESSION: NO ACUTE INTRACRANIAL ABNORMALITY. Impression dictated by: Ray Troy Jr., D.O.12/19/2023 5:05 PM Dictation Location: [facility] Chest CTA 12/19/23 15:17 IMPRESSION: NO EVIDENCE OF ACUTE PULMONARY EMBOLISM OR PROCESS. Impression dictated by: Ray Troy Jr., D.O.12/19/2023 5:16 PM Dictation Location: [facility] Head CTA 12/19/23 15:17 IMPRESSION: No evidence of critical stenosis, aneurysmal dilatation, dissection or occlusion. Impression dictated by: Ray Troy Jr., D.O.12/19/2023 5:15 PM Dictation Location: [facility] Therapy Recommendations Therapy Recommendations: OT Recommendations OT Recommended Discharge Home Location PT Recommendations DC Physical Therapy Due To: No Skilled PT Needs,At Baseline PT Recommended Discharge Home Location Assessment/Plan (1) Word finding difficulty: (2) Psoriatic arthritis: Plan CONSULT REASON: Trouble speaking correctly HPI: 43-year-old woman. 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 History of opiate medication dependence and nowadays on buprenorphine. She is on Adderall for attentional or cognitive issues. She is on high doses of pregabalin for pains related to the psoriasis she says. She can have a tendency to have flareups of inflammation and be pretty much bedridden for several days at a time. She had an episode in which she was confined to bed for several days just prior to this admission. Her yesterday found her to have extreme word finding difficulty and seeming like shecould not produce speech. He says her speech did not sound slurred but he did not know what was going on. It is unclear if she might have missed some medication doses. Her said she has had speech issues like that before but something like 10 to 40% as severe as it was yesterday. He thought she had dramatic improvement overnight, and has noticed continued improvement even since earlier this morning. She says she feels like her speech is at its baseline. Urinalysis looked highly suggestive of a significant urinary tract infection. Home medications include secukinumab, clonazepam 0.5 mg nightly, buprenorphine 12 mg daily, pregabalin 150 mg 3 times daily, dextroamphetamine?amphetamine 30 mg ER, quetiapine 350 mg nightly EXAMINATION: In no distress. No deformities or trauma. Limbs seem well-perfused. No significant edema. Normal work of breathing. Visualized skin is generally intact. I did not see any psoriatic lesions on her forearms or shins but did not look further proximal in that. Affect normal. Patient is alert and generally oriented. Attention normal. Speech is fluent and nondysarthric. Pupils are equal and reactive. Ocular motility is full. No nystagmus. Facial sensation is normal. Hearing is normal. Facial strength is normal. Tongue is midline. Muscle bulk, tone, and strength are normal. No tremors. Reflexes mildly hyperactive throughout. Light touch is normal. Vibratory sensation is normal. No limb dysmetria or ataxia. DATA REVIEW: -CT head nonacute -CTA head and neck generally unremarkable ASSESSMENT: Extreme word finding difficulty in the setting of spending multiple days in bed with a pain or inflammation flareup related to her psoriasis, attic arthritis,and palmoplantar pustulosis. Overnight and into this morning the problem has self resolved. Consider toxic?metabolic cause related to the urinary tract infection or perhaps some of her medications such as pregabalin or quetiapine. Of note she is on secukinumab. Very low suspicion for any acute intracranial pathology, whether that be cerebrovascular, infectious, inflammatory, or otherwise. PLAN: MRI brain with and without contrast. If that study is normal then she can be discharged from my standpoint, as her symptoms have resolved. For ongoing cognitive issues that are more subtle, I recommended she undergo neuropsych testing with Dr. Saleh. Documented By: Harman Arias DO 12/20/23 1103 Signed By: <Electronically signed by Harman Arias DO> 12/20/23 135 [facility] Work Phone: 1(744) 182-407707-28-2024 Progress note Author Lorne Gan [facility] December 20, 2023 9:42am Note Date/Time December 20, 2023 9:18 am [facility] [address] [place] [address] Hospitalist Progress Note Signed with Addenda Patient: Nikki Hunt MR# : [id number] : 1980 Acct:[id number] Age/Sex: 43 / F Adm Date: 4 Loc: Room: [address] [place] [address] Type: ADM IN Attending Dr: Lorne Gan MD Copies to: ~ ADDENDUM1 Patient is on ceftriaxone instead of Levaquin which will be continued. Addendum Documented By: Lorne Gan MD 12/20/23 0941 Addendum Signed By: <Electronically signed by Lorne Gan MD> 12/20/23 0941 Date of Service: 12/20/2023 Subjective Subjective Narrative: On examination patient is awake and oriented and currently eating her breakfast.She is feeling significantly better as compared to yesterday. She mentioned feeling cloudy since Thursday and does not remember much. In the emergency room found to be septic due to complicated cystitis. In the emergency room she had CTA head and neck which was negative for critical stenosis. CTA chest negative for PE or acute lung abnormality. Preliminary report of venous duplex negative for deep as well. Exam Physical Exam Vital Signs: Temp Pulse Resp BP Pulse Ox O2 Del Method 97.5 F L 96 16 98/60 L 98 Room Air 12/20/23 07:27 12/20/23 07:27 12/20/23 07:27 12/20/23 07:27 12/20/23 07:27 12/20/23 07:27 Const Orientation: alert and awake Other: Answering appropriately and oriented Resp Effort & Inspection: normal respiratory effort and able to speak in complete sentences Cardio Rate: regular rate Rhythm: regular rhythm Heart Sounds: S1 normal and S2 normal GI Palpation: soft, not firm, no guarding and nontender Neuro General: patient alert, patient awake, moves all extremities, no focal motor deficits and CN's II-XI intact bilaterally Cognition: normal cognition Speech: speech normal Motor: muscle tone normal throughout and strength 5/5 throughout Objective Lab Results 12/20/23 05:34 12/20/23 05:34 Microbiology Results Microbiology 12/19/23 14:16 Nasopharyngeal SARS-CoV-2, Influenza & RSV (PCR) - Final Meds Allergies and Active Meds Allergies No Known Allergies Allergy (Verified 10/15/18 08:00) Active Meds: Active Medications Generic Name Dose Route Start Last Admin Trade Name Freq PRN Reason Stop Dose Admin Acetaminophen 650 mg 12/19/23 23:11 Acetaminophen 325 Mg Tablet PO 12/18/24 23:10 Q6HR PRN Pain Scale 1 - 3 or fever Aspirin 81 mg 12/20/23 09:00 Aspirin 81 Mg Tablet. PO 12/19/24 08:59 DAILY ALEXANDER Clonazepam 1 mg 12/20/23 22:00 Clonazepam 1 Mg Tablet PO 06/17/24 21:59 HS ALEXANDER Enoxaparin Sodium 40 mg 12/20/23 10:00 Enoxaparin 40 Mg/0.4 Ml Syringe SUBCUT 12/19/24 09:59 DAILY@10 ALEXANDER Potassium Chloride 20 meq/ 1,010 mls @ 100 mls/hr 12/19/23 21:15 12/19/23 23:21 Lactated Ringer's IV 12/18/24 21:14 100 mls/hr .Q10H6M ALEXANDER Administration Ceftriaxone Sodium 2 gm in 50 mls @ 100 mls/hr 12/20/23 17:50 Rocephin IV Q24H ALEXANDER Lactated Ringer's 1,000 mls @ 150 mls/hr 12/19/23 23:15 12/20/23 00:58 Lactated Ringers IV 12/20/23 12:34 150 mls/hr .Q6H40M ALEXANDER Administration Magnesium Sulfate 2 gm in 50 mls @ 25 mls/hr 12/19/23 23:11 Magnesium Sulf 2gm-*Swfi* IV 12/18/24 23:10 DAILY PRN Magnesium Level < 1.5 Nicotine 1 each 12/20/23 09:00 Nicotine Patch 21 Mg/24hr 1 Each Patch.Td24 TRANSDERML 01/30/24 09:01 DAILY ALEXANDER Potassium Chloride 20 meq 12/19/23 23:11 Potassium Chloride Er 20 Meq Tab.Er.Prt PO 12/18/24 23:10 DAILY PRN Hypokalemia Potassium Chloride 40 meq 12/19/23 23:11 Potassium Chloride Er 20 Meq Tab.Er.Prt PO 12/18/24 23:10 DAILY PRN Hypokalemia Pregabalin 150 mg 12/20/23 09:00 Pregabalin 150 Mg Capsule PO 06/17/24 08:59 TID ALEXANDER Quetiapine Fumarate 350 mg 12/19/23 23:45 12/20/23 00:20 Quetiapine Fumarate 100 Mg Tablet PO 12/18/24 23:44 350 mg HS ALEXANDER Administration Saccharomyces Boulardii 250 mg 12/20/23 08:00 Saccharomyces Boulardii 250 Mg Capsule PO 12/19/24 07:59 BID.WITH.MEALS ALEXANDER Sodium Chloride 0 ml 12/19/23 13:41 12/19/23 17:02 Sodium Chloride 0.9 % 10 Ml Syringe IV-PUSH 12/18/24 13:40 10 ml PRN PRN Administration Flush Sodium Chloride 0 ml 12/20/23 06:00 Sodium Chloride 0.9 % 10 Ml Syringe IV-PUSH 12/19/24 05:59 QSHIFT [facility] A[facility]P - Hospitalist Assessment/Plan (1) Sepsis: (2) Complicated urinary tract infection: (3) Acute encephalopathy: (4) Expressive aphasia: (5) Benzodiazepine withdrawal: (6) Psoriatic arthritis: (7) Anemia: Plan Patient was admitted last night and there was concern for abnormal speech with significant confusion found to have acute cystitis. She has been admitted for acute metabolic encephalopathy likely from complicated cystitis. Started on Levaquin which will be continued. CTA head and neck was negative for critical stenosis. CTA chest also negative for pulmonary abnormality. Currently patientawake and oriented x 3 with no speech abnormality noted. Neurology has been consulted. She mentioned seeing Poornima Briscoe in [place] and has been on Brixadi injection monthly which has helped her tremendously. Currently receiving IV fluids and replace magnesium. Hemoglobin dropped to 8 with pending stool for occult blood. Follow-up H&H and morning labs. Given drop in hemoglobin will discontinue Lovenox and hold aspirin until acute GI bleed ruled out. Suspectingsymptoms related to metabolic encephalopathy which has significantly improved. Documented By: Lorne Gan MD 12/20/2309 Signed By: <Electronically signed by Lorne Gan MD> 12/20/2318 [facility] Work Phone: 1(984) 455-556107-28-2024 History and physical note Author Dennys Garcia [facility] December 19, 2023 11:26pm Note Date/Time December 19, 2023 11:1 1pm [facility] [address] [place] [address] Hospitalist H&P Signed Patient: Nikki Hunt MR# : [id number] : 1980 Acct:[id number] Age/Sex: 43 / F Adm Date: 4 Loc: Room: 7P5671-8 Type: ADM IN Attending Dr: Dennys Garcia DO Copies to: [facility] Dennys Garcia, ~ HPI DATE OF EXAMINATION: 12/19/23 CHIEF COMPLAINT: Slurred speech, did not get out of bed for 3 days, soaking diaphoresis. HISTORY OF PRESENT ILLNESS: This is a 43-year-old woman who was brought to the emergency room today by her as the patient was not acting right. She had been in bed for 3 days. The words that she was saying when she was speaking did not make any sense. Osoriooes have a history of bipolar disorder. It was felt that she probably missed some of her psychiatric medicines over the last few days. In the emergency roomshe could not get the year correct or the month correct. Stroke workup was started. A CT scan of the head was done which shows no acute changes. CTA of the head and neck arterial system shows no stenosis or dissection or occlusion in the arteries of her head or her neck. A D-dimer was elevated at 1329. CT angiography of chest shows no pulmonary embolus. White blood count is very highat 15.8. In the emergency room the patient began having profound shaking chillsfollowed by soaking diaphoresis on the ER cot. Urinalysis shows positive nitrite and 3+ leukocyte esterase. The patient was given 1 g of Rocephin IV. She was also given 2 L of IV fluids. Despite this treatment in the emergency room her speech was really not any better. Patient wanted to leave and go home. The emergency room team was able to eventually convince her to stay in the hospital for treatment. When I go to the emergency room to see this patient she feels like her speech isgetting better. But her speech is still very abnormal. She has difficulty explaining how she got sent to see a neurologist at the [facility] a year ago. She was difficulty explaining her rheumatologic condition to me. Her is at the bedside and does help with this. She took off most of her clothing because of profound diaphoresis that occurred before he got to the emergency room. She is covered up with a blanket now in the ER cot. I do not detect any facial asymmetry or any weakness or abnormal sensation in either one of her arms or her legs but her level of expressive aphasia and word salad is still really strong although it is optimistic to hear that the patient feels like she is getting better. She explains that because she has her connective tissue disorder and psoriatic arthritis it is not unusual for her to lay in bed for a day when these things flareup. But she laid in bed for 3 straight days. Her was trying to get her to drink some water. She did not have any symptoms of a urinary tract infection at first. She says that now that she is in the emergency room she does feel like she has some burning at the end of urination. She has never had a urinary tract infection before but she was familiar with this because her mother had this a lot in her older years which did cause delirium in her mother until her mother . She denies any flank pain. She does have a densesensation of mild nausea and some generalized abdominal discomfort. She denies any discomfort in the suprapubic area over the bladder. She does continue to take Cosentyx for her psoriatic arthritis. She does admit that she likely missed a number of her psychiatric medicines for a few days. Emergency room didgive her clonazepam 1 mg before I got to see her and that may have calm down benzodiazepine withdrawals. Review of Systems Review of Systems Review of systems: 10 systems are reviewed and are negative except as mentioned elsewhere in the documentation. [facility] Medical History (Updated 12/19/23 @ 23:21 by Dennys Garcia DO) Gestational diabetes Chronic palmoplantar pustular psoriasis Former smoker Psoriatic arthritis Anxiety Surgical History [place] teeth extracted Hx of removal of ovary Family History Father Hypertension Mother Melanoma Social History Smoking Status: Never smoker Tobacco Type: smokeless tobacco Substance Use Type: None Substance Abuse Comment: Thursday Social History Comments: LIVES WITH HER BOYFRIEND AND 3 KIDS Meds Medications and Allergies Allergies No Known Allergies Allergy (Verified 10/15/18 08:00) Home Medications clonazepam 0.5 mg tablet 1 mg PO HS 10/04/18 [History Confirmed 12/19/23] buprenorphine HCl 8 mg sublingual tablet 12 mg sublingual DAILY.AC.BKFAST 01/14/21 [History Confirmed 01/14/21] vits,calcium 21-iron fum 14 mg iron-folic acid 400 mcg tablet (PrenatalComplete) 1 tab PO DAILY.AC.BKFAST 01/14/21 [History Confirmed 01/14/21] quetiapine 200 mg tablet 350 mg PO HS 01/14/21 [History Confirmed 12/19/23] ibuprofen 600 mg tablet 600 mg PO Q6H PRN pain #30 tabs 01/17/21 [Rx] buprenorphine 64 mg/0.18 mL solution,exten.rel.subcutaneous syringe (Brixadi Monthly) mg subcut 12/19/23 [History] dextroamphetamine-amphetamine ER 30 mg 24hr capsule,extend release PO 12/19/23 [History] gabapentin 600 mg tablet 600 mg PO BID 12/19/23 [History Confirmed 12/19/23] pregabalin 150 mg capsule 150 mg PO TID 12/19/23 [History Confirmed 12/19/23] secukinumab 150 mg/mL subcutaneous pen injector (Cosentyx Pen 300 mg/2 Pens () 150 mg subcut .1mon 12/19/23 [History Confirmed 12/19/23] Allergy/Medication Comments: Please note that the home medication list may contain elements that are not accurate. This list of home medications will be updated during the hospital stay as more information becomes available. Specifically: I checked her OARRS report and she does not take sublingual buprenorphine. She does take pregabalin but not gabapentin. Exam Physical Exam Vital Signs: Temp Pulse Resp BP Pulse Ox O2 Del Method 98.5 F 66 16 100/64 99 Room Air 12/19/23 17:35 12/19/23 20:34 12/19/23 20:34 12/19/23 20:34 12/19/23 20:34 12/19/23 20:34 Narrative: Neurologic: Awake, alert, but still only oriented x 1. Has a lot of difficultygetting details on her speech out. She cannot name [facility] or explain why she was sent to see a neurologist there year ago. She still does not know the month or the year. Her fund of words is better than what the ER doctor described, but I still would call this a severe word salad mixed with expressive aphasia. She does not have any facial asymmetry and she does not have any weakness to any of her extremities. Head: Normal cephalic atraumatic. Eyes: Conjunctiva and sclera clear bilaterally. EOMI. PERRLA. Nose: External nose and nares normal bilaterally. Mouth: Lips and tongue normal. Tongue is in the midline. Mucosa membranes aresomewhat dry. Neck: No JVD. No thyromegaly. No lymphadenopathy. Lungs: Clear to auscultation bilaterally, no wheezing, no crackles. Heart: Regular rate and rhythm, no murmurs, rubs, or gallops. Abdomen: Soft, normal bowel sounds, no rigidity, guarding, or acute peritoneal signs. Extremities: No swelling or cords in the calves bilaterally, no edema in the ankles bilaterally. Skin: No systemic rashes or lesions. She is profoundly clammy all over from her recent soaking diaphoresis. Results - Hospitalist H&P Lab Results Labs: Laboratory Last Values Corrected WBC 15.8 X10E3/uL (3.8-11.6) H 12/19/23 14:20 Uncorrected WBC Count 15.8 x10E3/uL (3.8-11.6) H 12/19/23 14:20 RBC 3.73 X10E6/uL (3.60-5.00) 12/19/23 14:20 Hgb 9.7 g/dL (11.8-15.4) L 12/19/23 14:20 Hct 29.2 % (34.0-46.4) L 12/19/23 14:20 MCV 78.2 fl (80-100) L 12/19/23 14:20 MCH 26.0 pg (24.7-34.3) 12/19/23 14:20 MCHC 33.2 g/dL (32.0-35.0) 12/19/23 14:20 RDW 15.3 % (11.9-15.3) 12/19/23 14:20 Plt Count 483 x10E3/uL (150-450) H 12/19/23 14:20 MPV 8.0 fl (6.3-10.7) 12/19/23 14:20 Neut % (Auto) 80.9 % (.) 12/19/23 14:20 Lymph % (Auto) 12.3 % (.) 12/19/23 14:20 Warren % (Auto) 6.1 % (.) 12/19/23 14:20 Eos % (Auto) 0.1 % (.) 12/19/23 14:20 Baso % (Auto) 0.6 % (.) 12/19/23 14:20 Nucleat RBC Rel Count 0.0 /100 WBC (0-0.5) 12/19/23 14:20 Neut # (Auto) 12.8 x10E3/uL (1.8-7.7) H 12/19/23 14:20 Lymph # (Auto) 1.9 x10E3/uL (1.00-4.8) 12/19/23 14:20 Warren # (Auto) 1.0 x10E3/uL (0.0-0.8) H 12/19/23 14:20 Eos # (Auto) 0.0 x10E3/uL (0.0-0.45) 12/19/23 14:20 Baso # (Auto) 0.1 x10E3/uL (0.0-0.2) 12/19/23 14:20 Monocyte Dist Width 27.77 % (0.00-20.00) H 12/19/23 14:20 D-Dimer Quant (PE/DVT) 1329 ng/mL (0-243) H 12/19/23 14:20 PHA Creatinine Clear 55.52 12/19/23 14:20 Sodium 138 mmol/L (136-145) 12/19/23 14:20 Potassium 3.6 mmol/L (3.5-5.1) 12/19/23 14:20 Chloride 101 mmol/L (98-107) 12/19/23 14:20 Carbon Dioxide 23.5 mmol/L (21.0-31.0) 12/19/23 14:20 Anion Gap 17.1 mEq/L (6.0-15.0) H 12/19/23 14:20 BUN 23 mg/dL (7-25) 12/19/23 14:20 Creatinine 1.08 mg/dL (0.60-1.20) 12/19/23 14:20 Est GFR (CKD-EPI) > 60.0 mL/Min 12/19/23 14:20 Glucose 136 mg/dL (70-100) H 12/19/23 14:20 Lactic Acid 0.8 mmol/L (0.5-2.2) 12/19/23 14:20 Calcium 9.4 mg/dL (8.6-10.3) 12/19/23 14:20 Total Bilirubin 0.6 mg/dl (0.3-1.0) 12/19/23 14:20 AST 44 U/L (13-39) H 12/19/23 14:20 ALT 38 U/L (7-52) 12/19/23 14:20 Alkaline Phosphatase 116 U/L (34-104) H 12/19/23 14:20 Ammonia 19 umol/L (11-35) 12/19/23 14:20 Troponin I High Sens 7.8 pg/mL (0.0-15.0) 12/19/23 14:20 Total Protein 7.8 gm/dL (6.4-8.9) 12/19/23 14:20 Albumin 3.4 gm/dL (3.5-5.7) L 12/19/23 14:20 Globulin 4.4 gm/dL 12/19/23 14:20 Albumin/Globulin Ratio 0.8 12/19/23 14:20 Free T4 1.08 ng/dL (0.61-1.12) 12/19/23 14:20 TSH 3rd Generation 0.66 uIU/mL (0.45-5.33) 12/19/23 14:20 Urine Color Yellow (Yellow) 12/19/23 16:11 Urine Appearance Cloudy (Clear) A 12/19/23 16:11 Urine pH 6.0 (5.0-9.0) 12/19/23 16:11 Ur Specific [place] 1.019 (1.001-1.030) 12/19/23 16:11 Urine Protein 70 mg/dL (Negative) H 12/19/23 16:11 Urine Glucose (UA) Normal mg/dL (Normal) 12/19/23 16:11 Urine Ketones 1+ (Negative) H 12/19/23 16:11 Urine Occult Blood 2+ (Negative) H 12/19/23 16:11 Urine Nitrite Positive (Negative) H 12/19/23 16:11 Urine Bilirubin Negative (Negative) 12/19/23 16:11 Urine Urobilinogen Normal mg/dL (Normal) 12/19/23 16:11 Ur Leukocyte Esterase 3+ (Negative) H 12/19/23 16:11 Urine RBC 10-19 /HPF (0-4) H 12/19/23 16:11 Urine WBC 20-49 /HPF (0-4) H 12/19/23 16:11 Urine WBC Clumps Many /LPF (None Seen) H 12/19/23 16:11 Ur Squamous Epith Cells N/A 12/19/23 16:11 Urine Bacteria 4+ /HPF (None Seen) H 12/19/23 16:11 Hyaline Casts None /LPF (0-8) 12/19/23 16:11 Urine HCG, Qual Negative 12/19/23 16:11 Urine Opiates Screen Negative (Negative) 12/19/23 16:11 Ur Barbiturates Screen Negative (Negative) 12/19/23 16:11 Ur Phencyclidine Scrn Negative (Negative) 12/19/23 16:11 Ur Amphetamines Screen Negative (Negative) 12/19/23 16:11 U Benzodiazepines Scrn Negative (Negative) 12/19/23 16:11 Urine Cocaine Screen Negative (Negative) 12/19/23 16:11 U Marijuana (THC) Screen Negative (Negative) 12/19/23 16:11 Ethyl Alcohol < 10 mg/dL 12/19/23 14:20 % Ethyl Alcohol TNP 12/19/23 14:20 SARS-CoV-2 Rap RNA(RT-PCR) Negative (Negative) 12/19/23 14:16 Microbiology Results Micro: Microbiology - Results from entire visit 12/19/23 14:16 Nasopharyngeal SARS-CoV-2, Influenza & RSV (PCR) - Final Assessment & Plan Assessment/Plan (1) Sepsis: (2) Complicated urinary tract infection: (3) Acute encephalopathy: (4) Expressive aphasia: (5) Benzodiazepine withdrawal: (6) Psoriatic arthritis: Plan Assessment/plan: Sepsis: Likely due to: Complicated urinary tract infection, with: risk of Bacteremia with ongoing shaking chills and rigors and severe leukocytosis. -Will treat her with the bacteremia dose of Rocephin to 2 g IV every 24 hours. -Await results of blood and urine cultures. -Home use of Cosentyx increases the risk of infections and their side complications. Elevated D-dimer: -CTA of the chest shows no pulmonary embolus. -Will check venous Doppler ultrasound of both legs because she was bedbound for at least 3 days Acute encephalopathy combined with a strange hyperactive delirium with altered neurologic functioning and difficulty with expressive speech -Initial workup in the emergency room with CT and CTA of the head and neck unrevealing. -Will complete the workup with MRI of the brain, echocardiogram, neurology consult, PT, OT, and ST evaluations. -At this time aspirin has not yet been provided. I will order 324 mg of p.o.aspirin statin and then 81 mg p.o. daily. -Will check hemoglobin A1c, lipid panel New finding of anemia. Last year her hemoglobin was 13.4. Now it is 9.7 and I suspect it will go even lower because the patient is very clinically dry and dehydrated. -Checking iron, TIBC, ferritin, folic acid, vitamin B12 in the morning. Benzodiazepine withdrawal. -Administration of clonazepam in the emergency room seems to have helped selina this. Will continue to monitor during hospital stay. Other hospital care: DVT prophylaxis with 40 mg of enoxaparin subcutaneously daily. Full CODE STATUS. Continuous telemetry monitoring. Further care for this patient will be provided by my hospitalist colleagues taking over during the daytime. IP vs OBS Justification Based on differential dx, clinical care plan, and risk of adverse events, if untreated, in my clinical judgement this patient requires an acute care setting as: INPATIENT because of an expectation of an over 2 midnight stay. Estimated length of stay (# of days): 3 Documented By: Dennys Garcia DO 5 Signed By: <Electronically signed by Dennys Garcia DO> 12/19/23 1564 [facility] Work Phone: 1(610) 718-963512-11-2023 Instructions* Patient Instructions* Aren Bernstein MD - 05/04/2023 4:30 PM EST You came to see us today for some on-going neuropathy (numbness / tingling and pain) in your palms and soles due to your palmo-plantar pustulosis. You are taking Gabapentin for this right now, but are interested in trying a new medication and in particular one that could help you with your mood. We think a medication such as Lyrica (pregabalin) could help with both neuropathy and mood. We would like you to do the following: STOP taking gabapentin 2. START taking Lyrica (pregabalin) -- 150 mg three times a day 3. You should get an MRI scan of your brain (we would recommend getting this WITH contrast) -- we will order this for you today, you will have to call the Radiology department and schedule this Please feel free to reach out as needed for your next follow-up appointment Thanks for coming to see us today! [facility] History of Present illness Narrative* Debbie Rodarte MD - 05/04/2023 1:38 PM EST Images from the original note were not included. Neurology Outpatient Clinic History and Physical Clinic Preceptor: Dr. Rodarte Reason for Evaluation: Neuropathy HPI: Ms. Nikki Hunt is a Right-handed, 42 year old female from [place], [place] who [facility] with a chief complaint of neuropathy in the hands and feet. 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 Taking gabapentin 1200 AM, 600 mg PM, 1200 at bed-time. Numbness / tingling and pain are constant throughout the day, sometimes non-noticeable, occasionally exacerbated to a shooting pain with activity (moreso in the hands than the feet). Also with occasional blistering and bleeding of the hands and feet with increased activity. She has been on disability for several years given she cannot be on her feet or use her hands for extended periods of time without blistering and bleeding. 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 No numbness or tingling or sensory loss anywhere else in the body. Does have prior history of LUE and LLE weakness each occurring consecutively and lasting about a month at the end of 2017 / beginning of 2018 while on vacation in [place]. No provoking factors that she recalls (ie, no focal compression history). No family history of similar episodes. Reportedly hadEMG that was negative (but we do not have results in our system). MRI brain at that time as well toevaluate for MS but states it was negative. No other focal neurologic deficits since that time. Aunt with GBS that was unprovoked and has left her with significant gait debility. No recent fevers/chills or illness. Denies any motor symptoms or other focal neurologic deficits. Is interested in switching from gabapentin to something else -- her PCP suggested Dg. Does alsoendorse some significant seasonal depression. CURRENT OUTPATIENT MEDICATIONS Current Outpatient Medications Medication Sig letrozole (FEMARA) 2.5 mg tablet Take 2 tablets by mouth once daily for 5 days. Menstrual cycle day3-7 clonazePAM (KLONOPIN) 0.5 mg tablet Take 2 tablets by mouth daily at bedtime. esomeprazole (NEXIUM) 40 mg capsule Take 40 mg by mouth every morning. famotidine (PEPCID) 20 mg tablet Take 40 mg by mouth every morning. COSENTYX PEN, 2 PENS, 150 mg/mL pnij Inject 1 Pen subcutaneously once every month. sulfamethoxazole-trimethoprim (BACTRIM DS,SEPTRA DS) 800-160 mg per tablet Take 1 tablet by mouth twice daily. For 10 days docosahexanoic acid/epa (FISH OIL ORAL) Take 2 capsules by mouth once daily. No current facility-administered medications for this visit. 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 SURGICAL HISTORY PAST SURGICAL HISTORY Procedure Laterality Date EXPOSURE TOOTH AID ERUPTION removal of wisdom teeth REMOVAL OF OVARY(S) Right 2000 Oophorectomy SOCIAL HISTORY Social History Tobacco Use Smoking status: Every Day Packs/day: 1.00 Years: 22.00 Additional pack years: 0.00 Total pack years: 22.00 Types: Cigarettes Smokeless tobacco: Never Tobacco comments: vaping Substance Use Topics Alcohol use: Yes Comment: SOCIAL ON HOLIDAY Drug use: No FAMILY HISTORY FAMILY HISTORY Problem Relation Age of Onset Coronary Artery Disease Maternal Grandfather Diabetes Maternal Grandfather None Paternal Grandmother Coronary Artery Disease Paternal Grandmother Melanoma Mother Thyroid Maternal Grandmother ALLERGIES ALLERGIES No Known Allergies REVIEW OF SYSTEMS: (negative except for those indicated in bold) See above HPI PHYSICAL EXAM: BP 137/84 Pulse 67 Ht 4' 11 (1.50m) Wt 160 lb (72.6kg) SpO2 98% LMP 04/24/2023 BMI 32.30 kg/(m^2). Neurological: Mental Status: Alert, oriented to person, place and time and Follows commands. Cranial Nerves: CNII: Visual muhammad full to confrontation, No APD noted on exam CNIII, IV, : Pupils equal, round and reactive to light, full extraoccular movements, without nystagmus CN V: Facial sensation intact bilaterally to fine touch and pinprick, masseter 5/5 CN VII: Facial muscles symmetric and strong, No noted facial droop CN VIII: Hears finger rub well bilaterally CN IX: Gag Reflex Not examined CN X: Palate elevates symmetrically CN XI: Full strength shoulder shrug bilaterally CN XII: Tongue protrusion full and midline Motor: Individual Muscle Group Testing: Upper Extremity Right Left Shoulder Abduction (Deltoid, Axil C5) 5/5 5/5 Elbow Flexion (Bicep, MusCtn C5,6) 5/5 5/5 Elbow Extension (Triceps, Radial C7) 5/5 5/5 Wrist Extension (ECR, Radial C6) 5/5 5/5 DIP Flexion 2/3 (FDP, Median C8) 5/5 5/5 DIP Flexion 4/5 (FDP, Ulnar C8) 5/5 5/5 Finger Extension (ED, Radial C7) 5/5 5/5 Finger Abduction (FDI, Ulnar T1) 5/5 5/5 Lower Extremity Right Left Hip Flexion (Psoas, Femoral L1/L2) 5/5 5/5 Hip Extension (GlutMax, Sciatic L5,S1) 5/5 5/5 Hip Adduction (Adductors, Obturator L2,3) 5/5 5/5 Knee Flexion (Hamstrings, Sciatic S1) 5/5 5/5 Knee Extension (Quads, Femoral L3/L4) 5/5 5/5 Dorsiflexion (TA, Deep Peroneal L4) 5/5 5/5 Plantarflexion (Gastroc, Tibial S1, S2) 5/5 5/5 Foot Eversion (PL/PB, SP L5-S1) 5/5 5/5 Foot Inversion (TibPost, Tibial L4-5) 5/5 5/5 Big Toe extension (EHL, DP L5) 5/5 5/5 Reflexes: Babinskis: down-going bilaterally Glover's: negative bilaterally RIGHT LEFT Brachioradialis 2+ 2+ Biceps 2+ 2+ Triceps 1+ 1+ Knee 2+ 2+ Achilles 2+ 2+ Sensation: intact. Coordination: Finger-to- nose-finger intact bilaterally and Wgdf-[id number]-icri intact bilaterally. Gait: normal-based. LABS/DATA: No new labs IMAGING: No pertinent recent available. ASSESSMENT AND PLAN: Ms. Nikki Hunt is a Right-handed, 42 year old female from [place], [place] who [facility] with a chief complaint of neuropathy in the hands and feet. 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 Well managed on gabapentin but would like to see if Lyrica could be better, also would like some mood improving effect as well. Will switch from gabapentin to Lyrica as below (total daily dose of gabapentinpresently 3000 mg, roughly equivalent Lyrica dose would be 500 mg daily). Given young age, prior history of unexplained self-limited neurologic deficits of LUE and then LLE weakness -- would obtain updated MRI brain with contrast to rule out de-myelinating process. Can follow-up as needed pending imaging result. Plan: - STOP gabapentin - START Lyrica 150 mg TID - MRI brain with and without contrast - f/u PRN Discussed with staff, Dr. Rodarte SIGNATURE: Aren Bernstein MD Adult Neurology Resident, PGY-4 May 04, 2023 1:38 PM Staff Addendum: I have seen and evaluated the patient and discussed the case with the resident physician. I agree with the assessment and plan as documented in the resident s note. Nikki Hunt is a 42 year-old woman with a prior diagnosis of neuropathy based on numbness in her palms and soles. These are areas affected by suspected palmo-plantar pustulosis. Symptoms are variable but painful. She also reports episodic left hemibody weakness. Exam unrevealing. Will assess MRI brain c/s contrast to investigate for central inflammatory or structural lesion as etiology. Gabapentin is helpful in reducing symptoms. Reasonable to switch to Lyrica 150 mg tid and monitor for improved efficacy and/or reduced side effects. Results of MRI to be released via [email or web address]. Debbie Rodarte MD CC: Referring Physician: No referring provider defined for this encounter. PCP: MD Christos Wright MD [address] [id number] [facility] History of Past illness Narrative* Problem Noted Date Diagnosed Date Resolved Date Nausea 03/19/2016 08/27/2020 documented as of this encounter (statuses as of 05/08/2023) [facility] Author Lorne Gan [facility] December 22, 2023 12:39pm Note Date/Time December 22, 2023 12:3 3pm [facility] [address] [place] [address] Discharge Summary Signed Patient: Nikki Hunt MR# : [id number] : 1980 Acct:[id number] Age/Sex: 43 / F Adm Date: 4 Loc: 4N Room: [address] [place] [address]: Lorne Gan MD Copies to: [facility] Lorne Gan MD~ Providers Date of Discharge: 12/22/23 Discharging Provider: Lorne Gan Primary Care Provider: Services [facility] Consults: 12/19/23 21:06 Consult to Neurology Routine Comment: Consulting Provider: [facility] Reason For Exam: trouble speaking correctly. Has Provider Been Notified: Yes Date of Notification: 12/20/23 Time of Notification: 08:39 12/19/23 23:11 Consult to Occupational Therapy Routine Comment: Physician Instructions: Consult to OT for:: Evaluation and Treat Consult to Physical Therapy Routine Comment: Physician Instructions: Consult to PT for:: Evaluation and Treat Consult to Speech Therapy Routine Comment: Reason for ST Consult: Bedside Swallow Eval & Tx Diet per ST Recommendations: Yes Contact Physician Before Ordering Diet: No Modified Barium Swallow Study, If Recommended: Yes Discharge Diagnosis (1) Sepsis: (2) Complicated urinary tract infection: (3) Expressive aphasia: (4) AMS (altered mental status): (5) Acute encephalopathy: (6) Benzodiazepine withdrawal: (7) Anemia: Final Diagnosis Final Discharge Diagnosis: As above Summary Hospital Course Hospital course: Patient is a pleasant 42-year-old female with past medical history of psoriatic arthritis, anxiety and other medical comorbidities. Patient was brought to the emergency room for slurred speech, diaphoresis and confusion. In the ER she wasfound to be septic due to acute complicated cystitis and was admitted for further management. In the emergency room CT head was negative for acute abnormality. CTA head and neck was negative for critical stenosis. She also had CTA chest which was negative for PE or acute lung pathology. Patient was admitted started on IV antibiotic and neurology was consulted. Venous duplex lower extremity negative for DVT. Mentation has improved and suspecting symptoms due to acute metabolic encephalopathy from acute complicated cystitis. MRI brain was obtained which came back negative for acute abnormality as well. Urine culture came back growing E. coli which is pansensitive. Labs did show drop in hemoglobin with no signs of active bleeding. Iron profile consistent with anemia of inflammation. She has not been able to provide stool for occult blood and insists to be discharged home since she is feeling better. Denies dizziness, generalized weakness or shortness of breath on exertion. 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 Will recommend follow-up with her timber estimator and if cleared then she will need to see GI for possible endoscopic evaluation. Recommend repeat CBC in 6 days to follow-up hemoglobin and further workup. Condition Condition at Discharge: Stable Status at Discharge Functional status at discharge: independent ambulation Overall status at discharge: patient is back to baseline Time Spent with Patient Time spent providing/coordinating discharge services (# min): 35 Discharge Plan Discharge Plan Patient Disposition: Home Activity: No Activity Restriction Diet: Regular and Other Comment: See speech therapy recommendations below. Additional Instructions: Speech therapy recommendations: *Take pills whole, one at a time, with water *Sit upright at 90 degrees during all oral intake *Effortful swallow *Take small bites and sips *Alternate liquids and solids *Pace yourself and eat at a slow-rate *Sit upright for 30 minutes after meals and snacks Instructions: Know your Meds Prescriptions: New cephalexin 500 mg tablet 500 mg PO BID 5 Days Qty: 10 0RF Continued gabapentin 600 mg tablet 600 mg PO BID pregabalin 150 mg capsule 150 mg PO TID Cosentyx Pen (2 Pens) 150 mg/mL pen injector 150 mg SUBCUT .1mon dextroamphetamine-amphetamine 30 mg capsule,extended release 24hr PO Brixadi 64 mg/0.18 mL solution, extended rel syringe SUBCUT clonazepam 1 mg tablet 1 mg PO DAILY quetiapine 300 mg tablet 300 mg PO HS quetiapine 50 mg tablet extended release 24 hr 50 mg PO HS clonazepam 0.5 mg tablet 1 mg PO HS Complete 14 mg iron- 400 mcg Tablet 1 tab PO DAILY.AC.BKFAST Discontinued naproxen sodium [Aleve] 220 mg capsule 440 mg PO BID PRN (Reason: pain) buprenorphine HCl 8 mg tablet, sublingual 12 mg SUBLINGUAL DAILY.AC.BKFAST Patient Comments: PUT 1.5 TABLET UNDER TONGUE ALLOW TO DISSOLVE ONCE A DAY ibuprofen 600 mg tablet 600 mg PO Q6H PRN (Reason: pain) Qty: 30 1RF Other Ambulatory Orders: Complete Blood Count Auto Diff (Routine) Timeframe: 6 Days Location: Determined by Patient Ordered By: Lorne Gan Follow Up: Gene Salhe, PhD [Active Staff] - [facility],Services [Primary Care Provider] - Exam Physical Exam Vital Signs: Temp Pulse Resp BP Pulse Ox O2 Del Method 98.4 F 81 16 111/60 97 Room Air 12/22/23 08:23 12/22/23 08:23 12/22/23 08:23 12/22/23 08:23 12/22/23 08:23 12/22/23 08:23 Const Orientation: alert, awake and oriented x3 Resp Effort & Inspection: normal respiratory effort and able to speak in complete sentences Auscultation: no rales, no rhonchi and no wheezes Cardio Rate: regular rate Rhythm: regular rhythm Heart Sounds: S1 normal and S2 normal GI Palpation: soft, not firm, no guarding and nontender Neuro General: patient alert, patient awake, patient oriented x3, moves all extremities, no focal motor deficits and CN's II-XI intact bilaterally Cognition: normal cognition Speech: speech normal Motor: muscle tone normal throughout and strength 5/5 throughout Extrem General: no clubbing, cyanosis or edema and no calf tenderness Diagnostic Studies Completed and Pending Studies Pending studies at discharge: 12/20/23 09:19 Stool Occult Blood (Guaiac) Routine 12/23/23 05:00 Basic Metabolic Panel [CHEM] IN AM Complete Blood Count Auto Diff IN AM Labs on day of discharge: 12/22/23 06:06: Corrected WBC 10.9, Uncorrected WBC Count 10.9, RBC 2.99 L, Hgb 7.9 L, Hct 23.4 L, MCV 78.4 L, MCH 26.4, MCHC 33.7, RDW 16.1 H, Plt Count 439, MPV 8.2, Neut % (Auto) N/A, Lymph % (Auto) N/A, Warren % (Auto) N/A, Eos % (Auto) N/A, Baso % (Auto) N/A, Nucleat RBC Rel Count N/A, Neut # (Auto) N/A, Lymph # (Auto) N/A, Warren # (Auto) N/A, Eos # (Auto) N/A, Baso # (Auto) N/A, Lymphocytes % 28, Monocytes % 7, Eosinophils % 6 H, Basophils % 1, Metamyelocytes % 2 H, Segmented Neutrophils 55, Reactive Lymphocytes 1, Toxic Granulation Slight, Platelet Estimate Normal, Plt Morphology Comment Normal, RBC Morphology N/A, Anisocytosis Slight, Microcytosis Slight, Absolute Retic 0.026, Percent Retic 0.9, PHA Creatinine Clear 70.97, Sodium 144, Potassium 4.1, Chloride 110 H, Carbon Dioxide 26.1, Anion Gap 12.0, BUN 8, Creatinine 0.86, Est GFR (CKD-EPI) > 60.0, Glucose 96, Calcium 8.6, Total Bilirubin 0.4, Direct Bilirubin 0.10, Indirect Bilirubin 0.3 Documented By: Lorne Gan MD 12/22/23 1229 Signed By: <Electronically signed by Lorne Gan MD> 12/22/23 1239 [facility] Work Phone: Evaluation noteNo assessment information available [facility] Work Phone: Evaluation note* Diagnosis Neuropathy- Primary Mononeuritis of unspecified site Multiple sclerosis (HCC) Multiple sclerosis [facility] Diagnosis Onset Date Resolution Status AMS (altered mental status) acute UTI (urinary tract infection) acute [facility] Work Phone: Evaluation note* Diagnosis Onset Date Resolution Status Acute encephalopathy acute AMS (altered mental status) acute Anemia acute Benzodiazepine withdrawal ac [place] Complicated urinary tract infection acute Expressive aphasia acute Psoriatic arthritis acute Sepsis acute UTI (urinary tract infection) acute Word finding difficulty acut e [facility] Work Phone: Evaluation note* Diagnosis Onset Date Resolution Status Anemia acute Acute encephalopathy resolve d AMS (altered mental status) resolved Benzodiazepine withdrawal re solved Complicated urinary tract infection resolved Expressive aphasia resolved Sepsis resolved UTI (urinary tract infection) resolved Word finding difficulty reso lved [facility] Work Phone: Evaluation note* Diagnosis Memory loss- Primary Concentration deficit Word finding difficulty 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 hauler 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) Generalized anxiety disorder (CMS/HCC) Generalized anxiety disorder Severe episode of recurrent major depressive disorder, without psychotic features (HCC) (CMS/HCC) [facility]* Diagnosis Memory loss- Primary Severe episode of recurrent major depressive disorder, without psychotic features (HCC) (CMS/HCC) Generalized anxiety disorder (CMS/HCC) Generalized anxiety disorder 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) 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 hauler Word finding difficulty Concentration deficit [facility]* Diagnosis Dental abscess- Primary Periapical abscess without sinus Pain, dental documented [facility]* Diagnosis Memory loss- Primary Concentration deficit Word finding difficulty 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 hauler Depression with anxiety Dysthymic disorder 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) [facility]* Diagnosis Polyarticular psoriatic arthritis (HCC)- Primary Psoriatic arthropathy Psoriasis vulgaris Other psoriasis Palmoplantar pustulosis Other psoriasis Polyarthralgia Pain in joint, multiple sites Dental infection Acute apical periodontitis of pulpal origin Vaccine counseling Other specified counseling Need for influenza vaccination Need for prophylactic vaccination and inoculation against influenza [facility] Psoriasis vulgaris Other psoriasis Polyarticular psoriatic arthritis (HCC) Psoriatic arthropathy [facility] Diagnosis Polyarticular psoriatic arthritis (HCC)- Primary Psoriatic arthropathy Psoriasis vulgaris Other psoriasis Palmoplantar pustulosis Other psoriasis Polyarthralgia Pain in joint, multiple sites Dental infection Acute apical periodontitis of pulpal origin Vaccine counseling Other specified counseling Need for influenza vaccination Need for prophylactic vaccination and inoculation against influenza Family history of psoriasis in son and daughter Family history of skin conditions Recurrent pneumonia Pneumonia, organism unspecified Immunosuppressed status (HCC) Unspecified disorder of immune mechanism NO SHOW [facility] Diagnosis Scalp pain- Primary [facility] Discharge instructions Additional Instructions Speech therapy recommendations: *Take pills whole, one at a time, with water *Sit upright at 90 degrees during all oral intake *Effortful swallow *Take small bites and sips *Alternate liquids and solids *Pace yourself and eat at a slow-rate *Sit upright for 30 minutes after meals and snacks Obtain CBC in 6 days as ordered-- results to [facility] Work Phone: Reason for referral (narrative)* Diagnostic Procedure Only (Routine) - Closed Specialty Diagnoses / Procedures Referred By Contac t Referred To Contact XR IMAGING Diagnoses Polyarticular psoriatic arthritis (HCC) Procedures XR FOOT GENERAL 3V AP/LAT/OBL BILATERAL RADEX FOOT COMPLETE MINIMUM 3 VIEWS Ruthie Ward DO [address] [phone] [place] [id number] Referral ID Status Reason Start Date Expiration Date V isits Requested Visits Authorized [id number] Closed Auto-Generate d Referral 05/05/2024 06/04/2025 1 1 * Diagnostic Procedure Only (Routine) - Closed Specialty Diagnoses / Procedures Referred By Contac t Referred To Contact XR IMAGING Diagnoses Polyarticular psoriatic arthritis (HCC) Procedures XR HIP GENERAL 3V PELV/AP/LAT RIGHT RADEX HIP UNILATERAL WITH PELVIS 2-3 VIEWS Ruthie Ward DO [address] [phone] X[facility] Imaging [facility] Referral ID Status Reason Start Date Expiration Date V isits Requested Visits Authorized [id number] Closed Auto-Generate d Referral 05/05/2024 06/04/2025 1 1 * Diagnostic Procedure Only (Routine) - Closed Specialty Diagnoses / Procedures [facility] To Contact XR IMAG[facility] Diagnoses Polyarticular psoriatic arthritis (HCC) Procedures XR HIP GENERAL 3V PELV/AP/LAT LEFT RADEX HIP UNILATERAL WITH PELVIS 2-3 VIEWS Ruthie Ward DO [address] [phone] [place] [id number] Referral ID Status Reason Start Date Expiration Date V isits Requested Visits Authorized [id number] Closed Auto-Generate d Referral 05/05/2024 06/04/2025 1 1 * Diagnostic Procedure Only (Routine) - Closed Specialty Diagnoses / Procedures Referred By Contac t Referred To Contact XR IMAGING Diagnoses Polyarticular psoriatic arthritis (HCC) Procedures XR SHOULDER GENERAL 3V OR MORE AP/TRUE AP/OTHER LEFT RADEX SHOULDER COMPLETE MINIMUM 2 VIEWS Ruthie Ward DO [address] [phone] [facility] Referral ID Status Reason Start Date Expiration Date V isits Requested Visits Authorized [id number] Closed Auto-Generate d Referral 05/05/2024 06/04/2025 1 1 * Diagnostic Procedure Only (Routine) - Closed Specialty Diagnoses / Procedures Referred By Contac t Referred To Contact XR IMAGING Diagnoses Polyarticular psoriatic arthritis (HCC) Procedures XR SHOULDER [id number] AP/TRUE AP RIGHT RADEX SHOULDER COMPLETE MINIMUM 2 VIEWS Ruthie Ward DO [address] [phone] [facility] Referral ID Status Reason Start Date Expiration Date V isits Requested Visits Authorized [id number] Closed Auto-Generate d Referral 05/05/2024 06/04/2025 1 1 * Diagnostic Procedure Only (Routine) - Closed Specialty Diagnoses / Procedures Referred By Contac t Referred To Contact XR IMAGING Diagnoses Polyarticular psoriatic arthritis (HCC) Procedures XR HAND/WRIST SURVEY ARTHRITIS 1V PA BILATERAL JOINT SURVEY SINGLE VIEW 2 OR MORE JOINTS Ruthie Ward DO [address] [phone] X[facility] Imaging [facility] Referral ID Status Reason Start Date Expiration Date V isits Requested Visits Authorized [id number] Closed Auto-Generate d Referral 05/05/2024 06/04/2025 1 1 * Diagnostic Procedure Only (Routine) - Closed Specialty Diagnoses / Procedures Referred By Contac t Referred To Contact XR IMAGING Diagnoses Psoriasis vulgaris Procedures XR SACROILIAC JOINTS 2V AP PELVIS/FERGUESON RADIOLOGIC EXAMINATION SACROILIAC JNTS <3 VIEWS Ruthie Ward DO [address] [place] [address] [place] [id number] Referral ID Status Reason Start Date Expiration Date V isits Requested Visits Authorized [id number] Closed Auto-Generate d Referral 05/05/2024 06/04/2025 1 1 [facility]No reason for referral information [facility] Work Phone: Reason for visit Narrative* Diagnostic Procedure Only (Routine) - Closed Specialty Diagnoses / Procedures Referred By Sb campoverde Referred To Contact XR IMAGING Diagnoses Polyarticular psoriatic arthritis (HCC) Procedures XR FOOT GENERAL 3V AP/LAT/OBL BILATERAL RADEX FOOT COMPLETE MINIMUM 3 VIEWS Ruthie Ward, [address] [place] [address] Xr Imaging [id number] Referral ID Status Reason Start Date Expiration Date V isits Requested Visits Authorized [id number] Closed Auto-Generate d Referral 05/05/2024 06/04/2025 1 1 [facility] Summary Purpose Family History Relationship Condition Age at Onset Recorded Date/T zora father Hypertension Unknown Not Specified Malignant melanoma Unknown Relationship Condition Age at Onset Recorded Date/T zora father Hypertension Unknown mother Malignant melanoma Unknown Advance Directives Advance Directive Response Recorded Date/ Time Advance Directives No March 30, 2017 3:22pm Chief Complaint and Reason for Visit Chief Complaint LABS Chief Complaint Z79.899 Chief Complaint [facility] Reason for Visit AMS (altered mental status) UTI (urinary tract infection) Chief Complaint [facility] Reason for Visit Acute encephalopathy AMS (altered mental status) Anemia Benzodiazepine withdrawal Complicated urinary tract infection Expressive aphasia Psoriatic arthritis Sepsis UTI (urinary tract infection) Word finding difficulty Chief Complaint p D64.9 Reason for Visit Anemia Acute encephalopathy AMS (altered mental status) Benzodiazepine withdrawal Complicated urinary tract infection Expressive aphasia Sepsis UTI (urinary tract infection) Word finding difficulty Chief Complaint Admit Date tooth ache January 20, 2025 10 :13pm Reason for Referral Specialty Diagnoses / Procedures Referred By Sb campoverde Referred To Contact MR IMAGING Diagnoses Multiple sclerosis (HCC) Procedures MRI BRAIN WO/W IVCON MRI BRAIN BRAIN STEM W/O W/CONTRAST MATERIAL Kuenzler, Debbie M, MD [address] [place] [address] [place] [id number] Referral ID Status Reason Start Date Expiration Date Visits Requested Visits Authorized [id number] Authorized Auto-Generat ed Referral 3 06/02/2024 1 1 Additional Source Comments INFORMATION SOURCE (unrecogn ized section and content) DATE CREATED AUTHOR 11/17/2017 Allen Harvey [facility] DATE CREATED AUTHOR AUTHOR'S ORGANIZ ATION 01/21/2019 [facility] DATE CREATED AUTHOR AUTHOR'S ORGANIZ ATION 04/23/2022 [facility] DATE CREATED AUTHOR AUTHOR'S ORGANIZ ATION 08/06/2024 [facility] DATE CREATED AUTHOR AUTHOR'S ORGANIZ ATION 08/18/2024 [facility] DATE CREATED AUTHOR AUTHOR'S ORGANIZ ATION 01/22/2025 [facility] DATE CREATED AUTHOR AUTHOR'S ORGANIZ ATION 01/29/2025 [facility] EPIC Care Teams (unrecognized sec tion and content) Team Status: Active Member Role Status Dates Services [facility] Primary Care Provider Active Team Status: Inactive Member Role Status Dates Ondina Landa [facility]- Emergency Provider Active Start: December 19, 2023 End: December 22, 2023 Services [facility] Primary Care Provider Active Start: December 19, 2023 End: December 22, 2023 Dennys Garcia DO Admit Provider Active Start: December 19, 2023 End: December 22, 2023 Lorne Gan MD Attending Provider Active Sta rt: December 19, 2023 End: December 22, 2023 Michelle Hernández Other Provider Active Start: December 19, 2023 End: December 22, 2023 Gene Saleh , PhD Other Provider Active S tart: December 19, 2023 End: December 22, 2023 Kimberly Matthews DO Other Provider Active Start: December 19, 2023 End: December 22, 2023 Dg Forrest MD Other Provider Active Start : December 19, 2023 End: December 22, 2023 Judd Lomeli , Other Provider Active Start: December 19, 2023 End: December 22, 2023 Kyleigh Bolden , ANP-BC Other Provider Active Start: December 19, 2023 End: December 22, 2023 Harman Arias , DO Other Provider Active Start: December 19, 2023 End: December 22, 2023 Rose Lopez , KELLI Other Provider Active St art: December 19, 2023 End: December 22, 2023 Bree Barahona , CHRISTA-C Other Provider Active Sta rt: December 19, 2023 End: December 22, 2023 Vanessa Frazier , KELLI-INHALATION THERAPY AIDES TEACHER-C Other Provider Active Start: December 19, 2023 End: December 22, 2023 Team Status: Inactive Member Role Status Dates Christos Cooper , DO Primary Care Provider Acti ve William Bueno , DO Attending Provider Active Team Status: Active Member Role Status Dates Christos Cooper , DO Primary Care Provider Acti ve Team Status: Inactive Member Role Status Dates Christos Cooper , DO Primary Care Provider Acti ve Ellen Jon MD Attending Provider Active Highway Truck Driver Relationship Specialty Start Date End Date Christos Cooper PCP - General 05/05/05 Viviana Ellis CNP [address] [place] [address] Referring Family Medicine 03/05/23 Viviana Ellis CNP [address] [place] [address] Referring Family Medicine 03/09/23 Team Status: Active Member Role Status Dates Ondina Landa INHALATION THERAPY AIDES TEACHER-BC Emergency Provider Active Start: December 19, 2023 Services [facility] Primary Care Provider Active Start: December 19, 2023 Dennys Garcia DO Admit Provider , Attending Provider Active Start: December 19, 2023 Team Status: Active Member Role Status Dates Kaylyn Bonilla APRN BREAKER UNIT ASSEMBLER-C Primary Care Provider Act ernestina Team Status: Inactive Member Role Status Dates Kaylyn Goldmanyoana Bonilla APRN BREAKER UNIT ASSEMBLER-C Primary Care Provider Act ernestina Start: December 29, 2023 End: December 29, 2023 Lorne Gan MD Attending Provider Active Sta rt: December 29, 2023 End: December 29, 2023 [address] Truck Driver Relationship Specialty Start Date End Date BonillaKaylyn BREAKER UNIT ASSEMBLER [address] [place] [place] [address] Referring Physician Family Medicine 02/24/24 Highway Truck Driver Relationship Specialty Start Date End Date Kaylyn Bonilla BREAKER UNIT ASSEMBLER [address] [place] [place] [address] Referring Physician Family Medicine 02/24/24 Highway Truck Driver Relationship Specialty Start Date End Date BonillaKaylyn BREAKER UNIT ASSEMBLER [address] [place] [place] [address] Referring Physician Family Medicine 02/24/24 Highway Truck Driver Relationship Specialty Start Date End Date Kaylyn Bonilla BREAKER UNIT ASSEMBLER [address] [place] [address] Referring Physician Family Medicine 02/24/24 Highway Truck Driver Relationship Specialty Start Date End Date BonillaKaylyn, SERVER SYSTEMS ADMINISTRATOR [address] [place] [address] PCP - General Family Medicine 05/05/24 Viviana Ellis CNP [address] [place] [address] Referring Family Medicine 03/05/23 Viviana Ellis CNP [address] [place] [address] Referring Family Medicine 03/09/23 Ellen Jon MD [address] [place] [address] Dermatology 05/05/24 Highway Truck Driver Relationship Specialty Start Date End Date Kaylyn Bonilla CNP [address] [place] [place] [address] PCP - General Family Medicine 05/05/24 Viviana Ellis CNP [address] [place] [address] Referring Family Medicine 03/05/23 Viviana Ellis CNP [address] [place] [address] Referring Family Medicine 03/09/23 Ellen Jon MD [address] [place] [address] Dermatology 05/05/24 Highway Truck Driver Relationship Specialty Start Date End Date Kaylyn Bonilla NP [address] [place] [id number] Referring Physician Family Medicine 02/24/24 Highway Truck Driver Relationship Specialty Start Date End Date Kaylyn Bonilla CNP [address] [place] [address] PCP - General Family Medicine 05/05/24 Viviana Ellis CNP [address] [place] [address] Referring Family Medicine 03/05/23 Viviana Ellis CNP [address] [place] [address] Referring Family Medicine 03/09/23 Ellen Jon MD [address] [place] [address] Dermatology 05/05/24 Team Status: Inactive Member Role Status Dates Kaylyn Bonilla APRN BREAKER UNIT ASSEMBLER-C Primary Care Provider Act ernestina Start: January 20, 2025 End: January 20, 2025 Mal Vann DO Emergency Provider Active St art: January 20, 2025 End: January 20, 2025 Highway Truck Driver Relationship Specialty Start Date End Date Kaylyn Bonilla NP [address] [place] [address] Referring Physician Family Medicine 02/24/24 Goals (unrecognized section and content) Goals may be documented in a n alternate sectionGoals may be documented in an alternate sectionGoals may be documented in an alternate sectionGoals may be documented in an alternate section Source Comments (unrecognize d section and content) In the event this informatio n is protected by the Federal Confidentiality of Alcohol and Drug Abuse Patient Records regulations: The Federal rules restrict any use of the information to criminally investigate or prosecute any alcohol or drug abuse patient.[facility] the event this information is protected by the Federal Confidentiality of Alcohol and Drug Abuse Patient Records regulations: The Federal rules restrict any use of the information to criminally investigate or prosecute any alcohol or drug abuse patient.[facility] Hospital[facility] the event this information is protected by the Federal Confidentiality of Alcohol and Drug Abuse Patient Records regulations: The Federal rules restrict any use of the information to criminally investigate or prosecute any alcohol or drug abuse patient.[facility] the event this information is protected by the Federal Confidentiality of Alcohol and Drug Abuse Patient Records regulations: The Federal rules restrict any use of the information to criminally investigate or prosecute any alcohol or drug abuse patient.[facility] Reason for Visit (unrecogniz ed section and content) Specialty Diagnoses / Procedures Referred By Contac t Referred To Contact Neurology Diagnoses Aphasia Procedures ID NEUROPSYCHOLOGICAL TST EVAL PHYS/QHP EA ADDL HR Lorne Gan MD [address] [place] [address] Gene Saleh, PhD [address] [place] [id number] Referral ID Status Reason Start Date Expiration Date V isits Requested Visits Authorized [id number] Closed Specialty Services Required 12/23/2023 06/20/2024 1 1 Reason Onset Date Comments Psoriatic Arthritis Establish Ca re Immunizations 05/05/2024 Flu vaccination Reason Comments No Show FOR RECORDS PERTAINING TO PATIENTS WHO ARE OR HAVE BEEN ENROLLED IN A CHEMICAL DEPENDENCY/SUBSTANCEABUSE PROGRAM, SOME INFORMATION MAY BE OMITTED. This clinical summary was aggregated from multiple sources. Caution should be exercised in using it in the provision of clinical care. This summary normalizes information from multiple sources, and as a consequence, information in this document may materially change the coding, format and clinical context of patient data. In addition, data may be omitted in some cases. CLINICAL DECISIONS SHOULD BE BASED ON THE PRIMARY CLINICAL RECORDS. [facility]. provides no warranty or guarantee of the accuracy or completeness of information in this document.
--- NOTE | 2025-02-08 20:49 | PC.NURSE ---
no rash observed to back of head, skin clear
--- NOTE | 2025-02-08 21:00 | PC.NURSE ---
this patient complains of left side head pain, I think i have shingles this patient denies any recent fall, injury or trauma to cause this left side headache this patient vices no other complaints or needs and shows no signs of distress
--- NOTE | 2025-02-08 21:09 | CT_ITS ---
The [address] [address] Patient Name: REYNALDO KNUTSON MRN: [id number] date: 1980 Sex: F Assigned Patient Location: ER Current Patient Location: ER Accession/Order Number: [id number] Exam Date: 02/08/2025 21:18 Report Date: 02/08/2025 21:30 At the request of: YOUNG HIRSCH DO Procedure: CT head/brain wo con CT head/brain wo con 02/08/2025 9:23 PM SIGNS AND SYMPTOMS: ^left sided migraine x 3 weeks TECHNIQUE:Multi-detector CT axial slices of the brain were obtained without IV contrast. CT was performed with one or more of the following dose reduction techniques: Automated exposure control, adjustment of the mA and/or kV according to patient size, or use of iterative reconstruction technique. COMPARISON: None. FINDINGS: There is no shift of the midline structures, acute intracranial bleeding, mass effects, or evidence of acute ischemia. The ventricular system is normal in size. The brainstem and the cerebellum are unremarkable. The visualized intraorbital contents, the visualized paranasal sinuses, and the infratemporal soft tissues show no acute abnormality. The osseous structures in the skull base and the calvarium show no abnormality. CT/CT head/brain wo con IMPRESSION: Normal noncontrasted CT brain. Impression dictated by: Placido Zayas M.D. 02/08/2025 9:30 PM Dictation Location: [place] [address] Electronically authenticated by: [id number] Y Date: 02/08/2025 21:30
[2025-02-08] MEDS: METHOCARBAMOL 500 MG TABLET PO (21:15)
[2025-02-08] MEDS: IBUPROFEN 600 MG TABLET PO (21:15)
[2025-02-08 21:51] VITALS: BP 170/90; PULSE 56; O2SAT 98
--- NOTE | 2025-02-08 23:37 | ED.GENADUL1 ---
HPI HPI - General Adult General Chief complaint: Headache Stated complaint: HEAD PAIN Time Seen by Provider: 02/08/25 20:48 Source: patient Mode of arrival: walk-in History of Present Illness HPI narrative: Patient is a 44-year-old female presenting to the emergency department for evaluation of head pain. Patient states she was diagnosed with shingles of the left side of her scalp/head 3 weeks ago. She states she finished a course of valacyclovir a week ago. However, she states her symptoms have only gotten worse. She states she never developed a rash during this time. She states that her symptoms first started 3 weeks ago with pain in the left side of her neck. It then radiated to the left side of her scalp and now involves the whole left side of her face. She states that even light touch makes the pain worse. She states she seen her chiropractor for the symptoms. They did an x-ray of her neck, which she said was unchanged from prior x-rays. Other than left-sided facial/scalp/neck pain, she has no other associated symptoms. She denies any visual changes, hearing changes, change in her taste or smell. She has no numbness or tingling in her extremities. No weakness in extremities. No gait imbalance. She has no headaches or photophobia or fevers, or neck stiffness. Related Data Home Medications ?Medication ?Instructions ?Recorded ?Confirmed buprenorphine 64 mg/0.18 mL 64 mg subcut Q28D 07/16/24 07/16/24 solution,exten.rel.subcutaneous syringe (Brixadi Monthly) clonazepam 0.5 mg tablet 0.5 mg PO TID 07/16/24 07/16/24 dextroamphetamine-amphetamine ER 30 mg PO DAILY 07/16/24 07/16/24 30 mg 24hr capsule,extend release gabapentin 800 mg tablet 800 mg PO TID 07/16/24 07/16/24 secukinumab 150 mg/mL subcutaneous 300 mg subcut DAILY 07/16/24 07/16/24 pen injector (Cosentyx Pen 300 mg/2 pens () quetiapine 300 mg tablet,extended 300 mg PO .qhs 07/18/24 07/18/24 release 24 hr Allergies Allergy/AdvReac Type Severity Reaction Status Date / Time No Known Drug Allergies Allergy Verified 07/16/24 21:04 Opioid HPI Opioid Management Most Recent Opioid Data: Last Pain Scale 6 Today, 20:59 Last ORT Total Score 1 07/17/24, 01:19 Last ORT Risk Category Low Risk 07/17/24, 01:19 Review of Systems ROS Status of ROS 10 or more systems reviewed and unremarkable except as noted in history and below [facility] Medical History (Updated 02/08/25 @ 21:42 by Shar Ruvalcaba, DO) Psoriasis ?L40.9 - Psoriasis, unspecified (ICD-10) Immunocompromised patient ?D84.9 - Immunodeficiency, unspecified (ICD-10) Social History Little interest or pleasure in doing things: not at all Feeling down, depressed, or hopeless: not at all Exam Narrative Exam Narrative: CONSTITUTIONAL: Well-appearing, answering questions and following commands appropriately SKIN: Was warm and dry, there are no rashes or vesicles anywhere on the face/scalp/neck EYES: Sclerae white. No conjunctival exudates or lesions. No ptosis. Bilateral TMs are pearly noe without vesicles in the external auditory meatus. EARS, NOSE, THROAT: Moist oral mucosa. RESPIRATORY: Clear to auscultation bilaterally, no wheezes, crackles, or stridor, no use of accessory muscles CARDIOVASCULAR: Normal rate and regular rhythm. There is no S3, S4, murmur, rub. GASTROINTESTINAL: Abdomen is nondistended. MUSCULOSKELETAL: With mild palpation of the patient's scalp, she has significant sensation of pain. There is no scalp swelling, hematoma, or other gross changes visible. Full ROM in the neck. No nuchal rigidity. NEUROLOGIC: Patient is alert and oriented to person place and time with normal speech. Memory is normal and thought process is intact. Sensation: sensation to light touch is intact bilaterally in upper and lower extremities. Motor: Good muscle tone. Strength is 5/5 bilaterally in the upper and lower extremities. Cerebellar: Finger to nose intact. Patient has a normal gait without ataxia. Cranial Nerves: Pupils are round, reactive to light and accommodation. Extraocular movements are intact without ptosis. No nystagmus. Facial sensation intact bilaterally to light touch in the V1, V2, V3 distribution. Facial muscle strength is normal and equal bilaterally. Hearing is normal bilaterally. Palate and uvula elevate symmetrically. Shoulder shrug strong and equal bilaterally. Tongue protrudes midline and moves symmetrically. Constitutional Vital Signs, click to edit/add: Last Vital Signs Temp 97.6 F 02/08/25 16:56 Pulse 56 L 02/08/25 21:51 Resp 18 02/08/25 21:51 BP 170/90 H 02/08/25 21:51 Pulse Ox 98 02/08/25 21:51 O2 Del Method Room Air 02/08/25 16:56 Course Vital Signs Vital signs: Vital Signs Temperature 97.6 F 02/08/25 16:56 Pulse Rate 65 02/08/25 16:56 Respiratory Rate 18 02/08/25 16:56 Blood Pressure 142/94 H 02/08/25 16:56 Pulse Oximetry 98 02/08/25 16:56 Oxygen Delivery Method Room Air 02/08/25 16:56 Temperature 97.6 F 02/08/25 16:56 Pulse Rate 56 L 02/08/25 21:51 Respiratory Rate 18 02/08/25 21:51 Blood Pressure 170/90 H 02/08/25 21:51 Pulse Oximetry 98 02/08/25 21:51 Oxygen Delivery Method Room Air 02/08/25 16:56 Medical Decision Making [facility] Narrative Medical decision making narrative: Patient is a 44-year-old female presenting to the emergency department a 3-week history of worsening left-sided neck/scalp/facial pain. Her vital signs on arrival are within normal limits. She is afebrile and hemodynamically stable. Examination as noted above. Other than pain out of proportion to exam upon palpation of her scalp, there are no other abnormalities. She has no neurologic deficits. The patient's presentation is consistent with what appears to be allodynia on the left side of her scalp/occiput/neck. This may be related to occipital neuralgia, migraine headache, or other neuropathic/musculoskeletal etiologies. Though she was diagnosed and treated for shingles, there does not appear to be any evidence of herpes zoster rash. There is no midline C-spine tenderness, fevers, nuchal rigidity, and has full range of motion of the neck without neurologic deficits. Low concern for etiology such as vertebral artery dissection, subarachnoid hemorrhage, or meningitis. Given the 3-week duration of her symptoms, CT head was ordered to rule out underlying intracranial pathology. She was given oral Motrin and Robaxin for symptomatic treatment. CT head independently reviewed/interpreted by myself demonstrated no acute intracranial pathology or hemorrhage. I do believe the patient is stable for discharge at this time. Unclear as to the exact etiology, though I have low concern for an acute, emergent, life-threatening pathology causing her symptoms. They were instructed to follow up with her PCP for further care. Return precautions were given including any new or worsening symptoms. Patient understands and agrees to the plan. FINAL IMPRESSION: #Acute left-sided neck and scalp pain, possible occpitial neuralgia #Acute allodynia of the scalp DISPOSITION: Discharged home CONDITION: Good Imaging Data CT scan - head: Attestation: I personally reviewed and interpreted this imaging study as follows: Radiologist's impression: ITS Impressions Head CT 02/08/25 21:09 IMPRESSION: Normal noncontrasted CT brain. Impression dictated by: Placido Zayas M.D. 02/08/2025 9:30 PM Dictation Location: [place] [address] Electronically authenticated by: [id number] Y Date: 02/08/2025 21:30 Discharge Plan Discharge Chief Complaint: Headache Clinical Impression: Allodynia, Headache Patient Disposition: Home, Self-Care Time of Disposition Decision: 21:42 Condition: Good Mode of Transportation: Private Vehicle Prescriptions / Home Meds: No Action Brixadi 64 mg/0.18 mL solution, extended rel syringe 64 mg SUBCUT Q28D dextroamphetamine-amphetamine 30 mg capsule,extended release 24hr 30 mg PO DAILY clonazepam 0.5 mg tablet 0.5 mg PO TID gabapentin 800 mg tablet 800 mg PO TID Cosentyx Pen (2 Pens) 150 mg/mL pen injector 300 mg SUBCUT DAILY quetiapine 300 mg tablet extended release 24 hr 300 mg PO .[facility] Print Language: Norwegian Instructions: Acute Headache (ED) Additional Instructions: Follow up with your family DR, return to ER for any problems or concerns Referrals: Janeth Bonilla NP [Primary Care Provider] - 1 week Discharge Date/Time: 02/08/25 21:52
== END 2025-02-08 21:52 | disposition home or self-care (01) ==
PROVIDERS: Emergency Provider Student in an Organized Health Care Education/Training Program; PCP Nurse Practitioner Family
DX: R51.9 Headache, unspecified (principal); R20.8 Other disturbances of skin sensation
CPT/HCPCS: 70450; 99284